=== PATIENT | male | born 1965 | race Caucasian/White ===

== ENCOUNTER 2016-04-28 14:10 | Inpatient (IN) | payer OTHER ==
[~2016-04-28] VITALS: Ht 167.6 cm; Wt 97.4 kg
[~2016-04-28 14:10] MED LIST: ATOR80TA75 PO; CARV6.2579 PO; FURO20TA3 PO; LISI-313 PO; METF500T4 PO; NATE60TA8 PO; NITR0.4T6 SL; TICA90TA PO
--- NOTE | 2016-04-28 14:47 | ERA ---
ER Documentation Chief Complaint Date/Time DATE: 04/28/16 TIME: 14:47 Chief Complaint Shortness of breath HPI The patient is a 50-year-old male, presenting to the ER because of acute dyspnea , acute dyspnea on exertion, leg edema for 1 week. He has similar symptoms previously. He denies fever, chills, neck pain, chest pain, diaphoresis. He feels as if his abdomen is swollen, denies vomiting, diarrhea, dysuria, polyuria. He does not smoke, drink Past medical history: Dyslipidemia, hypertension, diabetes mellitus, CAD, history of CHF, cardiomyopathy with low EF of 25% Past surgical history: Stent PCI 5, last stent was January 12, 2006 ROS All systems reviewed and are negative except as per history of present illness. Medications Home Meds Active Scripts Carvedilol* (Carvedilol*) 6.25 Mg Tablet, 6.25 MG PO BID for 30 Days, TAB 2 [facility]/16/16 Furosemide* (Furosemide*) 20 Mg Tablet, 20 MG PO DAILY for 14 Days, TAB [facility] 01/16/16 Lisinopril* (Lisinopril*) 5 Mg Tablet, 5 MG PO DAILY, #30 TAB 2 [facility] 01/16/16 Metformin* (Glucophage*) 500 Mg Tab, 500 MG PO BID for 30 Days, 2 Refills [facility] 01/16/16 Nateglinide* (Starlix*) 60 Mg Tablet, 60 MG PO DAILY for 30 Days, 2 Refills [facility] 01/16/16 Reported Medications Isosorbide Mononitrate (Isosorbide Mononitrate) 10 Mg Tablet, 10 MG PO BID, TAB 04/28/16 Clopidogrel Bisulfate* (Clopidogrel Bisulfate*) 75 Mg Tablet, 75 MG PO DAILY, # 30 TAB 04/28/16 Cholecalciferol (Vitamin D3) 5,000 Unit Tablet, 5000 UNIT PO DAILY, TAB 04/28/16 Aspirin* (Aspirin* EC) 325 Mg Tab, 325 MG PO DAILY, TAB 04/28/16 Atorvastatin* (Atorvastatin*) 80 Mg Tablet, 80 MG PO QHS, #30 TAB 1/24/17 Discontinued Scripts Atorvastatin* (Atorvastatin*) 80 Mg Tablet, 80 MG PO DAILY@21 for 30 Days, TAB 2 Refills Prov:MEL ANDREWS. 01/16/16 Ticagrelor* (Brilinta*) 90 Mg Tablet, 90 MG PO BID for 30 Days, TAB 2 Refills Prov:MEL ANDREWS. 01/16/16 Nitroglycerin* (Nitroglycerin* SL) 0.4 Mg Tab.subl, 0.4 MG SL Q5MIN Y for CHEST PAIN for 30 Days, BOTTLE 2 Refills Prov:CLIFF ROONEY. 04/24/14 Allergies Allergies: Coded Allergies: No Known Allergies (Verified Allergy, Unknown, 04/28/16) PMhx/Soc History of Surgery: Yes (HEART CATHETERIZATION) Anesthesia Reaction: No Hx Neurological Disorder: No Hx Respiratory Disorders: No Hx Cardiac Disorders: Yes (HTN) Hx Psychiatric Problems: No Hx Miscellaneous Medical Probl: No Hx Alcohol Use: Yes (OCASSIONALLY) Hx Substance Use: No Hx Tobacco Use: No Physical Exam Vitals Vital Signs Date Time Temp Pulse Resp B/P Pulse Ox O2 Delivery O2 Flow Rate FiO2 04/28/16 14:52 98.6 110 22 149/120 98 Room Air 04/28/16 14:15 97.6 119 24 174/111 98 Physical Exam Const: No acute distress. Head: Atraumatic. Eyes: Normal Conjunctiva. ENT: Normal External Ears, Nose and Mouth. Neck: Full range of motion. No meningismus. Resp: Bibasilar crackles Cardio: Regular rate and rhythm, no murmurs. Abd: Soft, non distended, normal bowel sounds, non tender. Skin: No petechiae or rashes. Back: No midline or flank tenderness. Ext: Bilateral leg edema, no calf tenderness Neur: Awake and alert. No focal deficit Psych: Normal Mood and Affect. Result Diagram: 04/28/16 1450 04/28/16 1450 Results 24 hrs Laboratory Tests Test 04/28/16 14:50 04/28/16 16:30 Activated Partial Thromboplast Time 32.0Sec Alanine Aminotransferase (ALT/SGPT) 26IU/L Albumin 4.1g/dl Albumin/Globulin Ratio 1.24 Alkaline Phosphatase 80IU/L Anion Gap 18 Aspartate Amino Transf (AST/SGOT) 21IU/L B-Type Natriuretic Peptide 53781MF/ML Basophils # 0.010^3/ul Basophils % 0.5% Blood Morphology Comment Blood Urea Nitrogen 22mg/dl Calcium Level 9.2mg/dl Carbon Dioxide Level 22mmol/L Chloride Level 105mmol/L Creatinine 1.41mg/dl Direct Bilirubin 0.00mg/dl Eosinophils # 0.110^3/ul Eosinophils % 1.1% Globulin 3.30g/dl Glucose Level 181mg/dl Hematocrit 47.1% Hemoglobin 15.4g/dl INR International Normalized Ratio 1.12 Indirect Bilirubin 0.9mg/dl Lipase 106U/L Lymphocytes # 2.310^3/ul Lymphocytes % 24.5% Mean Corpuscular Hemoglobin 28.8pg Mean Corpuscular Hemoglobin Concent 32.8g/dl Mean Corpuscular Volume 87.7fl Mean Platelet Volume 8.3fl Monocytes # 0.910^3/ul Monocytes % 10.1% Neutrophils # 5.910^3/ul Neutrophils % 63.8% Nucleated Red Blood Cells # 0.010^3/ul Nucleated Red Blood Cells % 0.0/100WBC Platelet Count 97124^3/UL Potassium Level 4.4mmol/L Prothrombin Time 14.4Sec Prothrombin Time Ratio 1.1 Red Blood Count 5.3710^6/ul Red Cell Distribution Width 14.2% Sodium Level 141mmol/L Total Bilirubin 0.9mg/dl Total Protein 7.4g/dl Troponin I 0.041ng/ml White Blood Count 9.210^3/ul Urine Bilirubin NEGATIVE Urine Clarity CLEAR Urine Color LT. YELLOW Urine Glucose NEGATIVE% Urine Hemoglobin 2+ Urine Ketones NEGATIVE Urine Leukocyte Esterase NEGATIVE Urine Microscopic RBC 0-2/HPF Urine Microscopic WBC 0-2/HPF Urine Nitrite NEGATIVE Urine Specific [place] >=1.030 Urine Squamous Epithelial Cells RARE Urine Total Protein 4+ Urine Urobilinogen 0.2 E.U./dL Urine pH 5.5 Current Medications Medications (Trade) Dose Ordered Sig/Eva Route PRN Reason Start Time Stop Time Status Last Admin Dose Admin Furosemide (Lasix) 40 mg ONCE ONCE IV 04/28/16 17:00 04/28/16 17:01 DC Procedures/MDM EKG: Read by emergency physician Rate/Rhythm: Sinus tachycardia 114 beats per min QRS, ST, T-waves: No ST elevation, no T wave inversion, left atrial enlargement, LAD Impression: Abnormal EKG [place] [id number] Rad[facility] Main Line: [phone] DIAGNOSTIC IMAGING REPORT Patient: DAIJA MAYO : 1965 Age: 50 Sex: M MR #: [id number] DOS: 04/28/16 1544 Ordering MD: YOLANDE FUENTES MD Location: E/R Room/Bed: PROCEDURE: Chest x-ray CLINICAL INDICATION: Shortness of breath TECHNIQUE: Chest single view COMPARISON: 01/13/2016 FINDINGS: There is stable moderate cardiomegaly. Mild interstitial CHF is seen. No confluent pneumonias identified. Costophrenic angles sharp. Bony thorax is unremarkable. IMPRESSION: Cardiomegaly with mild interstitial CHF RPTAT: HH .Juan Hare MD, MD Date Time Electronically viewed and signed by .Juan Hare MD, MD on 04/28/2016 16:08 .W/ CC: YOLANDE FUENTES MD MEDICAL MAKING DECISION: The patient is a 50-year-old male, presenting with acute CHF exacerbation. He was treated Lasix 40 IV for acute CHF with good response. The differential diagnoses considered include but are not limited to asthma, COPD, pneumonia, pulmonary embolus, pleural effusion, congestive heart failure. Departure Diagnosis: Primary Impression: CHF exacerbation Condition: Stable Comments I discussed the findings with the patient. I discussed the patient with hospitalist Dr. Calvo who was made aware of the lab, the treatment, the patient condition. The patient is admitted to telemetry at 5:05 PM YOLANDE FUENTES MD Apr 28, 2016 14:47
[2016-04-28 15:02] LABS: BASOPHILS % 0.5 % (0.0-2.0); EOSINOPHILS # 0.1 10^3/ul (0.0-0.5); EOSINOPHILS % 1.1 % (0.0-7.0); HEMATOCRIT 47.1 % (42.0-52.0); HEMOGLOBIN 15.4 g/dl (14.0-18.0); LYMPHOCYTES # 2.3 10^3/ul (0.8-2.9); LYMPHOCYTES % 24.5 % (15.0-51.0); MEAN CORPUSCULAR HEMOGLOBIN 28.8 pg (29.0-33.0); MEAN CORPUSCULAR HGB CONC 32.8 g/dl (32.0-37.0); MEAN CORPUSCULAR VOLUME 87.7 fl (82.0-101.0); MEAN PLATELET VOLUME 8.3 fl (7.4-10.4); MONOCYTE # 0.9 10^3/ul (0.3-0.9); MONOCYTES % 10.1 % (0.0-11.0); NEUTROPHIL # 5.9 10^3/ul (1.6-7.5); NEUTROPHILS % 63.8 % (39.0-77.0); PLATELET COUNT 215 10^3/UL (140-440); RED BLOOD COUNT 5.37 10^6/ul (4.70-6.10); RED CELL DISTRIBUTION WIDTH 14.2 % (11.5-14.5); UNCORRECTED WBC 9.2 10^3/ul (4.8-10.8); WHITE BLOOD COUNT 9.2 10^3/ul (4.8-10.8)
[2016-04-28 15:12] LABS: INR 1.12; PROTIME 14.4 Sec (12.2-14.2); PT RATIO 1.1
[2016-04-28 15:13] LABS: ALBUMIN 4.1 g/dl (3.3-4.9)
[2016-04-28 15:14] LABS: POTASSIUM 4.4 mmol/L (3.5-5.1)
[2016-04-28 15:16] LABS: ALBUMIN/GLOBULIN RATIO 1.24; BILIRUBIN,INDIRECT 0.9 mg/dl (0-1.1); BILIRUBIN,TOTAL 0.9 mg/dl (0.2-1.3); CONDITION 1; CREATININE 1.41 mg/dl (0.61-1.24); TOTAL PROTEIN 7.4 g/dl (6.1-8.1)
[2016-04-28 15:17] LABS: CALCIUM 9.2 mg/dl (8.4-10.2)
[2016-04-28 15:29] LABS: TROPONIN-I 0.041 ng/ml (0.00-0.12)
[2016-04-28] MEDS ORDERED: ATOR80TA75 PO (15:33)
[2016-04-28] MEDS ORDERED: ASPI325T32 PO (15:34)
[2016-04-28] MEDS ORDERED: CLOP75TA4 PO (15:35)
[2016-04-28] MEDS ORDERED: CHOL500010 PO (15:35)
[2016-04-28] MEDS ORDERED: ISOS10TA45 PO (15:38)
--- NOTE | 2016-04-28 16:09 | RADRPT ---
PROCEDURE: Chest x-ray CLINICAL INDICATION: Shortness of breath TECHNIQUE: Chest single view COMPARISON: 01/13/2016 FINDINGS: There is stable moderate cardiomegaly. Mild interstitial CHF is seen. No confluent pneumonias iden tified. Costophrenic angles sharp. Bony thorax is unremarkable. IMPRESSION: Cardiomegaly with mild interstitial CHF RPTAT: HH .Juan Hare MD, Date Time Electronically viewed and signed by .Juan Hare MD, on 04/28/2016 16:08 .W/
[2016-04-28 16:55] LABS: ADD UMIC YES; URINE BILIRUBIN (Dip) NEGATIVE (NEGATIVE); URINE BLOOD (Dip) 2+ (NEGATIVE); URINE COLOR LT. YELLOW (YELLOW); URINE GLUCOSE (Dip) NEGATIVE (NEGATIVE); URINE KETONES (Dip) NEGATIVE (NEGATIVE); URINE LEUKOCYTE ESTERASE (Dip) NEGATIVE (NEGATIVE); URINE NITRITE (Dip) NEGATIVE (NEGATIVE); URINE TOTAL PROTEIN (Dip) 4+ (NEGATIVE); URINE UROBILINOGEN (Dip) 0.2 E.U./dL (0.1-1.0)
[2016-04-28] MEDS ORDERED: FUROSEMIDE 40 MG INJ IV ONE (17:00)
[2016-04-28 17:05] LABS: SQUAMOUS EPITHELIAL CELL,UR RARE; URINE RBCS 0-2 /HPF (0)
[2016-04-28 17:17] VITALS: TEMP 98.6
[2016-04-28] MEDS ORDERED: LORAZEPAM 0.5 MG TAB PO PRN (17:30)
[2016-04-28] MEDS ORDERED: NACL 0.9% 3 ML SYG IV SCH (17:30)
[2016-04-28] MEDS ORDERED: ONDANSETRON 4 MG TAB PO PRN (17:30)
[2016-04-28] MEDS ORDERED: ACETAMINOPHEN 325 MG TAB PO PRN (17:30)
[2016-04-28] MEDS ORDERED: NITROGLYCERIN (SL) 0.4 MG TAB SL PRN (17:30)
[2016-04-28] MEDS ORDERED: DOCUSATE SODIUM 100 MG CAP PO PRN (17:30)
[2016-04-28] MEDS ORDERED: GLUCAGON 1 MG INJ IM PRN (18:00)
[2016-04-28] MEDS ORDERED: DEXTROSE 50% 50 ML SYRINGE IV PRN ×2 (18:00)
[2016-04-28] MEDS ORDERED: GLUCOSE GEL 15 GRAM TUBE PO PRN ×2 (18:00)
[2016-04-28] MEDS ORDERED: GLUCOSE GEL 15 GRAM TUBE BUCCAL PRN (18:00)
[2016-04-28 19:55] LABS: CK-MB 2.6 ng/ml (0.0-2.4)
[2016-04-28 19:57] LABS: TROPONIN-I 0.052 ng/ml (0.00-0.12)
--- NOTE | 2016-04-28 20:20 | HP ---
DATE OF ADMISSION: 04/28/2016 CONSULTANTS: 1. Nuclear Medical Technologist. 2. Beer Runner. CHIEF COMPLAINT: Shortness of breath. HISTORY OF PRESENT ILLNESS: This is a 50-year-old gentleman with past medical history of congestive heart failure, coronary artery disease, cardiomyopathy with ejection fraction of 25% on 2D echocard iogram of 01/14/2016, coronary artery disease status post balloon angioplasty and stent placement of the mid left circumflex with drug-eluting stent on 01/13/2016, diabetes mellitus, hypertension, dys lipidemia, chronic renal insufficiency, diabetic nephropathy who has been complaining of having abdo hien distention, shortness of breath, paroxysmal nocturnal dyspnea, and difficulty ambulating great er than 2 blocks secondary to shortness of breath who presents to [facility] with the above complaints. The patient stated that he has been compliant with his medication. Upon eval uation in the course of emergency room, the patient's chest x-ray demonstrated cardiomegaly with mil d interstitial CHF. His BNP was found to be 12,200. Creatinine 1.41, BUN 22. Troponin is normal a t 0.041. The patient continues to complain of having shortness of breath with any type of activity for the past week with exacerbation and worsening of symptoms for the past 2 days. PAST MEDICAL AND SURGICAL HISTORY: As above per HPI. MEDICATIONS: 1. Aspirin 325 mg daily. 2. Lipitor 80 mg. 3. Coreg 6.25 mg. 4. Vitamin D 5000 units. 5. Plavix 75 mg. 6. Lasix 20 mg daily. 7. Isosorbide mononitrate 10 mg b.i.d. 8. Lisinopril 5 mg daily. 9. Metformin 500 mg p.o. b.i.d. 10. Starlix 60 mg p.o. daily. ALLERGIES: NO KNOWN DRUG ALLERGIES. FAMILY HISTORY: Positive for hypertension, diabetes mellitus, dyslipidemia. SOCIAL HISTORY: Denies having any history of smoking. He drinks only on special occasions. No ill icit drugs. Lives at home with his family. REVIEW OF SYSTEMS: As above per HPI. Denies any fever, chills, weight gain, weight loss, anorexia. No chest pain, no palpitation. Positive for edema. Positive for abdominal distention. Positive for shortness of breath, lower extremity edema. Positive for paroxysmal nocturnal dyspnea. No dysu cody, hematuria, urgency, incontinence. No neck pain, no restricted range of motion in upper or lowe r extremities. No heat and cold intolerance. Other 12 review of systems has been found to be negat hortensia. PHYSICAL EXAMINATION: VITAL SIGNS: Temperature 98.6, pulse 100, respiration 22, blood pressure 145/107, oxygen 98% on 2 l iters via nasal cannula. GENERAL APPEARANCE: The patient is lying in bed comfortably without any distress. He is awake, jazmine rt, oriented. He is able to answer my questions properly. He is not using any accessory muscles fo r breathing. EYES AND EARS, NOSE, THROAT: Conjunctivae and lids are normal. Pupils are normal. Extraocular nor mal. Hearing grossly normal. Lips, teeth, and gums are normal. Oral mucosa is moist. NECK: Supple. Trachea is midline. No lymphadenopathy. RESPIRATORY: Effort is normal. Decreased breath sounds bilateral lower lung john. Positive for crackles. No wheezing, no rales, no rhonchi. GASTROINTESTINAL: Abdomen is soft, nontender, not distended. Bowel sounds present. No guarding, n o rebound. GENITOURINARY: Deferred. MUSCULOSKELETAL: Upper and lower extremities within normal limits. Positive 1 edema bilateral lowe r extremities. NEUROLOGIC: Cranial nerves II through XII are grossly intact. PSYCHIATRIC: Normal judgment and insight. Alert and oriented x3. Mood and affect is normal. LABORATORY WORK AND IMAGING: Sodium 141, potassium 4.4, chloride 105, bicarbonate 22, BUN 22, creat inine 1.41, glucose 181. LFTs all within normal limits. BNP 12,200. Troponin 0.041. WBC 9.8, hem oglobin 15.4, hematocrit 47.1, platelets 215. Urinalysis negative. Urine hemoglobin positive 2, to leigh protein positive 4, otherwise negative for RBC, WBC, leukocyte esterase. EKG showed sinus tachy cardia with ventricular rate of 114, no ST elevation, no T-wave inversion, left atrial enlargement, LAD, no sign of ST elevation or depression, no sign of ischemia. ASSESSMENT AND PLAN: 1. Congestive heart failure exacerbation with a history of coronary artery disease and percutaneous coronary intervention with last 2D echocardiogram on 01/2016 ejection fraction of 25%. The patient will be continued on beta-vicky, Lasix, and lisinopril. Cardiology has been consulted. Will fol low their recommendation. Continue diuresis. 2. History of coronary artery disease. Continue statin, Coreg, aspirin. Follow up serial troponin . 3. Diabetes mellitus. Place the patient on insulin sliding scale. Continue metformin, Starlix, lo w carb diet. 4. Essential hypertension. Continue Coreg, Lasix, isosorbide mononitrate, and lisinopril. 5. Diabetic nephropathy. Nephrology has been consulted. Continue lisinopril. Continue to monitor glucose level and treat accordingly. 6. Acute renal insufficiency. The patient's renal panel at baseline is between 0.7 to 1.10. At th is time, the patient's creatinine is 1.41. We will follow up nephrology recommendation, gentle diur esis, and nephrotoxic medication should be used with caution. 7. For deep venous thrombosis prophylaxis, on Lovenox. 8. For gastrointestinal prophylaxis, on proton pump inhibitor. 9. We will continue to monitor patient closely. Further recommendations, management, and treatment as per clinical course. Total amount of time was spent for evaluation of patient and admission workup 45 minutes. Dictated By: CARLOS MANUEL BLANCO/NTS Conf#: [id number] DID#: [id number]
[2016-04-28] MEDS: FUROSEMIDE 20 MG INJ IV SCH (20:58)
[2016-04-28] MEDS ORDERED: ISOSORBIDE MONONITRATE 10 MG TABLET PO SCH (21:00)
[2016-04-28] MEDS: INSULIN ASPART [NOVOLOG] 3 ML PEN SC SCH ×2 (21:00→21:26)
[2016-04-28] MEDS: ATORVASTATIN 80 MG TAB PO SCH (21:19)
[2016-04-28] MEDS: ISOSORBIDE MONONITRATE 20 MG TAB PO SCH (21:20)
[2016-04-28 21:54] VITALS: PULSE 100
[2016-04-28 22:00] VITALS: BP 146/95; RESP 20
[2016-04-28 22:29] VITALS: Ht 167.6 cm; Wt 97.4 kg
[2016-04-29] VITALS (13 sets, daily range): BP systolic 106–138; BP diastolic 73–90; PULSE 72–86; RESP 20–21
[2016-04-29 00:28] LABS: TROPONIN-I 0.05 ng/ml (0.00-0.12)
[2016-04-29 00:38] LABS: CK-MB 2.22 ng/ml (0.0-2.4)
[2016-04-29] MEDS: FUROSEMIDE 20 MG INJ IV SCH ×2 (06:14→17:30)
[2016-04-29] MEDS: INSULIN ASPART [NOVOLOG] 3 ML PEN SC SCH ×4 (07:48→21:00)
[2016-04-29 08:13] LABS: BASOPHILS % 0.7 % (0.0-2.0); EOSINOPHILS # 0.3 10^3/ul (0.0-0.5); EOSINOPHILS % 4.6 % (0.0-7.0); HEMATOCRIT 42.2 % (42.0-52.0); HEMOGLOBIN 13.9 g/dl (14.0-18.0); LYMPHOCYTES # 1.7 10^3/ul (0.8-2.9); LYMPHOCYTES % 27.8 % (15.0-51.0); MEAN CORPUSCULAR HEMOGLOBIN 28.7 pg (29.0-33.0); MEAN CORPUSCULAR HGB CONC 32.9 g/dl (32.0-37.0); MEAN CORPUSCULAR VOLUME 87.2 fl (82.0-101.0); MEAN PLATELET VOLUME 8.5 fl (7.4-10.4); MONOCYTE # 0.6 10^3/ul (0.3-0.9); MONOCYTES % 10.5 % (0.0-11.0); NEUTROPHIL # 3.5 10^3/ul (1.6-7.5); NEUTROPHILS % 56.4 % (39.0-77.0); PLATELET COUNT 186 10^3/UL (140-440); RED BLOOD COUNT 4.84 10^6/ul (4.70-6.10); RED CELL DISTRIBUTION WIDTH 14.8 % (11.5-14.5); UNCORRECTED WBC 6.2 10^3/ul (4.8-10.8); WHITE BLOOD COUNT 6.2 10^3/ul (4.8-10.8)
[2016-04-29] MEDS: ENOXAPARIN 40 MG/0.4 ML SYG SC SCH (08:21)
[2016-04-29] MEDS: CLOPIDOGREL 75 MG TAB PO SCH (08:21)
[2016-04-29] MEDS: CHOLECALCIFEROL 1,000 UNIT TAB PO SCH (08:21)
[2016-04-29] MEDS: ISOSORBIDE MONONITRATE 20 MG TAB PO SCH ×2 (08:22→21:17)
[2016-04-29] MEDS: metFORMIN 500 MG TAB PO SCH ×2 (08:23→17:29)
[2016-04-29] MEDS: LISINOPRIL 5 MG TAB PO SCH (08:24)
[2016-04-29 08:25] LABS: POTASSIUM 4.2 mmol/L (3.5-5.1)
[2016-04-29 08:27] LABS: CREATININE 1.3 mg/dl (0.61-1.24)
[2016-04-29 08:28] LABS: CALCIUM 8.8 mg/dl (8.4-10.2); MAGNESIUM 1.6 mg/dl (1.7-2.5)
[2016-04-29 08:34] LABS: CK-MB 2.02 ng/ml (0.0-2.4); TROPONIN-I 0.044 ng/ml (0.00-0.12)
[2016-04-29 08:37] LABS: CONDITION 1; LH ANALYZER COMMENTS 1
[2016-04-29] MEDS ORDERED: FUROSEMIDE 20 MG TAB PO SCH (09:00)
[2016-04-29] MEDS ORDERED: ASPIRIN (EC) 325 MG TAB PO SCH (09:00)
[2016-04-29] MEDS ORDERED: NATEGLINIDE 60 MG TAB PO SCH (09:00)
--- NOTE | 2016-04-29 10:02 | RADRPT ---
PROCEDURE: Retroperitoneal US. CLINICAL INDICATION: fernanda TECHNIQUE: Multiple sonographic images of the retroperitoneum were obtained. The images were revi ewed on a PACS workstation. COMPARISON: No prior studies are available for comparison. FINDINGS: The right kidney measures 11.6 cm. The left kidney measures 9.5 cm. There is left renal cortical thi nning of approximately 1 cm. There is no significant renal cortical thinning on the right. The renal parenchymal echotexture is normal. There is no hydronephrosis. There are no shadowing renal calculi. The bladder is grossly unremarkable. IMPRESSION: Asymmetric atrophy of the left kidney without significantly increased renal parenchymal echogenicity to suggest medical renal disease. The bladder is grossly unremarkable. RPTAT: EE Physician Ena Date Time Electronically viewed and signed by Physician Ena on 04/29/2016 10:02 /
--- NOTE | 2016-04-29 10:19 | CONS ---
DATE OF ADMISSION: 04/28/2016 DATE OF CONSULTATION: 04/29/2016 TYPE OF CONSULTATION: Nephrology. REASON FOR CONSULTATION: Acute kidney injury. PHYSICIAN REQUESTING CONSULT: Dr. Calvo. HISTORY OF PRESENT ILLNESS: This is a 50-year-old male with a past medical history of CHF, cardiomy opathy with ejection fraction of 25%, history of coronary artery disease, status post percutaneous c oronary intervention to left circumflex in January 2016, history of diabetes, hypertension, dyslipid emia, history of CKD with baseline creatinine around 1.1 mg/dL, who presents to [facility] with shortness of breath and abdominal distention. The patient states over the last severa l days she has noted increasing dyspnea on exertion in conjunction with paroxysmal nocturnal dyspnea . The patient's symptoms exacerbated after walking several feet. This patient as a result came int o the emergency room for evaluation. Upon arrival, the patient had a chest x-ray which showed cardi omegaly with interstitial CHF. In the emergency room, the patient was given IV diuretics and admitt ed to telemetry med/surg for further evaluation. In terms of the patient's renal history, the patient's baseline creatinine ranges between 1.0 to 1.2 mg/dL. The patient does take an URSULA inhibitor and diuretics at home. The patient denies any recen t NSAID use. Denies any hemoptysis, hematochezia, denies any frothy urine, any rashes. PAST MEDICAL HISTORY: As stated above, history of CHF, coronary artery disease, chronic kidney dise ase, cardiomyopathy, diabetes, hypertension, dyslipidemia. PAST SURGICAL HISTORY: Status post PCI. ALLERGIES: NO KNOWN DRUG ALLERGIES. FAMILY HISTORY: Positive for diabetes, hypertension. MEDICATIONS: The patient's medications have been reviewed. SOCIAL HISTORY: Does not drink or smoke. REVIEW OF SYSTEMS: A 14-point review of systems was conducted. Pertinent positives as stated in HP I, otherwise negative. PHYSICAL EXAMINATION: VITAL SIGNS: Blood pressure is 113/82, respirations 20, pulse 74, temperature 97.6. HEENT: Head is normocephalic. Pupils are reactive to light. NECK: Supple. HEART: Regular rate. LUNGS: Show diminished breath sounds at base. ABDOMEN: Soft, nontender to palpation. No rebound or guarding. EXTREMITIES: Negative for clubbing, cyanosis. Trace edema. DERMATOLOGIC: No rashes. MUSCULOSKELETAL: No joint effusions. NEUROLOGIC: No change in exam. MEDICATIONS: The patient's medications reviewed. LABORATORY DATA: Shows sodium 141, potassium 4.4, chloride 105, BUN 32, creatinine 1.41. BNP 12,00 0 and CBC within normal limits. The patient's urinalysis also shows +4 proteinuria. Chest x-ray as stated in HPI. ASSESSMENT AND PLAN: This is a 58-year-old male who presents with: 1. Nonoliguric acute kidney injury on top of chronic kidney disease stage III with a baseline creat inine of 1 to 1.2 mg/dL. Etiology of acute kidney injury is likely secondary to a hemodynamics, pos sible cardiorenal syndrome, URSULA inhibitor effect. The patient's urinalysis shows +4 proteinuria, bu t otherwise shows no pyuria, no hematuria. Therefore, low suspicion for acute glomerulonephritis, v asculitis or interstitial nephritis. The plan at this point would be to continue current treatment plan, continue diuretic therapy disease for underlying CHF. Would agree with continuing URSULA inhibit or at this time. We will further evaluate the patient's proteinuria by checking a protein/creatinin e ratio, albumin creatinine ratio. We will also check a renal ultrasound to evaluate underlying par enchymal and rule out obstruction. Otherwise, continue supportive care, renally dose all meds, avoi d nephrotoxins. 2. Chronic kidney disease. Etiology secondary to underlying diabetic nephropathy. The patient's u rinalysis does show proteinuria. Plan is to treat acute kidney injury as stated above. Rule out ot herwise quantified proteinuria by checking a protein/creatinine ratio, albumin/creatinine ratio and follow up renal ultrasound. Would otherwise continue disease, factor modifications with good glycem ic and blood pressure control. 3. Acute diastolic systolic heart failure. The patient is currently decompensated. Continue medic al management, monitor renal function closely. 4. Mineral bone disorder. Continue to monitor calcium and phosphorus levels. 5. Hypertension. Continue current blood pressure regimen. 6. History of coronary artery disease. Continue current medical management. 7. Diabetes. Continue Accu-Cheks, insulin sliding scale. Thank you, Dr. Calvo for this interesting consult. It will be a pleasure to follow patient with you throughout the hospital course. Dictated By: CHUCK NUNEZ/MAX Conf#: [id number] [facility]#: [id number]
[2016-04-29] MEDS: NATEGLINIDE 120 MG TAB PO SCH (10:21)
--- NOTE | 2016-04-29 14:40 | PN ---
Date/Time of Note Date/Time of Note DATE: 04/29/16 TIME: 14:35 Assessment/Plan VTE Prophylaxis VTE Prophylaxis Intervention: LMWH Lines/Catheters IV C[facility]ter Type (from [facility] Urinary Cath still in place: No Assessment/Plan Assessment/Plan 1. Congestive heart failure exacerbation, ischemic cardiomyopathy with ejection fraction of 25% in 01/2016. continue on beta-vicky, Lasix, and lisinopril. 2. Coronary artery disease. s/p PCI, Continue statin, Coreg, aspirin. 3. Diabetes mellitus. Place the patient on insulin sliding scale. Continue metformin, Starlix, low carb diet. 4. Essential hypertension. Continue Coreg, Lasix, isosorbide mononitrate, and lisinopril. 5. Diabetic nephropathy. Nephrology has been consulted. Continue lisinopril. Continue to monitor glucose level and treat accordingly. 6. Acute renal insufficiency. The patient's renal panel at baseline is between 0.7 to 1.10. At this time, the patient's creatinine is 1.41. We will follow up nephrology recommendation, gentle diuresis, and nephrotoxic medication should be used with caution. 7. For deep venous thrombosis prophylaxis, on Lovenox. 8. For gastrointestinal prophylaxis, on proton pump inhibitor Subjective 24 Hr Interval Summary Free Text/Dictation feels better today Exam/Review of Systems Vital Signs Vitals Vital Signs Date Time Temp Pulse Resp B/P Pulse Ox O2 Delivery O2 Flow Rate FiO2 04/29/16 12:37 85 04/29/16 12:00 98.7 20 116/73 98 04/29/16 08:00 Nasal Cannula 2.0 Intake and Output 04/28/16 04/28/16 04/29/16 15:00 23:00 07:00 Intake Total 420 ml Output Total 500 ml 900 ml Balance -500 ml -480 ml Exam Constitutional: alert, oriented, well developed Psych: nl mood/affect, no complaints Head: atraumatic, normocephalic Eyes: EOMI, PERRL, nl conjunctiva, nl lids, nl sclera ENMT: nl external ears & nose, nl lips & teeth, nl nasal mucosa & septum Neck: non-tender, supple Respiratory: crackles/rales (on the back ) Cardiovascular: nl pulses, regular rate and rhythm, No S3, No S4, No bruits, No diastolic murmur, No edema, No gallop, No irregular rhythm, No jugular venous distention (JVD), No murmurs/extra sounds, No rub, No systolic murmur Gastrointestinal: nl liver, spleen, non-tender, soft, No ascites, No bowel sounds, No distended, No firm, No hepatomegaly, No mass , No rebound or guarding, No splenomegaly, No surgical scars, No tender Musculoskeletal: nl extremities to inspection Neurological: [employer] II-XII intact, nl mental status, nl speech, nl strength Skin: nl turgor, rash or lesions Lymph: nl lymph nodes Results Result Diagram: 04/29/16 0702 04/29/16 0700 Results 24 hrs Laboratory Tests Test 04/28/16 14:50 04/28/16 16:30 04/28/16 19:20 04/28/16 21:26 Activated Partial Thromboplast Time 32.0 Alanine Aminotransferase (ALT/SGPT) 26 Albumin 4.1 Albumin/Globulin Ratio 1.24 Alkaline Phosphatase 80 Anion Gap 18 H Aspartate Amino Transf (AST/SGOT) 21 B-Type Natriuretic Peptide 55771 H Basophils # 0.0 Basophils % 0.5 Blood Morphology Comment Blood Urea Nitrogen 22 H Calcium Level 9.2 Carbon Dioxide Level 22 Chloride Level 105 Creatinine 1.41 H Direct Bilirubin 0.00 Eosinophils # 0.1 Eosinophils % 1.1 Globulin 3.30 H Glucose Level 181 Hematocrit 47.1 Hemoglobin 15.4 INR International Normalized Ratio 1.12 Indirect Bilirubin 0.9 Lipase 106 Lymphocytes # 2.3 Lymphocytes % 24.5 Mean Corpuscular Hemoglobin 28.8 L Mean Corpuscular Hemoglobin Concent 32.8 Mean Corpuscular Volume 87.7 Mean Platelet Volume 8.3 Monocytes # 0.9 Monocytes % 10.1 Neutrophils # 5.9 Neutrophils % 63.8 Nucleated Red Blood Cells # 0.0 Nucleated Red Blood Cells % 0.0 Platelet Count 215 Potassium Level 4.4 Prothrombin Time 14.4 H Prothrombin Time Ratio 1.1 Red Blood Count 5.37 Red Cell Distribution Width 14.2 Sodium Level 141 Total Bilirubin 0.9 Total Protein 7.4 Troponin I 0.041 0.052 White Blood Count 9.2 Urine Bilirubin NEGATIVE Urine Clarity CLEAR Urine Color LT. YELLOW Urine Glucose NEGATIVE Urine Hemoglobin 2+ H Urine Ketones NEGATIVE Urine Leukocyte Esterase NEGATIVE Urine Microscopic RBC 0-2 Urine Microscopic WBC 0-2 Urine Nitrite NEGATIVE Urine Specific [place] >=1.030 H Urine Squamous Epithelial Cells RARE Urine Total Protein 4+ H Urine Urobilinogen 0.2 E.U./dL Urine pH 5.5 Creatine Kinase 82 Creatine Kinase Index 3.2 Creatinine Kinase MB (Mass) 2.60 H Bedside Glucose 117 Test 04/28/16 22:45 04/28/16 23:42 04/29/16 07:00 04/29/16 07:02 Bedside Glucose 117 Creatine Kinase 62 53 Creatine Kinase Index 3.6 3.8 Creatinine Kinase MB (Mass) 2.22 2.02 Troponin I 0.050 0.044 Anion Gap 16 Blood Urea Nitrogen 20 Calcium Level 8.8 Carbon Dioxide Level 27 Chloride Level 103 Creatinine 1.30 H Glucose Level 114 # Magnesium Level 1.6 L Potassium Level 4.2 Sodium Level 142 Basophils # 0.0 Basophils % 0.7 Blood Morphology Comment Eosinophils # 0.3 Eosinophils % 4.6 Hematocrit 42.2 Hemoglobin 13.9 L Lymphocytes # 1.7 Lymphocytes % 27.8 Mean Corpuscular Hemoglobin 28.7 L Mean Corpuscular Hemoglobin Concent 32.9 Mean Corpuscular Volume 87.2 Mean Platelet Volume 8.5 Monocytes # 0.6 Monocytes % 10.5 Neutrophils # 3.5 Neutrophils % 56.4 Nucleated Red Blood Cells # 0.0 Nucleated Red Blood Cells % 0.0 Platelet Count 186 Red Blood Count 4.84 Red Cell Distribution Width 14.8 H White Blood Count 6.2 # Test 04/29/16 07:45 04/29/16 12:10 Bedside Glucose 112 144 Medications Medications Current Medications Aspirin (Ecotrin) 325 mg DAILY PO Last administered on 04/29/16 08:22; Admin Dose 325 MG; Start 04/29/16 at 09:00 Atorvastatin Calcium (Lipitor) 80 mg QHS PO Last administered on 04/28/16 21: 19; Admin Dose 80 MG; Start 04/28/16 at 21:00 Carvedilol (Coreg) 6.25 mg BID PO Last administered on 04/29/16 08:23; Admin Dose 6.25 MG; Start 04/28/16 at 21:00 Cholecalciferol (Vitamin D) 5,000 unit DAILY PO Last administered on 04/29/16 08:21; Admin Dose 5,000 UNIT; Start 04/29/16 at 09:00 Clopidogrel Bisulfate (plaVIX) 75 mg DAILY PO Last administered on 04/29/16 08 :21; Admin Dose 75 MG; Start 04/29/16 at 09:00 Lisinopril (Zestril) 5 mg DAILY PO Last administered on 04/29/16 08:24; Admin Dose 5 MG; Start 04/29/16 at 09:00 Lorazepam (Ativan) 0.5 mg Q8H PRN PO ANXIETY; Start 04/28/16 at 17:30 Ondansetron HCl (Zofran Tab) 4 mg Q6H PRN PO NAUSEA AND/OR VOMITING; Start at 17:30 Nitroglycerin (Nitroglycerin (Sl Tab) 0.4 Mg) 1 tab Q5M PRN SL CHEST PAIN; Start 04/28/16 at 17:30 Acetaminophen (Tylenol Tab) 650 mg Q6H PRN PO PAIN LEVEL 1-3 OR FEVER; Start at 17:30 Docusate Sodium (Colace) 100 mg Q12H PRN PO CONSTIPATION; Start 04/28/16 at 17: 30 Enoxaparin Sodium (Lovenox) 40 mg DAILY SC Last administered on 04/29/16 08:21 ; Admin Dose 40 MG; Start 04/29/16 at 09:00 Miscellaneous Information 1 ea NOTE XX ; Start 04/28/16 at 18:00 Glucose (Glutose) 15 gm Q15M PRN PO DECREASED GLUCOSE; Start 04/28/16 at 18:00 Glucose (Glutose) 22.5 gm Q15M PRN PO DECREASED GLUCOSE; Start 04/28/16 at 18: 00 Dextrose (D50w Syringe) 25 ml Q15M PRN IV DECREASED GLUCOSE; Start 04/28/16 at 18:00 Dextrose (D50w Syringe) 50 ml Q15M PRN IV DECREASED GLUCOSE; Start 04/28/16 at 18:00 Glucagon (Glucagen) 1 mg Q15M PRN IM DECREASED GLUCOSE; Start 04/28/16 at 18:00 Glucose (Glutose) 15 gm Q15M PRN BUCCAL DECREASED GLUCOSE; Start 04/28/16 at 18 :00 Isosorbide Mononitrate (Ismo) 10 mg BID PO Last administered on 04/29/16 08:22 ; Admin Dose 10 MG; Start 04/28/16 at 21:00 Nateglinide (Starlix) 60 mg DAILY PO Last administered on 04/29/16t 10:21; Admin Dose 60 MG; Start 04/29/16 at 09:00 OMAIRA BELTRAN MD Apr 29, 2016 14:40
--- NOTE | 2016-04-29 18:19 | CONS ---
Date/Time of Note Date/Time of Note DATE: 04/29/16 TIME: 18:06 Assessment/Plan Assessment/Plan Chief Complaint/Hosp Course Assessment: Acute on chronic systolic heart failure Ischemic cardiomyopathy, LVEF 25% Coronary artery disease - STEMI January 2016 with unsuccessful attempt at intervention of distal LAD stent thrombosis and successful balloon angioplasty and stent placement of the mid circumflex with a Promus Premier 3.0 x 16mm drug- eluting stent, the other vessels did not have significant disease Acute kidney injury on chronic kidney disease Hypertension Dyslipidemia Diabetes mellitus History of medication noncompliance Recommendations: -continue diuresis - on Lasix 20mg IV BID -continue carvedilol 6.25mg BID, Imdur -holding URSULA inhibitor, resume when renal function stabilizes -continue aspirin at 81mg daily and clopidogrel 75mg daily -continue atorvastatin 80mg daily Problems: Consultation Date/Type/Reason Admit Date/Time Apr 28, 2016 at 22:01 Type of Consultation: Cardiology Reason for Consultation congestive heart failure Referring Provider: CARLOS MANUEL PHILLIPS MD Hx of Present Illness The patient is a 50 year-old male with chronic systolic heart failure who presented with a one week history of shortness of breath, abdominal distension, and lower extremity edema. He has a history of medical noncompliance, but reports that he had been recently compliant. His chest x-[place] [address], consistent with decompensated heart failure. He was recently hospitalized at [facility] January [address]-elevation myocardial infarction. He had unsuccessful attempt at intervention of distal LAD stent thrombosis and successful balloon angioplasty and stent placement of the mid circumflex with a Promus Premier 3.0 x 16mm drug- eluting stent. The other vessels did not have significant disease. 14 point review of systems negative other than per HPI. Psychological: nl mood/affect, no complaints Past Medical History Chronic systolic heart failure Ischemic cardiomyopathy, LVEF 25% Coronary artery disease - STEMI January 2016 with unsuccessful attempt at intervention of distal LAD stent thrombosis and successful balloon angioplasty and stent placement of the mid circumflex with a Promus Premier 3.0 x 16mm drug- eluting stent, the other vessels did not have significant disease Hypertension Dyslipidemia Diabetes mellitus History of medication noncompliance Family History Significant Family History: diabetes, hypertension Social History Alcohol Use: occasionally Smoking Status: Never smoker Drug Use: none Exam/Review of Systems Vital Signs Vitals Vital Signs Date Time Temp Pulse Resp B/P Pulse Ox O2 Delivery O2 Flow Rate FiO2 04/29/16 16:25 83 04/29/16 16:00 97.4 20 116/80 97 04/29/16 08:00 Nasal Cannula 2.0 Intake and Output 04/28/16 04/28/16 04/29/16 15:00 23:00 07:00 Intake Total 420 ml Output Total 500 ml 900 ml Balance -500 ml -480 ml Exam Constitutional: alert, well developed Psych: nl mood/affect, no complaints Head: atraumatic, normocephalic Eyes: nl conjunctiva, nl lids ENMT: nl external ears & nose, nl nasal mucosa & septum Neck: jvd, non-tender, supple Respiratory: crackles/rales, diminished breath sounds Cardiovascular: regular rate and rhythm Gastrointestinal: non-tender, soft Musculoskeletal: nl extremities to inspection Extremities: edema, No clubbing, No cyanosis Results Result Diagram: 04/29/16 0702 04/29/16 0700 Results 24 hrs Laboratory Tests Test 04/28/16 19:20 04/28/16 21:26 04/28/16 22:45 04/28/16 23:42 Creatine Kinase 82 62 Creatine Kinase Index 3.2 3.6 Creatinine Kinase MB (Mass) 2.60 H 2.22 Troponin I 0.052 0.050 Bedside Glucose 117 117 Test 04/29/16 07:00 04/29/16 07:02 04/29/16 07:45 04/29/16 12:10 Anion Gap 16 Blood Urea Nitrogen 20 Calcium Level 8.8 Carbon Dioxide Level 27 Chloride Level 103 Creatinine 1.30 H Glucose Level 114 # Magnesium Level 1.6 L Potassium Level 4.2 Sodium Level 142 Basophils # 0.0 Basophils % 0.7 Blood Morphology Comment Creatine Kinase 53 Creatine Kinase Index 3.8 Creatinine Kinase MB (Mass) 2.02 Eosinophils # 0.3 Eosinophils % 4.6 Hematocrit 42.2 Hemoglobin 13.9 L Lymphocytes # 1.7 Lymphocytes % 27.8 Mean Corpuscular Hemoglobin 28.7 L Mean Corpuscular Hemoglobin Concent 32.9 Mean Corpuscular Volume 87.2 Mean Platelet Volume 8.5 Monocytes # 0.6 Monocytes % 10.5 Neutrophils # 3.5 Neutrophils % 56.4 Nucleated Red Blood Cells # 0.0 Nucleated Red Blood Cells % 0.0 Platelet Count 186 Red Blood Count 4.84 Red Cell Distribution Width 14.8 H Troponin I 0.044 White Blood Count 6.2 # Bedside Glucose 112 144 Test 04/29/16 17:25 Bedside Glucose 89 Medications Medications Current Medications Aspirin (Ecotrin) 325 mg DAILY PO Last administered on 04/29/16 08:22; Admin Dose 325 MG; Start 04/29/16 at 09:00 Atorvastatin Calcium (Lipitor) 80 mg QHS PO Last administered on 04/28/16 21: 19; Admin Dose 80 MG; Start 04/28/16 at 21:00 Carvedilol (Coreg) 6.25 mg BID PO Last administered on 04/29/16 08:23; Admin Dose 6.25 MG; Start 04/28/16 at 21:00 Cholecalciferol (Vitamin D) 5,000 unit DAILY PO Last administered on 04/29/16 08:21; Admin Dose 5,000 UNIT; Start 04/29/16 at 09:00 Clopidogrel Bisulfate (plaVIX) 75 mg DAILY PO Last administered on 04/29/16 08 :21; Admin Dose 75 MG; Start 04/29/16 at 09:00 Lisinopril (Zestril) 5 mg DAILY PO Last administered on 04/29/16 08:24; Admin Dose 5 MG; Start 04/29/16 at 09:00 Lorazepam (Ativan) 0.5 mg Q8H PRN PO ANXIETY; Start 04/28/16 at 17:30 Ondansetron HCl (Zofran Tab) 4 mg Q6H PRN PO NAUSEA AND/OR VOMITING; Start at 17:30 Nitroglycerin (Nitroglycerin (Sl Tab) 0.4 Mg) 1 tab Q5M PRN SL CHEST PAIN; Start 04/28/16 at 17:30 Acetaminophen (Tylenol Tab) 650 mg Q6H PRN PO PAIN LEVEL 1-3 OR FEVER; Start at 17:30 Docusate Sodium (Colace) 100 mg Q12H PRN PO CONSTIPATION; Start 04/28/16 at 17: 30 Enoxaparin Sodium (Lovenox) 40 mg DAILY SC Last administered on 04/29/16 08:21 ; Admin Dose 40 MG; Start 04/29/16 at 09:00 Miscellaneous Information 1 ea NOTE XX ; Start 04/28/16 at 18:00 Glucose (Glutose) 15 gm Q15M PRN PO DECREASED GLUCOSE; Start 04/28/16 at 18:00 Glucose (Glutose) 22.5 gm Q15M PRN PO DECREASED GLUCOSE; Start 04/28/16 at 18: 00 Dextrose (D50w Syringe) 25 ml Q15M PRN IV DECREASED GLUCOSE; Start 04/28/16 at 18:00 Dextrose (D50w Syringe) 50 ml Q15M PRN IV DECREASED GLUCOSE; Start 04/28/16 at 18:00 Glucagon (Glucagen) 1 mg Q15M PRN IM DECREASED GLUCOSE; Start 04/28/16 at 18:00 Glucose (Glutose) 15 gm Q15M PRN BUCCAL DECREASED GLUCOSE; Start 04/28/16 at 18 :00 Isosorbide Mononitrate (Ismo) 10 mg BID PO Last administered on 04/29/16 08:22 ; Admin Dose 10 MG; Start 04/28/16 at 21:00 Nateglinide (Starlix) 60 mg DAILY PO Last administered on 04/29/16 10:21; Admin Dose 60 MG; Start 04/29/16 at 09:00 LUCIO LEVIN MD Apr 29, 2016 18:17
[2016-04-29] MEDS: ATORVASTATIN 80 MG TAB PO SCH (21:17)
[2016-04-30] VITALS (11 sets, daily range): BP systolic 103–117; BP diastolic 63–81; PULSE 72–86; RESP 20–22
[2016-04-30] MEDS: FUROSEMIDE 20 MG INJ IV SCH ×2 (05:16→17:30)
[2016-04-30 06:24] LABS: BASOPHILS % 0.6 % (0.0-2.0); EOSINOPHILS # 0.4 10^3/ul (0.0-0.5); EOSINOPHILS % 6.2 % (0.0-7.0); HEMATOCRIT 41.6 % (42.0-52.0); HEMOGLOBIN 14.2 g/dl (14.0-18.0); LYMPHOCYTES # 1.7 10^3/ul (0.8-2.9); MEAN CORPUSCULAR HEMOGLOBIN 29.5 pg (29.0-33.0); MEAN CORPUSCULAR VOLUME 86.6 fl (82.0-101.0); MEAN PLATELET VOLUME 8.4 fl (7.4-10.4); MONOCYTE # 0.7 10^3/ul (0.3-0.9); MONOCYTES % 11.7 % (0.0-11.0); NEUTROPHILS % 51.5 % (39.0-77.0); PLATELET COUNT 170 10^3/UL (140-440); RED BLOOD COUNT 4.81 10^6/ul (4.70-6.10); RED CELL DISTRIBUTION WIDTH 14.5 % (11.5-14.5); UNCORRECTED WBC 5.8 10^3/ul (4.8-10.8); WHITE BLOOD COUNT 5.8 10^3/ul (4.8-10.8)
[2016-04-30 06:49] LABS: CONDITION 1; LH ANALYZER COMMENTS 1
[2016-04-30] MEDS: INSULIN ASPART [NOVOLOG] 3 ML PEN SC SCH ×4 (07:35→21:00)
[2016-04-30] MEDS: metFORMIN 500 MG TAB PO SCH ×2 (07:35→17:30)
[2016-04-30] MEDS: ISOSORBIDE MONONITRATE 20 MG TAB PO SCH ×2 (08:19→21:26)
[2016-04-30] MEDS: CLOPIDOGREL 75 MG TAB PO SCH (08:19)
[2016-04-30] MEDS: ASPIRIN (EC) 81 MG TAB PO SCH (08:20)
[2016-04-30] MEDS: CHOLECALCIFEROL 1,000 UNIT TAB PO SCH (08:20)
[2016-04-30] MEDS: LISINOPRIL 5 MG TAB PO SCH (08:21)
[2016-04-30] MEDS: NATEGLINIDE 120 MG TAB PO SCH (08:21)
[2016-04-30] MEDS: ENOXAPARIN 40 MG/0.4 ML SYG SC SCH (08:24)
[2016-04-30 08:51] LABS: POTASSIUM 4.2 mmol/L (3.5-5.1)
[2016-04-30 08:54] LABS: CREATININE 1.41 mg/dl (0.61-1.24); PHOSPHORUS 5.4 mg/dl (2.5-4.9)
[2016-04-30 08:55] LABS: CALCIUM 8.9 mg/dl (8.4-10.2); MAGNESIUM 1.5 mg/dl (1.7-2.5)
[2016-04-30] MEDS ORDERED: MAGNESIUM OXIDE 400 MG TAB PO ONE (09:00)
[2016-04-30 09:04] LABS: ADD UMIC YES; URINE BILIRUBIN (Dip) NEGATIVE (NEGATIVE); URINE BLOOD (Dip) TRACE (NEGATIVE); URINE COLOR LT. YELLOW (YELLOW); URINE GLUCOSE (Dip) NEGATIVE (NEGATIVE); URINE KETONES (Dip) NEGATIVE (NEGATIVE); URINE LEUKOCYTE ESTERASE (Dip) NEGATIVE (NEGATIVE); URINE NITRITE (Dip) NEGATIVE (NEGATIVE); URINE TOTAL PROTEIN (Dip) 1+ (NEGATIVE); URINE UROBILINOGEN (Dip) 0.2 E.U./dL (0.1-1.0)
[2016-04-30 09:14] LABS: URINE RBCS NONE SEEN /HPF (0)
--- NOTE | 2016-04-30 11:01 | PN ---
DATE: 04/30/2016 SUBJECTIVE: The patient is noted to have some mild chest pain overnight. The patient improved afte r giving Ativan and diuretic therapy. No other acute events noted. OBJECTIVE: VITAL SIGNS: Blood pressure is 108/70, respirations 20, pulse 69, temperature 97.7. I's AND OUTPUT: The patient 1 liter in, 1.5 liters out. HEENT: Head is normocephalic. NECK: Supple. HEART: Regular rate. LUNGS: Show diminished breath sounds at base. ABDOMEN: Soft, nontender to palpation without rebound or guarding. EXTREMITIES: Negative for clubbing, cyanosis. Trace edema. DERMATOLOGIC: No rashes. MUSCULOSKELETAL: No joint effusions. NEUROLOGIC: No change in exam. MEDICATIONS: The patient's medications have been reviewed. LABORATORY DATA: Shows a white count of 5.8, hemoglobin 14.2, hematocrit 41.6, platelet count 170. IMAGING STUDIES: Patient's renal ultrasound shows an asymmetric atrophy of the left kidney without any significant parenchymal echogenicity. ASSESSMENT AND PLAN: 1. Nonoliguric acute kidney injury on top of chronic kidney disease, stage III, with a baseline cre atinine of 1 to 1.2 mg/dL. Etiology of acute kidney injury is likely secondary to hemodynamics. Th e patient's renal function has improved slightly with supportive care. The patient's urinalysis lynne s show +4 proteinuria concerning for possible diabetic nephropathy, but low suspicion for any acute glomerulonephritis, vasculitis or interstitial nephritis given otherwise bland urinary sediment. At this point, will continue current treatment plan, continue diuretic therapy, continue URSULA inhibitor . Will follow up the patient's urinary protein/creatinine ratio and albumin/creatinine ratio. We w ill monitor closely. 2. Chronic kidney disease. Etiology may be secondary to renal vascular disease in conjunction with diabetic nephropathy. The patient's renal ultrasound does show asymmetric renal size as left kidne y is noted to be smaller than the right. Will get a vascular arterial ultrasound to evaluate renal blood flow and rule out renal artery stenosis. We will also continue treating acute kidney injury a s stated above and quantify the patient's proteinuria. Otherwise, continue disease factor modificat ion, good glycemic and blood pressure control. 3. Acute diastolic heart failure. Continue current medical management. The patient is clinically improving. Follow up with Cardiology. 4. Mineral bone disorder. Continue to monitor calcium and phosphorus levels. 5. Hypertension. Blood pressure is controlled, continue current regimen. 6. History of coronary artery disease. Continue current medical management. 7. Diabetes. Continue Accu-Cheks and insulin sliding scale. Dictated By: CHUCK NUNEZ/MAX Conf#: [id number] DID#: [id number]
--- NOTE | 2016-04-30 14:49 | CONS ---
Date/Time of Note Date/Time of Note DATE: 04/30/16 TIME: 14:47 Assessment/Plan Assessment/Plan Chief Complaint/Hosp Course Assessment: Acute on chronic systolic heart failure - improving with diuresis Ischemic cardiomyopathy, LVEF 25% Coronary artery disease - STEMI January 2016 with unsuccessful attempt at intervention of distal LAD stent thrombosis and successful balloon angioplasty and stent placement of the mid circumflex with a Promus Premier 3.0 x 16mm drug- eluting stent, the other vessels did not have significant disease Acute kidney injury on chronic kidney disease Hypertension Dyslipidemia Diabetes mellitus History of medication noncompliance Recommendations: -continue diuresis - on Lasix 20mg IV BID, can likely transition to PO tomorrow if continues to improve -continue carvedilol 6.25mg BID, Imdur -holding URSULA inhibitor, resume when renal function stabilizes -continue aspirin at 81mg daily and clopidogrel 75mg daily -continue atorvastatin 80mg daily -will need to re-evaluate LVEF after 4-6 months on optimal medical therapy with consideration for primary prevention ICD as indicated Problems: Consultation Date/Type/Reason Admit Date/Time Apr 28, 2016 at 22:01 Initial Consult Date Type of Consultation: Cardiology 24 HR Interval Summary Free Text/Dictation Breathing improved and almost back to baseline. Detailed Summary Additional Comments 14 point review of systems without changes. Exam/Review of Systems Vital Signs Vitals Vital Signs Date Time Temp Pulse Resp B/P Pulse Ox O2 Delivery O2 Flow Rate FiO2 04/30/16 12:21 84 04/30/16 11:37 97.8 20 103/63 96 04/30/16 07:46 Nasal Cannula 2.0 Intake and Output 04/29/16 04/29/16 04/30/16 15:00 23:00 07:00 Intake Total 560 ml 450 ml Output Total 600 ml 900 ml Balance -40 ml -450 ml Exam Constitutional: alert, well developed Psych: nl mood/affect, no complaints Head: atraumatic, normocephalic Eyes: nl conjunctiva, nl lids ENMT: nl external ears & nose, nl nasal mucosa & septum Neck: jvd, non-tender, supple Respiratory: crackles/rales, diminished breath sounds Cardiovascular: regular rate and rhythm Gastrointestinal: non-tender, soft Musculoskeletal: nl extremities to inspection Extremities: edema, No clubbing, No cyanosis Results Result Diagram: 04/30/16 0550 04/30/16 0550 Results 24 hrs Laboratory Tests Test 04/29/16 17:25 04/29/16 20:30 04/30/16 03:45 04/30/16 05:50 Bedside Glucose 89 105 Urine Bilirubin NEGATIVE Urine Clarity CLEAR Urine Color LT. YELLOW Urine Epithelial Cells RARE Urine Glucose NEGATIVE Urine Hemoglobin TRACE Urine Ketones NEGATIVE Urine Leukocyte Esterase NEGATIVE Urine Microscopic RBC NONE SEEN Urine Microscopic WBC 0-2 Urine Nitrite NEGATIVE Urine Random Creatinine 80.38 Urine Random Sodium 105 H Urine Specific [place] 1.020 Urine Total Protein Urine Urobilinogen 0.2 E.U./dL Urine pH 5.5 Anion Gap 14 Basophils # 0.0 Basophils % 0.6 Blood Morphology Comment Blood Urea Nitrogen 22 H Calcium Level 8.9 Carbon Dioxide Level 30 Chloride Level 101 Creatinine 1.41 H Eosinophils # 0.4 Eosinophils % 6.2 Glucose Level 101 Hematocrit 41.6 L Hemoglobin 14.2 Lymphocytes # 1.7 Lymphocytes % 30.0 Magnesium Level 1.5 L Mean Corpuscular Hemoglobin 29.5 Mean Corpuscular Hemoglobin Concent 34.0 Mean Corpuscular Volume 86.6 Mean Platelet Volume 8.4 Monocytes # 0.7 Monocytes % 11.7 H Neutrophils # 3.0 Neutrophils % 51.5 Nucleated Red Blood Cells # 0.0 Nucleated Red Blood Cells % 0.0 Phosphorus Level 5.4 H Platelet Count 170 Potassium Level 4.2 Red Blood Count 4.81 Red Cell Distribution Width 14.5 Sodium Level 141 White Blood Count 5.8 Test 04/30/16 07:32 04/30/16 11:45 Bedside Glucose 103 106 Medications Medications Current Medications Atorvastatin Calcium (Lipitor) 80 mg QHS PO Last administered on 04/29/16 21: 17; Admin Dose 80 MG; Start 04/28/16 at 21:00 Carvedilol (Coreg) 6.25 mg BID PO Last administered on 04/30/16 08:20; Admin Dose 6.25 MG; Start 04/28/16 at 21:00 Cholecalciferol (Vitamin D) 5,000 unit DAILY PO Last administered on 04/30/16 08:20; Admin Dose 5,000 UNIT; Start 04/29/16 at 09:00 Clopidogrel Bisulfate (plaVIX) 75 mg DAILY PO Last administered on 04/30/16 08 :19; Admin Dose 75 MG; Start 04/29/16 at 09:00 Lisinopril (Zestril) 5 mg DAILY PO Last administered on 04/30/16 08:21; Admin Dose 5 MG; Start 04/29/16 at 09:00 Lorazepam (Ativan) 0.5 mg Q8H PRN PO ANXIETY Last administered on 04/30/16 03: 48; Admin Dose 0.5 MG; Start 04/28/16 at 17:30 Ondansetron HCl (Zofran Tab) 4 mg Q6H PRN PO NAUSEA AND/OR VOMITING; Start at 17:30 Nitroglycerin (Nitroglycerin (Sl Tab) 0.4 Mg) 1 tab Q5M PRN SL CHEST PAIN; Start 04/28/16 at 17:30 Acetaminophen (Tylenol Tab) 650 mg Q6H PRN PO PAIN LEVEL 1-3 OR FEVER; Start at 17:30 Docusate Sodium (Colace) 100 mg Q12H PRN PO CONSTIPATION; Start 04/28/16 at 17: 30 Enoxaparin Sodium (Lovenox) 40 mg DAILY SC Last administered on 04/30/16 08:24 ; Admin Dose 40 MG; Start 04/29/16 at 09:00 Miscellaneous Information 1 ea NOTE XX ; Start 04/28/16 at 18:00 Glucose (Glutose) 15 gm Q15M PRN PO DECREASED GLUCOSE; Start 04/28/16 at 18:00 Glucose (Glutose) 22.5 gm Q15M PRN PO DECREASED GLUCOSE; Start 04/28/16 at 18: 00 Dextrose (D50w Syringe) 25 ml Q15M PRN IV DECREASED GLUCOSE; Start 04/28/16 at 18:00 Dextrose (D50w Syringe) 50 ml Q15M PRN IV DECREASED GLUCOSE; Start 04/28/16 at 18:00 Glucagon (Glucagen) 1 mg Q15M PRN IM DECREASED GLUCOSE; Start 04/28/16 at 18:00 Glucose (Glutose) 15 gm Q15M PRN BUCCAL DECREASED GLUCOSE; Start 04/28/16 at 18 :00 Isosorbide Mononitrate (Ismo) 10 mg BID PO Last administered on 04/30/16 08:19 ; Admin Dose 10 MG; Start 04/28/16 at 21:00 Nateglinide (Starlix) 60 mg DAILY PO Last administered on 04/30/16 08:21; Admin Dose 60 MG; Start 04/29/16 at 09:00 Aspirin (Halfprin) 81 mg DAILY PO Last administered on 04/30/16 08:20; Admin Dose 81 MG; Start 04/30/16 at 09:00 LUCIO LEVIN MD Apr 30, 2016 14:49
--- NOTE | 2016-04-30 14:56 | PN ---
Date/Time of Note Date/Time of Note DATE: 04/30/16 TIME: 14:54 Assessment/Plan VTE Prophylaxis VTE Prophylaxis Intervention: LMWH Lines/Catheters IV Catheter Type (from [facility]): [facility] Lock Urinary Cath still in place: No Assessment/Plan Assessment/Plan 1. Congestive heart failure exacerbation, ischemic cardiomyopathy with ejection fraction of 25% in 01/2016. continue on beta-vicky, Lasix, and lisinopril. 2. Coronary artery disease. s/p PCI, Continue statin, Coreg, aspirin. 3. Diabetes mellitus. Place the patient on insulin sliding scale. Continue metformin, Starlix, low carb diet. 4. Essential hypertension. Continue Coreg, Lasix, isosorbide mononitrate, and lisinopril. 5. Diabetic nephropathy. Nephrology has been consulted. Continue lisinopril. Continue to monitor glucose level and treat accordingly. 6. Acute renal insufficiency. The patient's renal panel at baseline is between 0.7 to 1.10. At this time, the patient's creatinine is 1.41. We will follow up nephrology recommendation, gentle diuresis, and nephrotoxic medication should be used with caution. 7. acute bronchitis, augmentin Subjective 24 Hr Interval Summary Free Text/Dictation cough with white sputum, less shortness of breath Exam/Review of Systems Vital Signs Vitals Vital Signs Date Time Temp Pulse Resp B/P Pulse Ox O2 Delivery O2 Flow Rate FiO2 04/30/16 12:21 84 04/30/16 11:37 97.8 20 103/63 96 04/30/16 07:46 Nasal Cannula 2.0 Intake and Output 04/29/16 04/29/16 04/30/16 15:00 23:00 07:00 Intake Total 560 ml 450 ml Output Total 600 ml 900 ml Balance -40 ml -450 ml Exam Constitutional: alert, oriented, well developed Psych: nl mood/affect, no complaints Head: atraumatic, normocephalic Eyes: EOMI, PERRL, nl conjunctiva, nl lids ENMT: mucosa pink and moist, nl external ears & nose, nl lips & teeth, nl nasal mucosa & septum Neck: non-tender, supple Respiratory: clear to auscultation, normal air movement Cardiovascular: nl pulses, regular rate and rhythm, No S3, No S4, No bruits, No diastolic murmur, No edema, No gallop, No irregular rhythm, No jugular venous distention (JVD), No murmurs/extra sounds, No rub, No systolic murmur Gastrointestinal: nl liver, spleen, non-tender, soft, No ascites, No bowel sounds, No distended, No firm, No hepatomegaly, No mass , No rebound or guarding, No splenomegaly, No surgical scars, No tender Musculoskeletal: nl extremities to inspection Extremities: normal pulses Neurological: WASHATERIA ATTENDANT II-XII intact, nl mental status, nl speech, nl strength Skin: nl turgor, rash or lesions Lymph: nl lymph nodes Results Result Diagram: 04/30/16 0550 04/30/16 0550 Results 24 hrs Laboratory Tests Test 04/29/16 17:25 04/29/16 20:30 04/30/16 03:45 04/30/16 05:50 Bedside Glucose 89 105 Urine Bilirubin NEGATIVE Urine Clarity CLEAR Urine Color LT. YELLOW Urine Epithelial Cells RARE Urine Glucose NEGATIVE Urine Hemoglobin TRACE Urine Ketones NEGATIVE Urine Leukocyte Esterase NEGATIVE Urine Microscopic RBC NONE SEEN Urine Microscopic WBC 0-2 Urine Nitrite NEGATIVE Urine Random Creatinine 80.38 Urine Random Sodium 105 H Urine Specific [place] 1.020 Urine Total Protein Urine Urobilinogen 0.2 E.U./dL Urine pH 5.5 Anion Gap 14 Basophils # 0.0 Basophils % 0.6 Blood Morphology Comment Blood Urea Nitrogen 22 H Calcium Level 8.9 Carbon Dioxide Level 30 Chloride Level 101 Creatinine 1.41 H Eosinophils # 0.4 Eosinophils % 6.2 Glucose Level 101 Hematocrit 41.6 L Hemoglobin 14.2 Lymphocytes # 1.7 Lymphocytes % 30.0 Magnesium Level 1.5 L Mean Corpuscular Hemoglobin 29.5 Mean Corpuscular Hemoglobin Concent 34.0 Mean Corpuscular Volume 86.6 Mean Platelet Volume 8.4 Monocytes # 0.7 Monocytes % 11.7 H Neutrophils # 3.0 Neutrophils % 51.5 Nucleated Red Blood Cells # 0.0 Nucleated Red Blood Cells % 0.0 Phosphorus Level 5.4 H Platelet Count 170 Potassium Level 4.2 Red Blood Count 4.81 Red Cell Distribution Width 14.5 Sodium Level 141 White Blood Count 5.8 Test 04/30/16 07:32 04/30/16 11:45 Bedside Glucose 103 106 Medications Medications Current Medications Atorvastatin Calcium (Lipitor) 80 mg QHS PO Last administered on 04/29/16t 21: 17; Admin Dose 80 MG; Start 04/28/16 at 21:00 Carvedilol (Coreg) 6.25 mg BID PO Last administered on 04/30/16 08:20; Admin Dose 6.25 MG; Start 04/28/16 at 21:00 Cholecalciferol (Vitamin D) 5,000 unit DAILY PO Last administered on 04/30/16 08:20; Admin Dose 5,000 UNIT; Start 04/29/16 at 09:00 Clopidogrel Bisulfate (plaVIX) 75 mg DAILY PO Last administered on 04/30/16 08 :19; Admin Dose 75 MG; Start 04/29/16 at 09:00 Lisinopril (Zestril) 5 mg DAILY PO Last administered on 04/30/16 08:21; Admin Dose 5 MG; Start 04/29/16 at 09:00 Lorazepam (Ativan) 0.5 mg Q8H PRN PO ANXIETY Last administered on 04/30/16 03: 48; Admin Dose 0.5 MG; Start 04/28/16 at 17:30 Ondansetron HCl (Zofran Tab) 4 mg Q6H PRN PO NAUSEA AND/OR VOMITING; Start at 17:30 Nitroglycerin (Nitroglycerin (Sl Tab) 0.4 Mg) 1 tab Q5M PRN SL CHEST PAIN; Start 04/28/16 at 17:30 Acetaminophen (Tylenol Tab) 650 mg Q6H PRN PO PAIN LEVEL 1-3 OR FEVER; Start at 17:30 Docusate Sodium (Colace) 100 mg Q12H PRN PO CONSTIPATION; Start 04/28/16 at 17: 30 Enoxaparin Sodium (Lovenox) 40 mg DAILY SC Last administered on 04/30/16 08:24 ; Admin Dose 40 MG; Start 04/29/16 at 09:00 Miscellaneous Information 1 ea NOTE XX ; Start 04/28/16 at 18:00 Glucose (Glutose) 15 gm Q15M PRN PO DECREASED GLUCOSE; Start 04/28/16 at 18:00 Glucose (Glutose) 22.5 gm Q15M PRN PO DECREASED GLUCOSE; Start 04/28/16 at 18: 00 Dextrose (D50w Syringe) 25 ml Q15M PRN IV DECREASED GLUCOSE; Start 04/28/16 at 18:00 Dextrose (D50w Syringe) 50 ml Q15M PRN IV DECREASED GLUCOSE; Start 04/28/16 at 18:00 Glucagon (Glucagen) 1 mg Q15M PRN IM DECREASED GLUCOSE; Start 04/28/16 at 18:00 Glucose (Glutose) 15 gm Q15M PRN BUCCAL DECREASED GLUCOSE; Start 04/28/16 at 18 :00 Isosorbide Mononitrate (Ismo) 10 mg BID PO Last administered on 04/30/16 08:19 ; Admin Dose 10 MG; Start 04/28/16 at 21:00 Nateglinide (Starlix) 60 mg DAILY PO Last administered on 04/30/16 08:21; Admin Dose 60 MG; Start 04/29/16 at 09:00 Aspirin (Halfprin) 81 mg DAILY PO Last administered on 04/30/16 08:20; Admin Dose 81 MG; Start 04/30/16 at 09:00 OMAIRA BELTRAN MD Apr 30, 2016 14:56
[2016-04-30] MEDS: AMOXICILLIN/CLAV 875 MG TAB PO SCH ×2 (16:27→21:25)
[2016-04-30] MEDS: ATORVASTATIN 80 MG TAB PO SCH (21:26)
[2016-05-01] VITALS (9 sets, daily range): BP systolic 111–127; BP diastolic 71–88; PULSE 76–82; RESP 18–20
[2016-05-01] MEDS: FUROSEMIDE 20 MG INJ IV SCH ×2 (05:23→17:09)
--- NOTE | 2016-05-01 05:28 | RADRPT ---
PROCEDURE: US Renal Arteries. CLINICAL INDICATION: Acute kidney injury TECHNIQUE: Renal artery Doppler ultrasound was performed with king scale, color flow, and Doppler interrogation of the renal arteries and kidneys. COMPARISON: None available FINDINGS: The right kidney measures 12.2 cm. The left kidney measures 9.9 cm. There are no focal areas of abno rmal echogenicity. There is no evidence for obstructive uropathy. LOCATIONRIGHT (cm/sec)LEFT (cm/sec) Aorta PSV 27.2 Prox main renal artery PSV24.2 20.6 Resistive Index0.68 0.62 Mid main renal artery PSV31.5 13.2 Resistive Index0.70 0.48 Dist main renal artery PSV25.1 16.0 Resistive Index0.65 0.51 Renal Artery-Aorta Ratio1.2 0.8 Upper [place] artery PSV29.7 15.1 Resistive Index0.43 4.41 Lower Arc[place] artery PSV19.6 16.9 Resistive Index0.60 0.76 IMPRESSION: 1. Asymmetric renal size with the left kidney smaller than the right. No obstructive uropathy is id entified. 2. Limited evaluation of the renal vessels secondary to patient's body habitus and inability to hol d breath. No sonographic evidence of renal artery stenosis, although evaluation should be considere d limited. If high clinical suspicion for renal artery stenosis, consider CT or MR renal angiogram. RPTAT: HH .Margaret Dawson MD, Date Time Electronically viewed and signed by .Margaret Dawson MD, on 05/01/2016 05:27 .Kamila/
[2016-05-01 07:01] LABS: POTASSIUM 3.8 mmol/L (3.5-5.1)
[2016-05-01 07:03] LABS: CREATININE 1.36 mg/dl (0.61-1.24)
[2016-05-01 07:04] LABS: CALCIUM 8.7 mg/dl (8.4-10.2); PHOSPHORUS 4.6 mg/dl (2.5-4.9)
[2016-05-01 07:05] LABS: MAGNESIUM 1.5 mg/dl (1.7-2.5)
[2016-05-01] MEDS: INSULIN ASPART [NOVOLOG] 3 ML PEN SC SCH ×3 (07:29→17:08)
[2016-05-01] MEDS: metFORMIN 500 MG TAB PO SCH ×2 (07:36→17:09)
[2016-05-01] MEDS: NATEGLINIDE 120 MG TAB PO SCH (08:13)
[2016-05-01] MEDS: ISOSORBIDE MONONITRATE 20 MG TAB PO SCH (08:13)
[2016-05-01] MEDS: CHOLECALCIFEROL 1,000 UNIT TAB PO SCH (08:14)
[2016-05-01] MEDS: LISINOPRIL 5 MG TAB PO SCH (08:14)
[2016-05-01] MEDS: ENOXAPARIN 40 MG/0.4 ML SYG SC SCH (08:18)
[2016-05-01] MEDS: AMOXICILLIN/CLAV 875 MG TAB PO SCH (08:20)
[2016-05-01] MEDS: ASPIRIN (EC) 81 MG TAB PO SCH (08:20)
[2016-05-01] MEDS: CLOPIDOGREL 75 MG TAB PO SCH (08:20)
[2016-05-01] MEDS ORDERED: MAGNESIUM OXIDE 400 MG TAB PO SCH (09:00)
--- NOTE | 2016-05-01 09:32 | PN ---
DATE: 05/01/2016 SUBJECTIVE: The patient is stable. No acute events overnight. No fevers, chills, nausea or vomiti ng. OBJECTIVE: VITAL SIGNS: Blood pressure 125/78, respirations 18, pulse 72, temperature 97.6. HEENT: Head is normocephalic. NECK: Supple. HEART: Regular rate. LUNGS: Showed diminished breath sounds at the base. ABDOMEN: Soft, nontender to palpation. No rebound or guarding. EXTREMITIES: Negative for clubbing or cyanosis. No edema. DERMATOLOGIC: No rashes. MUSCULOSKELETAL: Have no joint effusion. NEUROLOGIC: No change in exam. MEDICATIONS: The patient medications have been reviewed. LABORATORY DATA: Shows a sodium of 140, potassium 3.8, BUN 20, creatinine 1.36, magnesium 1.5. The patient's urinalysis shows bland sediment. Protein creatinine ratio is currently pending. Renal a rterial ultrasound shows no evidence of stenosis, but a limited study. ASSESSMENT AND PLAN: 1. Nonoliguric acute kidney injury on top of chronic kidney disease stage III, with a previous base line creatinine of 1 to 1.2 mg/dL. Etiology of acute kidney injury is secondary to hemodynamics. R enal function has improved with supportive care. The possibility of URSULA inhibitor effect and renal function is also a consideration. At this point, would continue the current treatment plan, support hortensia care, renally dose all meds, continue diuretic therapy and URSULA inhibitor at this time. Will mon itor closely. 2. Chronic kidney disease. Etiology may be multifactorial secondary to diabetes, questionable amisha vascular disease. The patient's urinalysis shows +2 proteinuria. A protein creatinine ratio is pend ing. The patient also had asymmetric renal size, but a renal arterial ultrasound was nondiagnostic. At this point would continue acute kidney injury as stated above. If the patient's urinalysis lynne s show significant proteinuria, would up-titrate lisinopril. Otherwise, continue disease factor mod ification with good glycemic and blood pressure control. 3. Acute diastolic heart failure. Clinically improving. Continue diuretic therapy. 4. Mineral bone disorder. Continue to monitor calcium and phos levels. 5. Hypertension. Continue the current blood pressure regimen. 6. History of coronary artery disease. Continue medical management. 7. Diabetes. Continue Accu-Cheks and insulin sliding scale. Dictated By: CHUCK NUNEZ/MAX Conf#: [id number] DID#: [id number]
[2016-05-01] MEDS ORDERED: AMOX1TAB10 PO (13:56)
--- NOTE | 2016-05-01 14:07 | DS ---
Date/Time of Note Date/Time of Note DATE: 05/01/16 TIME: 13:58 Discharge Summary Admission/Discharge Info Admit Date/Time Apr 28, 2016 at 22:01 Discharge Date/Time Final Diagnosis 1. Congestive heart failure exacerbation, ischemic cardiomyopathy with ejection fraction of 25% in 01/2016. improved, follow up with cardiology 2. Coronary artery disease. s/p PCI, Continue statin, Coreg, aspirin. 3. 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 Essential hypertension. Controlled 5. Diabetic nephropathy. CKD, stage 3, follow up with PCP 6. acute bronchitis, augmentin Patient Condition: Stable Hx of Present Illness This is a 50-year-old gentleman with past medical history of congestive heart failure, coronary artery disease, cardiomyopathy with ejection fraction of 25% on 2D echocardiogram of 01/14/2016, coronary artery disease status post balloon angioplasty and stent placement of the mid left circumflex with drug-eluting stent on 01/13/2016, diabetes mellitus, hypertension, dyslipidemia, chronic renal insufficiency, diabetic nephropathy who has been complaining of having abdominal distention, shortness of breath, paroxysmal nocturnal dyspnea, and difficulty ambulating greater than 2 blocks secondary to shortness of breath who presents to [facility] with the above complaints. The patient stated that he has been compliant with his medication. Upon evaluation in the course of emergency room, the patient's chest x-ray demonstrated cardiomegaly with mild interstitial CHF. His BNP was found to be 12,200. Creatinine 1.41, BUN 22. Troponin is normal at 0.041. The patient continues to complain of having shortness of breath with any type of activity for the past week with exacerbation and worsening of symptoms for the past 2 days. Hospital Course Patient has ischemic cardiomyopathy with LVEF 25%. For decompensated CHF, patient got diuretics that improved his symptoms. He coughes but no indication of pneumonia on CXR. He is on augmentin for acute bronchitis. Patient has DM with CKD, last BUN/Cr are 20/1.36. Renal ultrasound revealed left kidney atrophy. Follow up with PCP for renal function. Home Meds Active Scripts Amoxicillin/Potassium Clav (Amox-Clav 875-125 mg Tablet) 875-125 mg Tab, 875 MG PO BID for 5 Days, TAB Prov:OMAIRA BELTRAN MD 05/01/16 Carvedilol* (Carvedilol*) 6.25 Mg Tablet, 6.25 MG PO BID for 30 Days, TAB 2 Refills Prov:MEL ANDREWS 01/16/16 Furosemide* (Furosemide*) 20 Mg Tablet, 20 MG PO DAILY for 14 Days, TAB Prov:MEL ANDREWS. 01/16/16 Lisinopril* (Lisinopril*) 5 Mg Tablet, 5 MG PO DAILY, #30 TAB 2 Refills Prov:MEL ANDREWS 01/16/16 Metformin* (Glucophage*) 500 Mg Tab, 500 MG PO BID for 30 Days, 2 Refills Prov:MEL ANDREWS 01/16/16 Nateglinide* (Starlix*) 60 Mg Tablet, 60 MG PO DAILY for 30 Days, 2 Refills Prov:MEL ANDREWS 01/16/16 Reported Medications Isosorbide Mononitrate (Isosorbide Mononitrate) 10 Mg Tablet, 10 MG PO BID, TAB 04/28/16 Clopidogrel Bisulfate* (Clopidogrel Bisulfate*) 75 Mg Tablet, 75 MG PO DAILY, # 30 TAB 04/28/16 Cholecalciferol (Vitamin D3) 5,000 Unit Tablet, 5000 UNIT PO DAILY, TAB 04/28/16 Aspirin* (Aspirin* EC) 325 Mg Tab, 325 MG PO DAILY, TAB 04/28/16 Atorvastatin* (Atorvastatin*) 80 Mg Tablet, 80 MG PO QHS, #30 TAB 04/28/16 Discontinued Scripts Atorvastatin* (Atorvastatin*) 80 Mg Tablet, 80 MG PO DAILY@21 for 30 Days, TAB 2 Refills Prov:MEL ANDREWS 01/16/16 Ticagrelor* (Brilinta*) 90 Mg Tablet, 90 MG PO BID for 30 Days, TAB 2 Refills Prov:MEL ANDREWS 01/16/16 Nitroglycerin* (Nitroglycerin* SL) 0.4 Mg Tab.subl, 0.4 MG SL Q5MIN Y for CHEST PAIN for 30 Days, BOTTLE 2 Refills Prov:CLIFF ROONEY 04/24/14 Follow-up Plan PCP one week Cardiology 1 week Pending Labs Laboratory Tests Test 04/30/16 17:20 04/30/16 20:02 05/01/16 05:20 05/01/16 07:28 Bedside Glucose 99mg/dL (70-220) 150mg/dL (70-220) 109mg/dL (70-220) Anion Gap 13 (8-16) Blood Urea Nitrogen 20mg/dl (7-20) Calcium Level 8.7mg/dl (8.4-10.2) Carbon Dioxide Level 30mmol/L (21-31) Chloride Level 101mmol/L (97-110) Creatinine 1.36mg/dl (0.61-1.24) Glucose Level 92mg/dl (70-220) Magnesium Level 1.5mg/dl (1.7-2.5) Phosphorus Level 4.6mg/dl (2.5-4.9) Potassium Level 3.8mmol/L (3.5-5.1) Sodium Level 140mmol/L (135-144) Test 05/01/16 12:02 Bedside Glucose 110mg/dL (70-220) OMAIRA BELTRAN MD May 01, 2016 14:07
[2016-05-01 15:54] LABS: MICROALBUMIN 24.9 mg/dL
== END 2016-05-01 17:45 | disposition home or self-care (01) | DRG 292 ==
LOC: E/R 14:10 → TEL 21:31
PROVIDERS: ADMIT Family Medicine; ATTEND Family Medicine
DX: I50.43 Acute on chronic combined systolic (congestive) and diastolic (congestive) heart failure (principal); N17.9 Acute kidney failure, unspecified; E11.21 Type 2 diabetes mellitus with diabetic nephropathy; N18.3 Chronic kidney disease, stage 3 (moderate); I25.10 Atherosclerotic heart disease of native coronary artery without angina pectoris; E11.9 Type 2 diabetes mellitus without complications; E78.5 Hyperlipidemia, unspecified; J20.9 Acute bronchitis, unspecified; I25.5 Ischemic cardiomyopathy; I12.9 Hypertensive chronic kidney disease with stage 1 through stage 4 chronic kidney disease, or unspecified chronic kidney disease
CPT/HCPCS: 36415; 71010; 76775; 80048; 80053; 81001; 81003; 82043; 82550; 82553; 82962; 83690; 83735; 83880; 84100; 84155; 84300; 84484; 85025; 85610; 85730; 93005; 93976; 96374; 96376; J1940; J1650; J1815

== ENCOUNTER 2016-05-03 20:27 | Inpatient (IN) | payer OTHER ==
[~2016-05-03] VITALS: Ht 167.6 cm; Wt 98.9 kg
[~2016-05-03 20:27] MED LIST changes: +AMOX1TAB10 PO; +ASPI325T32 PO; +CHOL500010 PO; +CLOP75TA4 PO; +ISOS10TA45 PO; -NITR0.4T6 SL; -TICA90TA PO
[2016-05-03] MEDS ORDERED: SODIUM CHLORIDE 0.9% 1L BAG IV* STA (21:59)
[2016-05-03] MEDS ORDERED: ACETAMINOPHEN 325 MG TAB PO STA (21:59)
[2016-05-03] MEDS ORDERED: VANCOMYCIN 1 GM (PMX) 250 ML IVPB STA (21:59)
[2016-05-03] MEDS ORDERED: CEFEPIME 2GM/50 ML (PMX) 50 ML IVPB STA (21:59)
[2016-05-03 22:39] VITALS: PULSE 94; TEMP 103.2
[2016-05-03 22:39] LABS: INR 1.07; PROTIME 13.9 Sec (12.2-14.2); PT RATIO 1.1
[2016-05-03 22:40] LABS: ALBUMIN 3.7 g/dl (3.3-4.9); PARTIAL THROMBOPLASTIN TIME 32.9 Sec (25.0-35.0)
[2016-05-03 22:41] LABS: POTASSIUM 4.5 mmol/L (3.5-5.1)
[2016-05-03 22:43] LABS: ALBUMIN/GLOBULIN RATIO 1.08; CALCIUM 8.7 mg/dl (8.4-10.2); CREATININE 1.45 mg/dl (0.61-1.24); TOTAL PROTEIN 7.1 g/dl (6.1-8.1)
[2016-05-03 22:44] LABS: BASOPHILS % 0.5 % (0.0-2.0); EOSINOPHILS # 0.1 10^3/ul (0.0-0.5); EOSINOPHILS % 1.4 % (0.0-7.0); HEMATOCRIT 43.2 % (42.0-52.0); HEMOGLOBIN 14.7 g/dl (14.0-18.0); LYMPHOCYTES # 1.1 10^3/ul (0.8-2.9); LYMPHOCYTES % 12.7 % (15.0-51.0); MEAN CORPUSCULAR HEMOGLOBIN 29.1 pg (29.0-33.0); MEAN CORPUSCULAR VOLUME 85.6 fl (82.0-101.0); MEAN PLATELET VOLUME 8.8 fl (7.4-10.4); MONOCYTE # 1.3 10^3/ul (0.3-0.9); MONOCYTES % 13.9 % (0.0-11.0); NEUTROPHIL # 6.5 10^3/ul (1.6-7.5); NEUTROPHILS % 71.5 % (39.0-77.0); PLATELET COUNT 158 10^3/UL (140-440); RED BLOOD COUNT 5.05 10^6/ul (4.70-6.10); RED CELL DISTRIBUTION WIDTH 14.2 % (11.5-14.5); UNCORRECTED WBC 9.1 10^3/ul (4.8-10.8); WHITE BLOOD COUNT 9.1 10^3/ul (4.8-10.8)
[2016-05-03 22:45] LABS: CONDITION 1
--- NOTE | 2016-05-03 22:48 | RADRPT ---
PROCEDURE: XR Chest. CLINICAL INDICATION: Shortness of breath. TECHNIQUE: Single frontal view. COMPARISON: 04/28/2016. FINDINGS: The lungs are clear. The heart is enlarged. There is no pleural effusion. There is no pneumothorax. IMPRESSION: 1. Cardiomegaly. 2. Otherwise normal chest x-ray. RPTAT: QQ .Ion Velez MD, MD Date Time Electronically viewed and signed by .Ion Velez MD, MD on 05/03/2016 22:48 .R/
[2016-05-03 23:00] LABS: ADD UMIC YES; URINE BILIRUBIN (Dip) NEGATIVE (NEGATIVE); URINE BLOOD (Dip) 1+ (NEGATIVE); URINE COLOR YELLOW (YELLOW); URINE GLUCOSE (Dip) NEGATIVE (NEGATIVE); URINE KETONES (Dip) NEGATIVE (NEGATIVE); URINE LEUKOCYTE ESTERASE (Dip) NEGATIVE (NEGATIVE); URINE NITRITE (Dip) NEGATIVE (NEGATIVE); URINE TOTAL PROTEIN (Dip) 4+ (NEGATIVE); URINE UROBILINOGEN (Dip) 0.2 E.U./dL (0.1-1.0)
[2016-05-03 23:13] LABS: URINE RBCS 0-2 /HPF (0)
[2016-05-03] MEDS ORDERED: SOD CHLORIDE 0.9% 1,000 ML IV SCH (23:59)
--- NOTE | 2016-05-04 00:08 | ERA ---
ER Documentation Chief Complaint Date/Time DATE: 05/04/16 TIME: 00:04 Chief Complaint COUGH CONGESITON FOR PAST FEW DAYS HPI This is 50-year-old male who is discharged Wednesday from this hospital for CHF exacerbation. Patient started coughing on Wednesday at discharge and he was given Augmentin for presumed bronchitis. The patient states he has gotten worse over the past few days with more cough with white productive sputum some occasional mild shortness of breath but no increased work of breathing. The patient's also developed a few fevers that have been documented this weekend from 101- 103. The patient has no dysuria no back pain no nausea no abdominal pain. The patient states he is taking Augmentin twice a day. Does have a general feeling of malaise and anorexia. ROS All systems reviewed and are negative except as per history of present illness. Medications Home Meds Active Scripts Amoxicillin/Potassium Clav (Amox-Clav 875-125 mg Tablet) 875-125 mg Tab, 875 MG PO BID for 5 Days, TAB Prov:OMAIRA BELTRAN MD 05/01/16 Carvedilol* (Carvedilol*) 6.25 Mg Tablet, 6.25 MG PO BID for 30 Days, TAB 2 Refills Prov:MEL ANDREWS 01/16/16 Furosemide* (Furosemide*) 20 Mg Tablet, 20 MG PO DAILY for 14 Days, TAB Prov:MEL ANDREWS 01/16/16 Lisinopril* (Lisinopril*) 5 Mg Tablet, 5 MG PO DAILY, #30 TAB 2 Refills Prov:MEL ANDREWS 01/16/16 Metformin* (Glucophage*) 500 Mg Tab, 500 MG PO BID for 30 Days, 2 Refills Prov:MEL ANDREWS 01/16/16 Nateglinide* (Starlix*) 60 Mg Tablet, 60 MG PO DAILY for 30 Days, 2 Refills Prov:MEL ANDREWS 01/16/16 Reported Medications Isosorbide Mononitrate (Isosorbide Mononitrate) 10 Mg Tablet, 10 MG PO BID, TAB 04/28/16 Clopidogrel Bisulfate* (Clopidogrel Bisulfate*) 75 Mg Tablet, 75 MG PO DAILY, # 30 TAB 04/28/16 Cholecalciferol (Vitamin D3) 5,000 Unit Tablet, 5000 UNIT PO DAILY, TAB 04/28/16 Aspirin* (Aspirin* EC) 325 Mg Tab, 325 MG PO DAILY, TAB 04/28/16 Atorvastatin* (Atorvastatin*) 80 Mg Tablet, 80 MG PO QHS, #30 TAB 04/28/16 Discontinued Scripts Atorvastatin* (Atorvastatin*) 80 Mg Tablet, 80 MG PO DAILY@21 for 30 Days, TAB 2 Refills Prov:MEL ANDREWS. 01/16/16 Ticagrelor* (Brilinta*) 90 Mg Tablet, 90 MG PO BID for 30 Days, TAB 2 Refills Prov:MEL ANDREWS M. 01/16/16 Nitroglycerin* (Nitroglycerin* SL) 0.4 Mg Tab.subl, 0.4 MG SL Q5MIN Y for CHEST PAIN for 30 Days, BOTTLE 2 Refills Prov:AXEL ROONEYEEP S. 04/24/14 Allergies Allergies: Coded Allergies: No Known Allergies (Verified Allergy, Unknown, 04/28/16) PMhx/Soc Medical and Surgical Hx: pt denies Surgical Hx History of Surgery: Yes Anesthesia Reaction: No Hx Neurological Disorder: Yes Hx Respiratory Disorders: No Hx Psychiatric Problems: No Hx Miscellaneous Medical Probl: No Hx Alcohol Use: No Hx Substance Use: No Hx Tobacco Use: No Smoking Status: Never smoker FmHx Family History: No coronary disease Physical Exam Vitals Vital Signs Date Time Temp Pulse Resp B/P Pulse Ox O2 Delivery O2 Flow Rate FiO2 05/03/16 22:39 Nasal Cannula 2 05/03/16 22:39 103.2 94 16 116/81 99 Nasal Cannula 2.0 05/03/16 20:33 101.4 108 20 123/72 98 Physical Exam Const: Well-developed, well-nourished Head: Atraumatic, normocephalic Eyes: Normal Conjunctiva, PERRLA, EOMI, normal sclera, no nystagmus ENT: Normal External Ears, Nose and Mouth, moist mucus membranes. Neck: Full range of motion. No meningismus, no lymphadenopathy. Resp: Clear to auscultation bilaterally, no wheezing, rhonchi, rales Cardio: Regular rate and rhythm, no murmurs, S1 S2 present Abd: Soft, non tender x 4, non distended. Normal bowel sounds, no guarding or rebound, no pulsitile abdominal masses or bruits Skin: No petechiae or rashes, no ecchymosis , no maculopapular rash Back: No midline or flank tenderness Ext: No cyanosis, or edema, FROM x 4, normal inspection, neurovascularly intact x 4 Neur: Awake and alert, STR 5/5 x 4, sensation intact x 4, no focal findings, cerebellum intact Psych: Normal Mood and Affect Result Diagram: 05/03/16220905/03/162209 Results 24 hrs Laboratory Tests Test 05/03/16 22:10 05/03/16 22:20 Activated Partial Thromboplast Time 32.9Sec Alanine Aminotransferase (ALT/SGPT) 33IU/L Albumin 3.7g/dl Albumin/Globulin Ratio 1.08 Alkaline Phosphatase 78IU/L Anion Gap 17 Aspartate Amino Transf (AST/SGOT) 37IU/L Basophils # 0.010^3/ul Basophils % 0.5% Blood Urea Nitrogen 18mg/dl Calcium Level 8.7mg/dl Carbon Dioxide Level 22mmol/L Chloride Level 96mmol/L Creatinine 1.45mg/dl Direct Bilirubin 0.00mg/dl Eosinophils # 0.110^3/ul Eosinophils % 1.4% Globulin 3.40g/dl Glucose Level 194mg/dl Hematocrit 43.2% Hemoglobin 14.7g/dl INR International Normalized Ratio 1.07 Indirect Bilirubin 1.0mg/dl Lactic Acid Level 3.1mmol/L Lymphocytes # 1.110^3/ul Lymphocytes % 12.7% Mean Corpuscular Hemoglobin 29.1pg Mean Corpuscular Hemoglobin Concent 34.0g/dl Mean Corpuscular Volume 85.6fl Mean Platelet Volume 8.8fl Monocytes # 1.310^3/ul Monocytes % 13.9% Neutrophils # 6.510^3/ul Neutrophils % 71.5% Nucleated Red Blood Cells # 0.010^3/ul Nucleated Red Blood Cells % 0.0/100WBC Platelet Count 77254^3/UL Potassium Level 4.5mmol/L Prothrombin Time 13.9Sec Prothrombin Time Ratio 1.1 Red Blood Count 5.0510^6/ul Red Cell Distribution Width 14.2% Sodium Level 130mmol/L Total Bilirubin 1.0mg/dl Total Protein 7.1g/dl White Blood Count 9.110^3/ul Urine Bilirubin NEGATIVE Urine Clarity CLEAR Urine Color YELLOW Urine Glucose NEGATIVE% Urine Hemoglobin 1+ Urine Ketones NEGATIVE Urine Leukocyte Esterase NEGATIVE Urine Microscopic RBC 0-2/HPF Urine Microscopic WBC 0-2/HPF Urine Nitrite NEGATIVE Urine Specific [place] 1.025 Urine Total Protein 4+ Urine Urobilinogen 0.2 E.U./dL Urine pH 6.0 Current Medications Medications (Trade) Dose Ordered Sig/Eva Route PRN Reason Start Time Stop Time Status Last Admin Dose Admin Sodium Chloride (NS) 3,100 ml BOLUS OVER 2 HOURS STAT IV* 05/03/16 21:59 05/03/16 22:02 DC 05/03/16 22:46 Acetaminophen 1000 mg 1,000 mg ONCE STAT PO 05/03/16 21:59 05/03/16 22:02 DC 05/03/16 22:46 Vancomycin HCl 250 ml @ 125 mls/hr ONCE STAT IVPB 05/03/16 21:59 05/03/16 23:58 DC 05/03/16 21:59 Cefepime HCl (Maxipime 2gm/50 ml (Pmx)) 50 ml @ 100 mls/hr ONCE STAT IVPB 05/03/16 21:59 05/03/16 22:28 DC 05/03/16 22:46 Procedures/MDM EKG: Rate/Rhythm: Sinus tachycardia heart rate 101, left axis deviation QRS, ST, QT: NORMAL OR, QRS, QT] Impression: NORMAL EKG Chest x-ray is normal per radiology Flu swab is pending Patient was given sepsis fluid resuscitation as well as vancomycin and cefepime per sepsis protocol Patient has elevated lactate 3.1 but white blood count is normal. He is not hypotensive but does meet sepsis criteria however do not feel he is grossly septic as he does not clinically present this way Patient's infectious symptoms have not stabilized and the patient is at risk of rapid decompensation. The patient will be admitted for careful hydration, antibiotic therapy, and infectious source control. Severe Sepsis Assessment: Infectious Source: Atypical pneumonia End organ damage indicated by: Lactate > 2.0 mmol/L Hypotension( SBP < 90 or >40 mmHG drop or MAP < 65) Acute Resp Failure (sat < 92% w/o oxygen) Chemical Dependency Nurse > 2.0 INR > 1.5 Plt < 100 Bili > 2 Severe Sepsis Managment: Blood Cultures X 2 before broad spectrum antibiotics initiated within 3 hours of recognition. 30 ml/kg NS bolus Completed Initial Lactate: 3.1 Repeat Lactate [pending Critical Care: Time: 30 minutes Treatments/Evaluations: Emergent fluid management, while maintaining close respiratory support. Immediate broad spectrum antibiotic therapy. Simultaneous assessment for possible sources in order to direct therapy. Consideration for invasive and chemical support to prevent respiratory or cardiac collapse. Accepting Care Team: Current data and ongoing care discussed. Time: Time of admission Primary Provider: Boni Consulting: SHANDA Outstanding Data: none Departure Diagnosis: Primary Impression: Atypical pneumonia Additional Impression: Sepsis Qualified Code: A41.9 - Sepsis, due to unspecified organism Condition: Stable NUNU SOMMER DO May 04, 2016 00:08
--- NOTE | 2016-05-04 00:18 | HP ---
Date/Time of Note Date/Time of Note DATE: 05/04/16 TIME: 00:11 Assessment/Plan VTE Prophylaxis VTE Prophylaxis Intervention: heparin Assessment/Plan Assessment/Plan This is a 50-year-old gentleman with past medical history of congestive heart failure, coronary artery disease, cardiomyopathy with ejection fraction of 25% on 2D echocardiogram of 01/14/2016, coronary artery disease status post balloon angioplasty and stent placement of the mid left circumflex with drug-eluting stent on 01/13/2016, diabetes mellitus, hypertension, dyslipidemia, chronic renal insufficiency, diabetic nephropathy who has been complaining of having worsening fevers and cough. 1. Shortness of breath -Sepsis 2/2 atypical pneumonia vs viral bronchitis - will admit the patient the med/surg, po levaquin, monitor for acute fevers, follow up influenza, and blood/respiratory cultures. 2. Congestive heart failure exacerbation, ischemic cardiomyopathy with ejection fraction of 25% in 01/2016. continue on beta-vicky, Lasix, and lisinopril. 3. Coronary artery disease. s/p PCI, Continue statin, Coreg, aspirin. 4. Diabetes mellitus type II. Place the patient on insulin sliding scale. Continue metformin, Starlix, low carb diet. 5. Essential hypertension. Continue Coreg, Lasix, isosorbide mononitrate, and lisinopril. 6. Diabetic nephropathy. Continue lisinopril. Continue to monitor glucose level and treat accordingly. 7. GI ppx - pepcid 8. DVT ppx - heparin answered all of his questions. as per clinical course. this history and physical took greater then 45 minutes to complete HPI/ROS Admit Date/Time Admit Date/Time 05/04/2016, 12:11 am Hx of Present Illness This is a 50-year-old gentleman with past medical history of congestive heart failure, coronary artery disease, cardiomyopathy with ejection fraction of 25% on 2D echocardiogram of 01/14/2016, coronary artery disease status post balloon angioplasty and stent placement of the mid left circumflex with drug-eluting stent on 01/13/2016, diabetes mellitus, hypertension, dyslipidemia, chronic renal insufficiency, diabetic nephropathy who has been complaining of having worsening fevers and cough. He was recently discharge on 05/01/2016 for CHF exacerbation. Since he went home, he has had persistent cough and fevers that have not subsided, even while taking acetaminophen and the prescribed augmentin. The patient has been having diaphoresis and pleuritic chest discomfort with shortness of breath. Otherwise complains of malaise, no body aches, and generalized weakness. No other constitutional symptoms. ROS 14 point review of systems completed, please refer to HPI for any positive findings PMH/Family/Social Past Medical History Medical History: congestive heart failure, coronary artery disease, diabetes, high cholesterol, hypertension, renal disease Past Surgical History PCI Family History Significant Family History: diabetes, hypertension, other (dyslipidemia) Social History Alcohol Use: occasionally Smoking Status: Never smoker Drug Use: none Exam/Review of Systems Vital Signs Vitals Vital Signs Date Time Temp Pulse Resp B/P Pulse Ox O2 Delivery O2 Flow Rate FiO2 05/03/16 22:39 Nasal Cannula 2 05/03/16 22:39 103.2 94 16 116/81 99 Exam Exam Gen Johnathan: mild to moderate distress 2/2 chest discomfort, AAOx4 HEENT: NC/AT, PERRLA, EOMI, no pharyngeal erythema, no tonsillar exudates, no lymphadenopathy, no JVD, no carotid bruits NECK: supple, no thyromegaly THORAX: symmetrical, no obvious deformities CV: S1S2, RRR, no M/G/R Lungs: CTAB no W/C/R/R - diminished at the bases Abd: soft, NT/ND, +BS, no rebound, no guarding, neg HSM EXT: no edema, no ecchymosis, no clubbing, FROM Neuro: CN II-XII grossly intact, no focal deficits Psych: good mentation, alert and oriented, good mood and affect Skin: cool and clammy Labs Result Diagram: 05/03/16220905/03/162209 Medications Medications Current Medications Sodium Chloride (NS) 1,000 ml @ 80 mls/hr [id number] IV ; Start 05/03/16 at 23:59 ; Stop 05/04/16 at 12:28 Procedures Procedures CXR IMPRESSION: 1. Cardiomegaly. 2. Otherwise normal chest x-ray. TERESA HENNING MD May 04, 2016 00:18
[2016-05-04] MEDS ORDERED: morphine 2 MG INJ IV PRN (00:30)
[2016-05-04] MEDS ORDERED: ACETAMINOPHEN 325 MG TAB PO PRN ×2 (00:30)
[2016-05-04] MEDS ORDERED: NACL 0.9% 3 ML SYG IV SCH (00:30)
[2016-05-04] MEDS ORDERED: DOCUSATE SODIUM 100 MG CAP PO PRN (00:30)
[2016-05-04] MEDS ORDERED: ONDANSETRON 4 MG INJ IV PRN ×2 (00:30)
[2016-05-04 01:44] VITALS: Ht 167.6 cm; Wt 98.9 kg
[2016-05-04] MEDS ORDERED: LEVOFLOXACIN 500 MG TAB PO SCH (06:00)
[2016-05-04] MEDS ORDERED: FUROSEMIDE 20 MG TAB PO SCH (06:00)
[2016-05-04 07:32] VITALS: BP 138/75; RESP 18
[2016-05-04] MEDS: INSULIN ASPART [NOVOLOG] 3 ML PEN SC SCH ×3 (08:00→18:01)
[2016-05-04] MEDS ORDERED: ISOSORBIDE MONONITRATE 10 MG PO SCH (09:00)
[2016-05-04] MEDS ORDERED: GLUCOSE GEL 15 GRAM TUBE PO PRN ×2 (09:00)
[2016-05-04] MEDS ORDERED: ISOSORBIDE MONONITRATE 20 MG TAB PO SCH (09:00)
[2016-05-04] MEDS ORDERED: CHOLECALCIFEROL 1,000 UNIT TAB PO SCH (09:00)
[2016-05-04] MEDS ORDERED: GLUCOSE GEL 15 GRAM TUBE BUCCAL PRN (09:00)
[2016-05-04] MEDS ORDERED: NATEGLINIDE 60 MG TAB PO SCH (09:00)
[2016-05-04] MEDS ORDERED: DEXTROSE 50% 50 ML SYRINGE IV PRN ×2 (09:00)
[2016-05-04] MEDS ORDERED: GLUCAGON 1 MG INJ IM PRN (09:00)
[2016-05-04] MEDS ORDERED: OSELTAMIVIR 75 MG CAP PO SCH (09:00)
[2016-05-04] MEDS ORDERED: LISINOPRIL 5 MG TAB PO SCH (09:00)
[2016-05-04] MEDS ORDERED: CLOPIDOGREL 75 MG TAB PO SCH (09:00)
[2016-05-04] MEDS ORDERED: ASPIRIN (EC) 325 MG TAB PO SCH (09:00)
[2016-05-04] MEDS ORDERED: HEPARIN 5,000 UNIT/0.5 ML SYG SC SCH (09:00)
[2016-05-04] MEDS ORDERED: FAMOTIDINE 20 MG TAB PO SCH (09:00)
[2016-05-04] MEDS: metFORMIN 500 MG TAB PO SCH ×2 (09:40→18:00)
[2016-05-04 11:24] VITALS: RESP 18
--- NOTE | 2016-05-04 14:11 | PDOCDIS ---
Discharge Instructions CONDITION Patient Condition: Good HOME CARE INSTRUCTIONS: Special Diet: low chol,low fat,carb controlled ACTIVITY: Activity Restrictions: No Restrictions FOLLOW UP/APPOINTMENTS Appointments F/U WITH YOUR PCP IN 1-2 WEEKS RENÉ AZEVEDO May 04, 2016 14:11
[2016-05-04] MEDS ORDERED: OSLT75C PO (14:12)
--- NOTE | 2016-05-04 17:08 | DS ---
DATE OF ADMISSION: 05/03/2016 DATE OF DISCHARGE: 05/04/2016 DISCHARGE DIAGNOSES: 1. Acute respiratory distress secondary to influenza, discharged with Tamiflu. 2. History of congestive heart failure with ejection fraction of 25%, compensated. Continue home m edications. 3. Coronary artery disease, status post PCI in the past. Continue home medications. 4. Diabetes type 2. Continue home medications. 5. Hypertension. Continue home medications. 6. Diabetic neuropathy. Continue home medications. HOSPITAL COURSE: The patient is a 50-year-old male with a history of CHF, coronary artery disease, cardiomyopathy, EF 25% via echo in 2016. The patient presents with shortness of breath. Chest x-ra y showed cardiomegaly, otherwise, normal chest x-ray. Patient had no leukocytosis. UA was within n ormal limits. The patient did have an influenza screen that was positive for influenza A. Patient was started on Tamiflu. He was felt to have improved during his hospitalization. Of note, he did amaya ve a fever as high as 103.2 which resolved on the day of discharge. On the day of discharge the pat ient was feeling better. He was no longer requiring any supplemental O2 He no longer had fevers, h is vitals and labs were stable on the day of discharge. Physical exam was stable and once again no acute complaints on the day of discharge. CONDITION ON DISCHARGE: Stable. DISPOSITION: To home. MEDICATIONS: Patient to continue usual home medications. Patient was given a prescription for [place] flu 75 mg p.o. b.i.d. for 5 days. Once again, the patient is to continue his home medications. FOLLOWUP: The patient to follow up with his PCP in 1 to 2 weeks. Greater than 30 minutes was spent coordinating discharge of this patient. Dictated By: RENÉ AZEVEDO MD BS/NTS Conf#: [id number] DID#: [id number]
[2016-05-04] MEDS ORDERED: ATORVASTATIN 80 MG TAB PO SCH (21:00)
== END 2016-05-04 18:50 | disposition home or self-care (01) | DRG 195 ==
LOC: E/R 20:27 → PP2 23:59
PROVIDERS: ADMIT Student in an Organized Health Care Education/Training Program; ATTEND Student in an Organized Health Care Education/Training Program
DX: J09.X2 Influenza due to identified novel influenza A virus with other respiratory manifestations (principal); E11.40 Type 2 diabetes mellitus with diabetic neuropathy, unspecified; I50.9 Heart failure, unspecified; R06.00 Dyspnea, unspecified; I25.10 Atherosclerotic heart disease of native coronary artery without angina pectoris; I10 Essential (primary) hypertension
CPT/HCPCS: 36415; 71010; 80053; 81001; 81003; 82962; 83605; 85025; 85610; 85730; 87040; 87081; 87086; 87400; 93005; 96374; 96375; J1815; J3370; J7030

== ENCOUNTER 2016-09-22 22:16 | Emergency (ER) | payer OTHER ==
[~2016-09-22] VITALS: Ht 167.6 cm; Wt 97.0 kg
[~2016-09-22 22:16] MED LIST changes: +OSLT75C PO
[2016-09-22 23:08] VITALS: Ht 167.6 cm; Wt 97.0 kg
[2016-09-22] MEDS ORDERED: IPRATROPIUM (NEB) 0.5 MG/2.5 ML AMP NEB STA (23:19)
[2016-09-22] MEDS ORDERED: ALBUTEROL 0.083% (NEB) 2.5 MG/3 ML AMP NEB STA (23:19)
[2016-09-22 23:55] LABS: ADD SCAN DIFF NO
[2016-09-23] LABS: BASOPHIL # 0.1 10^3/ul (0.0-0.1); BASOPHILS % 0.5 % (0.0-2.0); EOSINOPHILS # 0.2 10^3/ul (0.0-0.5); EOSINOPHILS % 1.7 % (0.0-7.0); HEMATOCRIT 47.2 % (42.0-52.0); HEMOGLOBIN 15.5 g/dl (14.0-18.0); LYMPHOCYTES # 1.4 10^3/ul (0.8-2.9); LYMPHOCYTES % 13.8 % (15.0-51.0); MEAN CORPUSCULAR HEMOGLOBIN 29.7 pg (29.0-33.0); MEAN CORPUSCULAR HGB CONC 32.8 g/dl (32.0-37.0); MEAN CORPUSCULAR VOLUME 90.4 fl (82.0-101.0); MEAN PLATELET VOLUME 10.1 fl (7.4-10.4); MONOCYTE # 1.2 10^3/ul (0.3-0.9); MONOCYTES % 12.1 % (0.0-11.0); NEUTROPHIL # 7.1 10^3/ul (1.6-7.5); NEUTROPHILS % 71.6 % (39.0-77.0); PLATELET COUNT 210 10^3/UL (140-415); RED BLOOD COUNT 5.22 10^6/ul (4.70-6.10); WHITE BLOOD COUNT 9.9 10^3/ul (4.8-10.8)
--- NOTE | 2016-09-23 00:14 | RADRPT ---
PROCEDURE: XR Chest. CLINICAL INDICATION: Possible sepsis TECHNIQUE: Single AP portable chest COMPARISON: 05/03/2016 Chest x-ray FINDINGS: The cardiac silhouette is mildly enlarged but stable in size. The lungs are clear without pleural effusion or focal consolidation. No pneumothorax. The osseous structures and soft tissues are unrem arkable. IMPRESSION: 1. No evidence for active cardiopulmonary disease. RPTAT:AAJJ Mac Neri Physician Date Time Electronically viewed and signed by Mac Neri Physician on 09/23/2016 00:13 MADIHA/
[2016-09-23 00:17] LABS: BILIRUBIN,INDIRECT 1.1 mg/dl (0-1.1); BILIRUBIN,TOTAL 1.1 mg/dl (0.2-1.3); CALCIUM 9.2 mg/dl (8.4-10.2); CREATININE 1.5 mg/dl (0.61-1.24); POTASSIUM 4.4 mmol/L (3.5-5.1)
[2016-09-23 00:18] LABS: ALBUMIN 4.4 g/dl (3.3-4.9); ALBUMIN/GLOBULIN RATIO 1.51; TOTAL PROTEIN 7.3 g/dl (6.1-8.1)
[2016-09-23 00:29] LABS: TROPONIN-I 0.045 ng/ml (0.00-0.12)
[2016-09-23 00:31] LABS: INR 1.03; PROTIME 13.5 Sec (12.2-14.2); PT RATIO 1.1
[2016-09-23 00:32] LABS: PARTIAL THROMBOPLASTIN TIME 29.1 Sec (25.0-35.0)
[2016-09-23] MEDS ORDERED: ACETAMINOPHEN 500 MG TAB PO ONE (00:35)
[2016-09-23] MEDS ORDERED: ACETAMINOPHEN 500 MG TAB ONE (00:43)
[2016-09-23] MEDS ORDERED: IBUPROFEN 600 MG TAB PO ONE (01:00)
[2016-09-23 01:06] LABS: URINE BLOOD (Dip) POC 2+ (NEGATIVE)
[2016-09-23] MEDS ORDERED: LISI20TA11 PO (01:13)
[2016-09-23] MEDS ORDERED: POTA8CAP PO (01:13)
[2016-09-23] MEDS ORDERED: FURO40TA4 PO (01:13)
[2016-09-23 01:31] LABS: ADD UMIC YES; UR BILIRUBIN (Dip) NEGATIVE (NEGATIVE); UR BLOOD (Dip) 2+ (NEGATIVE); UR CLARITY CLEAR (CLEAR); UR COLOR LT. YELLOW (YELLOW); UR GLUCOSE (Dip) NEGATIVE (NEGATIVE); UR KETONES (Dip) NEGATIVE (NEGATIVE); UR LEUKOCYTE ESTERASE (Dip) NEGATIVE (NEGATIVE); UR NITRITE (Dip) NEGATIVE (NEGATIVE); UR TOTAL PROTEIN (Dip) 2+ (NEGATIVE); UR UROBILINOGEN (Dip) 0.2 E.U./dL (0.1-1.0)
[2016-09-23 02:40] VITALS: BP 125/91; PULSE 94; RESP 18; TEMP 98.7
--- NOTE | 2016-09-23 03:09 | ERD ---
ER Documentation Chief Complaint Date/Time DATE: 09/23/16 TIME: 03:08 Chief Complaint SOB and productive cough x 1 week, worse today. yellow phlegm HPI 51 year-old male with shortness breath productive cough for 1 week. He said he had yellow phlegm production. Said it got worse today. No nausea no vomiting. Mild fever. No chills. No other current complaints. No sick contacts. ROS All systems reviewed and are negative except as per history of present illness. Medications Home Meds Active Scripts Carvedilol* (Carvedilol*) 6.25 Mg Tablet, 6.25 MG PO BID for 30 Days, TAB 2 Refills Prov:FARRAH ANDREWSElaine . 01/16/16 Metformin* (Glucophage*) 500 Mg Tab, 500 MG PO BID for 30 Days, 2 Refills Prov:SAI ANDREWSFORMERLY [facility]. 01/16/16 Nateglinide* (Starlix*) 60 Mg Tablet, 60 MG PO DAILY for 30 Days, 2 Refills Prov:SAI ANDREWSFORMERLY [facility]. 01/16/16 Reported Medications Potassium Chloride* (Potassium Chloride*) 8 Meq Capsule.er, 8 MEQ PO DAILY, CAP 09/23/16 Lisinopril* (Lisinopril*) 20 Mg Tablet, 20 MG PO DAILY, #30 TAB 09/23/16 Furosemide* (Furosemide*) 40 Mg Tablet, 40 MG PO DAILY, TAB 09/23/16 Isosorbide Mononitrate (Isosorbide Mononitrate) 10 Mg Tablet, 10 MG PO BID, TAB 04/28/16 Clopidogrel Bisulfate* (Clopidogrel Bisulfate*) 75 Mg Tablet, 75 MG PO DAILY, # 30 TAB 04/28/16 Cholecalciferol (Vitamin D3) 5,000 Unit Tablet, 5000 UNIT PO DAILY, TAB 04/28/16 Aspirin* (Aspirin* EC) 325 Mg Tab, 325 MG PO DAILY, TAB 04/28/16 Atorvastatin* (Atorvastatin*) 80 Mg Tablet, 80 MG PO QHS, #30 TAB 04/28/16 Discontinued Scripts Oseltamivir Phosphate* (Tamiflu*) 75 Mg Capsule, 75 MG PO BID for 5 Days, CAP Prov:RENÉ AZEVEDO 05/04/16 Amoxicillin/Potassium Clav (Amox-Clav 875-125 mg Tablet) 875-125 mg Tab, 875 MG PO BID for 5 Days, TAB Prov:OMAIRA BELTRAN MD 05/01/16 Furosemide* (Furosemide*) 20 Mg Tablet, 20 MG PO DAILY for 14 Days, TAB Prov:MEL ANDREWS. 01/16/16 Lisinopril* (Lisinopril*) 5 Mg Tablet, 5 MG PO DAILY, #30 TAB 2 Refills Prov:MEL ANDREWS. 01/16/16 Allergies Allergies: Coded Allergies: No Known Allergies (Unverified Allergy, Unknown, 09/23/16) PMhx/Soc History of Surgery: Yes (stent placement of the mid left circumflex w/ drug- eluting stent on01/13/16) Anesthesia Reaction: No Hx Neurological Disorder: No Hx Respiratory Disorders: Yes (was treated before for fluids in the lungs) Hx Cardiac Disorders: Yes (CHF,CAD,cardiomyopathy) Hx Psychiatric Problems: No Hx Miscellaneous Medical Probl: No Hx Alcohol Use: No Hx Substance Use: No Hx Tobacco Use: No Physical Exam Vitals Vital Signs Date Time Temp Pulse Resp B/P Pulse Ox O2 Delivery O2 Flow Rate FiO2 09/23/16 02:40 98.7 94 18 125/91 97 Room Air 09/23/16 01:00 115 19 121/92 98 Room Air 09/23/16 00:45 101.4 09/22/16 23:45 115 20 97 21 09/22/16 23:08 102.8 117 28 174/105 99 Physical Exam Const: [] Head: Atraumatic Eyes: Normal Conjunctiva ENT: Normal External Ears, Nose and Mouth. Neck: Full range of motion..~ No meningismus. Resp: Clear to auscultation bilaterally Cardio: Regular rate and rhythm, no murmurs Abd: Soft, non tender, non distended. Normal bowel sounds Skin: No petechiae or rashes Back: No midline or flank tenderness Ext: No cyanosis, or edema Neur: Awake and alert Psych: Normal Mood and Affect Result Diagram: 09/22/16232709/22/162327 Results 24 hrs Laboratory Tests Test 09/22/16 23:28 09/23/16 01:08 09/23/16 01:10 White Blood Count 9.910^3/ul Red Blood Count 5.2210^6/ul Hemoglobin 15.5g/dl Hematocrit 47.2% Mean Corpuscular Volume 90.4fl Mean Corpuscular Hemoglobin 29.7pg Mean Corpuscular Hemoglobin Concent 32.8g/dl Red Cell Distribution Width 15.0% Platelet Count 70892^3/UL Mean Platelet Volume 10.1fl Neutrophils % 71.6% Lymphocytes % 13.8% Monocytes % 12.1% Eosinophils % 1.7% Basophils % 0.5% Nucleated Red Blood Cells % 0.0/100WBC Neutrophils # 7.110^3/ul Lymphocytes # 1.410^3/ul Monocytes # 1.210^3/ul Eosinophils # 0.210^3/ul Basophils # 0.110^3/ul Nucleated Red Blood Cells # 0.010^3/ul Prothrombin Time 13.5Sec Prothrombin Time Ratio 1.1 INR International Normalized Ratio 1.03 Activated Partial Thromboplast Time 29.1Sec Sodium Level 136mmol/L Potassium Level 4.4mmol/L Chloride Level 103mmol/L Carbon Dioxide Level 21mmol/L Anion Gap 16 Blood Urea Nitrogen 25mg/dl Creatinine 1.50mg/dl Glucose Level 168mg/dl Lactic Acid Level 1.6mmol/L Calcium Level 9.2mg/dl Total Bilirubin 1.1mg/dl Direct Bilirubin 0.00mg/dl Indirect Bilirubin 1.1mg/dl Aspartate Amino Transf (AST/SGOT) 21IU/L Alanine Aminotransferase (ALT/SGPT) 30IU/L Alkaline Phosphatase 104IU/L Troponin I 0.045ng/ml Total Protein 7.3g/dl Albumin 4.4g/dl Globulin 2.90g/dl Albumin/Globulin Ratio 1.51 Bedside Urine pH (LAB) 5.5 Bedside Urine Protein (LAB) 3+ Bedside Urine Glucose (UA) Negative Bedside Urine Ketones (LAB) Negative Bedside Urine Blood 2+ Bedside Urine Nitrite (LAB) Negative Bedside Urine Leukocyte Esterase (L Negative Urine Color LT. YELLOW Urine Clarity CLEAR Urine pH Urine Specific [place] Urine Ketones NEGATIVE Urine Nitrite NEGATIVE Urine Bilirubin NEGATIVE Urine Urobilinogen 0.2 E.U./dL Urine Leukocyte Esterase NEGATIVE Urine Microscopic RBC 2-5/HPF Urine Hemoglobin 2+ Urine Glucose NEGATIVE% Urine Total Protein 2+ Current Medications Medications (Trade) Dose Ordered Sig/Eva Route PRN Reason Start Time Stop Time Status Last Admin Dose Admin Albuterol (Proventil 0.083% (Neb)) 5 mg ONCE STAT NEB 09/22/16 23:19 09/22/16 23:22 DC 09/22/16 23:52 Ipratropium [place] (Atrovent 0.02% (Neb)) 0.5 mg ONCE STAT NEB 09/22/16 23:19 09/22/16 23:22 DC 09/22/16 23:52 Acetaminophen (Tylenol Tab) 1,000 mg ONCE ONCE PO 09/23/16 00:35 09/23/16 00:54 DC 09/23/16 00:58 Ibuprofen (Motrin) 600 mg ONCE ONCE PO 09/23/16 01:00 09/23/16 01:01 DC 09/23/16 00:58 Acetaminophen (Tylenol Tab) 500 mg STK-MED ONCE .ROUTE 09/23/16 00:43 09/23/16 00:44 DC Procedures/MDM EKG: Rate/Rhythm: Normal Sinus Rhythm QRS, ST, T-waves: No changes consistent w/ acute ischemia Impression: No evidence of ischemia or arrhythmia Chest X-ray 1V Interpreted by me: Soft Tissue: No acute abnormalities Bones: No acute abnormalities Mediastinum/Cardiac Silhouette/Lungs: No acute abnormalities Patient's respiratory status has stabilized while in the department and is appropriate for outpatient work up. Exam and work up not consistent w/ impending respiratory failure or cardiovascular collapse. Symptomology consistent with acute bronchitis. Fever is resolved. Tachycardia resolved with resolution of fever. Patient will be discharged home with azithromycin, Motrin, albuterol, prednisone. Follow with PCP. Return for worsening symptoms. Departure Diagnosis: Primary Impression: Shortness of breath Condition: Stable EMORY PEÑALOZA Sep 23, 2016 03:09
[2016-09-23] MEDS ORDERED: PRED20TA PO (03:12)
[2016-09-23] MEDS ORDERED: AZIT250T94 PO (03:12)
[2016-09-23] MEDS ORDERED: ALBU18HF INHALATION (03:12)
[2016-09-23] MEDS ORDERED: IBUP-1542 PO (03:12)
== END 2016-09-23 03:29 | disposition home or self-care (01) ==
LOC: E/R 22:16
DX: R06.02 Shortness of breath (principal); I50.9 Heart failure, unspecified; I25.10 Atherosclerotic heart disease of native coronary artery without angina pectoris; Z79.82 Long term (current) use of aspirin
CPT/HCPCS: 71010; 80053; 81001; 83605; 84484; 85025; 85610; 85730; 87040; 87086; 93005; 94664; Z7610; 36415; 81003

== ENCOUNTER 2016-10-23 14:15 | Inpatient (IN) | payer OTHER ==
[~2016-10-23] VITALS: Ht 170.2 cm; Wt 95.2 kg
[~2016-10-23 14:15] MED LIST changes: +ALBU18HF INHALATION; -AMOX1TAB10 PO; +AZIT250T94 PO; -FURO20TA3 PO; +FURO40TA4 PO; +IBUP-1542 PO; -LISI-313 PO; +LISI20TA11 PO; -OSLT75C PO; +POTA8CAP PO; +PRED20TA PO
[2016-10-23] MEDS ORDERED: FUROSEMIDE 40 MG INJ IV STA (18:25)
[2016-10-23 18:42] LABS: BASOPHIL # 0.1 10^3/ul (0.0-0.1); BASOPHILS % 1.1 % (0.0-2.0); EOSINOPHILS # 0.2 10^3/ul (0.0-0.5); EOSINOPHILS % 2.2 % (0.0-7.0); HEMATOCRIT 53.2 % (42.0-52.0); HEMOGLOBIN 17.3 g/dl (14.0-18.0); LYMPHOCYTES # 3.3 10^3/ul (0.8-2.9); LYMPHOCYTES % 37.2 % (15.0-51.0); MEAN CORPUSCULAR HEMOGLOBIN 29.4 pg (29.0-33.0); MEAN CORPUSCULAR HGB CONC 32.5 g/dl (32.0-37.0); MEAN CORPUSCULAR VOLUME 90.5 fl (82.0-101.0); MEAN PLATELET VOLUME 10.4 fl (7.4-10.4); MONOCYTE # 1.1 10^3/ul (0.3-0.9); MONOCYTES % 12.8 % (0.0-11.0); NEUTROPHIL # 4.1 10^3/ul (1.6-7.5); NEUTROPHILS % 46.5 % (39.0-77.0); PLATELET COUNT 253 10^3/UL (140-415); RED BLOOD COUNT 5.88 10^6/ul (4.70-6.10); RED CELL DISTRIBUTION WIDTH 14.9 % (11.5-14.5); WHITE BLOOD COUNT 8.9 10^3/ul (4.8-10.8)
[2016-10-23 19:18] LABS: ALBUMIN 4.3 g/dl (3.3-4.9); ALBUMIN/GLOBULIN RATIO 1.34; BILIRUBIN,INDIRECT 0.9 mg/dl (0-1.1); BILIRUBIN,TOTAL 0.9 mg/dl (0.2-1.3); CALCIUM 9.3 mg/dl (8.4-10.2); CREATININE 1.74 mg/dl (0.61-1.24); POTASSIUM 4.5 mmol/L (3.5-5.1); TOTAL PROTEIN 7.5 g/dl (6.1-8.1)
--- NOTE | 2016-10-23 19:19 | RADRPT ---
PROCEDURE: XR Chest. CLINICAL INDICATION: Chest Pain. TECHNIQUE: Single frontal view of the chest. COMPARISON: 05/03/2016. FINDINGS: Cardiomegaly. The lungs are clear. No signs of pleural fluid or pneumothorax are seen. The osseous s tructures and soft tissues are unremarkable. IMPRESSION: No evidence for active cardiopulmonary disease. RPTAT: [facility] Physician Juanjo Date Time Electronically viewed and signed by Livier Peralta Physician on 10/23/2016 19:19 RS/
[2016-10-23 19:30] LABS: TROPONIN-I 0.024 ng/ml (0.00-0.12)
--- NOTE | 2016-10-23 20:47 | RADRPT ---
PROCEDURE: CT abdomen and pelvis without contrast. CLINICAL INDICATION: Left upper quadrant abdominal pain TECHNIQUE: CT scan of the abdomen and pelvis without contrast was performed. Sagittal and coronal reformatted images were obtained from the axial source images. CTDI = 21.59 mGy; DLP = 1241.53 mGy- cm COMPARISON: None available. FINDINGS: Visualized lower thorax: Compressive atelectasis of the right lower lobe is present. The left lung base is clear. The visualized heart is mildly enlarged. Moderate dependent right pleural effusion is present. The left pleural space is clear. Liver, gallbladder, pancreas and spleen: The liver is normal and size, contour and attenuation. Th ere is no evidence for a liver mass or ductal dilatation. The gallbladder is unremarkable. No comm on bile duct abnormality is demonstrated. The pancreas is unremarkable. The spleen is normal in si ze. Adrenal glands and genitourinary system: Benign calcification of the right adrenal gland is present. The left adrenal gland is unremarkable. Asymmetry of the kidneys with left renal atrophy and mild right nephromegaly. Tiny 1 mm anterior interpolar renal calculus is present without hydronephrosis . A calculus within the left renal pelvis is approximately 8 mm (series 3 image 66) without left-si ded hydronephrosis. Mild bilateral perinephric fat stranding is present. The ureters are unremarka ble. No urinary bladder abnormality is demonstrated. The prostate gland is normal in size. The vi sualized scrotum shows no abnormality. Gastrointestinal system: The stomach is normal in caliber with no abnormality of significance. The small bowel is normal in caliber with no ileus, obstruction or wall thickening. The appendix and s urrounding fat are within the limits of normal. Diffuse diverticular disease throughout the colon i s present. There is no evidence for colitis or diverticulitis. Peritoneum, retroperitoneum, lymph nodes and vessels: The abdominal aorta is normal in caliber. The re is moderate aortic and iliac atherosclerotic calcification. The inferior vena cava is unremarkab le. There is no evidence for adenopathy or mass. Small amount of perihepatic and perisplenic ascit es is present. Osseous structures and musculoskeletal findings: There is no fracture, lytic or blastic lesion. Mi ld lumbar spondylosis is present. Small amount of stranding involving the subcutaneous fat adjacent to the umbilicus equivocal for cellulitis without evidence of abscess. RPTAT:HJJR IMPRESSION: 1. Left renal pelvic calculus of approximately 8 mm without hydronephrosis, the left kidney is atrop hic. 2. Tiny nonobstructing one millimeter interpolar calculus in the hypertrophic right kidney. 3. Right pleural effusion with compressive atelectasis of the right lower lobe. 4. Diffuse diverticular disease of the colon without evidence of diverticulitis. 5. Trace amount of perihepatic and perisplenic ascites. 6. Nonspecific stranding of the subcutaneous fat involving anterior abdominal wall for cellulitis a t the level of the umbilicus Physician Jessica Date Time Electronically viewed and signed by Physician Jessica on 10/23/2016 20:47 /
[2016-10-23] MEDS ORDERED: HYDROmorphONE 1 MG/ML SYG IM STA (21:36)
[2016-10-23] MEDS ORDERED: ONDANSETRON (ODT) 4 MG TAB ODT STA (21:36)
--- NOTE | 2016-10-23 21:42 | ERA ---
ER Documentation Chief Complaint Date/Time DATE: 10/23/16 TIME: 21:39 Chief Complaint ABD PAIN, BILATERAL LEG SWELLING, FATIGUE X 3 DAYS HPI This a 51-year-old male with history of hypertension diabetes cardiac infarcts with 3 cardiac stents as well as CHF presents with worsening her CHF symptoms of dyspnea on exertion. He said he cannot walk 10 feet without getting short of breath. Is also complaining of gradual increasing swelling in his ankles over the past week. Is not having chest pain fever cough. Is also complaining of some bilateral upper quadrant abdominal pain. He says he had a history of this chronically but it seems to be getting worse. The pain is off and on described as sharp and crampy at times but no nausea vomiting or diarrhea ROS All systems reviewed and are negative except as per history of present illness. Medications Home Meds Active Scripts Carvedilol* (Carvedilol*) 6.25 Mg Tablet, 6.25 MG PO BID for 30 Days, TAB 2 Refills Prov:MEL ANDREWS. 01/16/16 Metformin* (Glucophage*) 500 Mg Tab, 500 MG PO BID for 30 Days, 2 Refills Prov:MEL ANDREWS. 01/16/16 Reported Medications Potassium Chloride* (Potassium Chloride*) 8 Meq Capsule.er, 8 MEQ PO DAILY, CAP 09/23/16 Lisinopril* (Lisinopril*) 20 Mg Tablet, 20 MG PO DAILY, #30 TAB 09/23/16 Furosemide* (Furosemide*) 40 Mg Tablet, 40 MG PO DAILY, TAB 09/23/16 Isosorbide Mononitrate (Isosorbide Mononitrate) 10 Mg Tablet, 10 MG PO BID, TAB 04/28/16 Clopidogrel Bisulfate* (Clopidogrel Bisulfate*) 75 Mg Tablet, 75 MG PO DAILY, # 30 TAB 04/28/16 Aspirin* (Aspirin* EC) 325 Mg Tab, 325 MG PO DAILY, TAB 04/28/16 Atorvastatin* (Atorvastatin*) 80 Mg Tablet, 80 MG PO QHS, #30 TAB 04/28/16 Discontinued Reported Medications Cholecalciferol (Vitamin D3) 5,000 Unit Tablet, 5000 UNIT PO DAILY, TAB 04/28/16 Discontinued Scripts Azithromycin* (Zithromax*) 250 Mg Tablet, 250 MG PO .JAREN DIRECTED, #6 TAB TAKE 500 MG (2 TABS) THE FIRST DAY THEN 250 MG (1 TAB) DAYS 2-5 Prov:EMORY PEÑALOZA 09/23/16 Albuterol Sulfate* (Ventolin HFA*) 18 Gm Hfa.aer.ad, 2 PUFF INHALATION Q4H, #1 INHALER Prov:EMORY PEÑALOZA 09/23/16 Prednisone* (Prednisone*) 20 Mg Tab, 40 MG PO DAILY for 4 Days, TAB Prov:EMORY PEÑALOZA. 09/23/16 Ibuprofen* (Motrin*) 600 Mg Tab, 600 MG PO Q6, #30 TAB Prov:EMORY PEÑALOZA. 09/23/16 Nateglinide* (Starlix*) 60 Mg Tablet, 60 MG PO DAILY for 30 Days, 2 Refills Prov:DARRYLMEL 01/16/16 Allergies Allergies: Coded Allergies: No Known Allergies (Unverified Allergy, Unknown, 10/23/16) PMhx/Soc History of Surgery: Yes (stent placement of the mid left circumflex w/ drug- eluting stent on01/13/16) Anesthesia Reaction: No Hx Neurological Disorder: No Hx Respiratory Disorders: Yes (was treated before for fluids in the lungs) Hx Cardiac Disorders: Yes (CHF,CAD,cardiomyopathy, HYPERLIPIDEMIA ) Hx Psychiatric Problems: No Hx Miscellaneous Medical Probl: Yes (DM) Hx Alcohol Use: No Hx Substance Use: No Hx Tobacco Use: No Smoking Status: Never smoker FmHx Family History: coronary disease Physical Exam Vitals Vital Signs Date Time Temp Pulse Resp B/P Pulse Ox O2 Delivery O2 Flow Rate FiO2 10/23/16 19:53 85 17 126/94 98 Room Air 10/23/16 18:33 88 19 128/67 100 Room Air 10/23/16 14:21 98.0 100 18 124/62 99 Physical Exam Const: Well-developed, well-nourished Head: Atraumatic, normocephalic Eyes: Normal Conjunctiva, PERRLA, EOMI, normal sclera, no nystagmus ENT: Normal External Ears, Nose and Mouth, moist mucus membranes. Neck: Full range of motion. No meningismus, no lymphadenopathy. Resp: Clear to auscultation bilaterally, no wheezing, rhonchi, rales Cardio: Regular rate and rhythm, no murmurs, S1 S2 present Abd: Soft, mild bilateral upper abdominal tenderness left more than right, non distended. Normal bowel sounds, no guarding or rebound, no pulsitile abdominal masses or bruits Skin: No petechiae or rashes, no ecchymosis , no maculopapular rash Back: No midline or flank tenderness Ext: No cyanosis, +1/2 edema, FROM x 4, normal inspection, neurovascularly intact x 4 Neur: Awake and alert, STR 5/5 x 4, sensation intact x 4, no focal findings, cerebellum intact Psych: Normal Mood and Affect Result Diagram: 10/23/16 1800 10/23/16 1800 Results 24 hrs Laboratory Tests Test 10/23/16 18:00 White Blood Count 8.910^3/ul Red Blood Count 5.8810^6/ul Hemoglobin 17.3g/dl Hematocrit 53.2% Mean Corpuscular Volume 90.5fl Mean Corpuscular Hemoglobin 29.4pg Mean Corpuscular Hemoglobin Concent 32.5g/dl Red Cell Distribution Width 14.9% Platelet Count 79742^3/UL Mean Platelet Volume 10.4fl Neutrophils % 46.5% Lymphocytes % 37.2% Monocytes % 12.8% Eosinophils % 2.2% Basophils % 1.1% Nucleated Red Blood Cells % 0.0/100WBC Neutrophils # 4.110^3/ul Lymphocytes # 3.310^3/ul Monocytes # 1.110^3/ul Eosinophils # 0.210^3/ul Basophils # 0.110^3/ul Nucleated Red Blood Cells # 0.010^3/ul Sodium Level 140mmol/L Potassium Level 4.5mmol/L Chloride Level 100mmol/L Carbon Dioxide Level 23mmol/L Anion Gap 22 Blood Urea Nitrogen 32mg/dl Creatinine 1.74mg/dl Glucose Level 131mg/dl Calcium Level 9.3mg/dl Total Bilirubin 0.9mg/dl Direct Bilirubin 0.00mg/dl Indirect Bilirubin 0.9mg/dl Aspartate Amino Transf (AST/SGOT) 30IU/L Alanine Aminotransferase (ALT/SGPT) 30IU/L Alkaline Phosphatase 87IU/L Troponin I 0.024ng/ml B-Type Natriuretic Peptide 4720PG/ML Total Protein 7.5g/dl Albumin 4.3g/dl Globulin 3.20g/dl Albumin/Globulin Ratio 1.34 Current Medications Medications (Trade) Dose Ordered Sig/Eva Route PRN Reason Start Time Stop Time Status Last Admin Dose Admin Furosemide (Lasix) 40 mg ONCE STAT IV 10/23/16 18:25 10/23/16 18:27 DC 10/23/16 18:45 Hydromorphone HCl (Dilaudid) 1 mg ONCE STAT IM 10/23/16 21:36 10/23/16 21:37 DC Ondansetron HCl (Zofran Odt) 4 mg ONCE STAT ODT 10/23/16 21:36 10/23/16 21:37 DC Procedures/MDM PROCEDURE: CT abdomen and pelvis without contrast. CLINICAL INDICATION: Left upper quadrant abdominal pain TECHNIQUE: CT scan of the abdomen and pelvis without contrast was performed. Sagittal and coronal reformatted images were obtained from the axial source images. CTDI = 21.59 mGy; DLP = 1241.53 mGy-cm COMPARISON: None available. FINDINGS: Visualized lower thorax: Compressive atelectasis of the right lower lobe is present. The left lung base is clear. The visualized heart is mildly enlarged. Moderate dependent right pleural effusion is present. The left pleural space is clear. Liver, gallbladder, pancreas and spleen: The liver is normal and size, contour and attenuation. There is no evidence for a liver mass or ductal dilatation. The gallbladder is unremarkable. No common bile duct abnormality is demonstrated. The pancreas is unremarkable. The spleen is normal in size. Adrenal glands and genitourinary system: Benign calcification of the right adrenal gland is present. The left adrenal gland is unremarkable. Asymmetry of the kidneys with left renal atrophy and mild right nephromegaly. Tiny 1 mm anterior interpolar renal calculus is present without hydronephrosis. A calculus within the left renal pelvis is approximately 8 mm (series 3 image 66) without left-sided hydronephrosis. Mild bilateral perinephric fat stranding is present. The ureters are unremarkable. No urinary bladder abnormality is demonstrated. The prostate gland is normal in size. The visualized scrotum shows no abnormality. Gastrointestinal system: The stomach is normal in caliber with no abnormality of significance. The small bowel is normal in caliber with no ileus, obstruction or wall thickening. The appendix and surrounding fat are within the limits of normal. Diffuse diverticular disease throughout the colon is present. There is no evidence for colitis or diverticulitis. Peritoneum, retroperitoneum, lymph nodes and vessels: The abdominal aorta is normal in caliber. There is moderate aortic and iliac atherosclerotic calcification. The inferior vena cava is unremarkable. There is no evidence for adenopathy or mass. Small amount of perihepatic and perisplenic ascites is present. Osseous structures and musculoskeletal findings: There is no fracture, lytic or blastic lesion. Mild lumbar spondylosis is present. Small amount of stranding involving the subcutaneous fat adjacent to the umbilicus equivocal for cellulitis without evidence of abscess. RPTAT:HJJR IMPRESSION: 1. Left renal pelvic calculus of approximately 8 mm without hydronephrosis, the left kidney is atrophic. 2. Tiny nonobstructing one millimeter interpolar calculus in the hypertrophic right kidney. 3. Right pleural effusion with compressive atelectasis of the right lower lobe. 4. Diffuse diverticular disease of the colon without evidence of diverticulitis. 5. Trace amount of perihepatic and perisplenic ascites. 6. Nonspecific stranding of the subcutaneous fat involving anterior abdominal wall for cellulitis at the level of the umbilicus Physician Jessica Date Time Electronically viewed and signed by Physician Jessica on 10/23/2016 20:47 JR/ CC: NUNU SOMMER DO PROCEDURE: XR Chest. CLINICAL INDICATION: Chest Pain. TECHNIQUE: Single frontal view of the chest. COMPARISON: 05/03/2016. FINDINGS: Cardiomegaly. The lungs are clear. No signs of pleural fluid or pneumothorax are seen. The osseous structures and soft tissues are unremarkable. IMPRESSION: No evidence for active cardiopulmonary disease. RPTAT: [facility] Physician Juanjo Date Time Electronically viewed and signed by Physician Juanjo on 10/23/2016 19:19 RS/ CC: NUNU SOMMER DO EKG: Rate/Rhythm: Normal Sinus Rhythm,NL intervals QRS, ST, QT: NORMAL DE, QRS, QT] Impression: NORMAL EKG We will admit the patient for diuresis also has some uncontrolled blood pressure issues needs to be monitored and have his medications changed. Patient's heart failure symptoms have stabilized while in the department and is appropriate for outpatient work up and management. Exam and work up not consistent w/ impending respiratory failure or cardiovascular collapse. Departure Diagnosis: Primary Impression: CHF (congestive heart failure) Qualified Code: I50.9 - Acute on chronic congestive heart failure, unspecified congestive heart failure type Additional Impression: Uncontrolled hypertension Condition: Stable NUNU SOMMER DO Oct 23, 2016 21:41
[2016-10-23] MEDS ORDERED: NICARDipine HCL 30 MG CAPSULE PO ONE (22:00)
[2016-10-23] MEDS ORDERED: ONDANSETRON 4 MG INJ IV PRN (22:00)
[2016-10-23] MEDS ORDERED: ACETAMINOPHEN 325 MG TAB PO PRN (22:00)
[2016-10-23 23:25] VITALS: TEMP 97.5
[2016-10-24] VITALS (12 sets, daily range): BP systolic 94–133; BP diastolic 62–83; PULSE 66–80; RESP 16–20; Ht 170.2 cm; Wt 95.2 kg
[2016-10-24] MEDS ORDERED: GLUCOSE GEL 15 GRAM TUBE BUCCAL PRN (01:30)
[2016-10-24] MEDS ORDERED: GLUCAGON 1 MG INJ IM PRN (01:30)
[2016-10-24] MEDS ORDERED: DEXTROSE 50% 50 ML SYRINGE IV PRN ×2 (01:30)
[2016-10-24] MEDS ORDERED: NITROGLYCERIN (SL) 0.4 MG TAB SL PRN (01:30)
[2016-10-24] MEDS ORDERED: morphine 2 MG INJ IV PRN (01:30)
[2016-10-24] MEDS ORDERED: GLUCOSE GEL 15 GRAM TUBE PO PRN ×2 (01:30)
[2016-10-24] MEDS: ACCU-CHEK XX SCH (02:00)
[2016-10-24] MEDS ORDERED: ACETAMINOPHEN 325 MG TAB PO PRN (02:00)
[2016-10-24] MEDS ORDERED: ONDANSETRON 4 MG INJ IV PRN (02:00)
[2016-10-24] MEDS: FUROSEMIDE 20 MG INJ IV SCH ×2 (05:59→17:32)
[2016-10-24 07:35] LABS: BASOPHIL # 0.1 10^3/ul (0.0-0.1); BASOPHILS % 0.7 % (0.0-2.0); EOSINOPHILS # 0.1 10^3/ul (0.0-0.5); EOSINOPHILS % 0.8 % (0.0-7.0); HEMATOCRIT 46.9 % (42.0-52.0); HEMOGLOBIN 15.3 g/dl (14.0-18.0); LYMPHOCYTES # 1.4 10^3/ul (0.8-2.9); LYMPHOCYTES % 19.3 % (15.0-51.0); MEAN CORPUSCULAR HEMOGLOBIN 29.6 pg (29.0-33.0); MEAN CORPUSCULAR HGB CONC 32.6 g/dl (32.0-37.0); MEAN CORPUSCULAR VOLUME 90.7 fl (82.0-101.0); MEAN PLATELET VOLUME 10.3 fl (7.4-10.4); MONOCYTE # 0.7 10^3/ul (0.3-0.9); MONOCYTES % 9.3 % (0.0-11.0); NEUTROPHIL # 5.1 10^3/ul (1.6-7.5); NEUTROPHILS % 69.6 % (39.0-77.0); PLATELET COUNT 216 10^3/UL (140-415); RED BLOOD COUNT 5.17 10^6/ul (4.70-6.10); RED CELL DISTRIBUTION WIDTH 14.4 % (11.5-14.5); WHITE BLOOD COUNT 7.3 10^3/ul (4.8-10.8)
[2016-10-24 07:46] LABS: CALCIUM 8.7 mg/dl (8.4-10.2); CREATININE 1.52 mg/dl (0.61-1.24); MAGNESIUM 1.7 mg/dl (1.7-2.5); PHOSPHORUS 4.4 mg/dl (2.5-4.9); POTASSIUM 4.1 mmol/L (3.5-5.1)
[2016-10-24 07:58] LABS: TROPONIN-I 0.026 ng/ml (0.00-0.12)
[2016-10-24] MEDS: INSULIN ASPART [NOVOLOG] 3 ML PEN SC SCH ×4 (08:00→20:34)
[2016-10-24] MEDS: CLOPIDOGREL 75 MG TAB PO SCH (08:22)
[2016-10-24] MEDS: ASPIRIN (EC) 325 MG TAB PO SCH (08:22)
[2016-10-24] MEDS: POTASSIUM CHLORIDE (SR) 8 MEQ CAP PO SCH (08:22)
[2016-10-24] MEDS: LISINOPRIL 20 MG TAB PO SCH (08:22)
[2016-10-24] MEDS: ISOSORBIDE MONONITRATE 20 MG TAB PO SCH ×2 (08:23→21:00)
--- NOTE | 2016-10-24 09:34 | HP ---
Date/Time of Note Date/Time of Note DATE: 10/24/16 TIME: 09:25 Assessment/Plan Lines/Catheters [facility]from [facility] Urinary Cath still in place: No Assessment/Plan Assessment/Plan IMPRESSION 1. Acute on chronic CHF, systolic 2. History of ischemic cardiomyopathy with EF of 25% 3. History of CAD with multiple stents 4. Chronic kidney disease 5. History of diabetes 6. History of dyslipidemia PLAN - He will be continued with his cardiac medication. He will be placed on IV Lasix. Strict ins and outs. Monitor urine output clean. Will trend his troponin. Will place a cardiology consult. -Insulin while in-house for management of his diabetes. -We will place nephrology consult to help us manage his chronic kidney disease. HPI/ROS Admit Date/Time Admit Date/Time Oct 23, 2016 at 21:38 Hx of Present Illness This is a 51-year-old male with a history of diabetes, hypertension, dyslipidemia, chronic kidney disease, coronary artery disease status post multiple stents, and ischemic cardiomyopathy with ejection fraction of 25%. Patient presents to the ER complaining of shortness of breath, lower extremity swelling and increased abdominal girth. His shortness of breath is worse on exertion and when he is lying in the supine position. He said he has been compliant with his medication including his Lasix but over the past few days he noticed decreased urinary output. When he presented to the ER, his vitals were stable. Except a creatinine of 1.74, the rest of the basic labs are within acceptable range. First troponin is negative. EKG was done no ST elevation or depression. . PMH/Family/Social Social History Smoking Status: Never smoker Exam/Review of Systems Vital Signs Vitals Vital Signs Date Time Temp Pulse Resp B/P Pulse Ox O2 Delivery O2 Flow Rate FiO2 10/24/16 08:14 98.2 73 18 118/83 99 Room Air Labs Result Diagram: 10/24/1644 10/24/1644 Medications Medications Current Medications Aspirin (Ecotrin) 325 mg DAILY PO Last administered on 10/24/16 08:22; Admin Dose 325 MG; Start 10/24/16 at 09:00 Atorvastatin Calcium (Lipitor) 80 mg QHS PO ; Start 10/24/16 at 21:00 Carvedilol (Coreg) 6.25 mg BID PO Last administered on 10/24/16 08:22; Admin Dose 6.25 MG; Start 10/24/16 at 09:00 Clopidogrel Bisulfate (plaVIX) 75 mg DAILY PO Last administered on 10/24/16 08 :22; Admin Dose 75 MG; Start 10/24/16 at 09:00 Lisinopril (Zestril) 20 mg DAILY PO Last administered on 10/24/16 08:22; Admin Dose 20 MG; Start 10/24/16 at 09:00 Potassium Chloride (Micro-K) 8 meq DAILY PO Last administered on 10/24/16 08: 22; Admin Dose 8 MEQ; Start 10/24/16 at 09:00 Isosorbide Mononitrate (Ismo) 10 mg BID PO Last administered on 10/24/16 08:23 ; Admin Dose 10 MG; Start 10/24/16 at 09:00 Nitroglycerin (Nitroglycerin (Sl Tab) 0.4 Mg) 1 tab Q5M PRN SL ANGINA; Start at 01:30 Morphine Sulfate (morphine) 2 mg Q4H PRN IV PAIN LEVEL 6-10; Start 10/24/16 at 01:30 Diagnostic Test (Pha) (Accu-Chek) 1 ea 02 XX ; Start 10/24/16 at 02:00 Miscellaneous Information 1 ea NOTE XX ; Start 10/24/16 at 01:30 Glucose (Glutose) 15 gm Q15M PRN PO DECREASED GLUCOSE; Start 10/24/16 at 01:30 Glucose (Glutose) 22.5 gm Q15M PRN PO DECREASED GLUCOSE; Start 10/24/16 at 01: 30 Dextrose (D50w Syringe) 25 ml Q15M PRN IV DECREASED GLUCOSE; Start 10/24/16 at 01:30 Dextrose (D50w Syringe) 50 ml Q15M PRN IV DECREASED GLUCOSE; Start 10/24/16 at 01:30 Glucagon (Glucagen) 1 mg Q15M PRN IM DECREASED GLUCOSE; Start 10/24/16 at 01:30 Glucose (Glutose) 15 gm Q15M PRN BUCCAL DECREASED GLUCOSE; Start 10/24/16 at 01 :30 Acetaminophen (Tylenol Tab) 650 mg Q6H PRN PO PAIN AND OR ELEVATED TEMP; Start 10/24/16 at 02:00 Ondansetron HCl (Zofran Inj) 4 mg Q6H PRN IV NAUSEA AND/OR VOMITING Last administered on 10/24/16t 01:52; Admin Dose 4 MG; Start 10/24/16 at 02:00 EMORY DAMICO MD Oct 24, 2016 09:34
--- NOTE | 2016-10-24 16:01 | PN ---
Date/Time of Note Date/Time of Note DATE: 10/24/16 TIME: 15:57 Assessment/Plan VTE Prophylaxis VTE Prophylaxis Intervention: SCD's Lines/Catheters IV [facility]ter Type (from [facility]): [facility]ine [facility] Urinary Cath still in place: No Assessment/Plan Chief Complaint/Hosp Course Assessment and plan:51-year-old male with a history of diabetes, hypertension, dyslipidemia, chronic kidney disease, coronary artery disease status post multiple stents, and ischemic cardiomyopathy with ejection fraction of 25%, who presents with shortness of breath symptoms, signs of CHF exacerbation. 1. Acute on chronic CHF, systolic-less shortness of breath now, symptoms slowly improving. -Continue current cardiac medications, including low-dose beta-vicky, IV Lasix. Follow-up echocardiogram results. 2. History of ischemic cardiomyopathy with EF of 25% -See #1, follow-up echocardiogram 3. History of CAD with multiple stents. -Continue aspirin and Plavix 4. Chronic kidney disease-monitor BUN/creatinine levels and urine output. If worsens, consider renal consult 5. History of diabetes-A1c equals 8.8. -Continue sliding scale insulin 6. History of dyslipidemia-patient has elevated cholesterol levels including LDL. - Continue high-dose statin. 7. GI prophylaxis: PPI Problems: Subjective 24 Hr Interval Summary Free Text/Dictation Patient has less shortness of breath symptoms. No acute events overnight. Exam/Review of Systems Vital Signs Vitals Vital Signs Date Time Temp Pulse Resp B/P Pulse Ox O2 Delivery O2 Flow Rate FiO2 10/24/16 12:14 69 10/24/16 12:00 97.8 18 103/62 98 Room Air Exam Const: Well-developed, well-nourished Head: Atraumatic, normocephalic Eyes: Normal Conjunctiva, PERRLA, EOMI, normal sclera, no nystagmus ENT: Normal External Ears, Nose and Mouth, moist mucus membranes. Neck: Full range of motion. No meningismus, no lymphadenopathy. Resp: Clear to auscultation bilaterally, no wheezing, rhonchi, rales Cardio: Regular rate and rhythm, no murmurs, S1 S2 present Abd: Soft, less abdominal tenderness left more than right, non distended. Normal bowel sounds, no guarding or rebound, no pulsitile abdominal masses or bruits Skin: No petechiae or rashes, no ecchymosis , no maculopapular rash Back: No midline or flank tenderness Ext: No cyanosis, +1/2 edema, FROM x 4, normal inspection, neurovascularly intact x 4 Neur: Awake and alert, STR 5/5 x 4, sensation intact x 4, no focal findings, cerebellum intact Psych: Normal Mood and Affect Results Result Diagram: 10/24/16 0644 10/24/16 0644 Results 24 hrs Laboratory Tests Test 10/23/16 18:00 10/24/16 01:43 10/24/16 06:44 10/24/16 08:16 White Blood Count 8.9 7.3 Red Blood Count 5.88 5.17 Hemoglobin 17.3 15.3 Hematocrit 53.2 H 46.9 Mean Corpuscular Volume 90.5 90.7 Mean Corpuscular Hemoglobin 29.4 29.6 Mean Corpuscular Hemoglobin Concent 32.5 32.6 Red Cell Distribution Width 14.9 H 14.4 Platelet Count 253 # 216 Mean Platelet Volume 10.4 10.3 Neutrophils % 46.5 69.6 Lymphocytes % 37.2 19.3 Monocytes % 12.8 H 9.3 Eosinophils % 2.2 0.8 Basophils % 1.1 0.7 Nucleated Red Blood Cells % 0.0 0.0 Neutrophils # 4.1 5.1 Lymphocytes # 3.3 H 1.4 Monocytes # 1.1 H 0.7 Eosinophils # 0.2 0.1 Basophils # 0.1 0.1 Nucleated Red Blood Cells # 0.0 0.0 Sodium Level 140 140 Potassium Level 4.5 4.1 Chloride Level 100 100 Carbon Dioxide Level 23 25 Anion Gap 22 H 19 H Blood Urea Nitrogen 32 H 27 H Creatinine 1.74 H 1.52 H Glucose Level 131 141 Calcium Level 9.3 8.7 Total Bilirubin 0.9 Direct Bilirubin 0.00 Indirect Bilirubin 0.9 Aspartate Amino Transf (AST/SGOT) 30 Alanine Aminotransferase (ALT/SGPT) 30 Alkaline Phosphatase 87 Troponin I 0.024 0.026 B-Type Natriuretic Peptide 4720 H Total Protein 7.5 Albumin 4.3 Globulin 3.20 Albumin/Globulin Ratio 1.34 Bedside Glucose 139 128 Hemoglobin A1c 8.8 H Phosphorus Level 4.4 Magnesium Level 1.7 Triglycerides Level 137 Cholesterol Level 368 H LDL Cholesterol, Calculated 318 HDL Cholesterol 23 L Cholesterol/HDL Ratio 16.0 Test 10/24/16 11:59 10/24/16 12:08 Bedside Glucose 139 Troponin I 0.016 Medications Medications Current Medications Aspirin (Ecotrin) 325 mg DAILY PO Last administered on 10/24/16 08:22; Admin Dose 325 MG; Start 10/24/16 at 09:00 Atorvastatin Calcium (Lipitor) 80 mg QHS PO ; Start 10/24/16 at 21:00 Clopidogrel Bisulfate (plaVIX) 75 mg DAILY PO Last administered on 10/24/16 08 :22; Admin Dose 75 MG; Start 10/24/16 at 09:00 Lisinopril (Zestril) 20 mg DAILY PO Last administered on 10/24/16 08:22; Admin Dose 20 MG; Start 10/24/16 at 09:00 Potassium Chloride (Micro-K) 8 meq DAILY PO Last administered on 10/24/16 08: 22; Admin Dose 8 MEQ; Start 10/24/16 at 09:00 Isosorbide Mononitrate (Ismo) 10 mg BID PO Last administered on 10/24/16 08:23 ; Admin Dose 10 MG; Start 10/24/16 at 09:00 Nitroglycerin (Nitroglycerin (Sl Tab) 0.4 Mg) 1 tab Q5M PRN SL ANGINA; Start at 01:30 Morphine Sulfate (morphine) 2 mg Q4H PRN IV PAIN LEVEL 6-10; Start 10/24/16 at 01:30 Diagnostic Test (Pha) (Accu-Chek) 1 ea 02 XX ; Start 10/24/16 at 02:00 Miscellaneous Information 1 ea NOTE XX ; Start 10/24/16 at 01:30 Glucose (Glutose) 15 gm Q15M PRN PO DECREASED GLUCOSE; Start 10/24/16 at 01:30 Glucose (Glutose) 22.5 gm Q15M PRN PO DECREASED GLUCOSE; Start 10/24/16 at 01: 30 Dextrose (D50w Syringe) 25 ml Q15M PRN IV DECREASED GLUCOSE; Start 10/24/16 at 01:30 Dextrose (D50w Syringe) 50 ml Q15M PRN IV DECREASED GLUCOSE; Start 10/24/16 at 01:30 Glucagon (Glucagen) 1 mg Q15M PRN IM DECREASED GLUCOSE; Start 10/24/16 at 01:30 Glucose (Glutose) 15 gm Q15M PRN BUCCAL DECREASED GLUCOSE; Start 10/24/16 at 01 :30 Acetaminophen (Tylenol Tab) 650 mg Q6H PRN PO PAIN AND OR ELEVATED TEMP; Start 10/24/16 at 02:00 Ondansetron HCl (Zofran Inj) 4 mg Q6H PRN IV NAUSEA AND/OR VOMITING Last administered on 10/24/16t 01:52; Admin Dose 4 MG; Start 10/24/16 at 02:00 Carvedilol (Coreg) 3.125 mg BID PO ; Start 10/24/16 at 21:00 CLIFF ROONEY Oct 24, 2016 16:01
[2016-10-24] MEDS: ATORVASTATIN 80 MG TAB PO SCH (20:33)
[2016-10-25] VITALS (12 sets, daily range): BP systolic 105–119; BP diastolic 66–83; PULSE 63–79; RESP 16–20
[2016-10-25] MEDS: ISOSORBIDE MONONITRATE 20 MG TAB PO SCH ×3 (00:11→20:28)
[2016-10-25] MEDS: ACCU-CHEK XX SCH (02:00)
[2016-10-25] MEDS: PANTOPRAZOLE (EC) 40 MG TAB PO SCH (05:43)
[2016-10-25] MEDS: FUROSEMIDE 20 MG INJ IV SCH ×2 (05:43→17:39)
[2016-10-25] MEDS: INSULIN ASPART [NOVOLOG] 3 ML PEN SC SCH ×4 (08:00→20:29)
[2016-10-25 08:05] LABS: BASOPHIL # 0.1 10^3/ul (0.0-0.1); BASOPHILS % 1.2 % (0.0-2.0); EOSINOPHILS # 0.2 10^3/ul (0.0-0.5); HEMATOCRIT 47.5 % (42.0-52.0); HEMOGLOBIN 15.5 g/dl (14.0-18.0); LYMPHOCYTES # 2.3 10^3/ul (0.8-2.9); LYMPHOCYTES % 38.2 % (15.0-51.0); MEAN CORPUSCULAR HEMOGLOBIN 29.3 pg (29.0-33.0); MEAN CORPUSCULAR HGB CONC 32.6 g/dl (32.0-37.0); MEAN CORPUSCULAR VOLUME 89.8 fl (82.0-101.0); MEAN PLATELET VOLUME 10.6 fl (7.4-10.4); MONOCYTE # 0.7 10^3/ul (0.3-0.9); MONOCYTES % 11.3 % (0.0-11.0); NEUTROPHIL # 2.7 10^3/ul (1.6-7.5); PLATELET COUNT 214 10^3/UL (140-415); RED BLOOD COUNT 5.29 10^6/ul (4.70-6.10); RED CELL DISTRIBUTION WIDTH 14.5 % (11.5-14.5)
[2016-10-25] MEDS: LISINOPRIL 20 MG TAB PO SCH (08:08)
[2016-10-25] MEDS: ASPIRIN (EC) 325 MG TAB PO SCH (08:08)
[2016-10-25] MEDS: CLOPIDOGREL 75 MG TAB PO SCH (08:08)
[2016-10-25] MEDS: POTASSIUM CHLORIDE (SR) 8 MEQ CAP PO SCH (08:08)
[2016-10-25 08:36] LABS: CREATININE 1.43 mg/dl (0.61-1.24); MAGNESIUM 1.7 mg/dl (1.7-2.5); PHOSPHORUS 4.2 mg/dl (2.5-4.9)
--- NOTE | 2016-10-25 11:59 | PN ---
Date/Time of Note Date/Time of Note DATE: 10/25/16 TIME: 11:57 Assessment/Plan VTE Prophylaxis VTE Prophylaxis Intervention: SCD's Lines/Catheters [facility] Saline Lock Urinary Cath still in place: No Assessment/Plan Chief Complaint/Hosp Course Assessment and plan:51-year-old male with a history of diabetes, hypertension, dyslipidemia, chronic kidney disease, coronary artery disease status post multiple stents, and ischemic cardiomyopathy with ejection fraction of 25%, who presents with shortness of breath symptoms, signs of CHF exacerbation. 1. Acute on chronic CHF, systolic-less shortness of breath now, symptoms slowly improving. Still with some mild shortness of breath symptoms per -Continue current cardiac medications, including low-dose beta-vicky, IV Lasix. - Follow-up echocardiogram results. -Symptoms do not improve, consider cardiology consult at that time 2. History of ischemic cardiomyopathy with EF of 25% -See #1, follow-up echocardiogram results still pending. 3. History of CAD with multiple stents. -Continue aspirin and Plavix 4. Chronic kidney disease-monitor BUN/creatinine levels and urine output. Creatinine improved today. -Monitor for now. 5. History of diabetes-A1c equals 8.8. -Continue sliding scale insulin 6. History of dyslipidemia-patient has elevated cholesterol levels including LDL. - Continue high-dose statin. 7. GI prophylaxis: PPI 8. Dispo: Likely home in 24-48 hours after CHF exacerbation improves. Problems: Subjective 24 Hr Interval Summary Free Text/Dictation Patient still with some mild shortness of breath symptoms, no acute events overnight. Echocardiogram results still pending. Exam/Review of Systems Vital Signs Vitals Vital Signs Date Time Temp Pulse Resp B/P Pulse Ox O2 Delivery O2 Flow Rate FiO2 10/25/16 11:47 98.1 71 20 107/69 100 10/24/16 16:03 Room Air Intake and Output 10/24/16 10/24/16 10/25/16 15:00 23:00 07:00 Intake Total 1000 ml 500 ml Output Total 1000 ml 500 ml Balance 0 ml 0 ml Exam Const: Well-developed, well-nourished Head: Atraumatic, normocephalic Eyes: Normal Conjunctiva, PERRLA, EOMI, normal sclera, no nystagmus ENT: Normal External Ears, Nose and Mouth, moist mucus membranes. Neck: Full range of motion. No meningismus, no lymphadenopathy. Resp: Clear to auscultation bilaterally, no wheezing, rhonchi, rales Cardio: Regular rate and rhythm, no murmurs, S1 S2 present Abd: Soft, less abdominal tenderness left more than right, non distended. Normal bowel sounds, no guarding or rebound, no pulsitile abdominal masses or bruits Skin: No petechiae or rashes, no ecchymosis , no maculopapular rash Back: No midline or flank tenderness Ext: No cyanosis, +1/2 edema, FROM x 4, normal inspection, neurovascularly intact x 4 Neur: Awake and alert, STR 5/5 x 4, sensation intact x 4, no focal findings, cerebellum intact Psych: Normal Mood and Affect Results Result Diagram: 10/25/16 0712 10/25/16 0712 Results 24 hrs Laboratory Tests Test 10/24/16 11:59 10/24/16 12:08 10/24/16 17:05 10/24/16 20:31 Bedside Glucose 139 118 133 Troponin I 0.016 Test 10/25/16 07:12 10/25/16 08:06 White Blood Count 6.0 Red Blood Count 5.29 Hemoglobin 15.5 Hematocrit 47.5 Mean Corpuscular Volume 89.8 Mean Corpuscular Hemoglobin 29.3 Mean Corpuscular Hemoglobin Concent 32.6 Red Cell Distribution Width 14.5 Platelet Count 214 Mean Platelet Volume 10.6 H Neutrophils % 45.0 Lymphocytes % 38.2 Monocytes % 11.3 H Eosinophils % 4.0 Basophils % 1.2 Nucleated Red Blood Cells % 0.0 Neutrophils # 2.7 Lymphocytes # 2.3 Monocytes # 0.7 Eosinophils # 0.2 Basophils # 0.1 Nucleated Red Blood Cells # 0.0 Sodium Level 136 Potassium Level 4.0 Chloride Level 96 L Carbon Dioxide Level 28 Anion Gap 16 Blood Urea Nitrogen 27 H Creatinine 1.43 H Glucose Level 107 Calcium Level 9.0 Phosphorus Level 4.2 Magnesium Level 1.7 Bedside Glucose 112 Medications Medications Current Medications Aspirin (Ecotrin) 325 mg DAILY PO Last administered on 10/25/16 08:08; Admin Dose 325 MG; Start 10/24/16 at 09:00 Atorvastatin Calcium (Lipitor) 80 mg QHS PO Last administered on 10/24/16 20: 33; Admin Dose 80 MG; Start 10/24/16 at 21:00 Clopidogrel Bisulfate (plaVIX) 75 mg DAILY PO Last administered on 10/25/16 08 :08; Admin Dose 75 MG; Start 10/24/16 at 09:00 Lisinopril (Zestril) 20 mg DAILY PO Last administered on 10/25/16 08:08; Admin Dose 20 MG; Start 10/24/16 at 09:00 Potassium Chloride (Micro-K) 8 meq DAILY PO Last administered on 10/25/16 08: 08; Admin Dose 8 MEQ; Start 10/24/16 at 09:00 Isosorbide Mononitrate (Ismo) 10 mg BID PO Last administered on 10/25/16 08:07 ; Admin Dose 10 MG; Start 10/24/16 at 09:00 Nitroglycerin (Nitroglycerin (Sl Tab) 0.4 Mg) 1 tab Q5M PRN SL ANGINA; Start at 01:30 Morphine Sulfate (morphine) 2 mg Q4H PRN IV PAIN LEVEL 6-10; Start 10/24/16 at 01:30 Diagnostic Test (Pha) (Accu-Chek) 1 ea 02 XX ; Start 10/24/16 at 02:00 Miscellaneous Information 1 ea NOTE XX ; Start 10/24/16 at 01:30 Glucose (Glutose) 15 gm Q15M PRN PO DECREASED GLUCOSE; Start 10/24/16 at 01:30 Glucose (Glutose) 22.5 gm Q15M PRN PO DECREASED GLUCOSE; Start 10/24/16 at 01: 30 Dextrose (D50w Syringe) 25 ml Q15M PRN IV DECREASED GLUCOSE; Start 10/24/16 at 01:30 Dextrose (D50w Syringe) 50 ml Q15M PRN IV DECREASED GLUCOSE; Start 10/24/16 at 01:30 Glucagon (Glucagen) 1 mg Q15M PRN IM DECREASED GLUCOSE; Start 10/24/16 at 01:30 Glucose (Glutose) 15 gm Q15M PRN BUCCAL DECREASED GLUCOSE; Start 10/24/16 at 01 :30 Acetaminophen (Tylenol Tab) 650 mg Q6H PRN PO PAIN AND OR ELEVATED TEMP; Start 10/24/16 at 02:00 Ondansetron HCl (Zofran Inj) 4 mg Q6H PRN IV NAUSEA AND/OR VOMITING Last administered on 10/24/16 01:52; Admin Dose 4 MG; Start 10/24/16 at 02:00 Carvedilol (Coreg) 3.125 mg BID PO Last administered on 10/25/16 08:08; Admin Dose 3.125 MG; Start 10/24/16 at 21:00 Pantoprazole (Protonix Tab) 40 mg DAILY@06 PO Last administered on 10/25/16 05 :43; Admin Dose 40 MG; Start 10/25/16 at 06:00 CLIFF ROONEY Oct 25, 2016 11:59
--- NOTE | 2016-10-25 14:11 | RADRPT ---
Echocardiogram Report Patient Name: DAIJA MAYO Gender: Male Date: 1965 Study Date: 25-Oct-2016 Camp Housekeeper: JANE Location: I Ref. Physician: CLIFF ROONEY Quality: Adequate Procedures: Transthoracic echocardiogram with complete 2D, M-Mode, and doppler examination. Indications: Congestive Heart Failure. 2D/M Mode Doppler Measurement Value Normal Ranges Measurement Value Normal Ranges AoR Diam MM 3.0 cm AV Peak Duong 1.3 m/sec ACS MM 1.5 cm AV Peak PG 6.6 mmHg LVIDd 2D 6.1 3.5 - 5.6 cm LVOT Peak Duong 0.7 m/sec LVIDs 2D 5.2 2.1 - 4.1 cm LVOT Peak PG 1.9 mmHg LVPWd 2D 0.8 0.6 - 1.1 cm MV E Peak Duong 1.0 m/sec IVSd 2D 1.1 0.6 - 1.1 cm MV A Peak Duong 0.5 m/sec EDV 2D 189.2 cm3 MV E/A 2.2 ESV 2D 143.3 cm3 MV Decel Time 214 msec LA Dimen 2D 5.1 2.3 - 4.0 cm MV Decel [place] 5 MV E/A 2.2 TR Peak Duong 2.8 m/sec TR Peak PG 31.2 mmHg PV Peak Duong 0.7 m/sec PV Peak PG 2.0 mmHg RVSP 34.2 mmHg Findings Left Ventricle: Normal left ventricular wall thickness. Mild enlargement of left ventricle cavity. Severe global left ventricular systolic dysfunction. Severe left ventricular systolic dysfunction. Ejection fraction is visually estimated at 25 %. Tissue Doppler/Mitral Doppler indices are consistent with restrictive physiology with markedly elevated left atrial pressure (Stage IIIIV diastolic dysfunction). E/E`=20. Right Ventricle: Mild to moderate enlargement of right ventricle. Left Atrium: There is moderate enlargement of left atrium. Right Atrium: There is moderate enlargement of right atrium. Mitral Valve: There appears to be mitral valve tenting. Mild mitral annular calcification. Mild mitral valve regurgitation. Aortic Valve: No hemodynamically significant aortic stenosis by doppler. Aortic cusps appear mildly calcified. Trace aortic valve regurgitation. Tricuspid Valve: Normal appearance of the tricuspid valve. Estimated peak PA systolic pressure 34 mmHg. There is moderate tricuspid regurgitation. Pulmonic Valve: Normal pulmonic valve appearance. There is trace pulmonic regurgitation. Pericardium: Normal pericardium with no significant pericardial effusion. Aorta: Normal aortic root. IVC: Normal size and normal respiratory collapse consistent with normal right atrial pressure. Pulmonary Artery: Normal pulmonary artery size. Conclusions 1.Normal left ventricular wall thickness. Mild enlargement of left ventricle cavity. Severe global left ventricular systolic dysfunction. Severe left ventricular systolic dysfunction. Ejection fraction is visually estimated at 25 %. Tissue Doppler/Mitral Doppler indices are consistent with restrictive physiology with markedly elevated left atrial pressure (Stage III-IV diastolic dysfunction). 2.Mild to moderate enlargement of right ventricle. 3.There appears to be mitral valve tenting. Mild mitral annular calcification. Mild mitral valve regurgitation. 4.No hemodynamically significant aortic stenosis by doppler. Aortic cusps appear mildly calcified. Trace aortic valve regurgitation. 5.Normal appearance of the tricuspid valve. Estimated peak PA systolic pressure 34 mmHg. There is moderate tricuspid regurgitation. 6.Normal pericardium with no significant pericardial effusion. Electronically Signed By: Osmani Lew 25-Oct-2016 14:11:04 -0700 Patient Name: DAIJA MAYO Study Date: 25-Oct-2016 [id number]
[2016-10-25] MEDS: ATORVASTATIN 80 MG TAB PO SCH (20:27)
[2016-10-26] VITALS (11 sets, daily range): BP systolic 106–130; BP diastolic 71–85; PULSE 62–82; RESP 16–18
[2016-10-26] MEDS: ACCU-CHEK XX SCH (02:00)
[2016-10-26] MEDS: PANTOPRAZOLE (EC) 40 MG TAB PO SCH (05:26)
[2016-10-26] MEDS: FUROSEMIDE 20 MG INJ IV SCH ×2 (05:27→17:27)
[2016-10-26 07:35] LABS: BASOPHIL # 0.1 10^3/ul (0.0-0.1); BASOPHILS % 1.1 % (0.0-2.0); EOSINOPHILS # 0.2 10^3/ul (0.0-0.5); EOSINOPHILS % 3.6 % (0.0-7.0); HEMATOCRIT 46.2 % (42.0-52.0); HEMOGLOBIN 15.6 g/dl (14.0-18.0); LYMPHOCYTES # 2.2 10^3/ul (0.8-2.9); LYMPHOCYTES % 34.5 % (15.0-51.0); MEAN CORPUSCULAR HEMOGLOBIN 30.1 pg (29.0-33.0); MEAN CORPUSCULAR HGB CONC 33.8 g/dl (32.0-37.0); MEAN CORPUSCULAR VOLUME 89.2 fl (82.0-101.0); MEAN PLATELET VOLUME 10.2 fl (7.4-10.4); MONOCYTE # 0.8 10^3/ul (0.3-0.9); MONOCYTES % 12.2 % (0.0-11.0); NEUTROPHIL # 3.1 10^3/ul (1.6-7.5); NEUTROPHILS % 48.3 % (39.0-77.0); PLATELET COUNT 206 10^3/UL (140-415); RED BLOOD COUNT 5.18 10^6/ul (4.70-6.10); RED CELL DISTRIBUTION WIDTH 14.3 % (11.5-14.5); WHITE BLOOD COUNT 6.4 10^3/ul (4.8-10.8)
[2016-10-26 07:57] LABS: CREATININE 1.37 mg/dl (0.61-1.24); POTASSIUM 4.2 mmol/L (3.5-5.1)
[2016-10-26] MEDS: INSULIN ASPART [NOVOLOG] 3 ML PEN SC SCH ×4 (08:00→21:00)
[2016-10-26] MEDS: ASPIRIN (EC) 325 MG TAB PO SCH (08:12)
[2016-10-26] MEDS: LISINOPRIL 20 MG TAB PO SCH (08:12)
[2016-10-26] MEDS: POTASSIUM CHLORIDE (SR) 8 MEQ CAP PO SCH (08:12)
[2016-10-26] MEDS: ISOSORBIDE MONONITRATE 20 MG TAB PO SCH ×2 (08:12→21:00)
[2016-10-26] MEDS: CLOPIDOGREL 75 MG TAB PO SCH (08:12)
--- NOTE | 2016-10-26 18:07 | PN ---
Date/Time of Note Date/Time of Note DATE: 10/26/16 TIME: 18:06 Assessment/Plan VTE Prophylaxis VTE Prophylaxis Intervention: SCD's Lines/Catheters IV [facility] Type (from [facility]): Saline Lock Urinary Cath still in place: No Assessment/Plan Assessment/Plan Assessment and plan:51-year-old male with a history of diabetes, hypertension, dyslipidemia, chronic kidney disease, coronary artery disease status post multiple stents, and ischemic cardiomyopathy with ejection fraction of 25%, who presents with shortness of breath symptoms, signs of CHF exacerbation. 1. Acute on chronic systolic HF, 2/2 ICM. (h/o STEMI 10.16 sp PCI with NEGRITO) -Continue current cardiac medications, including low-dose beta-vicky, DOUBLE UP ON IV LASIX Of note, pt seen by cardiology service during 04.21 admit for same. Plan at that time was possible ICD eval if EF did not improve -will consult cardiology tomorrow in AM 2. History of CAD with multiple stents. -Continue aspirin and Plavix 3. Chronic kidney disease-monitor BUN/creatinine levels and urine output. Creatinine improved today. -Monitor for now. 4. History of diabetes-A1c equals 8.8. -Continue sliding scale insulin 5. History of dyslipidemia-patient has elevated cholesterol levels including LDL. - Continue high-dose statin. Subjective 24 Hr Interval Summary Free Text/Dictation Pt without sig improvement in breathing or in LE swelling Exam/Review of Systems Vital Signs Vitals Vital Signs Date Time Temp Pulse Resp B/P Pulse Ox O2 Delivery O2 Flow Rate FiO2 10/26/16 16:19 71 10/26/16 14:00 98.4 18 130/71 100 10/24/16 16:03 Room Air Intake and Output 10/25/16 10/25/16 10/26/16 15:00 23:00 07:00 Intake Total 1300 ml 240 ml Output Total 600 ml 600 ml Balance 700 ml -360 ml Exam nad, sitting at side of bed no mrg lungs clear abd soft +LE edema TTE noted, EF 25% Results Result Diagram: 10/26/16 0654 10/26/16 0654 Results 24 hrs Laboratory Tests Test 10/25/16 20:24 10/26/16 06:54 10/26/16 08:10 10/26/16 12:07 Bedside Glucose 141 115 134 White Blood Count 6.4 Red Blood Count 5.18 Hemoglobin 15.6 Hematocrit 46.2 Mean Corpuscular Volume 89.2 Mean Corpuscular Hemoglobin 30.1 Mean Corpuscular Hemoglobin Concent 33.8 Red Cell Distribution Width 14.3 Platelet Count 206 Mean Platelet Volume 10.2 Neutrophils % 48.3 Lymphocytes % 34.5 Monocytes % 12.2 H Eosinophils % 3.6 Basophils % 1.1 Nucleated Red Blood Cells % 0.0 Neutrophils # 3.1 Lymphocytes # 2.2 Monocytes # 0.8 Eosinophils # 0.2 Basophils # 0.1 Nucleated Red Blood Cells # 0.0 Sodium Level 138 Potassium Level 4.2 Chloride Level 101 Carbon Dioxide Level 24 Anion Gap 17 H Blood Urea Nitrogen 24 H Creatinine 1.37 H Glucose Level 123 Calcium Level 9.0 Test 10/26/16 17:20 Bedside Glucose 118 Medications Medications Current Medications Aspirin (Ecotrin) 325 mg DAILY PO Last administered on 10/26/16 08:12; Admin Dose 325 MG; Start 10/24/16 at 09:00 Atorvastatin Calcium (Lipitor) 80 mg QHS PO Last administered on 10/25/16 20: 27; Admin Dose 80 MG; Start 10/24/16 at 21:00 Clopidogrel Bisulfate (plaVIX) 75 mg DAILY PO Last administered on 10/26/16 08 :12; Admin Dose 75 MG; Start 10/24/16 at 09:00 Lisinopril (Zestril) 20 mg DAILY PO Last administered on 10/26/16 08:12; Admin Dose 20 MG; Start 10/24/16 at 09:00 Potassium Chloride (Micro-K) 8 meq DAILY PO Last administered on 10/26/16 08: 12; Admin Dose 8 MEQ; Start 10/24/16 at 09:00 Isosorbide Mononitrate (Ismo) 10 mg BID PO Last administered on 10/26/16 08:12 ; Admin Dose 10 MG; Start 10/24/16 at 09:00 Nitroglycerin (Nitroglycerin (Sl Tab) 0.4 Mg) 1 tab Q5M PRN SL ANGINA; Start at 01:30 Morphine Sulfate (morphine) 2 mg Q4H PRN IV PAIN LEVEL 6-10; Start 10/24/16 at 01:30 Diagnostic Test (Pha) (Accu-Chek) 1 ea 02 XX ; Start 10/24/16 at 02:00 Miscellaneous Information 1 ea NOTE XX ; Start 10/24/16 at 01:30 Glucose (Glutose) 15 gm Q15M PRN PO DECREASED GLUCOSE; Start 10/24/16 at 01:30 Glucose (Glutose) 22.5 gm Q15M PRN PO DECREASED GLUCOSE; Start 10/24/16 at 01: 30 Dextrose (D50w Syringe) 25 ml Q15M PRN IV DECREASED GLUCOSE; Start 10/24/16 at 01:30 Dextrose (D50w Syringe) 50 ml Q15M PRN IV DECREASED GLUCOSE; Start 10/24/16 at 01:30 Glucagon (Glucagen) 1 mg Q15M PRN IM DECREASED GLUCOSE; Start 10/24/16 at 01:30 Glucose (Glutose) 15 gm Q15M PRN BUCCAL DECREASED GLUCOSE; Start 10/24/16 at 01 :30 Acetaminophen (Tylenol Tab) 650 mg Q6H PRN PO PAIN AND OR ELEVATED TEMP; Start 10/24/16 at 02:00 Ondansetron HCl (Zofran Inj) 4 mg Q6H PRN IV NAUSEA AND/OR VOMITING Last administered on 10/24/16 01:52; Admin Dose 4 MG; Start 10/24/16 at 02:00 Carvedilol (Coreg) 3.125 mg BID PO Last administered on 10/26/16 08:13; Admin Dose 3.125 MG; Start 10/24/16 at 21:00 Pantoprazole (Protonix Tab) 40 mg DAILY@06 PO Last administered on 10/26/16 05 :26; Admin Dose 40 MG; Start 10/25/16 at 06:00 MONTEZ OLIVO MD Oct 26, 2016 18:07 MONTEZ OLIVO MD Oct 26, 2016 18:07
[2016-10-26] MEDS: FUROSEMIDE 40 MG INJ IV SCH (18:31)
[2016-10-26] MEDS: ATORVASTATIN 80 MG TAB PO SCH (21:00)
[2016-10-27] VITALS (11 sets, daily range): BP systolic 99–118; BP diastolic 64–83; PULSE 63–75; RESP 17–18
[2016-10-27] MEDS: ACCU-CHEK XX SCH (02:00)
[2016-10-27] MEDS: FUROSEMIDE 40 MG INJ IV SCH ×2 (06:28→18:15)
[2016-10-27 07:40] LABS: BASOPHIL # 0.1 10^3/ul (0.0-0.1); EOSINOPHILS # 0.2 10^3/ul (0.0-0.5); EOSINOPHILS % 3.9 % (0.0-7.0); HEMATOCRIT 45.9 % (42.0-52.0); HEMOGLOBIN 15.1 g/dl (14.0-18.0); LYMPHOCYTES % 32.8 % (15.0-51.0); MEAN CORPUSCULAR HEMOGLOBIN 29.1 pg (29.0-33.0); MEAN CORPUSCULAR HGB CONC 32.9 g/dl (32.0-37.0); MEAN CORPUSCULAR VOLUME 88.4 fl (82.0-101.0); MEAN PLATELET VOLUME 10.3 fl (7.4-10.4); MONOCYTE # 0.8 10^3/ul (0.3-0.9); MONOCYTES % 12.7 % (0.0-11.0); NEUTROPHILS % 49.4 % (39.0-77.0); PLATELET COUNT 222 10^3/UL (140-415); RED BLOOD COUNT 5.19 10^6/ul (4.70-6.10); RED CELL DISTRIBUTION WIDTH 14.2 % (11.5-14.5); WHITE BLOOD COUNT 6.1 10^3/ul (4.8-10.8)
[2016-10-27] MEDS: INSULIN ASPART [NOVOLOG] 3 ML PEN SC SCH ×4 (08:00→20:31)
[2016-10-27 08:05] LABS: CALCIUM 9.1 mg/dl (8.4-10.2); CREATININE 1.39 mg/dl (0.61-1.24)
[2016-10-27] MEDS: CLOPIDOGREL 75 MG TAB PO SCH (08:14)
[2016-10-27] MEDS: POTASSIUM CHLORIDE (SR) 8 MEQ CAP PO SCH (08:14)
[2016-10-27] MEDS: LISINOPRIL 20 MG TAB PO SCH (08:16)
[2016-10-27] MEDS: ISOSORBIDE MONONITRATE 20 MG TAB PO SCH ×2 (08:17→20:30)
[2016-10-27] MEDS: ASPIRIN (EC) 81 MG TAB PO SCH (08:17)
[2016-10-27] MEDS ORDERED: ASPIRIN (EC) 81 MG TAB PO SCH (09:00)
--- NOTE | 2016-10-27 14:07 | PN ---
Date/Time of Note Date/Time of Note DATE: 10/27/16 TIME: 14:06 Assessment/Plan VTE Prophylaxis VTE Prophylaxis Intervention: SCD's Lines/Catheters IV Catheter Type (from Nrsg): Saline Lock Urinary Cath still in place: Yes Reason Cath still needed: other (indicate) (stricts Is/os) Assessment/Plan Assessment/Plan 51-year-old male with a history of diabetes, hypertension, dyslipidemia, chronic kidney disease, coronary artery disease status post multiple stents, and ischemic cardiomyopathy with ejection fraction of 25%, who presents with shortness of breath symptoms 1. Acute on chronic systolic HF, 2/2 ICM. (h/o STEMI 10.16 sp PCI with NEGRITO) -Continue current cardiac medications, including low-dose beta-vicky, CONT HIGH DOSE IV LASIX -of note, pt on carvedilol 6.25 BID. Adjustment made -home lasix dose 40 mg PO daily 2. History of CAD with multiple stents. -Continue aspirin and Plavix (12 mos for DAPT?) 3. Chronic kidney disease: cr stable 4. History of diabetes-A1c 8.8. on PO DM meds as outpatient Continue sliding scale insulin 5. History of dyslipidemia-patient has elevated cholesterol levels including LDL. - Continue high-dose statin. dispo pending improvement in fluid status consult placed for op cardiology f/u Subjective 24 Hr Interval Summary Free Text/Dictation UOP improved on higher lasix dose. Pt denies any recent missed HF meds Of note, since last admit 6 mos ago only saw a container repairer once. Was told he needed an angiogram but then container repairer never scheduled it? Exam/Review of Systems Vital Signs Vitals Vital Signs Date Time Temp Pulse Resp B/P Pulse Ox O2 Delivery O2 Flow Rate FiO2 10/27/16 12:10 64 10/27/16 12:00 96.8 18 112/70 99 Room Air Intake and Output 10/26/16 10/26/16 10/27/16 15:00 23:00 07:00 Intake Total 950 ml 480 ml Output Total 1900 ml Balance 950 ml -1420 ml Exam nad no mrg lungs clear abd soft LE edema significantly improved labs noted Is/Os noted Results Result Diagram: 10/27/16 0703 10/27/16 0703 Results 24 hrs Laboratory Tests Test 10/26/16 17:20 10/26/16 21:41 10/27/16 07:03 10/27/16 08:11 Bedside Glucose 118 118 107 White Blood Count 6.1 Red Blood Count 5.19 Hemoglobin 15.1 Hematocrit 45.9 Mean Corpuscular Volume 88.4 Mean Corpuscular Hemoglobin 29.1 Mean Corpuscular Hemoglobin Concent 32.9 Red Cell Distribution Width 14.2 Platelet Count 222 Mean Platelet Volume 10.3 Neutrophils % 49.4 Lymphocytes % 32.8 Monocytes % 12.7 H Eosinophils % 3.9 Basophils % 1.0 Nucleated Red Blood Cells % 0.0 Neutrophils # 3.0 Lymphocytes # 2.0 Monocytes # 0.8 Eosinophils # 0.2 Basophils # 0.1 Nucleated Red Blood Cells # 0.0 Sodium Level 140 Potassium Level 4.0 Chloride Level 97 Carbon Dioxide Level 28 Anion Gap 19 H Blood Urea Nitrogen 22 H Creatinine 1.39 H Glucose Level 104 Calcium Level 9.1 Test 10/27/16 11:51 Bedside Glucose 168 Medications Medications Current Medications Atorvastatin Calcium (Lipitor) 80 mg QHS PO Last administered on 10/26/16 21: 00; Admin Dose 80 MG; Start 10/24/16 at 21:00 Clopidogrel Bisulfate (plaVIX) 75 mg DAILY PO Last administered on 10/27/16 08 :14; Admin Dose 75 MG; Start 10/24/16 at 09:00 Lisinopril (Zestril) 20 mg DAILY PO Last administered on 10/27/16 08:16; Admin Dose 20 MG; Start 10/24/16 at 09:00 Potassium Chloride (Micro-K) 8 meq DAILY PO Last administered on 10/27/16 08: 14; Admin Dose 8 MEQ; Start 10/24/16 at 09:00 Isosorbide Mononitrate (Ismo) 10 mg BID PO Last administered on 10/27/16 08:17 ; Admin Dose 10 MG; Start 10/24/16 at 09:00 Nitroglycerin (Nitroglycerin (Sl Tab) 0.4 Mg) 1 tab Q5M PRN SL ANGINA; Start at 01:30 Morphine Sulfate (morphine) 2 mg Q4H PRN IV PAIN LEVEL 6-10; Start 10/24/16 at 01:30 Diagnostic Test (Pha) (Accu-Chek) 1 ea 02 XX ; Start 10/24/16 at 02:00 Miscellaneous Information 1 ea NOTE XX ; Start 10/24/16 at 01:30 Glucose (Glutose) 15 gm Q15M PRN PO DECREASED GLUCOSE; Start 10/24/16 at 01:30 Glucose (Glutose) 22.5 gm Q15M PRN PO DECREASED GLUCOSE; Start 10/24/16 at 01: 30 Dextrose (D50w Syringe) 25 ml Q15M PRN IV DECREASED GLUCOSE; Start 10/24/16 at 01:30 Dextrose (D50w Syringe) 50 ml Q15M PRN IV DECREASED GLUCOSE; Start 10/24/16 at 01:30 Glucagon (Glucagen) 1 mg Q15M PRN IM DECREASED GLUCOSE; Start 10/24/16 at 01:30 Glucose (Glutose) 15 gm Q15M PRN BUCCAL DECREASED GLUCOSE; Start 10/24/16 at 01 :30 Acetaminophen (Tylenol Tab) 650 mg Q6H PRN PO PAIN AND OR ELEVATED TEMP; Start 10/24/16 at 02:00 Ondansetron HCl (Zofran Inj) 4 mg Q6H PRN IV NAUSEA AND/OR VOMITING Last administered on 10/24/16 01:52; Admin Dose 4 MG; Start 10/24/16 at 02:00 Aspirin (Halfprin) 81 mg DAILY PO Last administered on 10/27/16 08:17; Admin Dose 81 MG; Start 10/27/16 at 09:00 Carvedilol (Coreg) 6.25 mg BID PO ; Start 10/27/16 at 21:00 MONTEZ OLIVO MD Oct 27, 2016 14:07
[2016-10-27] MEDS: ATORVASTATIN 80 MG TAB PO SCH (20:30)
[2016-10-28] VITALS (13 sets, daily range): BP systolic 100–127; BP diastolic 60–87; PULSE 66–80; RESP 16–20
[2016-10-28] MEDS: ACCU-CHEK XX SCH (02:00)
[2016-10-28] MEDS: FUROSEMIDE 40 MG INJ IV SCH ×2 (06:32→17:50)
[2016-10-28 07:36] LABS: BASOPHIL # 0.1 10^3/ul (0.0-0.1); BASOPHILS % 1.2 % (0.0-2.0); EOSINOPHILS # 0.3 10^3/ul (0.0-0.5); EOSINOPHILS % 4.3 % (0.0-7.0); HEMATOCRIT 44.8 % (42.0-52.0); HEMOGLOBIN 15.1 g/dl (14.0-18.0); LYMPHOCYTES # 1.9 10^3/ul (0.8-2.9); MEAN CORPUSCULAR HEMOGLOBIN 30.1 pg (29.0-33.0); MEAN CORPUSCULAR HGB CONC 33.7 g/dl (32.0-37.0); MEAN CORPUSCULAR VOLUME 89.4 fl (82.0-101.0); MEAN PLATELET VOLUME 9.9 fl (7.4-10.4); MONOCYTE # 0.8 10^3/ul (0.3-0.9); MONOCYTES % 12.8 % (0.0-11.0); NEUTROPHIL # 2.8 10^3/ul (1.6-7.5); NEUTROPHILS % 48.5 % (39.0-77.0); PLATELET COUNT 203 10^3/UL (140-415); RED BLOOD COUNT 5.01 10^6/ul (4.70-6.10); RED CELL DISTRIBUTION WIDTH 13.9 % (11.5-14.5); WHITE BLOOD COUNT 5.8 10^3/ul (4.8-10.8)
[2016-10-28] MEDS: INSULIN ASPART [NOVOLOG] 3 ML PEN SC SCH ×4 (07:59→21:00)
[2016-10-28 08:03] LABS: CALCIUM 8.9 mg/dl (8.4-10.2); CREATININE 1.43 mg/dl (0.61-1.24); POTASSIUM 4.1 mmol/L (3.5-5.1)
[2016-10-28] MEDS: ISOSORBIDE MONONITRATE 20 MG TAB PO SCH ×2 (08:39→23:29)
[2016-10-28] MEDS: ASPIRIN (EC) 81 MG TAB PO SCH (08:39)
[2016-10-28] MEDS: CLOPIDOGREL 75 MG TAB PO SCH (08:40)
[2016-10-28] MEDS: POTASSIUM CHLORIDE (SR) 8 MEQ CAP PO SCH (08:40)
[2016-10-28] MEDS: LISINOPRIL 20 MG TAB PO SCH (08:41)
--- NOTE | 2016-10-28 13:41 | CONS ---
Date/Time of Note Date/Time of Note DATE: 10/28/16 TIME: 13:32 Assessment/Plan Assessment/Plan Additional Assessment/Plan Acute decompensated systolic congestive heart failure Ischemic cardiomyopathy with ejection fraction 25% Coronary artery disease with history of multiple PCI's Hypertension Diabetes Renal dysfunction -I did have an extensive discussion with her patient. I did also review his previous coronary angiograms with multiple PCI's in the LAD territory with no flow seen in mid to distal vessel and PCI to circumflex. Serial troponins remain negative and ECG without significant ischemic abnormalities. The etiology of his decompensated congestive heart failure appears secondary to poor compliance with sodium restriction and lifestyle. Would continue beta- vicky and URSULA inhibitor, switch diuretics to p.o. in the next 24 hours, add Aldactone. Maintain potassium above 4.0 and magnesium above 2.0. Consultation Date/Type/Reason Admit Date/Time Oct 23, 2016 at 21:38 Type of Consultation: cv Reason for Consultation CHF Hx of Present Illness This is a 51-year-old male with past medical history of ischemic heart myopathy with ejection fraction 25%, coronary artery disease with with multiple PCI's, hypertension, diabetes who presents with progressive shortness of breath and fatigue. Patient also with lower extremity edema and increased abdominal girth. He has been having trouble with outpatient cardiology follow-up because of insurance reasons. He also has been noticing increased abdominal girth. Because of the progressive worsening symptoms, he came to the emergency room for further evaluation and care. He denies exertional chest pain but does complain of shortness of breath with exertion which has since improved since his admission. Denies any dizziness or lightheadedness. 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 Exam/Review of Systems Vital Signs Vitals Vital Signs Date Time Temp Pulse Resp B/P Pulse Ox O2 Delivery O2 Flow Rate FiO2 10/28/16 13:19 66 10/28/16 11:47 98.6 19 100/69 99 10/28/16 06:27 Room Air Intake and Output 7/25/17 7/25/17 7/26/17 15:00 23:00 07:00 Intake Total 1000 ml 500 ml Output Total 1600 ml 1800 ml Balance -600 ml -1300 ml Exam No apparent distress, becomes emotional at times crying during discussion, no dyspnea with speaking Constitutional: alert, obese, oriented Head: normocephalic Neck: supple Respiratory: other (Coarse breath sounds bilaterally, no wheezing) Cardiovascular: other (S1-S2 heard), regular rate and rhythm, systolic murmur Gastrointestinal: bowel sounds, non-tender, other (No guarding), soft Extremities: edema Results Result Diagram: 10/28/16 0635 10/28/16 0635 Results 24 hrs Laboratory Tests Test 10/27/16 17:17 10/27/16 20:28 10/28/16 06:35 10/28/16 07:18 Bedside Glucose 107 172 137 White Blood Count 5.8 Red Blood Count 5.01 Hemoglobin 15.1 Hematocrit 44.8 Mean Corpuscular Volume 89.4 Mean Corpuscular Hemoglobin 30.1 Mean Corpuscular Hemoglobin Concent 33.7 Red Cell Distribution Width 13.9 Platelet Count 203 Mean Platelet Volume 9.9 Neutrophils % 48.5 Lymphocytes % 33.0 Monocytes % 12.8 H Eosinophils % 4.3 Basophils % 1.2 Nucleated Red Blood Cells % 0.0 Neutrophils # 2.8 Lymphocytes # 1.9 Monocytes # 0.8 Eosinophils # 0.3 Basophils # 0.1 Nucleated Red Blood Cells # 0.0 Sodium Level 139 Potassium Level 4.1 Chloride Level 99 Carbon Dioxide Level 28 Anion Gap 16 Blood Urea Nitrogen 25 H Creatinine 1.43 H Glucose Level 138 Calcium Level 8.9 Test 10/28/16 11:44 Bedside Glucose 150 Medications Medications Current Medications Atorvastatin Calcium (Lipitor) 80 mg QHS PO Last administered on 10/27/16 20: 30; Admin Dose 80 MG; Start 10/24/16 at 21:00 Clopidogrel Bisulfate (plaVIX) 75 mg DAILY PO Last administered on 10/28/16 08 :40; Admin Dose 75 MG; Start 10/24/16 at 09:00 Lisinopril (Zestril) 20 mg DAILY PO Last administered on 10/28/16 08:41; Admin Dose 20 MG; Start 10/24/16 at 09:00 Potassium Chloride (Micro-K) 8 meq DAILY PO Last administered on 10/28/16 08: 40; Admin Dose 8 MEQ; Start 10/24/16 at 09:00 Isosorbide Mononitrate (Ismo) 10 mg BID PO Last administered on 10/28/16 08:39 ; Admin Dose 10 MG; Start 10/24/16 at 09:00 Nitroglycerin (Nitroglycerin (Sl Tab) 0.4 Mg) 1 tab Q5M PRN SL ANGINA; Start at 01:30 Morphine Sulfate (morphine) 2 mg Q4H PRN IV PAIN LEVEL 6-10; Start 10/24/16 at 01:30 Diagnostic Test (Pha) (Accu-Chek) 1 ea 02 XX ; Start 10/24/16 at 02:00 Miscellaneous Information 1 ea NOTE XX ; Start 10/24/16 at 01:30 Glucose (Glutose) 15 gm Q15M PRN PO DECREASED GLUCOSE; Start 10/24/16 at 01:30 Glucose (Glutose) 22.5 gm Q15M PRN PO DECREASED GLUCOSE; Start 10/24/16 at 01: 30 Dextrose (D50w Syringe) 25 ml Q15M PRN IV DECREASED GLUCOSE; Start 10/24/16 at 01:30 Dextrose (D50w Syringe) 50 ml Q15M PRN IV DECREASED GLUCOSE; Start 10/24/16 at 01:30 Glucagon (Glucagen) 1 mg Q15M PRN IM DECREASED GLUCOSE; Start 10/24/16 at 01:30 Glucose (Glutose) 15 gm Q15M PRN BUCCAL DECREASED GLUCOSE; Start 10/24/16 at 01 :30 Acetaminophen (Tylenol Tab) 650 mg Q6H PRN PO PAIN AND OR ELEVATED TEMP; Start 10/24/16 at 02:00 Ondansetron HCl (Zofran Inj) 4 mg Q6H PRN IV NAUSEA AND/OR VOMITING Last administered on 10/24/16 01:52; Admin Dose 4 MG; Start 10/24/16 at 02:00 Aspirin (Halfprin) 81 mg DAILY PO Last administered on 10/28/16 08:39; Admin Dose 81 MG; Start 10/27/16 at 09:00 Carvedilol (Coreg) 6.25 mg BID PO Last administered on 7/26/17at 08:38; Admin Dose 6.25 MG; Start 10/27/16 at 21:00 Procedures Procedures ECG done on the demonstrates sinus rhythm, anterior Q waves, QRS 94 ms, nonspecific STT wave abnormalities Musa Blackmon DO Oct 28, 2016 13:41
--- NOTE | 2016-10-28 14:02 | PN ---
Date/Time of Note Date/Time of Note DATE: 10/28/16 TIME: 14:01 Assessment/Plan VTE Prophylaxis VTE Prophylaxis Intervention: SCD's Lines/Catheters [facility] Urinary Cath still in place: No Assessment/Plan Assessment/Plan 51-year-old male with a history of diabetes, hypertension, dyslipidemia, chronic kidney disease, coronary artery disease status post multiple stents, and ischemic cardiomyopathy with ejection fraction of 25%, who presents with shortness of breath symptoms 2/2 acute on chronic systolic HF 1. Acute on chronic systolic HF, 2/2 ICM. (h/o STEMI 10.16 sp PCI with NEGRITO) -Continue current cardiac medications, including bb -lasix dosing as per cardiology -home lasix dose 40 mg PO daily 2. History of CAD with multiple stents. -Continue aspirin and Plavix (12 mos for DAPT?) 3. Chronic kidney disease: cr stable 4. History of diabetes-A1c 8.8. on PO DM meds as outpatient Continue sliding scale insulin 5. History of dyslipidemia-patient has elevated cholesterol levels including LDL. - Continue high-dose statin. discharge pending improvement in fluid status Subjective 24 Hr Interval Summary Free Text/Dictation Pt feeling a little better. Reports breathing continues to improve as does his LE edema Exam/Review of Systems Vital Signs Vitals Vital Signs Date Time Temp Pulse Resp B/P Pulse Ox O2 Delivery O2 Flow Rate FiO2 10/28/16 13:19 66 10/28/16 11:47 98.6 19 100/69 99 10/28/16 06:27 Room Air Intake and Output 10/27/16 10/27/16 10/28/16 15:00 23:00 07:00 Intake Total 1000 ml 500 ml Output Total 1600 ml 1800 ml Balance -600 ml -1300 ml Exam nad no mrg lungs clear abd soft LE improved bed weight: 205# (of note, pt reports his dry weight is 210#) Results Result Diagram: 10/28/16 0635 10/28/16 0635 Results 24 hrs Laboratory Tests Test 10/27/16 17:17 10/27/16 20:28 10/28/16 06:35 10/28/16 07:18 Bedside Glucose 107 172 137 White Blood Count 5.8 Red Blood Count 5.01 Hemoglobin 15.1 Hematocrit 44.8 Mean Corpuscular Volume 89.4 Mean Corpuscular Hemoglobin 30.1 Mean Corpuscular Hemoglobin Concent 33.7 Red Cell Distribution Width 13.9 Platelet Count 203 Mean Platelet Volume 9.9 Neutrophils % 48.5 Lymphocytes % 33.0 Monocytes % 12.8 H Eosinophils % 4.3 Basophils % 1.2 Nucleated Red Blood Cells % 0.0 Neutrophils # 2.8 Lymphocytes # 1.9 Monocytes # 0.8 Eosinophils # 0.3 Basophils # 0.1 Nucleated Red Blood Cells # 0.0 Sodium Level 139 Potassium Level 4.1 Chloride Level 99 Carbon Dioxide Level 28 Anion Gap 16 Blood Urea Nitrogen 25 H Creatinine 1.43 H Glucose Level 138 Calcium Level 8.9 Test 10/28/16 11:44 Bedside Glucose 150 Medications Medications Current Medications Atorvastatin Calcium (Lipitor) 80 mg QHS PO Last administered on 10/27/16 20: 30; Admin Dose 80 MG; Start 10/24/16 at 21:00 Clopidogrel Bisulfate (plaVIX) 75 mg DAILY PO Last administered on 10/28/16 08 :40; Admin Dose 75 MG; Start 10/24/16 at 09:00 Potassium Chloride (Micro-K) 8 meq DAILY PO Last administered on 10/28/16 08: 40; Admin Dose 8 MEQ; Start 10/24/16 at 09:00 Isosorbide Mononitrate (Ismo) 10 mg BID PO Last administered on 10/28/16 08:39 ; Admin Dose 10 MG; Start 10/24/16 at 09:00 Nitroglycerin (Nitroglycerin (Sl Tab) 0.4 Mg) 1 tab Q5M PRN SL ANGINA; Start at 01:30 Morphine Sulfate (morphine) 2 mg Q4H PRN IV PAIN LEVEL 6-10; Start 10/24/16 at 01:30 Diagnostic Test (Pha) (Accu-Chek) 1 ea 02 XX ; Start 10/24/16 at 02:00 Miscellaneous Information 1 ea NOTE XX ; Start 10/24/16 at 01:30 Glucose (Glutose) 15 gm Q15M PRN PO DECREASED GLUCOSE; Start 10/24/16 at 01:30 Glucose (Glutose) 22.5 gm Q15M PRN PO DECREASED GLUCOSE; Start 10/24/16 at 01: 30 Dextrose (D50w Syringe) 25 ml Q15M PRN IV DECREASED GLUCOSE; Start 10/24/16 at 01:30 Dextrose (D50w Syringe) 50 ml Q15M PRN IV DECREASED GLUCOSE; Start 10/24/16 at 01:30 Glucagon (Glucagen) 1 mg Q15M PRN IM DECREASED GLUCOSE; Start 10/24/16 at 01:30 Glucose (Glutose) 15 gm Q15M PRN BUCCAL DECREASED GLUCOSE; Start 10/24/16 at 01 :30 Acetaminophen (Tylenol Tab) 650 mg Q6H PRN PO PAIN AND OR ELEVATED TEMP; Start 10/24/16 at 02:00 Ondansetron HCl (Zofran Inj) 4 mg Q6H PRN IV NAUSEA AND/OR VOMITING Last administered on 10/24/16 01:52; Admin Dose 4 MG; Start 10/24/16 at 02:00 Aspirin (Halfprin) 81 mg DAILY PO Last administered on 10/28/16 08:39; Admin Dose 81 MG; Start 10/27/16 at 09:00 Carvedilol (Coreg) 6.25 mg BID PO Last administered on 10/28/16 08:38; Admin Dose 6.25 MG; Start 10/27/16 at 21:00 Lisinopril (Zestril) 10 mg BID PO ; Start 10/29/16 at 09:00 Furosemide (Lasix) 40 mg DAILY PO ; Start 10/29/16 at 09:00 MONTEZ OLIVO MD Oct 28, 2016 14:02
[2016-10-28] MEDS: ATORVASTATIN 80 MG TAB PO SCH (21:28)
[2016-10-29] VITALS (10 sets, daily range): BP systolic 106–129; BP diastolic 59–96; PULSE 59–74; RESP 17–19
[2016-10-29] MEDS: ACCU-CHEK XX SCH (02:00)
[2016-10-29] MEDS: SPIRONOLACTONE 25 MG TAB PO SCH ×2 (05:53→17:11)
[2016-10-29 07:16] LABS: BASOPHIL # 0.1 10^3/ul (0.0-0.1); BASOPHILS % 1.1 % (0.0-2.0); EOSINOPHILS # 0.3 10^3/ul (0.0-0.5); EOSINOPHILS % 4.6 % (0.0-7.0); HEMATOCRIT 47.6 % (42.0-52.0); LYMPHOCYTES # 2.3 10^3/ul (0.8-2.9); LYMPHOCYTES % 38.1 % (15.0-51.0); MEAN CORPUSCULAR HEMOGLOBIN 29.3 pg (29.0-33.0); MEAN CORPUSCULAR HGB CONC 33.6 g/dl (32.0-37.0); MEAN PLATELET VOLUME 10.3 fl (7.4-10.4); MONOCYTE # 0.7 10^3/ul (0.3-0.9); NEUTROPHIL # 2.7 10^3/ul (1.6-7.5); PLATELET COUNT 195 10^3/UL (140-415); RED BLOOD COUNT 5.47 10^6/ul (4.70-6.10); RED CELL DISTRIBUTION WIDTH 13.9 % (11.5-14.5); WHITE BLOOD COUNT 6.1 10^3/ul (4.8-10.8)
[2016-10-29 07:51] LABS: CALCIUM 9.2 mg/dl (8.4-10.2); CREATININE 1.27 mg/dl (0.61-1.24)
[2016-10-29] MEDS: INSULIN ASPART [NOVOLOG] 3 ML PEN SC SCH ×4 (08:00→20:35)
[2016-10-29] MEDS: POTASSIUM CHLORIDE (SR) 8 MEQ CAP PO SCH (08:27)
[2016-10-29] MEDS: CLOPIDOGREL 75 MG TAB PO SCH (08:27)
[2016-10-29] MEDS: ISOSORBIDE MONONITRATE 20 MG TAB PO SCH ×2 (08:27→20:33)
[2016-10-29] MEDS: ASPIRIN (EC) 81 MG TAB PO SCH (08:27)
[2016-10-29] MEDS: FUROSEMIDE 40 MG TAB PO SCH (08:28)
[2016-10-29] MEDS: LISINOPRIL 10 MG TAB PO SCH ×2 (08:28→20:33)
--- NOTE | 2016-10-29 17:54 | PN ---
Date/Time of Note Date/Time of Note DATE: 10/29/16 TIME: 17:53 Assessment/Plan VTE Prophylaxis VTE Prophylaxis Intervention: SCD's Lines/Catheters IV Catheter Type (from [facility]): Saline [facility] Urinary Cath still in place: No Assessment/Plan Assessment/Plan 51-year-old male with a history of diabetes, hypertension, dyslipidemia, chronic kidney disease, coronary artery disease status post multiple stents, and ischemic cardiomyopathy with ejection fraction of 25%, who presents with shortness of breath symptoms 2/2 acute on chronic systolic HF 1. Acute on chronic systolic HF, 2/2 ICM. (h/o STEMI 10.16 sp PCI with NEGRITO) -Continue current cardiac medications, including bb -lasix dosing as per cardiology; also now on aldactone -home lasix dose 40 mg PO daily 2. History of CAD with multiple stents. -Continue aspirin and Plavix (12 mos for DAPT?) 3. Chronic kidney disease: cr stable 4. History of diabetes-A1c 8.8. on PO DM meds as outpatient Continue sliding scale insulin 5. History of dyslipidemia-patient has elevated cholesterol levels including LDL. - Continue high-dose statin. discharge pending improvement in fluid status-->possibly tomorrow Subjective 24 Hr Interval Summary Free Text/Dictation Pt reports no sig change in LE edema Exam/Review of Systems Vital Signs Vitals Vital Signs Date Time Temp Pulse Resp B/P Pulse Ox O2 Delivery O2 Flow Rate FiO2 10/29/16 16:58 98.7 72 18 111/78 98 10/28/16 06:27 Room Air Intake and Output 10/28/16 10/28/16 10/29/16 15:00 23:00 07:00 Intake Total 800 ml 480 ml Output Total 1500 ml 2150 ml Balance -700 ml -1670 ml Exam weight 203.8# no mrg lungs clear abd soft no rashes trace le edema Results Result Diagram: 10/29/16 0644 10/29/16 0644 Results 24 hrs Laboratory Tests Test 10/28/16 21:33 10/29/16 06:44 10/29/16 08:18 10/29/16 12:28 Bedside Glucose 126 111 133 White Blood Count 6.1 Red Blood Count 5.47 Hemoglobin 16.0 Hematocrit 47.6 Mean Corpuscular Volume 87.0 Mean Corpuscular Hemoglobin 29.3 Mean Corpuscular Hemoglobin Concent 33.6 Red Cell Distribution Width 13.9 Platelet Count 195 Mean Platelet Volume 10.3 Neutrophils % 44.0 Lymphocytes % 38.1 Monocytes % 12.0 H Eosinophils % 4.6 Basophils % 1.1 Nucleated Red Blood Cells % 0.0 Neutrophils # 2.7 Lymphocytes # 2.3 Monocytes # 0.7 Eosinophils # 0.3 Basophils # 0.1 Nucleated Red Blood Cells # 0.0 Sodium Level 137 Potassium Level 4.0 Chloride Level 96 L Carbon Dioxide Level 26 Anion Gap 19 H Blood Urea Nitrogen 24 H Creatinine 1.27 H Glucose Level 109 Calcium Level 9.2 Magnesium Level 1.6 L Test 10/29/16 17:08 Bedside Glucose 97 Medications Medications Current Medications Atorvastatin Calcium (Lipitor) 80 mg QHS PO Last administered on 10/28/16 21: 28; Admin Dose 80 MG; Start 10/24/16 at 21:00 Clopidogrel Bisulfate (plaVIX) 75 mg DAILY PO Last administered on 10/29/16 08 :27; Admin Dose 75 MG; Start 10/24/16 at 09:00 Potassium Chloride (Micro-K) 8 meq DAILY PO Last administered on 10/29/16 08: 27; Admin Dose 8 MEQ; Start 10/24/16 at 09:00 Isosorbide Mononitrate (Ismo) 10 mg BID PO Last administered on 10/29/16 08:27 ; Admin Dose 10 MG; Start 10/24/16 at 09:00 Nitroglycerin (Nitroglycerin (Sl Tab) 0.4 Mg) 1 tab Q5M PRN SL ANGINA; Start at 01:30 Morphine Sulfate (morphine) 2 mg Q4H PRN IV PAIN LEVEL 6-10; Start 10/24/16 at 01:30 Diagnostic Test (Pha) (Accu-Chek) 1 ea 02 XX ; Start 10/24/16 at 02:00 Miscellaneous Information 1 ea NOTE XX ; Start 10/24/16 at 01:30 Glucose (Glutose) 15 gm Q15M PRN PO DECREASED GLUCOSE; Start 10/24/16 at 01:30 Glucose (Glutose) 22.5 gm Q15M PRN PO DECREASED GLUCOSE; Start 10/24/16 at 01: 30 Dextrose (D50w Syringe) 25 ml Q15M PRN IV DECREASED GLUCOSE; Start 10/24/16 at 01:30 Dextrose (D50w Syringe) 50 ml Q15M PRN IV DECREASED GLUCOSE; Start 10/24/16 at 01:30 Glucagon (Glucagen) 1 mg Q15M PRN IM DECREASED GLUCOSE; Start 10/24/16 at 01:30 Glucose (Glutose) 15 gm Q15M PRN BUCCAL DECREASED GLUCOSE; Start 10/24/16 at 01 :30 Acetaminophen (Tylenol Tab) 650 mg Q6H PRN PO PAIN AND OR ELEVATED TEMP; Start 10/24/16 at 02:00 Ondansetron HCl (Zofran Inj) 4 mg Q6H PRN IV NAUSEA AND/OR VOMITING Last administered on 10/24/16 01:52; Admin Dose 4 MG; Start 10/24/16 at 02:00 Aspirin (Halfprin) 81 mg DAILY PO Last administered on 10/29/16 08:27; Admin Dose 81 MG; Start 10/27/16 at 09:00 Carvedilol (Coreg) 6.25 mg BID PO Last administered on 10/29/16 08:27; Admin Dose 6.25 MG; Start 10/27/16 at 21:00 Lisinopril (Zestril) 10 mg BID PO Last administered on 10/29/16 08:28; Admin Dose 10 MG; Start 10/29/16 at 09:00 Furosemide (Lasix) 40 mg DAILY PO Last administered on 10/29/16 08:28; Admin Dose 40 MG; Start 10/29/16 at 09:00 MONTEZ OLIVO MD Oct 29, 2016 17:54
--- NOTE | 2016-10-29 18:40 | CONS ---
Date/Time of Note Date/Time of Note DATE: 10/29/16 TIME: 18:37 Assessment/Plan Assessment/Plan Additional Assessment/Plan Acute decompensated systolic congestive heart failure Ischemic cardiomyopathy with ejection fraction 25% Coronary artery disease with history of multiple PCI's Hypertension Diabetes Renal dysfunction -Renal function improving, one extra dose of IV Lasix this afternoon, continue p.o. Lasix and Aldactone. Supplement magnesium to maintain above 2.0 and maintain potassium above 4.0, given multiple stents and history of recurrent stent occlusions, would continue dual antiplatelet therapy lifelong if no contraindications. Continue statin therapy and beta-vicky. DC planning Consultation Date/Type/Reason Admit Date/Time Oct 23, 2016 at 21:38 Initial Consult Date Type of Consultation: cv 24 HR Interval Summary Free Text/Dictation Shortness of breath has improved with less symptoms with ambulating. Denies chest pain or dizziness Exam/Review of Systems Vital Signs Vitals Vital Signs Date Time Temp Pulse Resp B/P Pulse Ox O2 Delivery O2 Flow Rate FiO2 10/29/16 16:58 98.7 72 18 111/78 98 10/28/16 06:27 Room Air Intake and Output 10/28/16 10/28/16 10/29/16 15:00 23:00 07:00 Intake Total 800 ml 480 ml Output Total 1500 ml 2150 ml Balance -700 ml -1670 ml Exam No apparent distress Constitutional: alert, oriented Head: normocephalic Respiratory: other (Coarse breath sounds bilaterally, no wheezing) Cardiovascular: other (S1-S2 heard), regular rate and rhythm Gastrointestinal: bowel sounds, non-tender, soft Extremities: edema Results Result Diagram: 10/29/16 0644 10/29/16 0644 Results 24 hrs Laboratory Tests Test 10/28/16 21:33 10/29/16 06:44 10/29/16 08:18 10/29/16 12:28 Bedside Glucose 126 111 133 White Blood Count 6.1 Red Blood Count 5.47 Hemoglobin 16.0 Hematocrit 47.6 Mean Corpuscular Volume 87.0 Mean Corpuscular Hemoglobin 29.3 Mean Corpuscular Hemoglobin Concent 33.6 Red Cell Distribution Width 13.9 Platelet Count 195 Mean Platelet Volume 10.3 Neutrophils % 44.0 Lymphocytes % 38.1 Monocytes % 12.0 H Eosinophils % 4.6 Basophils % 1.1 Nucleated Red Blood Cells % 0.0 Neutrophils # 2.7 Lymphocytes # 2.3 Monocytes # 0.7 Eosinophils # 0.3 Basophils # 0.1 Nucleated Red Blood Cells # 0.0 Sodium Level 137 Potassium Level 4.0 Chloride Level 96 L Carbon Dioxide Level 26 Anion Gap 19 H Blood Urea Nitrogen 24 H Creatinine 1.27 H Glucose Level 109 Calcium Level 9.2 Magnesium Level 1.6 L Test 10/29/16 17:08 Bedside Glucose 97 Medications Medications Current Medications Atorvastatin Calcium (Lipitor) 80 mg QHS PO Last administered on 10/28/16 21: 28; Admin Dose 80 MG; Start 10/24/16 at 21:00 Clopidogrel Bisulfate (plaVIX) 75 mg DAILY PO Last administered on 10/29/16 08 :27; Admin Dose 75 MG; Start 10/24/16 at 09:00 Potassium Chloride (Micro-K) 8 meq DAILY PO Last administered on 10/29/16 08: 27; Admin Dose 8 MEQ; Start 10/24/16 at 09:00 Isosorbide Mononitrate (Ismo) 10 mg BID PO Last administered on 10/29/16 08:27 ; Admin Dose 10 MG; Start 10/24/16 at 09:00 Nitroglycerin (Nitroglycerin (Sl Tab) 0.4 Mg) 1 tab Q5M PRN SL ANGINA; Start at 01:30 Morphine Sulfate (morphine) 2 mg Q4H PRN IV PAIN LEVEL 6-10; Start 10/24/16 at 01:30 Diagnostic Test (Pha) (Accu-Chek) 1 ea 02 XX ; Start 10/24/16 at 02:00 Miscellaneous Information 1 ea NOTE XX ; Start 10/24/16 at 01:30 Glucose (Glutose) 15 gm Q15M PRN PO DECREASED GLUCOSE; Start 10/24/16 at 01:30 Glucose (Glutose) 22.5 gm Q15M PRN PO DECREASED GLUCOSE; Start 10/24/16 at 01: 30 Dextrose (D50w Syringe) 25 ml Q15M PRN IV DECREASED GLUCOSE; Start 10/24/16 at 01:30 Dextrose (D50w Syringe) 50 ml Q15M PRN IV DECREASED GLUCOSE; Start 10/24/16 at 01:30 Glucagon (Glucagen) 1 mg Q15M PRN IM DECREASED GLUCOSE; Start 10/24/16 at 01:30 Glucose (Glutose) 15 gm Q15M PRN BUCCAL DECREASED GLUCOSE; Start 10/24/16 at 01 :30 Acetaminophen (Tylenol Tab) 650 mg Q6H PRN PO PAIN AND OR ELEVATED TEMP; Start 10/24/16 at 02:00 Ondansetron HCl (Zofran Inj) 4 mg Q6H PRN IV NAUSEA AND/OR VOMITING Last administered on 10/24/16 01:52; Admin Dose 4 MG; Start 10/24/16 at 02:00 Aspirin (Halfprin) 81 mg DAILY PO Last administered on 10/29/16 08:27; Admin Dose 81 MG; Start 10/27/16 at 09:00 Carvedilol (Coreg) 6.25 mg BID PO Last administered on 10/29/16 08:27; Admin Dose 6.25 MG; Start 10/27/16 at 21:00 Lisinopril (Zestril) 10 mg BID PO Last administered on 10/29/16 08:28; Admin Dose 10 MG; Start 10/29/16 at 09:00 Furosemide (Lasix) 40 mg DAILY PO Last administered on 10/29/16 08:28; Admin Dose 40 MG; Start 10/29/16 at 09:00 Musa Blackmon DO Oct 29, 2016 18:40
[2016-10-29] MEDS ORDERED: FUROSEMIDE 20 MG INJ IV ONE (19:30)
[2016-10-29] MEDS ORDERED: MAGNESIUM SULFATE 3 GM in SOD CHLORIDE 0.9% 100 ML IVPB ONE (20:30)
[2016-10-29] MEDS: ATORVASTATIN 80 MG TAB PO SCH (20:32)
[2016-10-30] VITALS (10 sets, daily range): BP systolic 101–112; BP diastolic 55–79; PULSE 66–77; RESP 17–19
[2016-10-30] MEDS: ACCU-CHEK XX SCH (02:30)
[2016-10-30] MEDS: SPIRONOLACTONE 25 MG TAB PO SCH ×2 (06:13→18:31)
[2016-10-30] MEDS: INSULIN ASPART [NOVOLOG] 3 ML PEN SC SCH ×3 (08:00→17:47)
[2016-10-30] MEDS: ASPIRIN (EC) 81 MG TAB PO SCH (08:28)
[2016-10-30] MEDS: FUROSEMIDE 40 MG TAB PO SCH (08:28)
[2016-10-30] MEDS: CLOPIDOGREL 75 MG TAB PO SCH (08:28)
[2016-10-30] MEDS: LISINOPRIL 10 MG TAB PO SCH (08:28)
[2016-10-30] MEDS: ISOSORBIDE MONONITRATE 20 MG TAB PO SCH (08:41)
[2016-10-30] MEDS: POTASSIUM CHLORIDE (SR) 8 MEQ CAP PO SCH (08:42)
[2016-10-30 09:07] LABS: CALCIUM 9.1 mg/dl (8.4-10.2); CREATININE 1.3 mg/dl (0.61-1.24)
--- NOTE | 2016-10-30 09:55 | CONS ---
Date/Time of Note Date/Time of Note DATE: 10/30/16 TIME: 09:54 Assessment/Plan Assessment/Plan Additional Assessment/Plan Acute decompensated systolic congestive heart failure Ischemic cardiomyopathy with ejection fraction 25% Coronary artery disease with history of multiple PCI's Hypertension Diabetes Renal dysfunction -continue p.o. Lasix and Aldactone. Given multiple stents and history of recurrent stent occlusions, would continue dual antiplatelet therapy lifelong if no contraindications. Continue statin therapy and beta-vicky. DC planning Consultation Date/Type/Reason Admit Date/Time Oct 23, 2016 at 21:38 Type of Consultation: cv 24 HR Interval Summary Free Text/Dictation Patient continues to improve. Ambulating with much less symptoms of shortness of breath. Denies chest pain Exam/Review of Systems Vital Signs Vitals Vital Signs Date Time Temp Pulse Resp B/P Pulse Ox O2 Delivery O2 Flow Rate FiO2 10/30/16 08:00 66 10/30/16 07:57 97.6 18 102/69 97 10/28/16 06:27 Room Air Intake and Output 10/29/16 10/29/16 10/30/16 15:00 23:00 07:00 Intake Total 700 ml 506 ml Output Total 900 ml 1150 ml Balance -200 ml -644 ml Exam No apparent distress Constitutional: alert, oriented Head: normocephalic Respiratory: other (Coarse breath sounds bilaterally, no wheezing) Cardiovascular: other (S1-S2 heard), regular rate and rhythm Gastrointestinal: bowel sounds, non-tender, soft Extremities: edema (Trace) Results Result Diagram: 10/29/16 0644 10/30/16 0643 Results 24 hrs Laboratory Tests Test 10/29/16 12:28 10/29/16 17:08 10/29/16 20:28 10/30/16 02:36 Bedside Glucose 133 97 194 114 Test 10/30/16 06:43 10/30/16 08:25 Sodium Level 139 Potassium Level 4.0 Chloride Level 99 Carbon Dioxide Level 27 Anion Gap 17 H Blood Urea Nitrogen 25 H Creatinine 1.30 H Glucose Level 117 Calcium Level 9.1 Magnesium Level 2.2 Bedside Glucose 120 Medications Medications Current Medications Atorvastatin Calcium (Lipitor) 80 mg QHS PO Last administered on 10/29/16t 20: 32; Admin Dose 80 MG; Start 10/24/16 at 21:00 Clopidogrel Bisulfate (plaVIX) 75 mg DAILY PO Last administered on 10/30/16 08 :28; Admin Dose 75 MG; Start 10/24/16 at 09:00 Potassium Chloride (Micro-K) 8 meq DAILY PO Last administered on 10/30/16 08: 42; Admin Dose 8 MEQ; Start 10/24/16 at 09:00 Isosorbide Mononitrate (Ismo) 10 mg BID PO Last administered on 10/30/16 08:41 ; Admin Dose 10 MG; Start 10/24/16 at 09:00 Nitroglycerin (Nitroglycerin (Sl Tab) 0.4 Mg) 1 tab Q5M PRN SL ANGINA; Start at 01:30 Morphine Sulfate (morphine) 2 mg Q4H PRN IV PAIN LEVEL 6-10; Start 10/24/16 at 01:30 Diagnostic Test (Pha) (Accu-Chek) 1 ea 02 XX Last administered on 10/30/16 02: 30; Admin Dose 1 EA; Start 10/24/16 at 02:00 Miscellaneous Information 1 ea NOTE XX ; Start 10/24/16 at 01:30 Glucose (Glutose) 15 gm Q15M PRN PO DECREASED GLUCOSE; Start 10/24/16 at 01:30 Glucose (Glutose) 22.5 gm Q15M PRN PO DECREASED GLUCOSE; Start 10/24/16 at 01: 30 Dextrose (D50w Syringe) 25 ml Q15M PRN IV DECREASED GLUCOSE; Start 10/24/16 at 01:30 Dextrose (D50w Syringe) 50 ml Q15M PRN IV DECREASED GLUCOSE; Start 10/24/16 at 01:30 Glucagon (Glucagen) 1 mg Q15M PRN IM DECREASED GLUCOSE; Start 10/24/16 at 01:30 Glucose (Glutose) 15 gm Q15M PRN BUCCAL DECREASED GLUCOSE; Start 10/24/16 at 01 :30 Acetaminophen (Tylenol Tab) 650 mg Q6H PRN PO PAIN AND OR ELEVATED TEMP; Start 10/24/16 at 02:00 Ondansetron HCl (Zofran Inj) 4 mg Q6H PRN IV NAUSEA AND/OR VOMITING Last administered on 10/24/16 01:52; Admin Dose 4 MG; Start 10/24/16 at 02:00 Aspirin (Halfprin) 81 mg DAILY PO Last administered on 10/30/16 08:28; Admin Dose 81 MG; Start 10/27/16 at 09:00 Carvedilol (Coreg) 6.25 mg BID PO Last administered on 10/30/16 08:29; Admin Dose 6.25 MG; Start 10/27/16 at 21:00 Lisinopril (Zestril) 10 mg BID PO Last administered on 10/30/16 08:28; Admin Dose 10 MG; Start 10/29/16 at 09:00 Furosemide (Lasix) 40 mg DAILY PO Last administered on 10/30/16 08:28; Admin Dose 40 MG; Start 10/29/16 at 09:00 Musa Blackmon DO Oct 30, 2016 09:55
[2016-10-30] MEDS ORDERED: ASPI-664 PO (14:18)
[2016-10-30] MEDS ORDERED: SPIR25TA PO (14:18)
--- NOTE | 2016-10-30 14:20 | PDOCDIS ---
Discharge Instructions CONDITION Patient Condition: Stable HOME CARE INSTRUCTIONS: Special Diet: 2 GRAM SODIUM FOLLOW UP/APPOINTMENTS Follow-up Plan Please schedule a follow up with the diamond grader Dr Blackmon within 7 days Office Address [facility] [address] [place] [id number] Office Please schedule a follow up with your new primary care doctor (the pillowcase cleaner should have provided you contact info) MONTEZ OLIVO MD Oct 30, 2016 14:20
--- NOTE | 2016-10-30 14:21 | DS ---
Date/Time of Note Date/Time of Note DATE: 10/30/16 TIME: 14:20 Discharge Summary Admission/Discharge Info Admit Date/Time Oct 23, 2016 at 21:38 Discharge Date/Time Discharge Diagnosis acute on chronic systolic heart failure, CAD sp stenting, HTN, HL, DM2 Patient Condition: Stable Consults cardiology Procedures 7. TTE Conclusions 1. Normal left ventricular wall thickness. Mild enlargement of left ventricle cavity. Severe global left ventricular systolic dysfunction. Severe left ventricular systolic dysfunction. Ejection fraction is visually estimated at 25 %. Tissue Doppler/Mitral Doppler indices are consistent with restrictive physiology with markedly elevated left atrial pressure (Stage III-IV diastolic dysfunction). 2. Mild to moderate enlargement of right ventricle. 3. There appears to be mitral valve tenting. Mild mitral annular calcification. Mild mitral valve regurgitation. 4. No hemodynamically significant aortic stenosis by doppler. Aortic cusps appear mildly calcified. Trace aortic valve regurgitation. 5. Normal appearance of the tricuspid valve. Estimated peak PA systolic pressure 34 mmHg. There is moderate tricuspid regurgitation. 6. Normal pericardium with no significant pericardial effusion. Hx of Present Illness This is a 51-year-old male with a history of diabetes, hypertension, dyslipidemia, chronic kidney disease, coronary artery disease status post multiple stents, and ischemic cardiomyopathy with ejection fraction of 25%. Patient presents to the ER complaining of shortness of breath, lower extremity swelling and increased abdominal girth. His shortness of breath is worse on exertion and when he is lying in the supine position. He said he has been compliant with his medication including his Lasix but over the past few days he noticed decreased urinary output. When he presented to the ER, his vitals were stable. Except a creatinine of 1.74, the rest of the basic labs are within acceptable range. First troponin is negative. EKG was done no ST elevation or depression. . Hospital Course Pt aggressively dieresed, negative 5.2L during his stay. Weight went from 96kg to 92kg. Given pt with EF <30% x 6 mos on reasonable medical regimen, cardiology was consulted for ICD placement. Ramp Boss did not believe ICD in inpatient setting was indicated, assisted with dieretic management. Pt back to euvolemia at time of discharge. Changes from admit meds: aldactone added to HF regimen, asa dose decreased from 325 to 81 as no compelling indication for 325 mg dose given pt will be on indefinite DAPT for multiple stents. Pt's breathing back to baseline at time of discharge He was advised to f/u with cardiology and PCP within 7 days for BP check and ChemP Home Meds Active Scripts Aspirin* (Aspirin* EC) 81 Mg Tablet.dr, 81 MG PO DAILY for 30 Days, #30 Prov:MONTEZ OLIVO MD 10/30/16 Spironolactone* (Aldactone*) 25 Mg Tablet, 12.5 MG PO BID DIURETICS for 14 Days , #28 TAB Prov:MONTEZ OLIVO MD 10/30/16 Carvedilol* (Carvedilol*) 6.25 Mg Tablet, 6.25 MG PO BID for 30 Days, TAB 2 Refills Prov:MEL ANDREWS 01/16/16 Metformin* (Glucophage*) 500 Mg Tab, 500 MG PO BID for 30 Days, 2 Refills Prov:MEL ANDREWS 01/16/16 Reported Medications Potassium Chloride* (Potassium Chloride*) 8 Meq Capsule.er, 8 MEQ PO DAILY, CAP 09/23/16 Lisinopril* (Lisinopril*) 20 Mg Tablet, 20 MG PO DAILY, #30 TAB 09/23/16 Furosemide* (Furosemide*) 40 Mg Tablet, 40 MG PO DAILY, TAB 09/23/16 Isosorbide Mononitrate (Isosorbide Mononitrate) 10 Mg Tablet, 10 MG PO BID, TAB 04/28/16 Clopidogrel Bisulfate* (Clopidogrel Bisulfate*) 75 Mg Tablet, 75 MG PO DAILY, # 30 TAB 04/28/16 Aspirin* (Aspirin* EC) 325 Mg Tab, 325 MG PO DAILY, TAB 04/28/16 Atorvastatin* (Atorvastatin*) 80 Mg Tablet, 80 MG PO QHS, #30 TAB 04/28/16 Discontinued Reported Medications Cholecalciferol (Vitamin D3) 5,000 Unit Tablet, 5000 UNIT PO DAILY, TAB 04/28/16 Discontinued Scripts Azithromycin* (Zithromax*) 250 Mg Tablet, 250 MG PO .JAREN DIRECTED, #6 TAB TAKE 500 MG (2 TABS) THE FIRST DAY THEN 250 MG (1 TAB) DAYS 2-5 Prov:EMORY PEÑALOZA 09/23/16 Albuterol Sulfate* (Ventolin HFA*) 18 Gm Hfa.aer.ad, 2 PUFF INHALATION Q4H, #1 INHALER Prov:EMORY PEÑALOZA 09/23/16 Prednisone* (Prednisone*) 20 Mg Tab, 40 MG PO DAILY for 4 Days, TAB Prov:EMORY PEÑALOZA. 09/23/16 Ibuprofen* (Motrin*) 600 Mg Tab, 600 MG PO Q6, #30 TAB Prov:EMORY PEÑALOZA. 09/23/16 Nateglinide* (Starlix*) 60 Mg Tablet, 60 MG PO DAILY for 30 Days, 2 Refills Prov:MEL ANDREWSStephon 01/16/16 Primary Care Provider Fercho Phillips Time spent on discharge: > 30 minutes Pending Labs Laboratory Tests Test 10/29/16 17:08 10/29/16 20:28 10/30/16 02:36 10/30/16 06:43 Bedside Glucose 97mg/dL (70-220) 194mg/dL (70-220) 114mg/dL (70-220) Sodium Level 139mmol/L (135-144) Potassium Level 4.0mmol/L (3.5-5.1) Chloride Level 99mmol/L (97-110) Carbon Dioxide Level 27mmol/L (21-31) Anion Gap 17 (8-16) Blood Urea Nitrogen 25mg/dl (7-20) Creatinine 1.30mg/dl (0.61-1.24) Glucose Level 117mg/dl (70-220) Calcium Level 9.1mg/dl (8.4-10.2) Magnesium Level 2.2mg/dl (1.7-2.5) Test 10/30/16 08:25 10/30/16 12:28 Bedside Glucose 120mg/dL (70-220) 147mg/dL (70-220) Copies To: CC: Musa Blackmon ELLEN MD Oct 30, 2016 14:21
== END 2016-10-30 18:38 | disposition home or self-care (01) | DRG 291 ==
LOC: E/R 14:15 → MS4 21:38
PROVIDERS: ADMIT Internal Medicine; ATTEND Internal Medicine
DX: I13.0 Hypertensive heart and chronic kidney disease with heart failure and stage 1 through stage 4 chronic kidney disease, or unspecified chronic kidney disease (principal); I50.23 Acute on chronic systolic (congestive) heart failure; E11.22 Type 2 diabetes mellitus with diabetic chronic kidney disease; N18.9 Chronic kidney disease, unspecified; I25.5 Ischemic cardiomyopathy; E78.5 Hyperlipidemia, unspecified; I25.10 Atherosclerotic heart disease of native coronary artery without angina pectoris; Z79.4 Long term (current) use of insulin; Z79.02 Long term (current) use of antithrombotics/antiplatelets; Z79.82 Long term (current) use of aspirin; Z95.5 Presence of coronary angioplasty implant and graft; Z87.891 Personal history of nicotine dependence
CPT/HCPCS: 36415; 71010; 74176; 80048; 80053; 80061; 82962; 83036; 83735; 83880; 84100; 84484; 85025; 93005; 93306; 96372; 96374; J1940; J1170; J1815; J2405; J3475

== ENCOUNTER 2016-11-02 13:25 | Emergency (ER) | payer OTHER ==
[~2016-11-02] VITALS: Ht 167.6 cm; Wt 93.5 kg
[~2016-11-02 13:25] MED LIST changes: -ALBU18HF INHALATION; +ASPI-664 PO; -ASPI325T32 PO; -AZIT250T94 PO; -CHOL500010 PO; -IBUP-1542 PO; -NATE60TA8 PO; -PRED20TA PO; +SPIR25TA PO
[2016-11-02 13:39] VITALS: Ht 167.6 cm; Wt 93.5 kg
--- NOTE | 2016-11-02 14:50 | ERD ---
ER Documentation Chief Complaint Date/Time DATE: 11/02/16 TIME: 14:48 Chief Complaint Pt with L ankle pain and swelling to L ankle. No injury reported. HPI Patient is a 51-year-old male with a past medical history of hypertension, CHF, STEMI and multiple stents who presents to the ED with left ankle and leg swelling and pain 1 day. Patient was admitted for CHF on 10/23/16 and was discharged on 10/30/16. He states that yesterday he developed pain to his foot. He states that he has pain when he applies pressure. Denies fever or chills. Denies trauma or falls. Denies swelling in his other leg. Denies shortness of breath or chest pain or difficulty breathing. Denies headache or dizziness. Denies recent travel or recent surgeries. ROS All systems reviewed and are negative except as per history of present illness. Medications Home Meds Active Scripts Acetaminophen* (Tylophen*) 500 Mg Capsule, 1 CAP PO Q6H Y for PAIN AND OR ELEVATED TEMP, #20 CAP Prov:JULIA ANNA PA-C 11/02/16 Aspirin* (Aspirin* EC) 81 Mg Tablet.dr, 81 MG PO DAILY for 30 Days, #30 Prov:MONTEZ OLIVO MD 10/30/16 Spironolactone* (Aldactone*) 25 Mg Tablet, 12.5 MG PO BID DIURETICS for 14 Days , #28 TAB Prov:MONTEZ OLIVO MD 10/30/16 Carvedilol* (Carvedilol*) 6.25 Mg Tablet, 6.25 MG PO BID for 30 Days, TAB 2 Refills Prov:MEL ANDREWS 01/16/16 Metformin* (Glucophage*) 500 Mg Tab, 500 MG PO BID for 30 Days, 2 Refills Prov:MEL ANDREWS 01/16/16 Reported Medications Potassium Chloride* (Potassium Chloride*) 8 Meq Capsule.er, 8 MEQ PO DAILY, CAP 09/23/16 Lisinopril* (Lisinopril*) 20 Mg Tablet, 20 MG PO DAILY, #30 TAB 09/23/16 Furosemide* (Furosemide*) 40 Mg Tablet, 40 MG PO DAILY, TAB 09/23/16 Isosorbide Mononitrate (Isosorbide Mononitrate) 10 Mg Tablet, 10 MG PO BID, TAB 04/28/16 Clopidogrel Bisulfate* (Clopidogrel Bisulfate*) 75 Mg Tablet, 75 MG PO DAILY, # 30 TAB 04/28/16 Atorvastatin* (Atorvastatin*) 80 Mg Tablet, 80 MG PO QHS, #30 TAB 04/28/16 Discontinued Reported Medications Aspirin* (Aspirin* EC) 325 Mg Tab, 325 MG PO DAILY, TAB 04/28/16 Allergies Allergies: Coded Allergies: No Known Allergies (Verified Allergy, Unknown, 10/28/16) PMhx/Soc History of Surgery: Yes Anesthesia Reaction: No Hx Neurological Disorder: No Hx Respiratory Disorders: No Hx Cardiac Disorders: Yes (chf) Hx Psychiatric Problems: No Hx Miscellaneous Medical Probl: No Hx Alcohol Use: No Hx Substance Use: No Hx Tobacco Use: No FmHx Family History: No coronary disease, No diabetes, No other Physical Exam Vitals Vital Signs Date Time Temp Pulse Resp B/P Pulse Ox O2 Delivery O2 Flow Rate FiO2 11/02/16 13:39 98.3 93 20 120/78 97 Physical Exam GENERAL: Well-developed, well-nourished male. Appears in no acute distress. LUNG: Clear to auscultation bilaterally. No rhonchi, wheezing, rales or coarse breath sounds. HEART: Regular rate and rhythm. No murmurs, rubs or gallops. ABDOMEN: No scars, ecchymosis or rashes noted. Soft, nontender, and nondistended. Positive bowel sounds in all four quadrants. No rebound tenderness , no guarding. (-) McBurneys point tenderness. No CVA tenderness. BACK: No midline tenderness. Extremities: Equal pulses bilaterally. No peripheral clubbing, cyanosis or edema. left foot and leg swollen. negative giovana sign. no erythema. no step offs or deformities. NEUROLOGIC: Alert and oriented. Moving all four extremities. 5/5 strength in all extremities. Normal speech. Steady gait. SKIN: Normal color. Warm and dry. No rashes or lesions. Capillary refill < 2 seconds Procedures/MDM ER COURSE: I kept the patient and/or family informed of laboratory and diagnostic imaging results throughout the emergency room course. IMAGING STUDIES [place] [address] Radiology Main Line: [phone] DIAGNOSTIC IMAGING REPORT Patient: DAIJA MAYO : 1965 Age: 51 Sex: M MR #: [id number] DOS: 11/02/16 1443 Ordering MD: JULIA ANNA PA-C Location: [facility] Room/Bed: PROCEDURE: US left lower extremity veins. CLINICAL INDICATION: Left leg pain and swelling. TECHNIQUE: Multiple longitudinal and transverse images of the left lower extremity veins were obtained with king scale and color Doppler imaging. The common femoral vein, femoral vein, and popliteal vein were evaluated. 2D grayscale measurements with compression sonography, pulsed Doppler, color Doppler, and pulsed Doppler with augmentation. COMPARISON: No prior studies are available for comparison. FINDINGS: The left common femoral, femoral and popliteal veins are normally compressible throughout. Color flow demonstrates normal filling of the vessels. Normal waveforms are visualized and there is normal response to augmentation. IMPRESSION: 1. No evidence of deep vein thrombosis involving the left lower extremity. RPTAT: QQ .Ion Velez MD, MD Date Time Electronically viewed and signed by .Ion Velez MD, MD on 11/02/2016 15:29 .R/ CC: JULIA ANNA PA-C MEDICAL DECISION MAKING: This is a 51-year-old male with past medical history of CHF, stents, hypertension who presents with left ankle pain and swelling 1 day. Vital signs were reviewed. Patient is afebrile. Patient is not hypoxic. Patient is not toxic or ill. I consulted with my supervising physician Dr. SOMMER who agrees with my medical decision making and discharge plans. Patient does not have chest pain or shortness of breath therefore I have low suspicion for CHF or Low suspicion for ACS, PE, AAA, dissection, DVT. Ultrasound is read by radiologist unremarkable for clot. Low suspicion for DVT. The I did not x-ray the area as there was no trauma or recent falls. Patient was given Douglas wrap in the ED and was neurovascularly intact post placement. Patient to elevate leg at home and use pillows. Patient to follow-up with primary care provider tomorrow. Low suspicion for dislocation, fracture, septic joint, compartment syndrome, osteomyelitis, avascular necrosis, DVT, Achilles tendon rupture, cellulitis. At this time, unable to rule out any tendon and ligament injuries. DISCHARGE: At this time, patient is stable for discharge and outpatient management with no new complaints during the ER course. Patient was sent home with Douglas wrap and Tylenol. Patient will be discharged home with instructions to recheck for new or worsening symptoms such as fever, nausea, weakness, LOC and to follow up with primary care in the next 1-2 days. Patient was advised to return to the ER for any new or worsening symptoms. Plan was discussed and patient and/or family understands and agrees. Home instructions were given. Departure Diagnosis: Primary Impression: Ankle pain Laterality: left Chronicity: acute Qualified Code: M25.572 - Acute left ankle pain Condition: Stable JULIA ANNA PA-C Nov 02, 2016 14:50
--- NOTE | 2016-11-02 15:30 | RADRPT ---
PROCEDURE: US left lower extremity veins. CLINICAL INDICATION: Left leg pain and swelling. TECHNIQUE: Multiple longitudinal and transverse images of the left lower extremity veins were obta ined with king scale and color Doppler imaging. The common femoral vein, femoral vein, and popliteal vein were evaluated. 2D grayscale measurements with compression sonography, pulsed Doppler, color D oppler, and pulsed Doppler with augmentation. COMPARISON: No prior studies are available for comparison. FINDINGS: The left common femoral, femoral and popliteal veins are normally compressible throughout. Color fl ow demonstrates normal filling of the vessels. Normal waveforms are visualized and there is normal response to augmentation. IMPRESSION: 1. No evidence of deep vein thrombosis involving the left lower extremity. RPTAT: QQ .Ion Velez MD, MD Date Time Electronically viewed and signed by .Ion Velez MD, on 11/02/2016 15:29 .R/
[2016-11-02] MEDS ORDERED: ACET500C5 PO ×2 (15:42→15:45)
== END 2016-11-02 16:10 | disposition home or self-care (01) ==
LOC: FTE 13:25
DX: M25.572 Pain in left ankle and joints of left foot (principal); I10 Essential (primary) hypertension; I50.9 Heart failure, unspecified; Z79.01 Long term (current) use of anticoagulants; Z79.82 Long term (current) use of aspirin; Z79.84 Long term (current) use of oral hypoglycemic drugs
CPT/HCPCS: 93971; Z7502; 99283

== ENCOUNTER 2017-05-14 18:20 | Emergency (ER) | END 2017-05-14 23:37 | disposition home or self-care (01) ==

== ENCOUNTER 2017-11-12 01:30 | Inpatient (IN) | END 2017-11-17 21:20 | disposition home or self-care (01) | DRG 291 ==

== ENCOUNTER 2017-12-24 08:48 | Emergency (ER) | END 2017-12-24 10:55 | disposition home or self-care (01) ==

== ENCOUNTER 2017-12-30 02:54 | Inpatient (IN) | END 2018-01-09 19:45 | DRG 252 ==

== ENCOUNTER 2018-03-16 15:29 | Inpatient (IN) | END 2018-04-01 19:02 | disposition home health service (06) | DRG 291 ==

== ENCOUNTER 2018-05-29 23:27 | Inpatient (IN) | payer OTHER ==
[~2018-05-29] VITALS: Ht 167.6 cm; Wt 83.5 kg
[~2018-05-29 23:27] MED LIST changes: +APIX5TAB PO; -ASPI-664 PO; -ATOR80TA75 PO; +BACL10TA PO; +CARV3.1260 PO; -CARV6.2579 PO; +CLOP75TA19 PO; -CLOP75TA4 PO; +HYDR-3670 PO; -ISOS10TA45 PO; +ISOS30TA67 PO; -LISI20TA11 PO; -METF500T4 PO; +NATE60TA PO; +NITR0.4T39 SL; +POTA20TA15 PO; -POTA8CAP PO; -SPIR25TA PO
[2018-05-30] VITALS (15 sets, daily range): BP systolic 96–126; BP diastolic 64–84; PULSE 73–95; RESP 17–20; Ht 167.6 cm; Wt 83.5 kg
[2018-05-30] MEDS ORDERED: ASPIRIN 81 MG TAB PO ONE (00:30)
--- NOTE | 2018-05-30 01:17 | ERD ---
ER Documentation Chief Complaint Chief Complaint sob/cp/abd x 3 days HPI This is a 52-year-old male with a past medical history of hypertension, hyperlipidemia, coronary artery disease status post stenting x5, congestive heart failure who is presenting with 3-4 days of waxing and waning mild to moderate aching pressure-like epigastric and mid substernal chest pain radiating into his left shoulder and arm. The patient endorses shortness of breath. He has also had nausea with multiple episodes of nonbilious nonbloody vomiting. He reports poor appetite as he feels nauseated and vomits after eating. The patient has not had episodes of diaphoresis. He does endorse periods of lightheadedness, but he does not currently feel lightheaded. The patient denies feeling sick recently. The patient denies fever or chills. The patient has had no headache or vision changes. The patient does not endorse neck or back pain. The patient denies changes to bowel movements or urination. He does not endorse any black or bloody or tarry stools. The patient has had no focal deficits. The patient has had no weakness or numbness or tingling to the face or extremities. ROS All systems reviewed and are negative except as per history of present illness. Medications Home Meds Active Scripts Baclofen* (Baclofen*) 10 Mg Tablet, 10 MG PO DAILY for 10 Days, TAB Prov:MEHREEN HILLMAN 05/20/18 Potassium Chloride* (K-Dur*) 20 Meq Tab.prt.sr, 20 MEQ PO DAILY for 30 Days Prov:OMAR ESPINOSA MD 04/01/18 Apixaban* (Eliquis*) 5 Mg Tablet, 5 MG PO BID for 30 Days, TAB Prov:MEHREEN HILLMAN 03/26/18 Furosemide* (Furosemide*) 40 Mg Tablet, 40 MG PO BID DIURETICS for 60 Days, TAB Prov:MEHREEN HILLMAN 03/25/18 Isosorbide Mononitrate* (Isosorbide Mononitrate*) 30 Mg Tab.er.24h, 30 MG PO DAILY for 30 Days Prov:MEHREEN HILLMAN 03/25/18 Hydralazine Hcl* (Hydralazine Hcl*) 10 Mg Tablet, 10 MG PO Q8 for 30 Days, TAB Prov:MEHREEN HILLMAN 03/25/18 Carvedilol* (Carvedilol*) 3.125 Mg Tablet, 3.125 MG PO BID for 30 Days, TAB Prov:MEHREEN HILLMAN 03/25/18 Reported Medications Nateglinide* (Nateglinide*) 60 Mg Tablet, 60 MG PO BID, TAB 11/12/17 Nitroglycerin* (Nitrostat*) 0.4 Mg Tab.subl, 0.4 MG SL Q5MIN PRN for CHEST PAIN, BOTTLE 11/12/17 Clopidogrel Bisulfate* (Clopidogrel Bisulfate*) 75 Mg Tablet, 75 MG PO DAILY, TAB 04/28/16 Allergies Allergies: Coded Allergies: No Known Allergies (Unverified Allergy, Unknown, 05/10/18) PMhx/Soc History of Surgery: Yes (stent) Anesthesia Reaction: No (stents ) Hx Neurological Disorder: No Hx Respiratory Disorders: Yes Hx Cardiac Disorders: Yes (Hypertension, hyperlipidemia, coronary artery disease, CHF EF 25%, ventricular tachycardia) Hx Psychiatric Problems: No Hx Miscellaneous Medical Probl: No Hx Alcohol Use: No Hx Substance Use: No Hx Tobacco Use: No Smoking Status: Never smoker FmHx Family History: No diabetes Physical Exam Vitals Vital Signs Date Temp Pulse Resp B/P (MAP) Pulse Ox O2 O2 Flow FiO2 Time Delivery Rate 05/30/18 Nasal 00:26 Cannula 05/30/18 98.8 89 18 126/87 100 Room Air 00:26 (100) 05/29/18 98.8 101 18 119/83 100 23:31 (95) Physical Exam Const: No apparent distress, well-developed, well-nourished Head: Normocephalic, Atraumatic Eyes: Normal Conjunctiva. Extraocular movements intact. Pupils equal, round and reactive to light ENT: Normal External Ears, Nose and Mouth. Neck: Full range of motion. No meningismus. Resp: Clear to auscultation bilaterally, No wheezes, rales or rhonchi Cardio: Regular rate and rhythm. No murmurs, rubs or gallops Abd: Soft, non distended. Mild epigastric tenderness. Normal bowel sounds Skin: No petechiae or rashes Back: No midline tenderness. No CVA tenderness Ext: No cyanosis, or edema Neur: Awake and alert, oriented 4. Cranial nerves intact. No facial droop. Normal strength, sensation and coordination. Psych: Normal Mood and Affect Result Diagram: 05/29/18 [id number] Results 24 hrs Laboratory Tests Test 05/29/18 23:53 White Blood Count 7.6 10^3/ul Red Blood Count 5.26 10^6/ul Hemoglobin 14.6 g/dl Hematocrit 45.4 % Mean Corpuscular Volume 86.3 fl Mean Corpuscular Hemoglobin 27.8 pg Mean Corpuscular Hemoglobin Concent 32.2 g/dl Red Cell Distribution Width 15.8 % Platelet Count 444 10^3/UL Mean Platelet Volume 9.5 fl Immature Granulocytes % 0.500 % Neutrophils % 55.3 % Lymphocytes % 29.9 % Monocytes % 11.2 % Eosinophils % 2.0 % Basophils % 1.1 % Nucleated Red Blood Cells % 0.0 /100WBC Immature Granulocytes # 0.040 10^3/ul Neutrophils # 4.2 10^3/ul Lymphocytes # 2.3 10^3/ul Monocytes # 0.9 10^3/ul Eosinophils # 0.2 10^3/ul Basophils # 0.1 10^3/ul Nucleated Red Blood Cells # 0.0 10^3/ul Prothrombin Time 17.4 Sec Prothrombin Time Ratio 1.4 INR International Normalized Ratio 1.41 Sodium Level 136 mmol/L Potassium Level 3.5 mmol/L Chloride Level 101 mmol/L Carbon Dioxide Level 21 mmol/L Anion Gap 14 Blood Urea Nitrogen 33 mg/dl Creatinine 1.29 mg/dl Est Glomerular Filtrat Rate mL/min 58 mL/min Glucose Level 162 mg/dl Calcium Level 9.4 mg/dl Total Bilirubin 0.7 mg/dl Direct Bilirubin 0.00 mg/dl Indirect Bilirubin 0.7 mg/dl Aspartate Amino Transf (AST/SGOT) 21 IU/L Alanine Aminotransferase (ALT/SGPT) 29 IU/L Alkaline Phosphatase 149 IU/L Troponin I 0.330 ng/ml Total Protein 7.5 g/dl Albumin 3.9 g/dl Globulin 3.60 g/dl Albumin/Globulin Ratio 1.08 Current Medications Medications Dose Sig/Eva Start Time Status Last (Trade) Ordered Route PRN Stop Time Admin Dose Reason Admin Aspirin 324 mg ONCE ONCE 05/30/18 DC 05/30/18 (Aspirin) PO 00:30 00:36 05/30/18 00:31 Procedures/MDM MDM The patient's presentation warrants further investigation. Previous medical records, if available, were reviewed. LABS The patient's laboratory testing was obtained and reviewed. No emergent treatment was required unless described below. CBC: No E/o of systemic infection or severe anemia or thrombocytopenia. Mild thrombocytosis, likely reactive. CMP: No E/o severe acidosis or alkalosis or liver disease or diabetic ketoacidosis. Elevated creatinine in line with his chronic kidney disease. PT/INR: No E/o significant coagulopathy Troponin: E/o acute ischemia EKG EKG read by me: Rate/Rhythm: Regular rate and rhythm at a rate of 97 bpm Intervals: Normal [place] interval. Wide QRS in the setting of a nonspecific intraventricular block. [place]: Left axis deviation Impression: Nonspecific repolarization changes including T wave flattening in the lateral leads without evidence of acute ischemia. No arrhythmia IMAGING Imaging and Radiology interpretation reviewed. CXR FINDINGS: Medical devices: None. Mediastinum: Moderate enlarged cardiopericardial silhouette is similar to the prior exam. Normal aortic contour. Lungs: Lung volumes are mildly decreased. Mild asymmetric increased opacity at the right lung base is decreased from the prior exam. Lungs are otherwise clear. Pleura: Negative for pleural effusion or pneumothorax. Bones: No acute bony abnormality. Additional comment: None. IMPRESSION: 1. Moderate enlarged cardiopericardial silhouette is similar to the prior exam. 2. Mild asymmetric increased opacity at the right lung base is decreased from the prior exam and may represent resolving pneumonia or atelectasis. Electronically viewed and signed by Ross Hernandez Physician on 05/30/2018 00:25 TREATMENT/DISPOSITION The patient presents with symptoms concerning for a cardiac pathology. The patient has a significant cardiac history and reports that his symptoms today are similar to previous heart attacks. I do not see evidence of a STEMI on the EKG today, but the patient's troponin is elevated. I am concerned about an NSTEMI. The patient was given a dose of aspirin and lovenox in the emergency department. The patient's chest xray does not reveal pneumothorax or pleural effusions or pulmonary edema. The patient does not have clinical evidence of pneumonia. I do suspect that his mild asymmetric opacity is related to atelectasis, which is one option that the radiologist described. He does not have a widened mediastinum and does not have signs or symptoms concerning for thoracic aortic aneurysm or dissection. The patient does not have pneumomediastinum or signs concerning for esophageal tear or rupture. The patient has no clinical or radiographic signs of pericardial effusion or tamponade. The patient does not have pneumoperitoneum and I have decreased suspicion of viscus perforation as possible referred pain. I do not see evidence of heart failure today. The patient does not have a diagnosis of COPD and is not wheezing today. The patient is not tachypneic or hypoxic. The patient is breathing comfortably and without pleuritic pain. The patient is not on hormonal therapy. The patient has no history of clotting or bleeding disorders. The patient has no calf tenderness. The patient has had no hemoptysis. I have decreased suspicion for PE. ADMISSION At this time, I feel that the patient requires admission for further evaluation and management. The patient will be admitted to Dr. Hartman in accordance with the patient's insurance. The patient was accepted to telemetry at 1:10 AM on May 30, 2018. CRITICAL CARE NOTE Time: 35 minutes excluding all billable procedures. Treatments/Evaluations: The patient was at risk of hemodynamic compromise. Timing of critical care involved close serial monitoring, evaluation of the patient's medical record including previous records & current laboratory/imaging studies, potential interventions for prevention of hemodynamic/ cardiopulmonary/ neurologic compromise, maintaining tight fluid balance, and any discussions with the family and/or consultants regarding the patient's status and prognosis. Disclaimer: Inadvertent spelling and grammatical errors are likely due to EHR/dictation software use and do not reflect on the overall quality of patient care. Note that the electronic time recorded on this note does not necessarily reflect the actual time of the patient encounter. Departure Diagnosis: Primary Impression: NSTEMI (non-ST elevated myocardial infarction) Additional Impressions: Chest pain Chest pain type: unspecified Qualified Codes: R07.9 - Chest pain, unspecified Elevated troponin Nausea & vomiting Vomiting type: unspecified Vomiting Intractability: non-intractable Qualified Codes: R11.2 - Nausea with vomiting, unspecified Epigastric pain Shortness of breath Thrombocytosis Condition: Serious REZA LOYA MD May 30, 2018 01:14
[2018-05-30] MEDS ORDERED: DOCUSATE SODIUM 100 MG CAP PO PRN (02:00)
[2018-05-30] MEDS ORDERED: ENOXAPARIN 80 MG/0.8 ML SYG SC SCH (02:00)
[2018-05-30] MEDS ORDERED: ONDANSETRON 4 MG INJ IV PRN (02:00)
[2018-05-30] MEDS ORDERED: ACETAMINOPHEN 325 MG TAB PO PRN ×2 (02:00)
[2018-05-30] MEDS ORDERED: NITROGLYCERIN (SL) 0.4 MG TAB SL PRN (02:00)
[2018-05-30] MEDS ORDERED: morphine 2 MG INJ IV PRN (02:00)
[2018-05-30] MEDS ORDERED: NACL 0.9% 3 ML SYG IV SCH (02:00)
[2018-05-30] MEDS ORDERED: BISACODYL (EC) 5 MG TAB PO PRN (02:00)
[2018-05-30] MEDS: ONDANSETRON 4 MG INJ IV PRN ×2 (02:40→12:02)
[2018-05-30] MEDS: CLOPIDOGREL 75 MG TAB PO SCH (08:53)
[2018-05-30] MEDS: ISOSORBIDE MONONITRATE(SR)30 MG TAB PO SCH (08:58)
--- NOTE | 2018-05-30 09:19 | QN ---
Documentation Comment Seen and examined OMAR ESPINOSA MD May 30, 2018 09:19
[2018-05-30] MEDS: FUROSEMIDE 40 MG INJ IV SCH ×2 (10:20→17:27)
[2018-05-30] MEDS: PANTOPRAZOLE 40 MG INJ IV SCH ×2 (10:20→17:25)
[2018-05-30] MEDS ORDERED: MAGNESIUM SULFATE 2 GM/50 ML 50 ML IVPB ONE (10:30)
--- NOTE | 2018-05-30 12:57 | HP ---
DATE OF ADMISSION: 05/30/2018 REASON FOR ADMISSION: Nausea, vomiting and chest pain. HISTORY OF PRESENTING ILLNESS: This is a 52-year-old male with a past medical history of diabetes, h ypertension, hyperlipidemia, CHF, EF of 25%, severe cardiomyopathy, right SFA, status post thrombecto my, who was recently admitted from 05/09/2018 until 05/20/2018 with a diagnosis of CHF. At that time , the patient was started on Lasix IV and also was on metolazone. The patient was improving everyday and after diuresis, the patient was discharged home on 05/20/2018 on Lasix 40 b.i.d. According to t he patient when he went home, he was taking Lasix 40 b.i.d. He was watching also his fluid intake. He also used his LifeVest. For the last 3 to 4 days, he was having some epigastric pain also and el ry time he was eating he was throwing up. He was having episodes of nausea and vomiting for the last 2 to 3 days. After he was vomiting, he also had some left-sided chest pain that radiated to the lef t arm. He took his nitro with some relief in pain and came to the emergency department. Yesterday, he also felt he was having shortness of breath. He also was endorsing some periods of lightheadednes s. Occasionally passes gas. Denies any diarrhea. On arrival to ED, vital signs show temperature 98 .1, heart rate of 108, respirations 18, blood pressure 119/63, saturating 100%. The patient had labo ratories that showed a BUN of 33, creatinine 1.29, alkaline phosphatase is 146, LFTs within normal li mits, troponin 0.330 and the patient was admitted for further management. PAST MEDICAL HISTORY: 1. Hypertension. 2. Diabetes. 3. Hyperlipidemia. 4. Systolic congestive heart failure with EF of 20% to 25%. 5. History of prior percutaneous coronary angioplasty and stent placement. 6. History of right lower extremity DVT, on Eliquis. 7. CKD stage III. 8. Cardiomyopathy. MEDICATIONS TAKING AT HOME: 1. Lasix 40 mg p.o. b.i.d. 2. Baclofen 10 daily. 3. Eliquis 5 b.i.d. 4. Plavix 75. 5. Coreg 3.125. 6. Hydralazine 10 q.8. 7. Imdur 30 daily. 8. Nitroglycerin. 9. Potassium. 10. Nateglinide 60 b.i.d. SOCIAL HISTORY: Denies any history of smoking, alcohol or any drug use. Currently lives with [facility]. FAMILY HISTORY: Noncontributory. REVIEW OF SYSTEMS: The patient complained of some epigastric pain, nausea, vomiting, chest pain, francesca rtness of breath, some dizziness. Denies any diarrhea, any fevers or chills. Denies any urinary sym ptoms. PHYSICAL EXAMINATION: VITAL SIGNS: Currently blood pressure of 107/78, heart rate 80, saturating 100% on 2 liters. GENERAL: The patient is awake, alert, oriented, does not appear to be in any acute distress. HEENT: Pupils are equal, round, reactive to light. NECK: No JVD appreciated. HEART: Regular rate and rhythm. Systolic ejection murmur. LUNGS: Some decreased breath sounds bilaterally. EXTREMITIES: A 1 to 2+ edema. LABORATORY DATA: Sodium 136, potassium 3.5, chloride 101, bicarbonate 21, BUN of 33, creatinine 1.29 . AST 21, ALT 29, alkaline phosphatase 149, albumin 3.9. White count 7.6, hemoglobin 14.6, platelet count 444. Troponins were 0.330, 0.310. DIAGNOSTIC DATA: Chest x-ray showed moderate enlarged pericardial silhouette, mild asymmetric increa sed opacity at the right lung base. EKG: No acute ST-T wave changes. ASSESSMENT AND PLAN: This is a 52-year-old male who presented with: 1. Chest pain with elevated troponins, likely secondary to [id number]-MT-xgguanlmu myocardial infarction. 2. Nausea, vomiting, epigastric pain. It could be related to acute coronary syndrome; however we ca nnot rule out underlying gastritis. LFTs show only abnormal elevated alkaline phosphatase. The candice ent has had HIDA scan in 03/2018 which had been negative. 3. Acute on chronic systolic congestive heart failure. 4. Elevated alkaline phosphatase. 5. Cardiomyopathy. 6. Diabetes. 7. Hypertension. 8. Severe cardiomyopathy with ejection fraction of 20% to 25%. 9. Chronic kidney disease stage III. 10. Hypomagnesemia. PLAN: At this period of time, the patient is admitted to telemetry. The patient will be on Plavix. We will also initiate the patient on heparin. Cardiology consultation will be consulted. The patie nt will be on IV Lasix and metolazone. The patient will likely need an angiogram. We will also get an abdominal ultrasound for abdominal pain and check lipase. GI consultation will be requested. Res t of the treatment will depend on the patient's hospitalization course. Dictated By: OMAR FERRER/MAX Conf#: [id number] DID#: [id number] CC: HAWA DRAKE MD; MAXIMO BUENROSTRO MD;*EndCC*
--- NOTE | 2018-05-30 15:56 | CONS ---
DATE OF ADMISSION: 05/30/2018 DATE OF CONSULTATION: 05/30/2018 TYPE OF CONSULTATION: Cardiology. REASON FOR CONSULTATION: Positive troponin concerning for cqu-FZ-icopgpnpt myocardial infarction wit h cardiomyopathy with severe depressed left ventricular ejection fraction. REQUESTING PHYSICIAN: Teresa Espinosa MD HISTORY OF PRESENT ILLNESS: Mr. Robert is a very pleasant 52-year-old male known to myself from [facility] prior hospital admissions with history of cardiomyopathy with severely depressed left ventricu lar ejection fraction last EF approximately 20% by echo on 05/09/2018, chronic kidney disease on hemo dialysis, recurrent bouts of systolic congestive heart failure, episodes of nonsustained ventricular tachycardia with LifeVest awaiting likely permanent ICD placement, arterial insufficiency status post lower extremity intervention, recent diagnosis of right lower extremity DVT on Eliquis, prior acute NV with PTCA and stent placement to LAD in 2017, who presents with complaints of nausea, vomiting, in ability to keep p.o. down. Upon arrival, temperature of 98.8, blood pressure 119/82, pulse 101, resp iratory rate 18, satting 100%. The patient's labs revealed a white blood cell count of 7.6, hemoglob in of 14.6, platelet count of 444, sodium of 136, potassium 3.5, creatinine 1.29, BUN of 33. Troponi n is positive at 0.330. AST 21, ALT 29. INR of 1.41. The patient underwent a chest x-ray revealing moderate enlarged pericardial silhouette, mild asymmetric increased opacity in the right lung base. The patient's electrocardiogram revealed normal sinus rhythm at a rate of 97 with right superior axi s deviation, inferior Q's, lateral Q's, poor R-wave progression across the anterior precordial leads. The patient was subsequently admitted to the floor and since admit to the floor, denies shortness o f breath. He does have intermittent chest pain and troponin goes from 0.33 to 0.31. PAST MEDICAL HISTORY: As above in HPI. MEDICATIONS CURRENTLY IN HOSPITAL: 1. Lasix 40 mg IV b.i.d. 2. Protonix 40 mg IV b.i.d. 3. Plavix 75 mg daily. 4. Imdur 30 mg daily. 5. Hydralazine 10 mg p.o. q.8. 6. Carvedilol 3.125 mg p.o. b.i.d. 7. Zofran p.r.n. 8. Tylenol p.r.n. 9. Nitroglycerin p.r.n. 10. Morphine p.r.n. ALLERGIES: NO KNOWN DRUG ALLERGIES. SOCIAL HISTORY: No current tobacco, EtOH or illicit drug use. FAMILY HISTORY: No history of sudden cardiac or early CAD. REVIEW OF SYSTEMS: As above in HPI. CONSTITUTIONAL: No fevers, chills. PULMONARY: No current signs of respiratory compromise. GASTROINTESTINAL: No vomiting. GENITOURINARY: No hematuria. MUSCULOSKELETAL: Degenerative joint disease. PSYCHIATRIC: The patient denies depression. NEUROLOGIC: No documented history of CVA. ENDOCRINE: No documented history of diabetes mellitus. PHYSICAL EXAMINATION: VITAL SIGNS: Temperature of 98, blood pressure 108/76, pulse 82, respiratory rate 18, satting 98%. GENERAL: The patient is alert, awake, complaining of intermittent chest pain and shortness of breath . NECK: JVP is approximately 9 cm of water. CHEST: Decreased breath sounds at bases bilaterally. HEART: Regular rate and rhythm. Normal S1, S2, I/ systolic murmur, nondisplaced PMI. ABDOMEN: Positive bowel sounds, soft. EXTREMITIES: Trace edema, 1+ pulses bilateral posterior tibial. LABORATORIES: As above in HPI with most recently from today, sodium 136, potassium 3.7, creatinine 1 .1, BUN 31. White blood cell count 6.3, hemoglobin 14.3, platelet count of 384. IMAGING STUDIES: As above in HPI. No further imaging studies for my review at this time. ELECTROCARDIOGRAM: As above in HPI. No further electrocardiogram for my review at this time. IMPRESSION: 1. Positive troponin consistent with vrg-CG-bopoaxqqd myocardial infarction, small at this time. 2. Chest pain, intermittent. 3. Cardiomyopathy with severe depressed left ventricular ejection fraction last EF approximately 20% by echo this month. 4. Congestive heart failure, systolic, acute on chronic, very mild volume overload at this time. 5. Abdominal pain, nausea and vomiting without intra-abdominal pathology. 6. Coagulopathy secondary to Eliquis. 7. Chronic kidney disease with currently improved creatinine. RECOMMENDATIONS: 1. At this time, we would maintain the patient on telemetry monitoring to follow rhythm and rate con trol closely. 2. We would continue the patient's current carvedilol and hydralazine for treatment of cardiomyopath y and the patient's Imdur for antianginal effects. 3. Continue the patient's current Plavix at this time, but we would hold the patient's Eliquis in an ticipation of left heart catheterization, which will be scheduled to take place at this time on afternoon. There is no available laborer hoisting tomorrow afternoon. 4. Continue the patient's PPI at this time. 5. Continue to trend the patient's cardiac enzymes and continue to check serial EKGs. Thank you for allowing me to take part in the care of this patient. I will continue to follow very c losely with you with further recommendations to be made as the patient progresses through his [facility] clinical course. Dictated By: KARSON HENSLEY/MAX Conf#: [id number] DID#: [id number] CC: MAXIMO BUENROSTRO MD; TERESA ESPINOSA; HAWA DRAKE MD;*End*
[2018-05-30] MEDS: METOCLOPRAMIDE 10 MG INJ IV SCH ×2 (17:27→23:44)
--- NOTE | 2018-05-30 18:22 | CONS ---
DATE OF ADMISSION: 05/30/2018 DATE OF CONSULTATION: 05/30/2018 GASTROINTESTINAL CONSULTATION REASON FOR CONSULTATION: Abdominal pain and postprandial fullness. HISTORY OF PRESENT ILLNESS: A 52-year-old male with a history of diabetes mellitus, hypertension, hy perlipidemia, cardiomyopathy with EF of 25%, status post coronary stent placement, comes to the ER co mplaining of abdominal pain and throwing up. The patient has been nauseous for the last 2 to 3 days. He also complains of pain on the left side of the chest radiating to the left arm. The patient is able to walk 3 blocks without any problem. In the ER, he was evaluated. The patient was tachycardic . His creatinine was 1.29. Troponin was mildly elevated, so was admitted for further management and treatment. He denies of any GI bleeding. No history of weight loss. PAST MEDICAL HISTORY: Hypertension, diabetes mellitus, chronic kidney disease, cardiomyopathy, right lower extremity DVT. He is on Eliquis. MEDICATIONS: 1. Lasix. 2. Baclofen. 3. Eliquis. 4. Plavix. 5. Coreg. 6. Hydralazine 7. Imdur. 8. Nitroglycerin. 9. Potassium. 10. SOCIAL HISTORY: No smoking, no alcohol, no recreational drugs. FAMILY HISTORY: Nothing contributory. REVIEW OF SYSTEMS: Negative. PHYSICAL EXAMINATION: GENERAL: Alert, awake, not in distress. VITAL SIGNS: Stable. HEENT: Unremarkable. NECK: Supple, no thyromegaly, no lymphadenopathy. CARDIOVASCULAR: No murmur, gallop or click. LUNGS: Clear. ABDOMEN: Benign. EXTREMITIES: No edema. CENTRAL NERVOUS SYSTEM: Grossly within normal limits. LABORATORY DATA: Hematocrit was stable. LFTs all within normal limits. Troponin mildly elevated. IMPRESSION: 1. Chest pain with elevated troponin. Rule out non-STEMI. 2. Ischemic cardiomyopathy with EF of 25%. This was 1-1/2 to 2 years ago. 3. Left upper quadrant pain and chronic stasis syndrome, most probably related to gastroparesis. 4. Mild elevation of alkaline phosphatase. 5. Diabetes mellitus. 6. Hypertension. 7. Chronic kidney disease. PLAN: To continue all his medication. We will get ultrasound of the abdomen for elevated alkaline p hosphatase, and the patient will be placed on Reglan empirically for his diabetic gastroparesis. We will scope him only once he is cleared by the lcac radar operator/navigator. Dictated By: SUE EVANS/MAX Conf#: [id number] DID#: [id number] CC: OMAR ESPINOSA; HAWA DRAKE MD;*End*
[2018-05-30] MEDS ORDERED: APIXABAN 5 MG TABLET PO SCH (21:00)
[2018-05-31] VITALS (10 sets, daily range): BP systolic 93–103; BP diastolic 63–75; PULSE 69–80; RESP 18–22
[2018-05-31] MEDS: PANTOPRAZOLE 40 MG INJ IV SCH ×2 (05:19→17:07)
[2018-05-31] MEDS: METOCLOPRAMIDE 10 MG INJ IV SCH ×4 (05:19→23:00)
[2018-05-31] MEDS: FUROSEMIDE 40 MG INJ IV SCH ×2 (05:19→20:19)
[2018-05-31] MEDS: ISOSORBIDE MONONITRATE(SR)30 MG TAB PO SCH (07:42)
[2018-05-31] MEDS: CLOPIDOGREL 75 MG TAB PO SCH (07:42)
--- NOTE | 2018-05-31 08:37 | CONS ---
Assessment/Plan Assessment/Plan Hospital Course (Demo Recall) IMPRESSION: 1. Chest pain with elevated troponin. Rule out non-STEMI. 2. Ischemic cardiomyopathy with EF of 25%. This was 1-1/2 to 2 years ago. 3. Left upper quadrant pain and chronic stasis syndrome, most probably related to gastroparesis. 4. Mild elevation of alkaline phosphatase. 5. Diabetes mellitus. 6. Hypertension. 7. Chronic kidney disease. PLAN: To continue all his medication. Ultrasound of the abdomen done, results pending. We will scope him only once he is cleared by the container finishing inspector. Cardiac cath per cardiology likely tomorrow. Patient examined and plan of care discussed with Dr Lawton. Consultation Date/Type/Reason Admit Date/Time May 30, 2018 at 01:33 Initial Consult Date Date/Time of Note DATE: 05/31/18 TIME: 08:37 24 HR Interval Summary Free Text/Dictation 52 year old male still with abdominal pain to right upper quadrant and mild SOB. Denies any nausea/vomting today Exam/Review of Systems Exam Vitals Vital Signs Date Temp Pulse Resp B/P (MAP) Pulse Ox O2 O2 Flow FiO2 Time Delivery Rate 05/31/18 70 08:03 05/31/18 98.0 22 102/74 96 Nasal 3.0 07:15 (83) Cannula Intake and Output 05/30/18 05/30/18 05/31/18 1515:00 23:00 07:00 IntakeIntake Total 300 ml OutputOutput Total 400 ml BalanceBalance -100 ml Constitutional: alert, oriented Psych: nl mood/affect Head: atraumatic Respiratory: clear to auscultation Cardiovascular: regular rate and rhythm Gastrointestinal: soft Extremities: edema (Trace Edema to BLE) Results Result Diagram: 05/30/18 0444 05/30/18 0444 Results 24hrs Laboratory Tests Test 05/30/18 11:12 05/31/18 04:46 Creatine Kinase 46 40 Creatine Kinase Index 5.6 6.3 Creatinine Kinase MB (Mass) 2.56 H 2.50 H Troponin I 0.242 *H 0.282 *H Medications Medication Current Medications Carvedilol (Coreg) 3.125 mg BID PO Last administered on 05/31/18at 07:42; Admin Dose 3.125 MG; Start 05/30/18 at 03:00 Clopidogrel Bisulfate (plaVIX) 75 mg DAILY PO Last administered on 05/31/18 07:42; Admin Dose 75 MG; Start 05/30/18 at 09:00 Hydralazine HCl (Apresoline) 10 mg Q8 PO Last administered on 05/31/18 05:19; Admin Dose 10 MG; Start 05/30/18 at 06:00 Isosorbide Mononitrate (Imdur) 30 mg DAILY PO Last administered on 05/31/18 07:42; Admin Dose 30 MG; Start 05/30/18 at 09:00 IV Flush (NS 3 ml) 3 ml PER PROTOCOL IV ; Start 05/30/18 at 02:00 Ondansetron HCl (Zofran Inj) 4 mg Q6H PRN IV NAUSEA/VOMITING Last administered on 05/30/18at 12:02; Admin Dose 4 MG; Start 05/30/18 at 02:00 Nitroglycerin (Nitroglycerin (Sl Tab) 0.4 Mg) 1 tab Q5M PRN SL .CHEST PAIN; Start 05/30/18 at 02:00 Acetaminophen (Tylenol Tab) 650 mg Q6H PRN PO .PAIN 1-3 OR TEMP; Start 05/30/18 at 02:00 Morphine Sulfate (morphine) 1 mg Q4H PRN IV .PAIN 7-10; Start 05/30/18 at 02:00 Docusate Sodium (Colace) 100 mg Q12H PRN PO .CONSTIPATION Last administered on 05/30/18at 21:38; Admin Dose 100 MG; Start 05/30/18 at 02:00 Bisacodyl (Dulcolax) 5 mg DAILY PRN PO .CONSTIPATION; Start 05/30/18 at 02:00 Furosemide (Lasix) 40 mg BID DIURETICS IV Last administered on 05/31/18 05:19; Admin Dose 40 MG; Start 05/30/18 at 09:30 Pantoprazole (Protonix Iv) 40 mg BID@18 IV Last administered on 05/31/18 05:19; Admin Dose 40 MG; Start 05/30/18 at 09:30 Metoclopramide HCl (Reglan) 5 mg Q6 IV Last administered on 05/31/18 05:19; Admin Dose 5 MG; Start 05/30/18 at 18:00 UZIEL ADDISON NP May 31, 2018 08:37
--- NOTE | 2018-05-31 09:12 | CONS ---
Consult Date/Type/Reason Admit Date/Time May 30, 2018 at 01:33 Initial Consult Date Date/Time of Note DATE: 05/31/18 TIME: 09:09 Subjective No CP now - stable on tele - plan for [facility] tomorrow per Dr. Nagy's note ROS: No fever, no chills, no nausea, no vomiting, no diarrhea/constipation No recent weight changes No chest pain, no PND, no orthopnea - mild SOB No dizziness, blurred vision No thirst, no heat or cold intolerance Objective Vitals Vital Signs Date Temp Pulse Resp B/P (MAP) Pulse Ox O2 O2 Flow FiO2 Time Delivery Rate 05/31/18 70 08:03 05/31/18 98.0 22 102/74 96 Nasal 3.0 07:15 (83) Cannula Intake and Output 05/30/18 05/30/18 05/31/18 1515:00 23:00 07:00 IntakeIntake Total 300 ml OutputOutput Total 400 ml BalanceBalance -100 ml Exam General: WN/WD/NAD, AOx 3 HEENT: Unicetric/atraumatic/EOMI (follows commands) NECK: JVD elevated, no thyromegaly Lymph: no lymphadenopathy HEART: regular with no S3, II/ systolic murmur at apex, PMI L LUNGS: Coarse sounds ABD: soft, NT, ND, +BS : Intact Neuro: non focal SKIN: chronic changes EXT: trace edema Results/Medications Result Diagram: 05/30/184 05/30/18443 Results 24 hrs Laboratory Tests Test 05/30/18 11:12 05/31/18 04:46 Creatine Kinase 46 40 Creatine Kinase Index 5.6 6.3 Creatinine Kinase MB (Mass) 2.56 H 2.50 H Troponin I 0.242 *H 0.282 *H Home Meds Active Scripts Baclofen* (Baclofen*) 10 Mg Tablet, 10 MG PO DAILY for 10 Days, TAB Prov:MEHREEN HILLMAN 05/20/18 Potassium Chloride* (K-Dur*) 20 Meq Tab.prt.sr, 20 MEQ PO DAILY for 30 Days Prov:OMAR ESPINOSA MD 04/01/18 Apixaban* (Eliquis*) 5 Mg Tablet, 5 MG PO BID for 30 Days, TAB Prov:MEHREEN HILLMAN 03/26/18 Furosemide* (Furosemide*) 40 Mg Tablet, 40 MG PO BID DIURETICS for 60 Days, TAB Prov:MEHREEN HILLMAN 03/25/18 Isosorbide Mononitrate* (Isosorbide Mononitrate*) 30 Mg Tab.er.24h, 30 MG PO DAILY for 30 Days Prov:MEHREEN HILLMAN 03/25/18 Hydralazine Hcl* (Hydralazine Hcl*) 10 Mg Tablet, 10 MG PO Q8 for 30 Days, TAB Prov:MEHREEN HILLMAN 03/25/18 Carvedilol* (Carvedilol*) 3.125 Mg Tablet, 3.125 MG PO BID for 30 Days, TAB Prov:MEHREEN HILLMAN 03/25/18 Reported Medications Nateglinide* (Nateglinide*) 60 Mg Tablet, 60 MG PO BID, TAB 11/12/17 Nitroglycerin* (Nitrostat*) 0.4 Mg Tab.subl, 0.4 MG SL Q5MIN PRN for CHEST PAIN, BOTTLE 11/12/17 Clopidogrel Bisulfate* (Clopidogrel Bisulfate*) 75 Mg Tablet, 75 MG PO DAILY, TAB 04/28/16 Medications Current Medications Carvedilol (Coreg) 3.125 mg BID PO Last administered on 05/31/18at 07:42; Admin Dose 3.125 MG; Start 05/30/18 at 03:00 Clopidogrel Bisulfate (plaVIX) 75 mg DAILY PO Last administered on 05/31/18at 07:42; Admin Dose 75 MG; Start 05/30/18 at 09:00 Hydralazine HCl (Apresoline) 10 mg Q8 PO Last administered on 05/31/18at 05:19; Admin Dose 10 MG; Start 05/30/18 at 06:00 Isosorbide Mononitrate (Imdur) 30 mg DAILY PO Last administered on 05/31/18at 07:42; Admin Dose 30 MG; Start 05/30/18 at 09:00 IV Flush (NS 3 ml) 3 ml PER PROTOCOL IV ; Start 05/30/18 at 02:00 Ondansetron HCl (Zofran Inj) 4 mg Q6H PRN IV NAUSEA/VOMITING Last administered on 05/30/18at 12:02; Admin Dose 4 MG; Start 05/30/18 at 02:00 Nitroglycerin (Nitroglycerin (Sl Tab) 0.4 Mg) 1 tab Q5M PRN SL .CHEST PAIN; Start 05/30/18 at 02:00 Acetaminophen (Tylenol Tab) 650 mg Q6H PRN PO .PAIN 1-3 OR TEMP; Start 05/30/18 at 02:00 Morphine Sulfate (morphine) 1 mg Q4H PRN IV .PAIN 7-10; Start 05/30/18 at 02:00 Docusate Sodium (Colace) 100 mg Q12H PRN PO .CONSTIPATION Last administered on 05/30/18at 21:38; Admin Dose 100 MG; Start 05/30/18 at 02:00 Bisacodyl (Dulcolax) 5 mg DAILY PRN PO .CONSTIPATION; Start 05/30/18 at 02:00 Furosemide (Lasix) 40 mg BID DIURETICS IV Last administered on 05/31/18at 05:19; Admin Dose 40 MG; Start 05/30/18 at 09:30 Pantoprazole (Protonix Iv) 40 mg BID@06,18 IV Last administered on 05/31/18at 05:19; Admin Dose 40 MG; Start 05/30/18 at 09:30 Metoclopramide HCl (Reglan) 5 mg Q6 IV Last administered on 05/31/18at 05:19; Admin Dose 5 MG; Start 05/30/18 at 18:00 Assessment/Plan Hospital Course (Demo Recall) 1. Positive troponin consistent with [id number] myocardial infarction, small at this time - C planned tomorrow. 2. Chest pain, intermittent - now gone. 3. Cardiomyopathy with severe depressed left ventricular ejection fraction last EF approximately 20% by echo this month - will evaluate for ICD as outpt - [facility] first. 4. Congestive heart failure, systolic, acute on chronic, very mild volume overload at this time. Con't gentle diuresis. 5. Abdominal pain, nausea and vomiting without intra-abdominal pathology. 6. Coagulopathy secondary to Eliquis - held p C. 7. Chronic kidney disease with currently improved creatinine. OSCAR NI MD May 31, 2018 09:12
--- NOTE | 2018-05-31 15:04 | PN ---
Date/Time of Note Date/Time of Note DATE: 05/31/18 TIME: 15:01 Assessment/Plan VTE Prophylaxis Risk score (from Ns)>0 risk: 5 [place] [facility] [place] contraindicated: low risk/ambulating Pharmacological prophylaxis: NA/contraindicated Pharm contraindication: low risk/ambulating Lines/Catheters [facility] Saline Lock Urinary Cath still in place: No Assessment/Plan Hospital Course This is a 52-year-old male who presented with: 1. Chest pain with elevated troponins, likely secondary to [id number] myocardial infarction. 2. Nausea, vomiting, epigastric pain. It could be related to acute coronary syndrome; however we cannot rule out underlying gastritis. LFTs show only abnormal elevated alkaline phosphatase. The patient has had HIDA scan in 03/2018 which had been negative. Dominant ultrasound is essentially 3. Acute on chronic systolic congestive heart failure. 4. Elevated alkaline phosphatase. 5. Cardiomyopathy. 6. Diabetes. 7. Hypertension. 8. Severe cardiomyopathy with ejection fraction of 20% to 25%. 9. Chronic kidney disease stage III. 10. Hypomagnesemia. Plan -Questionable diuresis documented -Increase Lasix 40 IV 3 times daily Monitor strict I's and O's- -Likely angiogram tomorrow -Continue with Plavix/Imdur/hydralazine -Talk to Dr. Nagy of possibility of not lying down flat Result Diagram: 05/30/1844305/30/18443 Results 24hrs Laboratory Tests Test 05/31/18 04:46 Creatine Kinase 40 Creatine Kinase Index 6.3 Creatinine Kinase MB (Mass) 2.50 H Troponin I 0.282 *H Subjective 24 Hr Interval Summary Free Text/Dictation Abdominal pain has improved. And says that he cannot lie down flat at bed he feels short of breath ? Diuresis Exam/Review of Systems Exam Vitals Vital Signs Date Temp Pulse Resp B/P (MAP) Pulse Ox O2 O2 Flow FiO2 Time Delivery Rate 05/31/18 71 12:33 05/31/18 97.8 22 93/64 (74) 96 Nasal 11:24 Cannula 05/31/18 2.0 08:00 Intake and Output 05/30/18 05/30/18 05/31/18 1414:59 22:59 06:59 IntakeIntake Total 300 ml OutputOutput Total 400 ml BalanceBalance -100 ml Exam GENERAL: The patient is awake, alert, oriented, does not appear to be in any acute distress. HEENT: Pupils are equal, round, reactive to light. NECK: No JVD appreciated. HEART: Regular rate and rhythm. Systolic ejection murmur. LUNGS: Some decreased breath sounds bilaterally. EXTREMITIES: A 1 to 2+ edema. Results Results 24hrs Laboratory Tests Test 05/31/18 04:46 Creatine Kinase 40 Creatine Kinase Index 6.3 Creatinine Kinase MB (Mass) 2.50 H Troponin I 0.282 *H Medications Medication Current Medications Carvedilol (Coreg) 3.125 mg BID PO Last administered on 05/31/18 07:42; Admin Dose 3.125 MG; Start 05/30/18 at 03:00 Clopidogrel Bisulfate (plaVIX) 75 mg DAILY PO Last administered on 05/31/18 07:42; Admin Dose 75 MG; Start 05/30/18 at 09:00 Hydralazine HCl (Apresoline) 10 mg Q8 PO Last administered on 05/31/18at 05:19; Admin Dose 10 MG; Start 05/30/18 at 06:00 Isosorbide Mononitrate (Imdur) 30 mg DAILY PO Last administered on 05/31/18 07:42; Admin Dose 30 MG; Start 05/30/18 at 09:00 IV Flush (NS 3 ml) 3 ml PER PROTOCOL IV ; Start 05/30/18 at 02:00 Ondansetron HCl (Zofran Inj) 4 mg Q6H PRN IV NAUSEA/VOMITING Last administered on 05/30/18at 12:02; Admin Dose 4 MG; Start 05/30/18 at 02:00 Nitroglycerin (Nitroglycerin (Sl Tab) 0.4 Mg) 1 tab Q5M PRN SL .CHEST PAIN; Start 05/30/18 at 02:00 Acetaminophen (Tylenol Tab) 650 mg Q6H PRN PO .PAIN 1-3 OR TEMP; Start 05/30/18 at 02:00 Morphine Sulfate (morphine) 1 mg Q4H PRN IV .PAIN 7-10; Start 05/30/18 at 02:00 Docusate Sodium (Colace) 100 mg Q12H PRN PO .CONSTIPATION Last administered on 05/30/18at 21:38; Admin Dose 100 MG; Start 05/30/18 at 02:00 Bisacodyl (Dulcolax) 5 mg DAILY PRN PO .CONSTIPATION; Start 05/30/18 at 02:00 Furosemide (Lasix) 40 mg BID DIURETICS IV Last administered on 05/31/18at 05:19; Admin Dose 40 MG; Start 05/30/18 at 09:30 Pantoprazole (Protonix Iv) 40 mg BID@06,18 IV Last administered on 05/31/18at 05:19; Admin Dose 40 MG; Start 05/30/18 at 09:30 Metoclopramide HCl (Reglan) 5 mg Q6 IV Last administered on 05/31/18at 12:11; Admin Dose 5 MG; Start 05/30/18 at 18:00 OMAR ESPINOSA MD May 31, 2018 15:04
[2018-06-01] VITALS (24 sets, daily range): BP systolic 94–109; BP diastolic 72–85; PULSE 66–125; RESP 14–24
[2018-06-01] MEDS: METOCLOPRAMIDE 10 MG INJ IV SCH ×3 (05:34→17:34)
[2018-06-01] MEDS: PANTOPRAZOLE 40 MG INJ IV SCH ×2 (05:34→17:33)
[2018-06-01] MEDS: CLOPIDOGREL 75 MG TAB PO SCH (07:28)
[2018-06-01] MEDS: ISOSORBIDE MONONITRATE(SR)30 MG TAB PO SCH (07:30)
[2018-06-01] MEDS: FUROSEMIDE 40 MG INJ IV SCH ×2 (07:31→17:34)
[2018-06-01] MEDS ORDERED: POTASSIUM CHLORIDE (SR) 20 MEQ TAB PO STA (11:09)
--- NOTE | 2018-06-01 11:23 | PN ---
Date/Time of Note Date/Time of Note DATE: 06/01/18 TIME: 11:20 Assessment/Plan VTE Prophylaxis Risk score (from Ns)>0 risk: 4 SCD applied (from [facility] [place]): No SCD contraindicated: low risk/ambulating Pharmacological prophylaxis: NA/contraindicated Pharm contraindication: low risk/ambulating Lines/Catheters IV C[facility]ter Type (from [facility]): Saline Lock Urinary Cath still in place: No Assessment/Plan Hospital Course This is a 52-year-old male who presented with: 1. Chest pain with elevated troponins, likely secondary to [id number] myocardial infarction. 2. Nausea, vomiting, epigastric pain. It could be related to acute coronary syndrome; however we cannot rule out underlying gastritis. LFTs show only abnormal elevated alkaline phosphatase. The patient has had HIDA scan in 03/2018 which had been negative. Dominant ultrasound is essentially 3. Acute on chronic systolic congestive heart failure. 4. Elevated alkaline phosphatase. 5. Cardiomyopathy. 6. Diabetes. 7. Hypertension. 8. Severe cardiomyopathy with ejection fraction of 20% to 25%. 9. Chronic kidney disease stage III. with Cr jump to 1.41 s/p diuresis 10. Hypomagnesemia. 11 V tach asymtomatic Plan -Angiogram scheduled today at 1 PM -Start repletion of potassium, will check for mag and will also replete if needed -dec Lasix to 40 twice daily -he will likely need AICD with recurrent episodes of V. tach Monitor strict I's and O's- -Continue with Plavix/Imdur/hydralazine Patient was explained about the risk of possible contrast-induced nephropathy after angiogram today Result Diagram: 06/01/18 0508 06/01/18 0508 Results 24hrs Laboratory Tests Test 06/01/18 05:08 White Blood Count 5.1 Red Blood Count 4.94 Hemoglobin 13.8 L Hematocrit 41.9 L Mean Corpuscular Volume 84.8 Mean Corpuscular Hemoglobin 27.9 L Mean Corpuscular Hemoglobin Concent 32.9 Red Cell Distribution Width 16.2 H Platelet Count 397 Mean Platelet Volume 10.0 Immature Granulocytes % 0.400 Neutrophils % 52.3 Lymphocytes % 28.0 Monocytes % 14.0 H Eosinophils % 3.7 Basophils % 1.6 Nucleated Red Blood Cells % 0.0 Immature Granulocytes # 0.020 Neutrophils # 2.7 Lymphocytes # 1.4 Monocytes # 0.7 Eosinophils # 0.2 Basophils # 0.1 Nucleated Red Blood Cells # 0.0 Sodium Level 135 Potassium Level 3.6 Chloride Level 99 Carbon Dioxide Level 23 Anion Gap 13 Blood Urea Nitrogen 37 H Creatinine 1.41 H Est Glomerular Filtrat Rate mL/min 53 L Glucose Level 122 Calcium Level 9.3 Total Bilirubin 0.5 Direct Bilirubin 0.00 Indirect Bilirubin 0.5 Aspartate Amino Transf (AST/SGOT) 14 L Alanine Aminotransferase (ALT/SGPT) 27 Alkaline Phosphatase 128 H Total Protein 6.6 Albumin 3.5 Globulin 3.10 Albumin/Globulin Ratio 1.12 Subjective 24 Hr Interval Summary Free Text/Dictation Says that he feels a lot better today. Is able to lie down flat,u output 900 documented rest on documented However on the monitor patient had 19 beats of V. tach Exam/Review of Systems Exam Vitals Vital Signs Date Temp Pulse Resp B/P (MAP) Pulse Ox O2 O2 Flow FiO2 Time Delivery Rate 06/01/18 97.8 73 18 109/75 98 11:07 (86) 06/01/18 Nasal 2.0 08:00 Cannula Intake and Output 05/31/18 05/31/18 06/01/18 1515:00 23:00 07:00 IntakeIntake Total 890 ml 180 ml OutputOutput Total 400 ml 500 ml BalanceBalance 490 ml -320 ml Exam GENERAL: The patient is awake, alert, oriented, does not appear to be in any acute distress. HEENT: Pupils are equal, round, reactive to light. NECK: No JVD appreciated. HEART: Regular rate and rhythm. Systolic ejection murmur. LUNGS: Some decreased breath sounds bilaterally. EXTREMITIES: A 1 to 2+ edema. Results Results 24hrs Laboratory Tests Test 06/01/18 05:08 White Blood Count 5.1 Red Blood Count 4.94 Hemoglobin 13.8 L Hematocrit 41.9 L Mean Corpuscular Volume 84.8 Mean Corpuscular Hemoglobin 27.9 L Mean Corpuscular Hemoglobin Concent 32.9 Red Cell Distribution Width 16.2 H Platelet Count 397 Mean Platelet Volume 10.0 Immature Granulocytes % 0.400 Neutrophils % 52.3 Lymphocytes % 28.0 Monocytes % 14.0 H Eosinophils % 3.7 Basophils % 1.6 Nucleated Red Blood Cells % 0.0 Immature Granulocytes # 0.020 Neutrophils # 2.7 Lymphocytes # 1.4 Monocytes # 0.7 Eosinophils # 0.2 Basophils # 0.1 Nucleated Red Blood Cells # 0.0 Sodium Level 135 Potassium Level 3.6 Chloride Level 99 Carbon Dioxide Level 23 Anion Gap 13 Blood Urea Nitrogen 37 H Creatinine 1.41 H Est Glomerular Filtrat Rate mL/min 53 L Glucose Level 122 Calcium Level 9.3 Total Bilirubin 0.5 Direct Bilirubin 0.00 Indirect Bilirubin 0.5 Aspartate Amino Transf (AST/SGOT) 14 L Alanine Aminotransferase (ALT/SGPT) 27 Alkaline Phosphatase 128 H Total Protein 6.6 Albumin 3.5 Globulin 3.10 Albumin/Globulin Ratio 1.12 Medications Medication Current Medications Carvedilol (Coreg) 3.125 mg BID PO Last administered on 06/01/18at 07:30; Admin Dose 3.125 MG; Start 05/30/18 at 03:00 Clopidogrel Bisulfate (plaVIX) 75 mg DAILY PO Last administered on 05/31/18at 07:42; Admin Dose 75 MG; Start 05/30/18 at 09:00 Hydralazine HCl (Apresoline) 10 mg Q8 PO Last administered on 06/01/18at 05:34; Admin Dose 10 MG; Start 05/30/18 at 06:00 Isosorbide Mononitrate (Imdur) 30 mg DAILY PO Last administered on 06/01/18at 07:30; Admin Dose 30 MG; Start 05/30/18 at 09:00 IV Flush (NS 3 ml) 3 ml PER PROTOCOL IV ; Start 05/30/18 at 02:00 Ondansetron HCl (Zofran Inj) 4 mg Q6H PRN IV NAUSEA/VOMITING Last administered on 05/30/18at 12:02; Admin Dose 4 MG; Start 05/30/18 at 02:00 Nitroglycerin (Nitroglycerin (Sl Tab) 0.4 Mg) 1 tab Q5M PRN SL .CHEST PAIN; Start 05/30/18 at 02:00 Acetaminophen (Tylenol Tab) 650 mg Q6H PRN PO .PAIN 1-3 OR TEMP; Start 05/30/18 at 02:00 Morphine Sulfate (morphine) 1 mg Q4H PRN IV .PAIN 7-10; Start 05/30/18 at 02:00 Docusate Sodium (Colace) 100 mg Q12H PRN PO .CONSTIPATION Last administered on 05/30/18at 21:38; Admin Dose 100 MG; Start 05/30/18 at 02:00 Bisacodyl (Dulcolax) 5 mg DAILY PRN PO .CONSTIPATION; Start 05/30/18 at 02:00 Pantoprazole (Protonix Iv) 40 mg BID@06,18 IV Last administered on 06/01/18at 05:34; Admin Dose 40 MG; Start 05/30/18 at 09:30 Metoclopramide HCl (Reglan) 5 mg Q6 IV Last administered on 06/01/18at 05:34; Admin Dose 5 MG; Start 05/30/18 at 18:00 Furosemide (Lasix) 40 mg BID DIURETICS IV ; Start 06/01/18 at 18:00 OMAR ESPINOSA MD Jun 01, 2018 11:23
--- NOTE | 2018-06-01 12:19 | CONS ---
Assessment/Plan Assessment/Plan Hospital Course (Demo Recall) IMPRESSION: 1. Positive troponin consistent with [id number] myocardial infarction, small at this time. 2. Chest pain, intermittent. 3. Cardiomyopathy with severe depressed left ventricular ejection fraction last EF approximately 20% by echo this month. 4. Congestive heart failure, systolic, acute on chronic, very mild volume overload at this time. 5. Abdominal pain, nausea and vomiting without intra-abdominal pathology. 6. Coagulopathy secondary to Eliquis. 7. Chronic kidney disease not on HD Recc: -Tele -Continue coreg/hydralazine/imdur -Contineu plavix -Continue lasix diuresis -[facility] today with possible PTCA/stent placement Consultation Date/Type/Reason Admit Date/Time May 30, 2018 at 01:33 Initial Consult Date 05/30/18 Type of Consult Cardiology Reason for Consultation cardiomyopathy/nstemi Requesting Provider: OMAR ESPINOSA MD Date/Time of Note DATE: 06/01/18 TIME: 12:16 Exam/Review of Systems Vital Signs Vitals Vital Signs Date Temp Pulse Resp B/P (MAP) Pulse Ox O2 O2 Flow FiO2 Time Delivery Rate 06/01/18 66 12:09 06/01/18 97.8 18 109/75 98 11:07 (86) 06/01/18 Nasal 2.0 08:00 Cannula Intake and Output 05/31/18 05/31/18 06/01/18 1515:00 23:00 07:00 IntakeIntake Total 890 ml 180 ml OutputOutput Total 400 ml 500 ml BalanceBalance 490 ml -320 ml Exam Exam Review of Systems: CONSTITUTIONAL: No fevers, chills. PULMONARY: No sob CARDIOVASCULAR: No chest pain/palpitations GASTROINTESTINAL: No nausea/vomiting. GENITOURINARY: No hematuria/dysuria. MUSCULOSKELETAL: No myagias/arthalgias. PSYCHIATRIC: The patient denies depression. NEUROLOGIC: No weakness Constitutional: alert Psych: no complaints Head: normocephalic ENMT: mucosa pink and moist Neck: supple, jvd (9 cm water) Respiratory: diminished breath sounds Cardiovascular: regular rate and rhythm Gastrointestinal: soft, non-tender Musculoskeletal: muscle tone (normal) Extremities: edema (none) Neurological: other (No focal deficits) Labs Result Diagram: 06/01/18 0508 06/01/18 0508 Results 24hrs Laboratory Tests Test 06/01/18 05:08 White Blood Count 5.1 Red Blood Count 4.94 Hemoglobin 13.8 L Hematocrit 41.9 L Mean Corpuscular Volume 84.8 Mean Corpuscular Hemoglobin 27.9 L Mean Corpuscular Hemoglobin Concent 32.9 Red Cell Distribution Width 16.2 H Platelet Count 397 Mean Platelet Volume 10.0 Immature Granulocytes % 0.400 Neutrophils % 52.3 Lymphocytes % 28.0 Monocytes % 14.0 H Eosinophils % 3.7 Basophils % 1.6 Nucleated Red Blood Cells % 0.0 Immature Granulocytes # 0.020 Neutrophils # 2.7 Lymphocytes # 1.4 Monocytes # 0.7 Eosinophils # 0.2 Basophils # 0.1 Nucleated Red Blood Cells # 0.0 Sodium Level 135 Potassium Level 3.6 Chloride Level 99 Carbon Dioxide Level 23 Anion Gap 13 Blood Urea Nitrogen 37 H Creatinine 1.41 H Est Glomerular Filtrat Rate mL/min 53 L Glucose Level 122 Calcium Level 9.3 Total Bilirubin 0.5 Direct Bilirubin 0.00 Indirect Bilirubin 0.5 Aspartate Amino Transf (AST/SGOT) 14 L Alanine Aminotransferase (ALT/SGPT) 27 Alkaline Phosphatase 128 H Total Protein 6.6 Albumin 3.5 Globulin 3.10 Albumin/Globulin Ratio 1.12 Medications Medications Current Medications Carvedilol (Coreg) 3.125 mg BID PO Last administered on 06/01/18at 07:30; Admin Dose 3.125 MG; Start 05/30/18 at 03:00 Clopidogrel Bisulfate (plaVIX) 75 mg DAILY PO Last administered on 05/31/18at 07:42; Admin Dose 75 MG; Start 05/30/18 at 09:00 Hydralazine HCl (Apresoline) 10 mg Q8 PO Last administered on 06/01/18at 12:01; Admin Dose 10 MG; Start 05/30/18 at 06:00 Isosorbide Mononitrate (Imdur) 30 mg DAILY PO Last administered on 06/01/18 07:30; Admin Dose 30 MG; Start 05/30/18 at 09:00 IV Flush (NS 3 ml) 3 ml PER PROTOCOL IV ; Start 05/30/18 at 02:00 Ondansetron HCl (Zofran Inj) 4 mg Q6H PRN IV NAUSEA/VOMITING Last administered on 2/25/19at 12:02; Admin Dose 4 MG; Start 05/30/18 at 02:00 Nitroglycerin (Nitroglycerin (Sl Tab) 0.4 Mg) 1 tab Q5M PRN SL .CHEST PAIN; Start 05/30/18 at 02:00 Acetaminophen (Tylenol Tab) 650 mg Q6H PRN PO .PAIN 1-3 OR TEMP; Start 05/30/18 at 02:00 Morphine Sulfate (morphine) 1 mg Q4H PRN IV .PAIN 7-10; Start 05/30/18 at 02:00 Docusate Sodium (Colace) 100 mg Q12H PRN PO .CONSTIPATION Last administered on 05/30/18at 21:38; Admin Dose 100 MG; Start 05/30/18 at 02:00 Bisacodyl (Dulcolax) 5 mg DAILY PRN PO .CONSTIPATION; Start 05/30/18 at 02:00 Pantoprazole (Protonix Iv) 40 mg BID@06,18 IV Last administered on 06/01/18at 05:34; Admin Dose 40 MG; Start 05/30/18 at 09:30 Metoclopramide HCl (Reglan) 5 mg Q6 IV Last administered on 06/01/18at 12:01; Admin Dose 5 MG; Start 05/30/18 at 18:00 Furosemide (Lasix) 40 mg BID DIURETICS IV ; Start 06/01/18 at 18:00 KARSON HERNANDEZ Jun 01, 2018 12:19
[2018-06-01] MEDS ORDERED: HEPARIN 1000 UNITS/ML 10 ML INJ ONE (12:45)
[2018-06-01] MEDS ORDERED: FENTAnyl 50 MCG/ML VIAL ONE (12:45)
[2018-06-01] MEDS ORDERED: LIDOCAINE 1% (MDV) 20 ML INJ ONE (12:45)
[2018-06-01] MEDS ORDERED: IODIXANOL LOCM 100 ML BTL ONE (12:45)
[2018-06-01] MEDS ORDERED: VERAPAMIL 5 MG INJ ONE (12:45)
[2018-06-01] MEDS ORDERED: MIDAZOLAM 1 MG/ML 2 ML INJ ONE (12:45)
[2018-06-01] MEDS ORDERED: NITROGLYCERIN (IC) 100 MCG/ML INJ ONE (12:45)
[2018-06-01] MEDS ORDERED: SOD CHLORIDE 0.9% 500 ML ONE (12:46)
[2018-06-01] MEDS ORDERED: niCARdipine 25 MG INJ ONE (14:11)
--- NOTE | 2018-06-01 14:38 | SIPON ---
Date/Time of Note Date/Time of Note DATE: 06/01/18 TIME: 14:36 Operative Report Preoperative Diagnosis 1.Nstemi Postoperative Diagnosis 1.obstructive cad Operation/Procedure Performed 1.C 2.PTCA/stent x 1 to RCA/PTCA to PLB Surgeon see signature line retail assistant Danish Anesthesia: moderate sedation Estimated blood loss: minimal Transfusion Required none Specimen none Grafts/Implants none Complications none KARSON HERNANDEZ Jun 01, 2018 14:38
[2018-06-01] MEDS ORDERED: SOD CHLORIDE 0.9% 1,000 ML IV SCH (14:39)
[2018-06-01] MEDS ORDERED: AL HYDROX/MG HYDROX/SIMETH 30 ML CUP PO PRN (15:00)
[2018-06-01] MEDS ORDERED: ACETAMINOPHEN 325 MG TAB PO PRN (15:00)
[2018-06-01] MEDS ORDERED: morphine 2 MG INJ IV PRN (15:00)
[2018-06-01] MEDS ORDERED: ASPIRIN 325 MG TAB PO ONE (16:30)
[2018-06-01] MEDS ORDERED: CLOPIDOGREL 75 MG TAB PO ONE (16:30)
--- NOTE | 2018-06-01 16:32 | CONS ---
Assessment/Plan Assessment/Plan Assessment/Plan (Daily) IMPRESSION: 1. Chest pain with elevated troponin. Rule out non-STEMI. Patient had stent placement in right coronary artery 2. Ischemic cardiomyopathy with EF of 25%. This was 1-1/2 to 2 years ago. 3. Left upper quadrant pain and chronic stasis syndrome, most probably related to gastroparesis. 4. Mild elevation of alkaline phosphatase. 5. Diabetes mellitus. 6. Hypertension. 7. Chronic kidney disease. PLAN: Continue present care Since patient has no abdominal pain will defer endoscopy Continue PPI and Reglan Consultation Date/Type/Reason Admit Date/Time May 30, 2018 at 01:33 Initial Consult Date Requesting Provider: OMAR ESPINOSA MD Date/Time of Note DATE: 06/01/18 TIME: 16:30 24 HR Interval Summary Free Text/Dictation Patient had a stent placement in the right coronary artery. He has no more abdominal pain no nausea no vomiting Exam/Review of Systems Exam Vitals Vital Signs Date Temp Pulse Resp B/P (MAP) Pulse Ox O2 O2 Flow FiO2 Time Delivery Rate 06/01/18 98.0 70 15 95/77 (83) 99 16:24 06/01/18 Nasal 2.0 08:00 Cannula Intake and Output 05/31/18 05/31/18 06/01/18 1414:59 22:59 06:59 IntakeIntake Total 890 ml 180 ml OutputOutput Total 400 ml 500 ml BalanceBalance 490 ml -320 ml Constitutional: alert, oriented, well developed Psych: no complaints, nl mood/affect Head: normocephalic, atraumatic Eyes: nl conjunctiva, EOMI, nl lids, nl sclera, PERRL ENMT: nl external ears & nose, nl lips & teeth, nl nasal mucosa & septum Neck: supple, non-tender Respiratory: clear to auscultation, normal air movement Cardiovascular: regular rate and rhythm, nl pulses Gastrointestinal: soft, nl liver, spleen, non-tender Musculoskeletal: nl extremities to inspection, nl gait and stance Extremities: normal pulses Neurological: [facility] II-XII intact, nl mental status, nl speech, nl strength Skin: nl turgor; No rash or lesions Lymph: nl lymph nodes Results Result Diagram: 06/01/18 0508 06/01/18 0508 Results 24hrs Laboratory Tests Test 06/01/18 05:08 06/01/18 11:52 White Blood Count 5.1 Red Blood Count 4.94 Hemoglobin 13.8 L Hematocrit 41.9 L Mean Corpuscular Volume 84.8 Mean Corpuscular Hemoglobin 27.9 L Mean Corpuscular Hemoglobin Concent 32.9 Red Cell Distribution Width 16.2 H Platelet Count 397 Mean Platelet Volume 10.0 Immature Granulocytes % 0.400 Neutrophils % 52.3 Lymphocytes % 28.0 Monocytes % 14.0 H Eosinophils % 3.7 Basophils % 1.6 Nucleated Red Blood Cells % 0.0 Immature Granulocytes # 0.020 Neutrophils # 2.7 Lymphocytes # 1.4 Monocytes # 0.7 Eosinophils # 0.2 Basophils # 0.1 Nucleated Red Blood Cells # 0.0 Sodium Level 135 Potassium Level 3.6 Chloride Level 99 Carbon Dioxide Level 23 Anion Gap 13 Blood Urea Nitrogen 37 H Creatinine 1.41 H Est Glomerular Filtrat Rate mL/min 53 L Glucose Level 122 Calcium Level 9.3 Total Bilirubin 0.5 Direct Bilirubin 0.00 Indirect Bilirubin 0.5 Aspartate Amino Transf (AST/SGOT) 14 L Alanine Aminotransferase (ALT/SGPT) 27 Alkaline Phosphatase 128 H Total Protein 6.6 Albumin 3.5 Globulin 3.10 Albumin/Globulin Ratio 1.12 Magnesium Level 1.7 Medications Medication Current Medications Carvedilol (Coreg) 3.125 mg BID PO Last administered on 06/01/18 07:30; Admin Dose 3.125 MG; Start 05/30/18 at 03:00 Clopidogrel Bisulfate (plaVIX) 75 mg DAILY PO Last administered on 05/31/18 07:42; Admin Dose 75 MG; Start 05/30/18 at 09:00 Hydralazine HCl (Apresoline) 10 mg Q8 PO Last administered on 06/01/18 12:01; Admin Dose 10 MG; Start 05/30/18 at 06:00 Isosorbide Mononitrate (Imdur) 30 mg DAILY PO Last administered on 06/01/18 07 :30; Admin Dose 30 MG; Start 05/30/18 at 09:00 IV Flush (NS 3 ml) 3 ml PER PROTOCOL IV ; Start 05/30/18 at 02:00 Ondansetron HCl (Zofran Inj) 4 mg Q6H PRN IV NAUSEA/VOMITING Last administered on 2/25/19at 12:02; Admin Dose 4 MG; Start 05/30/18 at 02:00 Nitroglycerin (Nitroglycerin (Sl Tab) 0.4 Mg) 1 tab Q5M PRN SL .CHEST PAIN; Start 05/30/18 at 02:00 Acetaminophen (Tylenol Tab) 650 mg Q6H PRN PO .PAIN 1-3 OR TEMP; Start 05/30/18 at 02:00 Morphine Sulfate (morphine) 1 mg Q4H PRN IV .PAIN 7-10; Start 05/30/18 at 02:00 Docusate Sodium (Colace) 100 mg Q12H PRN PO .CONSTIPATION Last administered on 05/30/18at 21:38; Admin Dose 100 MG; Start 05/30/18 at 02:00 Bisacodyl (Dulcolax) 5 mg DAILY PRN PO .CONSTIPATION; Start 05/30/18 at 02:00 Pantoprazole (Protonix Iv) 40 mg BID@06,18 IV Last administered on 06/01/18at 05:34; Admin Dose 40 MG; Start 05/30/18 at 09:30 Metoclopramide HCl (Reglan) 5 mg Q6 IV Last administered on 06/01/18at 12:01; Admin Dose 5 MG; Start 05/30/18 at 18:00 Furosemide (Lasix) 40 mg BID DIURETICS IV ; Start 06/01/18 at 18:00 Acetaminophen (Tylenol Tab) 650 mg Q4H PRN PO PAIN; Start 06/01/18 at 15:00 Morphine Sulfate (morphine) 1 mg Q1H PRN IV PAIN; Start 06/01/18 at 15:00 Zolpidem Tartrate (Ambien) 5 mg HS MAY REPEAT X 1 PRN PO INSOMNIA; Start 06/01/18 at 15:00 Al Hydrox/Mg Hydrox/Simethicone (Mag-Al Plus) 30 ml Q4H PRN PO GASTROINTESTINAL UPSET; Start 06/01/18 at 15:00 Sodium Chloride 1,000 ml @ 75 mls/hr [id number] IV Last administered on 06/01/18at 15:28; Admin Dose 75 MLS/HR; Start 06/01/18 at 14:39; Stop 06/02/18 at 03:58 Clopidogrel Bisulfate (plaVIX) 600 mg ONCE ONCE PO ; Start 2/27/19 at 16:30; Stop 06/01/18 at 16:31 Aspirin (Aspirin) 325 mg ONCE ONCE PO ; Start 06/01/18 at 16:30; Stop 06/01/18 at 16:31 SUE BURTON MD Jun 01, 2018 16:32
--- NOTE | 2018-06-01 23:21 | CARRPT ---
DATE OF PROCEDURE: 06/01/2018 TYPE OF PROCEDURES: 1. Left heart catheterization. 2. Coronary angiography. 3. Measurement of left leg end diastolic pressure. 4. Percutaneous transluminal coronary angioplasty with placement of Synergy drug-eluting stent x1 to mid right coronary artery, 3.5 x 24 mm. 5. Percutaneous transluminal coronary angioplasty alone to posterolateral branch right coronary shantel ry. 6. Moderate conscious sedation. ATTENDING PHYSICIAN: Karson Nagy M.D. REFERRING PHYSICIAN: Teresa Espinosa M.D. INDICATION: Non-ST elevation myocardial infarction. ANESTHESIA: Conscious and local. BRIEF HISTORY AND HOSPITAL COURSE: The patient is a 52-year-old male with a history of hypertension, dyslipidemia and cardiomyopathy with severely depressed left ventricular ejection fraction, who pres ented with complaints of substernal chest pain and ruled in for [id number] myocardial infarctio n. The patient placed on medical therapy and has been referred to catheterization lab in order to as sess for possibility of recurrent significant obstructive disease and some chest pain and non-ST myoc ardial infarction. PROCEDURE: After informed consent was obtained, the patient was brought to the cardiac clinical laboratory aide. Hi s right radial area was prepped and draped in usual sterile fashion. 2% Lidocaine infiltrated into t he right radial area in order to achieve adequate anesthesia. Using the modified Seldinger technique , the radial artery was cannulated and a a 6-Emirati arterial sheath was placed. A 6-Emirati JL3.5 cat heter was used to cannulate the left main coronary ostium. With contrast injection, multiple views o f the left coronary arterial system were obtained. A JL3.5 guidewire and a JR4 were used to cannulat e the right coronary arterial ostium. With contrast injection, multiple views of the right coronary arterial system were obtained. JR4 was used to cross the aortic valve placed in LV. LVEDP was measu red, pulled back across the aortic valve to assess for significant gradient, which there was not and removed. Subsequently, at this time, given the findings of obstructive lesion was directly to interv entional procedure. The patient was given additional 2000 units of heparin in order to achieve an ad equate pre-interventional ACT. A JR4 guide was used to cannulate the right coronary ostium. A 0.014 Direct Mail Coordinator 50 guidewire was passed distal to the lesion. The lesion was pretreated with a 3.0 x 1 2 mm balloon up to 14 to 16 atmospheres returning flow to this vessel. Subsequently, at this time wi th improved flow there was significant disease in the PDA posterolateral branch and therefore the wir e was repositioned across the posterolateral branch disease and a balloon angioplasty was done with t aretha use of a 2.5 x 20 mm balloon inflated to 14 atmospheres x2. This was removed and at this time, we stented the patient's initial high-grade lesion 99% with a 3.5 x 24 mm drug-eluting stent deployed a t 14 atmospheres, post-dilated with the stent delivery system up to 14 atmospheres. Stent delivery s ystem removed. Followup angiogram revealed excellent result, deployment of stent, mild step up at pr oximal stent, mild step down at the distal end of the stent, with JOSE ELIAS 3 flow, likely due to downstre am embolization. Therefore, the patient was given nicardipine a total of 400 mcg with followup angio gram revealing excellent JOSE ELIAS 3 flow. Subsequently, at this time, this completed the procedure. The patient's interventional guide and guidewires were removed. The patient was reloaded on Plavix 600 mg and given Aspirin 325 mg. This completed the procedure. There were no noted complications. FINDINGS: 1. Left main proximally is a 5 mm, no significant stenosis. The circumflex proximally is a 3 mm ves shena and the proximal portion has 23% restenosis. The stent in the mid portion, there appears to be a long stented zone with an area of in-stent restenosis. Just at the area of an obtuse marginal at ap proximately 50% and there is an obtuse marginal that has a 99% stenosis in the stented zone with good flow. The circ is a codominant vessel and therefore gives off a sizable left-sided posterolateral b ranch 2 mm with luminal area up to 30% and a small PDA which has an ostial of 60% to 70% stenosis. T he patient's LAD proximally is a 3 mm vessel, has a tubular 40% stenosis and then a stented zone begi nning from the mid portion just after takeoff of the first septal register clerk to the distal portion of the vessel but becomes 100% occluded in the mid portion of the stent and can be visualized in the di stal portion via left to left collateral flow recapitulating the distal LAD. The LAD has two very sm all diagonal canal sub 2 mm vessels towards the mid to distal portion before the occluded zone. The right coronary artery proximally is a 3.5 mm vessel, has a 99% subtotal occlusion in its middle porti on with JOSE ELIAS 1, 2 flow distal to this very sluggish. Measured left end diastolic pressure of 28 to 29, no significant aortic stenosis by gradient. PTCA AND STENT PLACEMENT: Prior to PTCA and stent placement within the patient's right coronary shantel ry, he had a 99% subtotal occlusion and then once we improved blood flow had a tubular 80% occlusion of the posterolateral branch, status post SPANISH INTERPRETER and stent placement in mid right coronary artery. The patient had no residual stenosis, mild step up at the proximal stent, mild step down distal to the st ent, JOSE ELIAS 3 flow throughout the vessel and in the posterolateral branch status post coronary angiopla sty, the patient had residual 10% stenosis. TOTAL FLUOROSCOPY TIME: 9.4 minutes. TOTAL CONTRAST: 110 mL. IMPRESSION: 1. Multivessel obstructive coronary artery disease involving a previously chronically occluded dista l stented zone within the LAD which from review of films has been occluded at least since 01/[address]. A high grade stenosis of the obtuse marginal that is in a stented zone and the n 99% subtotal occlusion in right coronary artery. 2. Successful PTCA and stent placement x1 mid right coronary artery and PTCA alone to posterolateral branch. 3. Elevated left heart filling pressures. 4. No significant aortic stenosis by gradient. RECOMMENDATIONS: In light of procedure findings at this time would: 1. Maximize medical management. 2. Aggressive risk factor reduction. 3. The patient should be maintained on his Plavix for at least one year and aspirin indefinitely. 4. The patient will be readmitted to the telemetry floor for post-catheterization observation. Cont inue managing symptoms with ongoing followup and care. Dictated By: KARSON HENSLEY/MAX Conf#: [id number] DID#: [id number] CC: HAWA DRAKE MD; MAXIMO BUENROSTRO MD; TERESA ESPINOSA;*EndCC*
[2018-06-02] VITALS (11 sets, daily range): BP systolic 102–125; BP diastolic 59–85; PULSE 70–85; RESP 18–22
[2018-06-02] MEDS: METOCLOPRAMIDE 10 MG INJ IV SCH ×4 (00:54→17:07)
[2018-06-02] MEDS: ZOLPIDEM 5 MG TAB PO PRN (02:42)
[2018-06-02] MEDS: PANTOPRAZOLE 40 MG INJ IV SCH (05:30)
[2018-06-02] MEDS: FUROSEMIDE 40 MG INJ IV SCH ×2 (05:33→17:07)
[2018-06-02] MEDS: ISOSORBIDE MONONITRATE(SR)30 MG TAB PO SCH (08:30)
[2018-06-02] MEDS: CLOPIDOGREL 75 MG TAB PO SCH (08:30)
--- NOTE | 2018-06-02 15:39 | PN ---
Date/Time of Note Date/Time of Note DATE: 06/02/18 TIME: 15:39 Assessment/Plan VTE Prophylaxis Risk score (from [place])>0 risk: 6 [place] [facility] [place] contraindicated: low risk/ambulating Pharmacological prophylaxis: NA/contraindicated Pharm contraindication: low risk/ambulating Lines/Catheters IV [facility] Peripheral IV Urinary Cath still in place: No Assessment/Plan Hospital Course This is a 52-year-old male who presented with: 1. Chest pain with elevated troponins, likely secondary to [id number] myocardial infarction.s/p angiogram on 06/01 with multivessel CAD 2. Nausea, vomiting, epigastric pain. It could be related to acute coronary syndrome; however we cannot rule out underlying gastritis. LFTs show only abnormal elevated alkaline phosphatase. The patient has had HIDA scan in 03/2018 which had been negative. abd ultrasound is essentially neg 3. Acute on chronic systolic congestive heart failure. 4. Elevated alkaline phosphatase. 5. Cardiomyopathy. 6. Diabetes. 7. Hypertension. 8. Severe cardiomyopathy with ejection fraction of 20% to 25%. 9. Chronic kidney disease stage III. with Cr jump to 1.41 s/p diuresis and now s/p angiogram on 06/01 10. Hypomagnesemia. 11 V tach asymtomatic Plan -Cr slight uptrending after angiogram, cw monitor - cw lasix 40 bid as pt is volume overloaded and sob - eliquis per cards if no AICD -?AICD Monitor strict I's and O's- -Continue with Plavix/Imdur/hydralazine Result Diagram: 06/02/18 0617 06/02/18 0617 Results 24hrs Laboratory Tests Test 06/02/18 06:17 White Blood Count 4.9 Red Blood Count 5.25 Hemoglobin 14.6 Hematocrit 46.1 Mean Corpuscular Volume 87.8 Mean Corpuscular Hemoglobin 27.8 L Mean Corpuscular Hemoglobin Concent 31.7 L Red Cell Distribution Width 16.5 H Platelet Count 402 Mean Platelet Volume 9.7 Immature Granulocytes % 0.400 Neutrophils % 56.4 Lymphocytes % 24.9 Monocytes % 15.1 H Eosinophils % 2.2 Basophils % 1.0 Nucleated Red Blood Cells % 0.0 Immature Granulocytes # 0.020 Neutrophils # 2.8 Lymphocytes # 1.2 Monocytes # 0.7 Eosinophils # 0.1 Basophils # 0.1 Nucleated Red Blood Cells # 0.0 Sodium Level 138 Potassium Level 4.2 Chloride Level 100 Carbon Dioxide Level 23 Anion Gap 15 H Blood Urea Nitrogen 33 H Creatinine 1.65 H Est Glomerular Filtrat Rate mL/min 44 L Glucose Level 135 Calcium Level 9.3 Phosphorus Level 4.8 Magnesium Level 1.8 Subjective 24 Hr Interval Summary Free Text/Dictation feels slight sob no cp Exam/Review of Systems Exam Vitals Vital Signs Date Temp Pulse Resp B/P (MAP) Pulse Ox O2 O2 Flow FiO2 Time Delivery Rate 06/02/18 98.2 78 18 116/59 97 Nasal 15:03 (78) Cannula 06/02/18 2.0 07:57 Intake and Output 06/01/18 06/01/18 06/02/18 1515:00 23:00 07:00 IntakeIntake Total 120 ml 480 ml 350 ml OutputOutput Total 600 ml 300 ml 700 ml BalanceBalance -480 ml 180 ml -350 ml Exam GENERAL: The patient is awake, alert, oriented, does not appear to be in any acute distress. HEENT: Pupils are equal, round, reactive to light. NECK: No JVD appreciated. HEART: Regular rate and rhythm. Systolic ejection murmur. LUNGS: Some decreased breath sounds bilaterally. EXTREMITIES: A 1 to 2+ edema. Results Results 24hrs Laboratory Tests Test 06/02/18 06:17 White Blood Count 4.9 Red Blood Count 5.25 Hemoglobin 14.6 Hematocrit 46.1 Mean Corpuscular Volume 87.8 Mean Corpuscular Hemoglobin 27.8 L Mean Corpuscular Hemoglobin Concent 31.7 L Red Cell Distribution Width 16.5 H Platelet Count 402 Mean Platelet Volume 9.7 Immature Granulocytes % 0.400 Neutrophils % 56.4 Lymphocytes % 24.9 Monocytes % 15.1 H Eosinophils % 2.2 Basophils % 1.0 Nucleated Red Blood Cells % 0.0 Immature Granulocytes # 0.020 Neutrophils # 2.8 Lymphocytes # 1.2 Monocytes # 0.7 Eosinophils # 0.1 Basophils # 0.1 Nucleated Red Blood Cells # 0.0 Sodium Level 138 Potassium Level 4.2 Chloride Level 100 Carbon Dioxide Level 23 Anion Gap 15 H Blood Urea Nitrogen 33 H Creatinine 1.65 H Est Glomerular Filtrat Rate mL/min 44 L Glucose Level 135 Calcium Level 9.3 Phosphorus Level 4.8 Magnesium Level 1.8 Medications Medication Current Medications Carvedilol (Coreg) 3.125 mg BID PO Last administered on 06/02/18 08:30; Admin Dose 3.125 MG; Start 05/30/18 at 03:00 Clopidogrel Bisulfate (plaVIX) 75 mg DAILY PO Last administered on 06/02/18 08:30; Admin Dose 75 MG; Start 05/30/18 at 09:00 Hydralazine HCl (Apresoline) 10 mg Q8 PO Last administered on 06/02/18 05:31; Admin Dose 10 MG; Start 05/30/18 at 06:00 Isosorbide Mononitrate (Imdur) 30 mg DAILY PO Last administered on 06/02/18 08:30; Admin Dose 30 MG; Start 05/30/18 at 09:00 IV Flush (NS 3 ml) 3 ml PER PROTOCOL IV ; Start 05/30/18 at 02:00 Ondansetron HCl (Zofran Inj) 4 mg Q6H PRN IV NAUSEA/VOMITING Last administered on 05/30/18 12:02; Admin Dose 4 MG; Start 05/30/18 at 02:00 Nitroglycerin (Nitroglycerin (Sl Tab) 0.4 Mg) 1 tab Q5M PRN SL .CHEST PAIN; Start 05/30/18 at 02:00 Acetaminophen (Tylenol Tab) 650 mg Q6H PRN PO .PAIN 1-3 OR TEMP; Start 05/30/18 at 02:00 Morphine Sulfate (morphine) 1 mg Q4H PRN IV .PAIN 7-10; Start 05/30/18 at 02:00 Docusate Sodium (Colace) 100 mg Q12H PRN PO .CONSTIPATION Last administered on 05/30/18 21:38; Admin Dose 100 MG; Start 05/30/18 at 02:00 Bisacodyl (Dulcolax) 5 mg DAILY PRN PO .CONSTIPATION; Start 05/30/18 at 02:00 Metoclopramide HCl (Reglan) 5 mg Q6 IV Last administered on 06/02/18 11:20; Admin Dose 5 MG; Start 05/30/18 at 18:00 Furosemide (Lasix) 40 mg BID DIURETICS IV Last administered on 2/28/19at 05:33; Admin Dose 40 MG; Start 06/01/18 at 18:00 Acetaminophen (Tylenol Tab) 650 mg Q4H PRN PO PAIN; Start 06/01/18 at 15:00 Morphine Sulfate (morphine) 1 mg Q1H PRN IV PAIN; Start 06/01/18 at 15:00 Zolpidem Tartrate (Ambien) 5 mg HS MAY REPEAT X 1 PRN PO INSOMNIA Last administered on 06/02/18at 02:42; Admin Dose 5 MG; Start 06/01/18 at 15:00 Al Hydrox/Mg Hydrox/Simethicone (Mag-Al Plus) 30 ml Q4H PRN PO GASTROINTESTINAL UPSET; Start 06/01/18 at 15:00 Pantoprazole (Protonix Tab) 40 mg BID@0600,1800 PO ; Start 06/02/18 at 18:00 OMAR ESPINOSA MD Jun 02, 2018 15:39
[2018-06-02] MEDS: PANTOPRAZOLE (EC) 40 MG TAB PO SCH (17:07)
--- NOTE | 2018-06-02 18:01 | CONS ---
Assessment/Plan Assessment/Plan Hospital Course (Demo Recall) IMPRESSION: 1. Positive troponin consistent with [id number] myocardial infarction, small at this time. s/p PTCA/stent to 2. Chest pain, intermittent. 3. Cardiomyopathy with severe depressed left ventricular ejection fraction last EF approximately 20% by echo this month. 4. Congestive heart failure, systolic, acute on chronic, very mild volume overload at this time. 5. Abdominal pain, nausea and vomiting without intra-abdominal pathology. 6. Coagulopathy secondary to Eliquis. 7. Chronic kidney disease not on HD- acute on chronic renal failure likely contrast induced Recc: -Tele -Continue coreg/hydralazine/imdur -Contineu plavix -Continue lasix diuresis -Follow creatnine clsoely and volume Consultation Date/Type/Reason Admit Date/Time May 30, 2018 at 01:33 Initial Consult Date 05/30/18 Type of Consult Cardiology Reason for Consultation CHF Requesting Provider: OMAR ESPINOSA MD Date/Time of Note DATE: 06/02/18 TIME: 17:53 Exam/Review of Systems Vital Signs Vitals Vital Signs Date Temp Pulse Resp B/P (MAP) Pulse Ox O2 O2 Flow FiO2 Time Delivery Rate 06/02/18 84 16:18 06/02/18 98.2 18 116/59 97 Nasal 15:03 (78) Cannula 06/02/18 2.0 07:57 Intake and Output 06/01/18 06/01/18 06/02/18 1414:59 22:59 06:59 IntakeIntake Total 120 ml 480 ml 350 ml OutputOutput Total 600 ml 300 ml 700 ml BalanceBalance -480 ml 180 ml -350 ml Exam Exam Review of Systems: CONSTITUTIONAL: No fevers, chills. PULMONARY: No sob CARDIOVASCULAR: No chest pain/palpitations GASTROINTESTINAL: No nausea/vomiting. GENITOURINARY: No hematuria/dysuria. MUSCULOSKELETAL: No myagias/arthalgias. PSYCHIATRIC: The patient denies depression. NEUROLOGIC: No weakness Constitutional: alert Psych: no complaints Head: normocephalic ENMT: mucosa pink and moist Neck: supple, jvd (9 cm water) Respiratory: diminished breath sounds Cardiovascular: regular rate and rhythm Gastrointestinal: soft, non-tender Musculoskeletal: muscle tone (normal) Extremities: edema (none) Neurological: other (No focal deficits) Labs Result Diagram: 06/02/18 0617 06/02/18 0617 Results 24hrs Laboratory Tests Test 06/02/18 06:17 White Blood Count 4.9 Red Blood Count 5.25 Hemoglobin 14.6 Hematocrit 46.1 Mean Corpuscular Volume 87.8 Mean Corpuscular Hemoglobin 27.8 L Mean Corpuscular Hemoglobin Concent 31.7 L Red Cell Distribution Width 16.5 H Platelet Count 402 Mean Platelet Volume 9.7 Immature Granulocytes % 0.400 Neutrophils % 56.4 Lymphocytes % 24.9 Monocytes % 15.1 H Eosinophils % 2.2 Basophils % 1.0 Nucleated Red Blood Cells % 0.0 Immature Granulocytes # 0.020 Neutrophils # 2.8 Lymphocytes # 1.2 Monocytes # 0.7 Eosinophils # 0.1 Basophils # 0.1 Nucleated Red Blood Cells # 0.0 Sodium Level 138 Potassium Level 4.2 Chloride Level 100 Carbon Dioxide Level 23 Anion Gap 15 H Blood Urea Nitrogen 33 H Creatinine 1.65 H Est Glomerular Filtrat Rate mL/min 44 L Glucose Level 135 Calcium Level 9.3 Phosphorus Level 4.8 Magnesium Level 1.8 Medications Medications Current Medications Carvedilol (Coreg) 3.125 mg BID PO Last administered on 06/02/18at 08:30; Admin Dose 3.125 MG; Start 05/30/18 at 03:00 Clopidogrel Bisulfate (plaVIX) 75 mg DAILY PO Last administered on 06/02/18at 08:30; Admin Dose 75 MG; Start 05/30/18 at 09:00 Hydralazine HCl (Apresoline) 10 mg Q8 PO Last administered on 06/02/18at 05:31; Admin Dose 10 MG; Start 05/30/18 at 06:00 Isosorbide Mononitrate (Imdur) 30 mg DAILY PO Last administered on 06/02/18at 08:30; Admin Dose 30 MG; Start 05/30/18 at 09:00 IV Flush (NS 3 ml) 3 ml PER PROTOCOL IV ; Start 05/30/18 at 02:00 Ondansetron HCl (Zofran Inj) 4 mg Q6H PRN IV NAUSEA/VOMITING Last administered on 05/30/18at 12:02; Admin Dose 4 MG; Start 05/30/18 at 02:00 Nitroglycerin (Nitroglycerin (Sl Tab) 0.4 Mg) 1 tab Q5M PRN SL .CHEST PAIN; Start 05/30/18 at 02:00 Acetaminophen (Tylenol Tab) 650 mg Q6H PRN PO .PAIN 1-3 OR TEMP; Start 05/30/18 at 02:00 Morphine Sulfate (morphine) 1 mg Q4H PRN IV .PAIN 7-10; Start 05/30/18 at 02:00 Docusate Sodium (Colace) 100 mg Q12H PRN PO .CONSTIPATION Last administered on 05/30/18at 21:38; Admin Dose 100 MG; Start 05/30/18 at 02:00 Bisacodyl (Dulcolax) 5 mg DAILY PRN PO .CONSTIPATION; Start 05/30/18 at 02:00 Metoclopramide HCl (Reglan) 5 mg Q6 IV Last administered on 06/02/18at 17:07; Admin Dose 5 MG; Start 05/30/18 at 18:00 Furosemide (Lasix) 40 mg BID DIURETICS IV Last administered on 06/02/18at 17:07; Admin Dose 40 MG; Start 06/01/18 at 18:00 Acetaminophen (Tylenol Tab) 650 mg Q4H PRN PO PAIN; Start 06/01/18 at 15:00 Morphine Sulfate (morphine) 1 mg Q1H PRN IV PAIN; Start 06/01/18 at 15:00 Zolpidem Tartrate (Ambien) 5 mg HS MAY REPEAT X 1 PRN PO INSOMNIA Last administered on 06/02/18at 02:42; Admin Dose 5 MG; Start 06/01/18 at 15:00 Al Hydrox/Mg Hydrox/Simethicone (Mag-Al Plus) 30 ml Q4H PRN PO GASTROINTESTINAL UPSET; Start 06/01/18 at 15:00 Pantoprazole (Protonix Tab) 40 mg BID@0600,1800 PO Last administered on 06/02/18at 17:07; Admin Dose 40 MG; Start 06/02/18 at 18:00 KARSON HERNANDEZ Jun 02, 2018 18:01
--- NOTE | 2018-06-02 19:08 | CONS ---
Assessment/Plan Assessment/Plan Assessment/Plan (Daily) IMPRESSION: 1. Chest pain with elevated troponin. Rule out non-STEMI. Patient had stent placement in right coronary artery 2. Ischemic cardiomyopathy with EF of 25%. This was 1-1/2 to 2 years ago. 3. Left upper quadrant pain and chronic stasis syndrome, most probably related to gastroparesis. 4. Mild elevation of alkaline phosphatase. 5. Diabetes mellitus. 6. Hypertension. 7. Chronic kidney disease. PLAN: Continue present care Since patient has no abdominal pain will defer endoscopy Continue PPI and Reglan Consultation Date/Type/Reason Admit Date/Time May 30, 2018 at 01:33 Initial Consult Date Requesting Provider: OMAR ESPINOSA MD Date/Time of Note DATE: 06/01/18 TIME: 16:30 24 HR Interval Summary Free Text/Dictation Patient had a stent placement in the right coronary artery. He has no more abdominal pain no nausea no vomiting Continue present care, will defer EGD Consultation Date/Type/Reason Admit Date/Time May 30, 2018 at 01:33 Initial Consult Date Requesting Provider: OMAR ESPINOSA MD Date/Time of Note DATE: 06/02/18 TIME: 19:08 24 HR Interval Summary Constitutional: no complaints, improved Exam/Review of Systems Exam Vitals Vital Signs Date Temp Pulse Resp B/P (MAP) Pulse Ox O2 O2 Flow FiO2 Time Delivery Rate 06/02/18 84 16:18 06/02/18 98.2 18 116/59 97 Nasal 15:03 (78) Cannula 06/02/18 2.0 07:57 Intake and Output 06/01/18 06/01/18 06/02/18 1414:59 22:59 06:59 IntakeIntake Total 120 ml 480 ml 350 ml OutputOutput Total 600 ml 300 ml 700 ml BalanceBalance -480 ml 180 ml -350 ml Constitutional: alert, oriented, well developed Psych: no complaints, nl mood/affect Head: normocephalic, atraumatic Eyes: nl conjunctiva, EOMI, nl lids, nl sclera, PERRL ENMT: nl external ears & nose, nl lips & teeth, nl nasal mucosa & septum Neck: supple, non-tender Respiratory: clear to auscultation, normal air movement Cardiovascular: regular rate and rhythm, nl pulses Gastrointestinal: soft, nl liver, spleen, non-tender Musculoskeletal: nl extremities to inspection, nl gait and stance Extremities: normal pulses Neurological: BAND ATTACHER II-XII intact, nl mental status, nl speech, nl strength Skin: nl turgor; No rash or lesions Lymph: nl lymph nodes Results Result Diagram: 06/02/1817 06/02/18 0617 Results 24hrs Laboratory Tests Test 06/02/18 06:17 White Blood Count 4.9 Red Blood Count 5.25 Hemoglobin 14.6 Hematocrit 46.1 Mean Corpuscular Volume 87.8 Mean Corpuscular Hemoglobin 27.8 L Mean Corpuscular Hemoglobin Concent 31.7 L Red Cell Distribution Width 16.5 H Platelet Count 402 Mean Platelet Volume 9.7 Immature Granulocytes % 0.400 Neutrophils % 56.4 Lymphocytes % 24.9 Monocytes % 15.1 H Eosinophils % 2.2 Basophils % 1.0 Nucleated Red Blood Cells % 0.0 Immature Granulocytes # 0.020 Neutrophils # 2.8 Lymphocytes # 1.2 Monocytes # 0.7 Eosinophils # 0.1 Basophils # 0.1 Nucleated Red Blood Cells # 0.0 Sodium Level 138 Potassium Level 4.2 Chloride Level 100 Carbon Dioxide Level 23 Anion Gap 15 H Blood Urea Nitrogen 33 H Creatinine 1.65 H Est Glomerular Filtrat Rate mL/min 44 L Glucose Level 135 Calcium Level 9.3 Phosphorus Level 4.8 Magnesium Level 1.8 Medications Medication Current Medications Carvedilol (Coreg) 3.125 mg BID PO Last administered on 06/02/18at 08:30; Admin Dose 3.125 MG; Start 05/30/18 at 03:00 Clopidogrel Bisulfate (plaVIX) 75 mg DAILY PO Last administered on 06/02/18at 08:30; Admin Dose 75 MG; Start 05/30/18 at 09:00 Hydralazine HCl (Apresoline) 10 mg Q8 PO Last administered on 06/02/18at 05:31; Admin Dose 10 MG; Start 05/30/18 at 06:00 Isosorbide Mononitrate (Imdur) 30 mg DAILY PO Last administered on 06/02/18at 08:30; Admin Dose 30 MG; Start 05/30/18 at 09:00 IV Flush (NS 3 ml) 3 ml PER PROTOCOL IV ; Start 05/30/18 at 02:00 Ondansetron HCl (Zofran Inj) 4 mg Q6H PRN IV NAUSEA/VOMITING Last administered on 05/30/18 12:02; Admin Dose 4 MG; Start 05/30/18 at 02:00 Nitroglycerin (Nitroglycerin (Sl Tab) 0.4 Mg) 1 tab Q5M PRN SL .CHEST PAIN; Start 05/30/18 at 02:00 Acetaminophen (Tylenol Tab) 650 mg Q6H PRN PO .PAIN 1-3 OR TEMP; Start 05/30/18 at 02:00 Morphine Sulfate (morphine) 1 mg Q4H PRN IV .PAIN 7-10; Start 05/30/18 at 02:00 Docusate Sodium (Colace) 100 mg Q12H PRN PO .CONSTIPATION Last administered on 05/30/18 21:38; Admin Dose 100 MG; Start 05/30/18 at 02:00 Bisacodyl (Dulcolax) 5 mg DAILY PRN PO .CONSTIPATION; Start 05/30/18 at 02:00 Metoclopramide HCl (Reglan) 5 mg Q6 IV Last administered on 06/02/18at 17:07; Admin Dose 5 MG; Start 05/30/18 at 18:00 Furosemide (Lasix) 40 mg BID DIURETICS IV Last administered on 06/02/18 17:07; Admin Dose 40 MG; Start 06/01/18 at 18:00 Acetaminophen (Tylenol Tab) 650 mg Q4H PRN PO PAIN; Start 06/01/18 at 15:00 Morphine Sulfate (morphine) 1 mg Q1H PRN IV PAIN; Start 06/01/18 at 15:00 Zolpidem Tartrate (Ambien) 5 mg HS MAY REPEAT X 1 PRN PO INSOMNIA Last administered on 06/02/18at 02:42; Admin Dose 5 MG; Start 06/01/18 at 15:00 Al Hydrox/Mg Hydrox/Simethicone (Mag-Al Plus) 30 ml Q4H PRN PO GASTROINTESTINAL UPSET; Start 06/01/18 at 15:00 Pantoprazole (Protonix Tab) 40 mg BID@0600,1800 PO Last administered on 06/02/18 17:07; Admin Dose 40 MG; Start 06/02/18 at 18:00 SUE BURTON MD Jun 02, 2018 19:08
[2018-06-02] MEDS ORDERED: APIXABAN 5 MG TABLET PO SCH (21:00)
[2018-06-02] MEDS: APIXABAN 5 MG TABLET PO SCH (21:02)
[2018-06-03] VITALS (9 sets, daily range): BP systolic 97–154; BP diastolic 63–79; PULSE 63–85; RESP 18–20
[2018-06-03] MEDS: ZOLPIDEM 5 MG TAB PO PRN (02:50)
[2018-06-03] MEDS: FUROSEMIDE 40 MG INJ IV SCH ×2 (06:00→17:33)
[2018-06-03] MEDS: PANTOPRAZOLE (EC) 40 MG TAB PO SCH ×2 (06:01→17:33)
[2018-06-03] MEDS: METOCLOPRAMIDE 10 MG INJ IV SCH ×4 (06:01→17:32)
[2018-06-03] MEDS: ISOSORBIDE MONONITRATE(SR)30 MG TAB PO SCH (09:27)
[2018-06-03] MEDS: APIXABAN 5 MG TABLET PO SCH ×2 (09:34→22:42)
[2018-06-03] MEDS: CLOPIDOGREL 75 MG TAB PO SCH (09:34)
--- NOTE | 2018-06-03 12:50 | PN ---
Date/Time of Note Date/Time of Note DATE: 06/03/18 TIME: 12:47 Assessment/Plan VTE Prophylaxis Risk score (from Ns)>0 risk: 5 SCD applied (from Ns): No SCD contraindicated: low risk/ambulating Pharmacological prophylaxis: apixaban Lines/Catheters IV [facility]ter Type (from [facility]): [place] Urinary Cath still in place: No Assessment/Plan Hospital Course 1. Chest pain with elevated troponins, likely secondary to [id number] myocardial infarction. S/p angiogram on 06/01 with multivessel CAD 2. Nausea, vomiting, epigastric pain,resolved. It could be related to acute coronary syndrome; however we cannot rule out underlying gastritis. LFTs show only abnormal elevated alkaline phosphatase. The patient has had HIDA scan in 03/2018 which had been negative. Abd ultrasound is essentially negative 3. Acute on chronic systolic congestive heart failure. 4. Elevated alkaline phosphatase. 5. Cardiomyopathy. 6. Diabetes. 7. Hypertension. 8. Severe cardiomyopathy with ejection fraction of 20% to 25%. 9. Chronic kidney disease stage III. with Cr jump to 1.41 s/p diuresis and now s/p angiogram on 06/01 10. Hypomagnesemia. 11 V tach asymtomatic 12. Overweight Assessment/Plan -Cr monitored, down today - cw lasix 40 bid as pt is volume overloaded and sob - eliquis per cards if no AICD -?AICD -Monitor strict I's and O's- -Continue with Plavix/Imdur/hydralazine -fluid restrictions Result Diagram: 06/03/18 0556 06/03/18 0556 Results 24hrs Laboratory Tests Test 06/03/18 05:56 White Blood Count 5.7 Red Blood Count 4.90 Hemoglobin 13.6 L Hematocrit 42.0 Mean Corpuscular Volume 85.7 Mean Corpuscular Hemoglobin 27.8 L Mean Corpuscular Hemoglobin Concent 32.4 Red Cell Distribution Width 16.6 H Platelet Count 362 Mean Platelet Volume 9.4 Immature Granulocytes % 0.400 Neutrophils % 57.8 Lymphocytes % 24.1 Monocytes % 14.0 H Eosinophils % 2.3 Basophils % 1.4 Nucleated Red Blood Cells % 0.0 Immature Granulocytes # 0.020 Neutrophils # 3.3 Lymphocytes # 1.4 Monocytes # 0.8 Eosinophils # 0.1 Basophils # 0.1 Nucleated Red Blood Cells # 0.0 Sodium Level 138 Potassium Level 3.8 Chloride Level 105 Carbon Dioxide Level 23 Anion Gap 10 # Blood Urea Nitrogen 30 H Creatinine 1.32 H Est Glomerular Filtrat Rate mL/min 57 L Glucose Level 116 Calcium Level 9.2 Phosphorus Level 4.3 Magnesium Level 1.7 Subjective 24 Hr Interval Summary Constitutional: no complaints Cardiovascular: no complaints Genitourinary: no complaints Exam/Review of Systems Exam Vitals Vital Signs Date Temp Pulse Resp B/P (MAP) Pulse Ox O2 O2 Flow FiO2 Time Delivery Rate 06/03/18 77 12:00 06/03/18 97.4 20 111/74 99 Nasal 11:00 (86) Cannula 06/03/18 2.0 07:40 Intake and Output 06/02/18 06/02/18 06/03/18 1414:59 22:59 06:59 IntakeIntake Total 880 ml 400 ml OutputOutput Total 1200 ml 600 ml BalanceBalance -320 ml -200 ml Constitutional: alert, oriented Respiratory: clear to auscultation Cardiovascular: regular rate and rhythm Gastrointestinal: soft Extremities: pitting pedal edema (1+) Results Results 24hrs Laboratory Tests Test 06/03/18 05:56 White Blood Count 5.7 Red Blood Count 4.90 Hemoglobin 13.6 L Hematocrit 42.0 Mean Corpuscular Volume 85.7 Mean Corpuscular Hemoglobin 27.8 L Mean Corpuscular Hemoglobin Concent 32.4 Red Cell Distribution Width 16.6 H Platelet Count 362 Mean Platelet Volume 9.4 Immature Granulocytes % 0.400 Neutrophils % 57.8 Lymphocytes % 24.1 Monocytes % 14.0 H Eosinophils % 2.3 Basophils % 1.4 Nucleated Red Blood Cells % 0.0 Immature Granulocytes # 0.020 Neutrophils # 3.3 Lymphocytes # 1.4 Monocytes # 0.8 Eosinophils # 0.1 Basophils # 0.1 Nucleated Red Blood Cells # 0.0 Sodium Level 138 Potassium Level 3.8 Chloride Level 105 Carbon Dioxide Level 23 Anion Gap 10 # Blood Urea Nitrogen 30 H Creatinine 1.32 H Est Glomerular Filtrat Rate mL/min 57 L Glucose Level 116 Calcium Level 9.2 Phosphorus Level 4.3 Magnesium Level 1.7 Medications Medication Current Medications Carvedilol (Coreg) 3.125 mg BID PO Last administered on 06/03/18at 09:33; Admin Dose 3.125 MG; Start 2/25/19 at 03:00 Clopidogrel Bisulfate (plaVIX) 75 mg DAILY PO Last administered on 06/03/18 09:34; Admin Dose 75 MG; Start 05/30/18 at 09:00 Hydralazine HCl (Apresoline) 10 mg Q8 PO Last administered on 06/03/18 06:02; Admin Dose 10 MG; Start 05/30/18 at 06:00 Isosorbide Mononitrate (Imdur) 30 mg DAILY PO Last administered on 06/03/18 09:27; Admin Dose 30 MG; Start 05/30/18 at 09:00 IV Flush (NS 3 ml) 3 ml PER PROTOCOL IV ; Start 05/30/18 at 02:00 Ondansetron HCl (Zofran Inj) 4 mg Q6H PRN IV NAUSEA/VOMITING Last administered on 05/30/18at 12:02; Admin Dose 4 MG; Start 05/30/18 at 02:00 Nitroglycerin (Nitroglycerin (Sl Tab) 0.4 Mg) 1 tab Q5M PRN SL .CHEST PAIN; Start 05/30/18 at 02:00 Acetaminophen (Tylenol Tab) 650 mg Q6H PRN PO .PAIN 1-3 OR TEMP; Start 05/30/18 at 02:00 Morphine Sulfate (morphine) 1 mg Q4H PRN IV .PAIN 7-10; Start 05/30/18 at 02:00 Docusate Sodium (Colace) 100 mg Q12H PRN PO .CONSTIPATION Last administered on 05/30/18at 21:38; Admin Dose 100 MG; Start 05/30/18 at 02:00 Bisacodyl (Dulcolax) 5 mg DAILY PRN PO .CONSTIPATION; Start 05/30/18 at 02:00 Metoclopramide HCl (Reglan) 5 mg Q6 IV Last administered on 06/03/18at 11:58; Admin Dose 5 MG; Start 05/30/18 at 18:00 Furosemide (Lasix) 40 mg BID DIURETICS IV Last administered on 06/03/18 06:00; Admin Dose 40 MG; Start 06/01/18 at 18:00 Acetaminophen (Tylenol Tab) 650 mg Q4H PRN PO PAIN; Start 06/01/18 at 15:00 Morphine Sulfate (morphine) 1 mg Q1H PRN IV PAIN; Start 06/01/18 at 15:00 Zolpidem Tartrate (Ambien) 5 mg HS MAY REPEAT X 1 PRN PO INSOMNIA Last administered on 06/03/18at 02:50; Admin Dose 5 MG; Start 06/01/18 at 15:00 Al Hydrox/Mg Hydrox/Simethicone (Mag-Al Plus) 30 ml Q4H PRN PO GASTROINTESTINAL UPSET; Start 06/01/18 at 15:00 Pantoprazole (Protonix Tab) 40 mg BID@0600,1800 PO Last administered on 06/03/18at 06:01; Admin Dose 40 MG; Start 06/02/18 at 18:00 Apixaban (Eliquis) 5 mg BID PO Last administered on 06/03/18at 09:34; Admin Dose 5 MG; Start 06/02/18 at 21:00 MEHREEN HILLMAN Jun 03, 2018 12:50
--- NOTE | 2018-06-03 13:06 | CONS ---
Assessment/Plan Assessment/Plan Hospital Course (Demo Recall) IMPRESSION: 1. Positive troponin consistent with [id number] myocardial infarction, small at this time. s/p PTCA/stent to 2. Chest pain, intermittent. 3. Cardiomyopathy with severe depressed left ventricular ejection fraction last EF approximately 20% by echo this month. 4. Congestive heart failure, systolic, acute on chronic, very mild volume overload at this time. 5. Abdominal pain, nausea and vomiting without intra-abdominal pathology. 6. Coagulopathy secondary to Eliquis. 7. Chronic kidney disease not on HD- acute on chronic renal failure likely contrast induced Recc: -Tele -Continue coreg/hydralazine/imdur -Contineu plavix and now resumed on eliquis -Continue lasix diuresis -Follow creatnine clsoely and volume status which are both slowly improving Consultation Date/Type/Reason Admit Date/Time May 30, 2018 at 01:33 Initial Consult Date 05/30/18 Type of Consult Cardiology Reason for Consultation Nstemi Requesting Provider: OMAR ESPINOSA MD Date/Time of Note DATE: 06/03/18 TIME: 13:04 Exam/Review of Systems Vital Signs Vitals Vital Signs Date Temp Pulse Resp B/P (MAP) Pulse Ox O2 O2 Flow FiO2 Time Delivery Rate 06/03/18 77 12:00 06/03/18 97.4 20 111/74 99 Nasal 11:00 (86) Cannula 06/03/18 2.0 07:40 Intake and Output 06/02/18 06/02/18 06/03/18 1515:00 23:00 07:00 IntakeIntake Total 880 ml 400 ml OutputOutput Total 1200 ml 600 ml BalanceBalance -320 ml -200 ml Exam Exam Review of Systems: CONSTITUTIONAL: No fevers, chills. PULMONARY: No sob CARDIOVASCULAR: No chest pain/palpitations GASTROINTESTINAL: No nausea/vomiting. GENITOURINARY: No hematuria/dysuria. MUSCULOSKELETAL: No myagias/arthalgias. PSYCHIATRIC: The patient denies depression. NEUROLOGIC: No weakness Constitutional: alert Psych: no complaints Head: normocephalic ENMT: mucosa pink and moist Neck: supple, jvd (9 cm water) Respiratory: diminished breath sounds (at bases/B) Cardiovascular: regular rate and rhythm Gastrointestinal: soft, non-tender Musculoskeletal: muscle tone (normal) Extremities: edema (trace/B) Neurological: other (No focal deficits) Labs Result Diagram: 06/03/18 0556 06/03/18 0556 Results 24hrs Laboratory Tests Test 06/03/18 05:56 White Blood Count 5.7 Red Blood Count 4.90 Hemoglobin 13.6 L Hematocrit 42.0 Mean Corpuscular Volume 85.7 Mean Corpuscular Hemoglobin 27.8 L Mean Corpuscular Hemoglobin Concent 32.4 Red Cell Distribution Width 16.6 H Platelet Count 362 Mean Platelet Volume 9.4 Immature Granulocytes % 0.400 Neutrophils % 57.8 Lymphocytes % 24.1 Monocytes % 14.0 H Eosinophils % 2.3 Basophils % 1.4 Nucleated Red Blood Cells % 0.0 Immature Granulocytes # 0.020 Neutrophils # 3.3 Lymphocytes # 1.4 Monocytes # 0.8 Eosinophils # 0.1 Basophils # 0.1 Nucleated Red Blood Cells # 0.0 Sodium Level 138 Potassium Level 3.8 Chloride Level 105 Carbon Dioxide Level 23 Anion Gap 10 # Blood Urea Nitrogen 30 H Creatinine 1.32 H Est Glomerular Filtrat Rate mL/min 57 L Glucose Level 116 Calcium Level 9.2 Phosphorus Level 4.3 Magnesium Level 1.7 Medications Medications Current Medications Carvedilol (Coreg) 3.125 mg BID PO Last administered on 06/03/18at 09:33; Admin Dose 3.125 MG; Start 05/30/18 at 03:00 Clopidogrel Bisulfate (plaVIX) 75 mg DAILY PO Last administered on 06/03/18at 09:34; Admin Dose 75 MG; Start 05/30/18 at 09:00 Hydralazine HCl (Apresoline) 10 mg Q8 PO Last administered on 06/03/18at 06:02; Admin Dose 10 MG; Start 05/30/18 at 06:00 Isosorbide Mononitrate (Imdur) 30 mg DAILY PO Last administered on 06/03/18at 09:27; Admin Dose 30 MG; Start 05/30/18 at 09:00 IV Flush (NS 3 ml) 3 ml PER PROTOCOL IV ; Start 05/30/18 at 02:00 Ondansetron HCl (Zofran Inj) 4 mg Q6H PRN IV NAUSEA/VOMITING Last administered on 05/30/18at 12:02; Admin Dose 4 MG; Start 05/30/18 at 02:00 Nitroglycerin (Nitroglycerin (Sl Tab) 0.4 Mg) 1 tab Q5M PRN SL .CHEST PAIN; Start 05/30/18 at 02:00 Acetaminophen (Tylenol Tab) 650 mg Q6H PRN PO .PAIN 1-3 OR TEMP; Start 05/30/18 at 02:00 Morphine Sulfate (morphine) 1 mg Q4H PRN IV .PAIN 7-10; Start 05/30/18 at 02:00 Docusate Sodium (Colace) 100 mg Q12H PRN PO .CONSTIPATION Last administered on 05/30/18 21:38; Admin Dose 100 MG; Start 05/30/18 at 02:00 Bisacodyl (Dulcolax) 5 mg DAILY PRN PO .CONSTIPATION; Start 05/30/18 at 02:00 Metoclopramide HCl (Reglan) 5 mg Q6 IV Last administered on 06/03/18at 11:58; Admin Dose 5 MG; Start 05/30/18 at 18:00 Furosemide (Lasix) 40 mg BID DIURETICS IV Last administered on 06/03/18at 06:00; Admin Dose 40 MG; Start 06/01/18 at 18:00 Acetaminophen (Tylenol Tab) 650 mg Q4H PRN PO PAIN; Start 06/01/18 at 15:00 Morphine Sulfate (morphine) 1 mg Q1H PRN IV PAIN; Start 06/01/18 at 15:00 Zolpidem Tartrate (Ambien) 5 mg HS MAY REPEAT X 1 PRN PO INSOMNIA Last administered on 06/03/18 02:50; Admin Dose 5 MG; Start 06/01/18 at 15:00 Al Hydrox/Mg Hydrox/Simethicone (Mag-Al Plus) 30 ml Q4H PRN PO GASTROINTESTINAL UPSET; Start 06/01/18 at 15:00 Pantoprazole (Protonix Tab) 40 mg BID@0600,1800 PO Last administered on 06/03/18at 06:01; Admin Dose 40 MG; Start 06/02/18 at 18:00 Apixaban (Eliquis) 5 mg BID PO Last administered on 06/03/18 09:34; Admin Dose 5 MG; Start 06/02/18 at 21:00 KARSON HERNANDEZ Jun 03, 2018 13:06
--- NOTE | 2018-06-03 13:35 | RADRPT ---
Vent Rate: 74 bpm RR Interval: 0 msec MD Interval: 174 msec QRS Duration: 134 msec QT Interval: 468 msec QTC Interval: 519 msec P-R-T [place]: 63 - 0 - 68 degrees Normal sinus rhythm Possible Left atrial enlargement Nonspecific intraventricular block Inferior infarct , age undetermined Anterolateral infarct , age undetermined Abnormal ECG Electronically Signed By: Erick Nagy
--- NOTE | 2018-06-03 13:36 | RADRPT ---
Vent Rate: 76 bpm RR Interval: 0 msec UT Interval: 174 msec QRS Duration: 136 msec QT Interval: 468 msec QTC Interval: 526 msec P-R-T [place]: 68 - 0 - 54 degrees Normal sinus rhythm Possible Left atrial enlargement Nonspecific intraventricular block Inferior infarct , age undetermined Anterolateral infarct , age undetermined Abnormal ECG Electronically Signed By: Erick Nagy
[2018-06-04] VITALS (13 sets, daily range): BP systolic 101–112; BP diastolic 70–81; PULSE 70–88; RESP 16–20
[2018-06-04] MEDS: PANTOPRAZOLE (EC) 40 MG TAB PO SCH ×2 (06:00→17:19)
[2018-06-04] MEDS: FUROSEMIDE 40 MG INJ IV SCH ×2 (06:12→17:18)
[2018-06-04] MEDS: METOCLOPRAMIDE 10 MG INJ IV SCH ×5 (06:12→23:05)
[2018-06-04] MEDS: CLOPIDOGREL 75 MG TAB PO SCH (08:12)
[2018-06-04] MEDS: APIXABAN 5 MG TABLET PO SCH ×2 (08:12→20:10)
[2018-06-04] MEDS: ISOSORBIDE MONONITRATE(SR)30 MG TAB PO SCH (08:13)
[2018-06-04] MEDS ORDERED: POTASSIUM CHLORIDE (SR) 20 MEQ TAB PO STA (11:26)
--- NOTE | 2018-06-04 13:21 | PN ---
Date/Time of Note Date/Time of Note DATE: 06/04/18 TIME: 13:20 Assessment/Plan VTE Prophylaxis Risk score (from Ns)>0 risk: 2 SCD applied (from Ns): No SCD contraindicated: low risk/ambulating Pharmacological prophylaxis: apixaban Lines/Catheters [facility] Peripheral IV Urinary Cath still in place: No Assessment/Plan Hospital Course 1. Chest pain with elevated troponins, likely secondary to [id number] myocardial infarction. S/p angiogram on 06/01 with multivessel CAD 2. Nausea, vomiting, epigastric pain,resolved. It could be related to acute coronary syndrome; however we cannot rule out underlying gastritis. LFTs show only abnormal elevated alkaline phosphatase. The patient has had HIDA scan in 03/2018 which had been negative. Abd ultrasound is essentially negative 3. Acute on chronic systolic congestive heart failure. 4. Elevated alkaline phosphatase. 5. Cardiomyopathy. 6. Diabetes. 7. Hypertension. 8. Severe cardiomyopathy with ejection fraction of 20% to 25%. 9. Chronic kidney disease stage III. with Cr jump to 1.41 s/p diuresis and now s/p angiogram on 06/01 10. Hypomagnesemia. 11 V tach asymtomatic 12. Overweight 13. hypokalemia Assessment/Plan -Cr monitored, normal today - cw lasix 40 bid as pt is volume overloaded and sob - eliquis per cards if no AICD -?AICD -K supplement -Monitor strict I's and O's- -Continue with Plavix/Imdur/hydralazine -dc planning -pt has a vest now Result Diagram: 06/03/18 0556 06/04/18 0746 Results 24hrs Laboratory Tests Test 06/04/18 07:46 Sodium Level 138 Potassium Level 3.3 L Chloride Level 103 Carbon Dioxide Level 22 Anion Gap 13 Blood Urea Nitrogen 28 H Creatinine 1.20 Est Glomerular Filtrat Rate mL/min > 60 Glucose Level 118 Calcium Level 9.1 Subjective 24 Hr Interval Summary ENT: other (runny nose) Exam/Review of Systems Exam Vitals Vital Signs Date Temp Pulse Resp B/P (MAP) Pulse Ox O2 O2 Flow FiO2 Time Delivery Rate 06/04/18 97.8 70 20 102/71 99 Room Air 11:01 (81) 06/04/18 2.0 07:47 Intake and Output 06/03/18 06/03/18 06/04/18 1515:00 23:00 07:00 IntakeIntake Total 960 ml 450 ml OutputOutput Total 1000 ml 500 ml BalanceBalance -40 ml -50 ml Constitutional: alert, oriented Respiratory: clear to auscultation Cardiovascular: regular rate and rhythm Gastrointestinal: soft Genitourinary - Male: CVA tenderness; No nl penis, No nl scrotum, No discharge, No other Results Results 24hrs Laboratory Tests Test 06/04/18 07:46 Sodium Level 138 Potassium Level 3.3 L Chloride Level 103 Carbon Dioxide Level 22 Anion Gap 13 Blood Urea Nitrogen 28 H Creatinine 1.20 Est Glomerular Filtrat Rate mL/min > 60 Glucose Level 118 Calcium Level 9.1 Medications Medication Current Medications Carvedilol (Coreg) 3.125 mg BID PO Last administered on 06/04/18 08:13; Admin Dose 3.125 MG; Start 05/30/18 at 03:00 Clopidogrel Bisulfate (plaVIX) 75 mg DAILY PO Last administered on 06/04/18at 08:12; Admin Dose 75 MG; Start 05/30/18 at 09:00 Hydralazine HCl (Apresoline) 10 mg Q8 PO Last administered on 06/04/18 06:13; Admin Dose 10 MG; Start 05/30/18 at 06:00 Isosorbide Mononitrate (Imdur) 30 mg DAILY PO Last administered on 06/04/18 08:13; Admin Dose 30 MG; Start 05/30/18 at 09:00 IV Flush (NS 3 ml) 3 ml PER PROTOCOL IV ; Start 05/30/18 at 02:00 Ondansetron HCl (Zofran Inj) 4 mg Q6H PRN IV NAUSEA/VOMITING Last administered on 05/30/18at 12:02; Admin Dose 4 MG; Start 05/30/18 at 02:00 Nitroglycerin (Nitroglycerin (Sl Tab) 0.4 Mg) 1 tab Q5M PRN SL .CHEST PAIN; Start 05/30/18 at 02:00 Acetaminophen (Tylenol Tab) 650 mg Q6H PRN PO .PAIN 1-3 OR TEMP; Start 05/30/18 at 02:00 Morphine Sulfate (morphine) 1 mg Q4H PRN IV .PAIN 7-10; Start 05/30/18 at 02:00 Docusate Sodium (Colace) 100 mg Q12H PRN PO .CONSTIPATION Last administered on 05/30/18 21:38; Admin Dose 100 MG; Start 05/30/18 at 02:00 Bisacodyl (Dulcolax) 5 mg DAILY PRN PO .CONSTIPATION Last administered on 06/04/18 08:48; Admin Dose 5 MG; Start 05/30/18 at 02:00 Metoclopramide HCl (Reglan) 5 mg Q6 IV Last administered on 06/04/18 11:32; Admin Dose 5 MG; Start 05/30/18 at 18:00 Furosemide (Lasix) 40 mg BID DIURETICS IV Last administered on 06/04/18 06:12; Admin Dose 40 MG; Start 06/01/18 at 18:00 Acetaminophen (Tylenol Tab) 650 mg Q4H PRN PO PAIN; Start 06/01/18 at 15:00 Morphine Sulfate (morphine) 1 mg Q1H PRN IV PAIN; Start 06/01/18 at 15:00 Zolpidem Tartrate (Ambien) 5 mg HS MAY REPEAT X 1 PRN PO INSOMNIA Last administered on 06/03/18 02:50; Admin Dose 5 MG; Start 06/01/18 at 15:00 Al Hydrox/Mg Hydrox/Simethicone (Mag-Al Plus) 30 ml Q4H PRN PO GASTROINTESTINAL UPSET; Start 06/01/18 at 15:00 Pantoprazole (Protonix Tab) 40 mg BID@0600,1800 PO Last administered on 06/03/18 17:33; Admin Dose 40 MG; Start 06/02/18 at 18:00 Apixaban (Eliquis) 5 mg BID PO Last administered on 06/04/18 08:12; Admin Dose 5 MG; Start 06/02/18 at 21:00 MEHREEN HILLMAN Jun 04, 2018 13:21
--- NOTE | 2018-06-04 13:32 | CONS ---
Consultation Date/Type/Reason Admit Date/Time Interval Hx- 55 year old male, sitting at the edge of bed, tolerating diet well, denies any complaints, He has no more abdominal pain no nausea no vomiting IMPRESSION: 1. Chest pain with elevated troponin. Rule out non-STEMI. Patient had stent placement in right coronary artery 2. Ischemic cardiomyopathy with EF of 25%. This was 1-1/2 to 2 years ago. 3. Left upper quadrant pain and chronic stasis syndrome, most probably related to gastroparesis. 4. Mild elevation of alkaline phosphatase. 5. Diabetes mellitus. 6. Hypertension. 7. Chronic kidney disease. PLAN: Continue present care Since patient has no abdominal pain will defer endoscopy Continue PPI and Reglan Consultation Date/Type/Reason Admit Date/Time May 30, 2018 at 01:33 Initial Consult Date Requesting Provider: OMAR ESPINOSA MD Date/Time of Note DATE: 06/01/18 TIME: 16:30 Initial Consult Date Requesting Provider: OMAR ESPINOAS MD Date/Time of Note DATE: 06/04/18 TIME: 13:25 Exam/Review of Systems Exam Vitals Vital Signs Date Temp Pulse Resp B/P (MAP) Pulse Ox O2 O2 Flow FiO2 Time Delivery Rate 06/04/18 97.8 70 20 102/71 99 Room Air 11:01 (81) 06/04/18 2.0 07:47 Intake and Output 06/03/18 06/03/18 06/04/18 1515:00 23:00 07:00 IntakeIntake Total 960 ml 450 ml OutputOutput Total 1000 ml 500 ml BalanceBalance -40 ml -50 ml Constitutional: alert, oriented Psych: no complaints Head: normocephalic, atraumatic Eyes: nl conjunctiva, EOMI, nl lids Neck: supple, non-tender Respiratory: clear to auscultation, normal air movement Cardiovascular: regular rate and rhythm, nl pulses Gastrointestinal: soft, non-tender Musculoskeletal: nl extremities to inspection Extremities: normal pulses Neurological: [employer] II-XII intact Results Result Diagram: 06/03/18 0556 06/04/18 0746 Results 24hrs Laboratory Tests Test 06/04/18 07:46 Sodium Level 138 Potassium Level 3.3 L Chloride Level 103 Carbon Dioxide Level 22 Anion Gap 13 Blood Urea Nitrogen 28 H Creatinine 1.20 Est Glomerular Filtrat Rate mL/min > 60 Glucose Level 118 Calcium Level 9.1 Medications Medication Current Medications Carvedilol (Coreg) 3.125 mg BID PO Last administered on 06/04/18 08:13; Admin Dose 3.125 MG; Start 05/30/18 at 03:00 Clopidogrel Bisulfate (plaVIX) 75 mg DAILY PO Last administered on 06/04/18 08:12; Admin Dose 75 MG; Start 05/30/18 at 09:00 Hydralazine HCl (Apresoline) 10 mg Q8 PO Last administered on 06/04/18 06:13; Admin Dose 10 MG; Start 05/30/18 at 06:00 Isosorbide Mononitrate (Imdur) 30 mg DAILY PO Last administered on 06/04/18 08:13; Admin Dose 30 MG; Start 05/30/18 at 09:00 IV Flush (NS 3 ml) 3 ml PER PROTOCOL IV ; Start 05/30/18 at 02:00 Ondansetron HCl (Zofran Inj) 4 mg Q6H PRN IV NAUSEA/VOMITING Last administered on 05/30/18 12:02; Admin Dose 4 MG; Start 05/30/18 at 02:00 Nitroglycerin (Nitroglycerin (Sl Tab) 0.4 Mg) 1 tab Q5M PRN SL .CHEST PAIN; Start 05/30/18 at 02:00 Acetaminophen (Tylenol Tab) 650 mg Q6H PRN PO .PAIN 1-3 OR TEMP; Start 05/30/18 at 02:00 Morphine Sulfate (morphine) 1 mg Q4H PRN IV .PAIN 7-10; Start 05/30/18 at 02:00 Docusate Sodium (Colace) 100 mg Q12H PRN PO .CONSTIPATION Last administered on 05/30/18 21:38; Admin Dose 100 MG; Start 05/30/18 at 02:00 Bisacodyl (Dulcolax) 5 mg DAILY PRN PO .CONSTIPATION Last administered on 06/04/18 08:48; Admin Dose 5 MG; Start 05/30/18 at 02:00 Metoclopramide HCl (Reglan) 5 mg Q6 IV Last administered on 06/04/18 11:32; Admin Dose 5 MG; Start 05/30/18 at 18:00 Furosemide (Lasix) 40 mg BID DIURETICS IV Last administered on 06/04/18at 06:12; Admin Dose 40 MG; Start 06/01/18 at 18:00 Acetaminophen (Tylenol Tab) 650 mg Q4H PRN PO PAIN; Start 06/01/18 at 15:00 Morphine Sulfate (morphine) 1 mg Q1H PRN IV PAIN; Start 06/01/18 at 15:00 Zolpidem Tartrate (Ambien) 5 mg HS MAY REPEAT X 1 PRN PO INSOMNIA Last administered on 06/03/18at 02:50; Admin Dose 5 MG; Start 06/01/18 at 15:00 Al Hydrox/Mg Hydrox/Simethicone (Mag-Al Plus) 30 ml Q4H PRN PO GASTROINTESTINAL UPSET; Start 06/01/18 at 15:00 Pantoprazole (Protonix Tab) 40 mg BID@0600,1800 PO Last administered on 06/03/18at 17:33; Admin Dose 40 MG; Start 06/02/18 at 18:00 Apixaban (Eliquis) 5 mg BID PO Last administered on 06/04/18at 08:12; Admin Dose 5 MG; Start 06/02/18 at 21:00 SUE BURTON MD Jun 04, 2018 13:31
--- NOTE | 2018-06-04 14:36 | CONS ---
Consult Date/Type/Reason Admit Date/Time May 30, 2018 at 01:33 Initial Consult Date Requesting Provider: OMAR ESPINOSA MD Date/Time of Note DATE: 06/04/18 TIME: 14:34 Subjective NO acute events - pt better - no ectopy on tele ROS: No fever, no chills, no nausea, no vomiting, no diarrhea/constipation No recent weight changes No chest pain, no PND, no orthopnea - chronic SOB No dizziness, blurred vision No thirst, no heat or cold intolerance Objective Vitals Vital Signs Date Temp Pulse Resp B/P (MAP) Pulse Ox O2 O2 Flow FiO2 Time Delivery Rate 06/04/18 97.8 70 20 102/71 99 Room Air 11:01 (81) 06/04/18 2.0 07:47 Intake and Output 06/03/18 06/03/18 06/04/18 1414:59 22:59 06:59 IntakeIntake Total 960 ml 450 ml OutputOutput Total 1000 ml 500 ml BalanceBalance -40 ml -50 ml Exam General: WN/WD/NAD, AOx 3 HEENT: Unicetric/atraumatic/EOMI (follows commands) NECK: JVD elevated, no thyromegaly Lymph: no lymphadenopathy HEART: regular with no S3, II/ systolic murmur at apex, PMI L LUNGS: Coarse sounds ABD: soft, NT, ND, +BS : Intact Neuro: non focal SKIN: chronic changes EXT: trace edema Results/Medications Result Diagram: 06/03/18 0556 06/04/18 0746 Results 24 hrs Laboratory Tests Test 06/04/18 07:46 Sodium Level 138 Potassium Level 3.3 L Chloride Level 103 Carbon Dioxide Level 22 Anion Gap 13 Blood Urea Nitrogen 28 H Creatinine 1.20 Est Glomerular Filtrat Rate mL/min > 60 Glucose Level 118 Calcium Level 9.1 Home Meds Active Scripts Baclofen* (Baclofen*) 10 Mg Tablet, 10 MG PO DAILY for 10 Days, TAB Prov:MEHREEN HILLMAN 05/20/18 Potassium Chloride* (K-Dur*) 20 Meq Tab.prt.sr, 20 MEQ PO DAILY for 30 Days Prov:OMAR ESPINOSA MD 04/01/18 Apixaban* (Eliquis*) 5 Mg Tablet, 5 MG PO BID for 30 Days, TAB Prov:MEZENTSEVA,MEHREEN 03/26/18 Furosemide* (Furosemide*) 40 Mg Tablet, 40 MG PO BID DIURETICS for 60 Days, TAB Prov:MEHREEN HILLMAN 03/25/18 Isosorbide Mononitrate* (Isosorbide Mononitrate*) 30 Mg Tab.er.24h, 30 MG PO DAILY for 30 Days Prov:MEHREEN HILLMAN 03/25/18 Hydralazine Hcl* (Hydralazine Hcl*) 10 Mg Tablet, 10 MG PO Q8 for 30 Days, TAB Prov:MEHREEN HILLMAN 03/25/18 Carvedilol* (Carvedilol*) 3.125 Mg Tablet, 3.125 MG PO BID for 30 Days, TAB Prov:MEHREEN HILLMAN 03/25/18 Reported Medications Nateglinide* (Nateglinide*) 60 Mg Tablet, 60 MG PO BID, TAB 11/12/17 Nitroglycerin* (Nitrostat*) 0.4 Mg Tab.subl, 0.4 MG SL Q5MIN PRN for CHEST PAIN, BOTTLE 11/12/17 Clopidogrel Bisulfate* (Clopidogrel Bisulfate*) 75 Mg Tablet, 75 MG PO DAILY, TAB 04/28/16 Medications Current Medications Carvedilol (Coreg) 3.125 mg BID PO Last administered on 06/04/18 08:13; Admin Dose 3.125 MG; Start 05/30/18 at 03:00 Clopidogrel Bisulfate (plaVIX) 75 mg DAILY PO Last administered on 06/04/18 08:12; Admin Dose 75 MG; Start 05/30/18 at 09:00 Hydralazine HCl (Apresoline) 10 mg Q8 PO Last administered on 06/04/18 06:13; Admin Dose 10 MG; Start 05/30/18 at 06:00 Isosorbide Mononitrate (Imdur) 30 mg DAILY PO Last administered on 06/04/18at 08:13; Admin Dose 30 MG; Start 05/30/18 at 09:00 IV Flush (NS 3 ml) 3 ml PER PROTOCOL IV ; Start 05/30/18 at 02:00 Ondansetron HCl (Zofran Inj) 4 mg Q6H PRN IV NAUSEA/VOMITING Last administered on 05/30/18 12:02; Admin Dose 4 MG; Start 05/30/18 at 02:00 Nitroglycerin (Nitroglycerin (Sl Tab) 0.4 Mg) 1 tab Q5M PRN SL .CHEST PAIN; Start 05/30/18 at 02:00 Acetaminophen (Tylenol Tab) 650 mg Q6H PRN PO .PAIN 1-3 OR TEMP; Start 05/30/18 at 02:00 Morphine Sulfate (morphine) 1 mg Q4H PRN IV .PAIN 7-10; Start 05/30/18 at 02:00 Docusate Sodium (Colace) 100 mg Q12H PRN PO .CONSTIPATION Last administered on 05/30/18 21:38; Admin Dose 100 MG; Start 05/30/18 at 02:00 Bisacodyl (Dulcolax) 5 mg DAILY PRN PO .CONSTIPATION Last administered on 06/04/18 08:48; Admin Dose 5 MG; Start 05/30/18 at 02:00 Metoclopramide HCl (Reglan) 5 mg Q6 IV Last administered on 06/04/18 11:32; Admin Dose 5 MG; Start 05/30/18 at 18:00 Furosemide (Lasix) 40 mg BID DIURETICS IV Last administered on 06/04/18 06:12; Admin Dose 40 MG; Start 06/01/18 at 18:00 Acetaminophen (Tylenol Tab) 650 mg Q4H PRN PO PAIN; Start 06/01/18 at 15:00 Morphine Sulfate (morphine) 1 mg Q1H PRN IV PAIN; Start 06/01/18 at 15:00 Zolpidem Tartrate (Ambien) 5 mg HS MAY REPEAT X 1 PRN PO INSOMNIA Last administered on 06/03/18 02:50; Admin Dose 5 MG; Start 06/01/18 at 15:00 Al Hydrox/Mg Hydrox/Simethicone (Mag-Al Plus) 30 ml Q4H PRN PO GASTROINTESTINAL UPSET; Start 06/01/18 at 15:00 Pantoprazole (Protonix Tab) 40 mg BID@0600,1800 PO Last administered on 06/03/18 17:33; Admin Dose 40 MG; Start 06/02/18 at 18:00 Apixaban (Eliquis) 5 mg BID PO Last administered on 3/2/19at 08:12; Admin Dose 5 MG; Start 06/02/18 at 21:00 Potassium Chloride (Potassium Chloride Pwd/Soln) 40 meq DAILY PO ; Start 06/05/18 at 09:00 Assessment/Plan Hospital Course (Demo Recall) 1. Positive troponin consistent with [id number] myocardial infarction, small at this time. s/p PTCA/stent - tolerated well 2. Chest pain, intermittent- on meds 3. Cardiomyopathy with severe depressed left ventricular ejection fraction last EF approximately 20% by echo this month- niw s/p PCI - outpt ICD eval. 4. Congestive heart failure, systolic, acute on chronic, very mild volume overload at this time. 5. Abdominal pain, nausea and vomiting without intra-abdominal pathology. 6. Coagulopathy secondary to Eliquis. NO bleeding now. 7. Chronic kidney disease not on HD- acute on chronic renal failure likely contrast induced OSCAR NI MD Jun 04, 2018 14:36
--- NOTE | 2018-06-04 20:19 | CONS ---
DATE OF ADMISSION: 05/30/2018 DATE OF CONSULTATION: 06/03/2018 HISTORY: The patient is a 52-year-old male with the history of coronary artery disease who presented with abdominal fullness and nausea. He was found to have non-STEMI, require coronary angiogram and stent placement in the right coronary artery. The patient's epigastric pain has improved, but contin ues to complain about the fullness. OBJECTIVE: VITAL SIGNS: Stable. ABDOMEN: Benign. LUNGS: Clear. EXTREMITIES: No edema. CENTRAL NERVOUS SYSTEM: Grossly within normal limits. IMPRESSION: 1. Chest pain, elevated troponin secondary to coronary artery disease. The patient had a stent plac ement in right coronary artery disease. 2. Ischemic cardiomyopathy with ejection fraction of 25%. 3. Left upper quadrant pain with chronic stasis syndrome. The pain is improved, but states it is st ill persistent secondary to diabetic gastroparesis. 4. Diabetes mellitus. 5. Hypertension. 6. Chronic kidney disease. PLAN: Continue present care, continue Reglan and hopefully his gastroparesis symptoms gets resolved. Dictated By: SUE EVANS/MAX Conf#: [id number] DID#: [id number] CC: HAWA DRAKE MD;*EndCC*
[2018-06-05] VITALS (11 sets, daily range): BP systolic 106–118; BP diastolic 70–79; PULSE 76–90; RESP 18–20
[2018-06-05] MEDS: FUROSEMIDE 40 MG INJ IV SCH ×2 (05:23→17:35)
[2018-06-05] MEDS: METOCLOPRAMIDE 10 MG INJ IV SCH ×3 (05:23→17:35)
[2018-06-05] MEDS: PANTOPRAZOLE (EC) 40 MG TAB PO SCH ×2 (05:23→17:35)
[2018-06-05] MEDS: APIXABAN 5 MG TABLET PO SCH ×2 (08:26→21:39)
[2018-06-05] MEDS: CLOPIDOGREL 75 MG TAB PO SCH (08:26)
[2018-06-05] MEDS: ISOSORBIDE MONONITRATE(SR)30 MG TAB PO SCH (08:27)
[2018-06-05] MEDS: POTASSIUM CHLORIDE 20 MEQ POWDER FOR ORAL SOLN PO SCH (08:27)
[2018-06-05] MEDS: GUAIFENESIN/DM 5ML CUP PO SCH ×3 (09:29→21:39)
--- NOTE | 2018-06-05 11:11 | PN ---
KADYMEHREEN 06/05/18 1111: Date/Time of Note Date/Time of Note DATE: 06/05/18 TIME: 11:05 Assessment/Plan VTE Prophylaxis [place] [facility] [place] risk: 4 SCD applied (from [facility] [place] No SCD contraindicated: low risk/ambulating Pharmacological prophylaxis: apixaban Lines/Catheters IV Catheter Type (from [facility]): [place] Urinary Cath still in place: No Assessment/Plan Hospital Course 1. Chest pain with elevated troponins, likely secondary to [id number] myocardial infarction. S/p angiogram on 06/01 with multivessel CAD 2. Nausea, vomiting, epigastric pain,resolved. It could be related to acute coronary syndrome; however we cannot rule out underlying gastritis. LFTs show only abnormal elevated alkaline phosphatase. The patient has had HIDA scan in 03/2018 which had been negative. Abd ultrasound is essentially negative 3. Acute on chronic systolic congestive heart failure. 4. Elevated alkaline phosphatase. 5. Cardiomyopathy. 6. Diabetes. 7. Hypertension. 8. Severe cardiomyopathy with ejection fraction of 20% to 25%. 9. Chronic kidney disease stage III. with Cr jump to 1.41 s/p diuresis and now s/p angiogram on 06/01 10. Hypomagnesemia. 11 i episode V tach, asymptomatic. 12. Overweight 13. hypokalemia, resolved 14. KWAN Assessment/Plan -influenza swab to test -Cr monitored, increase slightly today -Chest xray due to chest congestion, Robitussin 10 q 6 h scheduled. -breathing treatment - cw lasix 40 bid as pt is volume overloaded and sob - eliquis per cards if no AICD -?AICD chest Xray today -Monitor strict I's and O's- -Continue with Plavix/Imdur/hydralazine -dc planning -pt has a vest now Result Diagram: 06/05/18 0612 06/05/18 0615 Results 24hrs Laboratory Tests Test 06/05/18 06:12 06/05/18 06:15 White Blood Count 7.2 # Red Blood Count 5.02 Hemoglobin 13.7 L Hematocrit 42.9 Mean Corpuscular Volume 85.5 Mean Corpuscular Hemoglobin 27.3 L Mean Corpuscular Hemoglobin Concent 31.9 L Red Cell Distribution Width 16.7 H Platelet Count 351 Mean Platelet Volume 9.6 Immature Granulocytes % 0.400 Neutrophils % 64.7 Lymphocytes % 18.4 Monocytes % 14.3 H Eosinophils % 1.5 Basophils % 0.7 Nucleated Red Blood Cells % 0.0 Immature Granulocytes # 0.030 Neutrophils # 4.7 Lymphocytes # 1.3 Monocytes # 1.0 H Eosinophils # 0.1 Basophils # 0.1 Nucleated Red Blood Cells # 0.0 Sodium Level 138 Potassium Level 3.8 Chloride Level 101 Carbon Dioxide Level 23 Anion Gap 14 H Blood Urea Nitrogen 27 H Creatinine 1.29 H Est Glomerular Filtrat Rate mL/min 58 L Glucose Level 135 Calcium Level 9.1 Subjective 24 Hr Interval Summary ENT: discharge (clear) Cardiovascular: lightheadedness; No no complaints, No edema, No orthopenea, No palpitations, No paroxysmal nocturnal dyspnea, No other Exam/Review of Systems Exam Vitals Vital Signs Date Temp Pulse Resp B/P (MAP) Pulse Ox O2 O2 Flow FiO2 Time Delivery Rate 06/05/18 81 08:00 06/05/18 Nasal 2.0 07:36 Cannula 06/05/18 98.0 18 109/76 99 07:18 (87) Intake and Output 06/04/18 06/04/18 06/05/18 1515:00 23:00 07:00 IntakeIntake Total 720 ml 340 ml OutputOutput Total 850 ml 800 ml BalanceBalance -130 ml -460 ml Constitutional: alert, oriented Neck: supple Respiratory: congested cough, crackles/rales, diminished breath sounds Cardiovascular: regular rate and rhythm Gastrointestinal: soft Results Result Diagram: 06/05/18 0612 06/05/18 0615 Results 24hrs Laboratory Tests Test 06/05/18 06:12 06/05/18 06:15 White Blood Count 7.2 # Red Blood Count 5.02 Hemoglobin 13.7 L Hematocrit 42.9 Mean Corpuscular Volume 85.5 Mean Corpuscular Hemoglobin 27.3 L Mean Corpuscular Hemoglobin Concent 31.9 L Red Cell Distribution Width 16.7 H Platelet Count 351 Mean Platelet Volume 9.6 Immature Granulocytes % 0.400 Neutrophils % 64.7 Lymphocytes % 18.4 Monocytes % 14.3 H Eosinophils % 1.5 Basophils % 0.7 Nucleated Red Blood Cells % 0.0 Immature Granulocytes # 0.030 Neutrophils # 4.7 Lymphocytes # 1.3 Monocytes # 1.0 H Eosinophils # 0.1 Basophils # 0.1 Nucleated Red Blood Cells # 0.0 Sodium Level 138 Potassium Level 3.8 Chloride Level 101 Carbon Dioxide Level 23 Anion Gap 14 H Blood Urea Nitrogen 27 H Creatinine 1.29 H Est Glomerular Filtrat Rate mL/min 58 L Glucose Level 135 Calcium Level 9.1 Medications Medication Current Medications Carvedilol (Coreg) 3.125 mg BID PO Last administered on 06/05/18 08:26; Admin Dose 3.125 MG; Start 05/30/18 at 03:00 Clopidogrel Bisulfate (plaVIX) 75 mg DAILY PO Last administered on 06/05/18 08:26; Admin Dose 75 MG; Start 05/30/18 at 09:00 Hydralazine HCl (Apresoline) 10 mg Q8 PO Last administered on 06/05/18 05:23; Admin Dose 10 MG; Start 05/30/18 at 06:00 Isosorbide Mononitrate (Imdur) 30 mg DAILY PO Last administered on 06/05/18 08:27; Admin Dose 30 MG; Start 05/30/18 at 09:00 IV Flush (NS 3 ml) 3 ml PER PROTOCOL IV ; Start 05/30/18 at 02:00 Ondansetron HCl (Zofran Inj) 4 mg Q6H PRN IV NAUSEA/VOMITING Last administered on 05/30/18 12:02; Admin Dose 4 MG; Start 05/30/18 at 02:00 Nitroglycerin (Nitroglycerin (Sl Tab) 0.4 Mg) 1 tab Q5M PRN SL .CHEST PAIN; Start 05/30/18 at 02:00 Acetaminophen (Tylenol Tab) 650 mg Q6H PRN PO .PAIN 1-3 OR TEMP; Start 05/30/18 at 02:00 Morphine Sulfate (morphine) 1 mg Q4H PRN IV .PAIN 7-10; Start 05/30/18 at 02:00 Docusate Sodium (Colace) 100 mg Q12H PRN PO .CONSTIPATION Last administered on 05/30/18 21:38; Admin Dose 100 MG; Start 05/30/18 at 02:00 Bisacodyl (Dulcolax) 5 mg DAILY PRN PO .CONSTIPATION Last administered on 06/04/18 08:48; Admin Dose 5 MG; Start 05/30/18 at 02:00 Metoclopramide HCl (Reglan) 5 mg Q6 IV Last administered on 06/05/18 05:23; Adm in Dose 5 MG; Start 05/30/18 at 18:00 Furosemide (Lasix) 40 mg BID DIURETICS IV Last administered on 06/05/18 05:23; Admin Dose 40 MG; Start 06/01/18 at 18:00 Acetaminophen (Tylenol Tab) 650 mg Q4H PRN PO PAIN; Start 06/01/18 at 15:00 Morphine Sulfate (morphine) 1 mg Q1H PRN IV PAIN; Start 06/01/18 at 15:00 Zolpidem Tartrate (Ambien) 5 mg HS MAY REPEAT X 1 PRN PO INSOMNIA Last administered on 06/03/18 02:50; Admin Dose 5 MG; Start 06/01/18 at 15:00 Al Hydrox/Mg Hydrox/Simethicone (Mag-Al Plus) 30 ml Q4H PRN PO GASTROINTESTINAL UPSET Last administered on 06/04/18 18:32; Admin Dose 30 ML; Start 06/01/18 at 15:00 Pantoprazole (Protonix Tab) 40 mg BID@0600,1800 PO Last administered on 06/05 05:23; Admin Dose 40 MG; Start 06/02/18 at 18:00 Apixaban (Eliquis) 5 mg BID PO Last administered on 06/05/18 08:26; Admin Dose 5 MG; Start 06/02/18 at 21:00 Potassium Chloride (Potassium Chloride Pwd/Soln) 40 meq DAILY PO Last administered on 06/05/18 08:27; Admin Dose 40 MEQ; Start 06/05/18 at 09:00 Guaifenesin/ Dextromethorphan (Robitussin Dm Liquid Cup) 10 ml Q6H PO Last administered on 06/05/18 09:29; Admin Dose 10 ML; Start 06/05/18 at 09:30; Stop 06/07/18 at 09:30 OMAR ESPINOSA MD 06/05/18 1640: Assessment/Plan Assessment/Plan Assessment/Plan more sob chest xray extra dose of lasix/metolazone Result Diagram: 06/05/18 0612 06/05/18 0615 MEHREEN HILLMAN Jun 05, 2018 11:11 OMAR ESPINOSA MD Jun 05, 2018 16:40
--- NOTE | 2018-06-05 13:15 | CONS ---
Consult Date/Type/Reason Admit Date/Time May 30, 2018 at 01:33 Initial Consult Date Requesting Provider: OMAR ESPINOSA MD Date/Time of Note DATE: 06/05/18 TIME: 13:13 Subjective NO acute events - pt comfortable - no CP - in good fluid status now. ROS: No fever, no chills, no nausea, no vomiting, no diarrhea/constipation No recent weight changes No chest pain, no PND, no orthopnea - mild SOB No dizziness, blurred vision No thirst, no heat or cold intolerance Objective Vitals Vital Signs Date Temp Pulse Resp B/P (MAP) Pulse Ox O2 O2 Flow FiO2 Time Delivery Rate 06/05/18 98.3 90 18 118/79 99 11:18 (92) 06/05/18 Nasal 2.0 07:36 Cannula Intake and Output 06/04/18 06/04/18 06/05/18 1414:59 22:59 06:59 IntakeIntake Total 720 ml 340 ml OutputOutput Total 850 ml 800 ml BalanceBalance -130 ml -460 ml Exam General: WN/WD/NAD, AOx 3 HEENT: Unicetric/atraumatic/EOMI (follows commands) NECK: JVD elevated, no thyromegaly Lymph: no lymphadenopathy HEART: regular with no S3, II/ systolic murmur at apex LUNGS: Coarse sounds ABD: soft, NT, ND, +BS : Intact Neuro: non focal SKIN: chronic changes EXT: trace edema Results/Medications Result Diagram: 06/05/18 0612 06/05/18 0615 Results 24 hrs Laboratory Tests Test 06/05/18 06:12 06/05/18 06:15 White Blood Count 7.2 # Red Blood Count 5.02 Hemoglobin 13.7 L Hematocrit 42.9 Mean Corpuscular Volume 85.5 Mean Corpuscular Hemoglobin 27.3 L Mean Corpuscular Hemoglobin Concent 31.9 L Red Cell Distribution Width 16.7 H Platelet Count 351 Mean Platelet Volume 9.6 Immature Granulocytes % 0.400 Neutrophils % 64.7 Lymphocytes % 18.4 Monocytes % 14.3 H Eosinophils % 1.5 Basophils % 0.7 Nucleated Red Blood Cells % 0.0 Immature Granulocytes # 0.030 Neutrophils # 4.7 Lymphocytes # 1.3 Monocytes # 1.0 H Eosinophils # 0.1 Basophils # 0.1 Nucleated Red Blood Cells # 0.0 Sodium Level 138 Potassium Level 3.8 Chloride Level 101 Carbon Dioxide Level 23 Anion Gap 14 H Blood Urea Nitrogen 27 H Creatinine 1.29 H Est Glomerular Filtrat Rate mL/min 58 L Glucose Level 135 Calcium Level 9.1 Home Meds Active Scripts Baclofen* (Baclofen*) 10 Mg Tablet, 10 MG PO DAILY for 10 Days, TAB Prov:MEHREEN HILLMAN 05/20/18 Potassium Chloride* (K-Dur*) 20 Meq Tab.prt.sr, 20 MEQ PO DAILY for 30 Days Prov:OMAR ESPINOSA MD 04/01/18 Apixaban* (Eliquis*) 5 Mg Tablet, 5 MG PO BID for 30 Days, TAB Prov:MEHREEN HILLMAN 03/26/18 Furosemide* (Furosemide*) 40 Mg Tablet, 40 MG PO BID DIURETICS for 60 Days, TAB Prov:MEHREEN HILLMAN 03/25/18 Isosorbide Mononitrate* (Isosorbide Mononitrate*) 30 Mg Tab.er.24h, 30 MG PO DAILY for 30 Days Prov:MEHREEN HILLMAN 03/25/18 Hydralazine Hcl* (Hydralazine Hcl*) 10 Mg Tablet, 10 MG PO Q8 for 30 Days, TAB Prov:MEHREEN HILLMAN 03/25/18 Carvedilol* (Carvedilol*) 3.125 Mg Tablet, 3.125 MG PO BID for 30 Days, TAB Prov:MEHREEN HILLMAN 03/25/18 Reported Medications Nateglinide* (Nateglinide*) 60 Mg Tablet, 60 MG PO BID, TAB 11/12/17 Nitroglycerin* (Nitrostat*) 0.4 Mg Tab.subl, 0.4 MG SL Q5MIN PRN for CHEST PAIN, BOTTLE 11/12/17 Clopidogrel Bisulfate* (Clopidogrel Bisulfate*) 75 Mg Tablet, 75 MG PO DAILY, TAB 04/28/16 Medications Current Medications Carvedilol (Coreg) 3.125 mg BID PO Last administered on 06/05/18at 08:26; Admin Dose 3.125 MG; Start 05/30/18 at 03:00 Clopidogrel Bisulfate (plaVIX) 75 mg DAILY PO Last administered on 3/3/19at 08:26; Admin Dose 75 MG; Start 05/30/18 at 09:00 Hydralazine HCl (Apresoline) 10 mg Q8 PO Last administered on 06/05/18 05:23; Admin Dose 10 MG; Start 05/30/18 at 06:00 Isosorbide Mononitrate (Imdur) 30 mg DAILY PO Last administered on 06/05/18 08:27; Admin Dose 30 MG; Start 05/30/18 at 09:00 IV Flush (NS 3 ml) 3 ml PER PROTOCOL IV ; Start 05/30/18 at 02:00 Ondansetron HCl (Zofran Inj) 4 mg Q6H PRN IV NAUSEA/VOMITING Last administered on 05/30/18 12:02; Admin Dose 4 MG; Start 05/30/18 at 02:00 Nitroglycerin (Nitroglycerin (Sl Tab) 0.4 Mg) 1 tab Q5M PRN SL .CHEST PAIN; Start 05/30/18 at 02:00 Acetaminophen (Tylenol Tab) 650 mg Q6H PRN PO .PAIN 1-3 OR TEMP; Start 05/30/18 at 02:00 Morphine Sulfate (morphine) 1 mg Q4H PRN IV .PAIN 7-10; Start 05/30/18 at 02:00 Docusate Sodium (Colace) 100 mg Q12H PRN PO .CONSTIPATION Last administered on 05/30/18 21:38; Admin Dose 100 MG; Start 05/30/18 at 02:00 Bisacodyl (Dulcolax) 5 mg DAILY PRN PO .CONSTIPATION Last administered on 06/04/18 08:48; Admin Dose 5 MG; Start 05/30/18 at 02:00 Metoclopramide HCl (Reglan) 5 mg Q6 IV Last administered on 06/05/18 12:14; Admin Dose 5 MG; Start 05/30/18 at 18:00 Furosemide (Lasix) 40 mg BID DIURETICS IV Last administered on 06/05/18 05:23; Admin Dose 40 MG; Start 06/01/18 at 18:00 Acetaminophen (Tylenol Tab) 650 mg Q4H PRN PO PAIN; Start 06/01/18 at 15:00 Morphine Sulfate (morphine) 1 mg Q1H PRN IV PAIN; Start 06/01/18 at 15:00 Zolpidem Tartrate (Ambien) 5 mg HS MAY REPEAT X 1 PRN PO INSOMNIA Last administered on 06/03/18at 02:50; Admin Dose 5 MG; Start 06/01/18 at 15:00 Al Hydrox/Mg Hydrox/Simethicone (Mag-Al Plus) 30 ml Q4H PRN PO GASTROINTESTINAL UPSET Last administered on 06/04/18at 18:32; Admin Dose 30 ML; Start 06/01/18 at 15:00 Pantoprazole (Protonix Tab) 40 mg BID@0600,1800 PO Last administered on 06/05/18at 05:23; Admin Dose 40 MG; Start 06/02/18 at 18:00 Apixaban (Eliquis) 5 mg BID PO Last administered on 06/05/18at 08:26; Admin Dose 5 MG; Start 06/02/18 at 21:00 Potassium Chloride (Potassium Chloride Pwd/Soln) 40 meq DAILY PO Last administered on 06/05/18at 08:27; Admin Dose 40 MEQ; Start 06/05/18 at 09:00 Guaifenesin/ Dextromethorphan (Robitussin Dm Liquid Cup) 10 ml Q6H PO Last administered on 06/05/18at 09:29; Admin Dose 10 ML; Start 06/05/18 at 09:30; Stop 06/07/18 at 09:30 Fluticasone Propionate (Flonase 0.05% Nasal) 1 spray BID NASAL ; Start 06/05/18 at 12:00 Albuterol (Proventil 0.083% (Neb)) 1.25 mg Q6H RESP THERAPY HHN ; Start 06/05/18 at 14:00 Ipratropium [place] (Atrovent 0.02% (Neb)) 0.5 mg Q6H RESP THERAPY HHN ; Start 06/05/18 at 14:00 Assessment/Plan Hospital Course (Demo Recall) 1. Positive troponin consistent with [id number] myocardial infarction, small at this time. s/p PTCA/stent - tolerated well - no CP now, con't med rx - consider cardiac rehab 2. Chest pain, intermittent- on meds 3. Cardiomyopathy with severe depressed left ventricular ejection fraction last EF approximately 20% by echo this month- niw s/p PCI - outpt ICD eval. Improved CJF by exam. 4. Congestive heart failure, systolic, acute on chronic, very mild volume overload at this time. 5. Abdominal pain, nausea and vomiting without intra-abdominal pathology. 6. Coagulopathy secondary to Eliquis. NO bleeding now. 7. Chronic kidney disease not on HD- acute on chronic renal failure likely contrast induced OSCAR NI MD Jun 05, 2018 13:15
[2018-06-05] MEDS: IPRATROPIUM (NEB) 0.5 MG/2.5 ML AMP HHN SCH ×2 (13:39→20:26)
[2018-06-05] MEDS: ALBUTEROL 0.083% (NEB) 2.5 MG/3 ML AMP HHN SCH ×2 (13:39→20:26)
[2018-06-05] MEDS: FLUTICASONE 0.05% 16 GM NAS SPRAY NASAL SCH ×2 (14:44→21:38)
[2018-06-05] MEDS ORDERED: FUROSEMIDE 40 MG INJ IV ONE (17:00)
--- NOTE | 2018-06-05 17:55 | CONS ---
Assessment/Plan Assessment/Plan Hospital Course (Demo Recall) Interval HX- The patient is a 52-year-old male with the history of coronary artery disease who presented with abdominal fullness and nausea. He was found to have non-STEMI, required coronary angiogram and stent placement in the right coronary artery. Denies any epigastric pain or fullness today IMPRESSION: 1. Chest pain, elevated troponin secondary to coronary artery disease. The patient had a stent placement in right coronary artery disease. 2. Ischemic cardiomyopathy with ejection fraction of 25%. 3. Left upper quadrant pain with chronic stasis syndrome. The pain is improved, but states it is still persistent secondary to diabetic gastroparesis. 4. Diabetes mellitus. 5. Hypertension. 6. Chronic kidney disease. Abdominal US- IMPRESSION: 1. Thickening of the gallbladder wall without evidence of gallstones or sludge. This is a nonspecific finding and may be related to chronic liver disease, hypoproteinemia, or acalculous cholecystitis. 2. No biliary duct dilatation. 3. Small right pleural effusion PLAN: Continue present care continue Reglan and PPI Monitor for fullness Patient examined and plan of care discussed with Dr Lawton. Consultation Date/Type/Reason Admit Date/Time May 30, 2018 at 01:33 Initial Consult Date Requesting Provider: OMAR ESPINOSA MD Date/Time of Note DATE: 06/05/18 TIME: 17:52 Exam/Review of Systems Exam Vitals Vital Signs Date Temp Pulse Resp B/P (MAP) Pulse Ox O2 O2 Flow FiO2 Time Delivery Rate 06/05/18 82 16:00 06/05/18 98.3 18 112/76 100 Nasal 15:17 (88) Cannula 06/05/18 2.0 13:39 Intake and Output 06/04/18 06/04/18 06/05/18 1515:00 23:00 07:00 IntakeIntake Total 720 ml 340 ml OutputOutput Total 850 ml 800 ml BalanceBalance -130 ml -460 ml Constitutional: alert, oriented, well developed Psych: no complaints, nl mood/affect Head: normocephalic, atraumatic Eyes: nl conjunctiva, EOMI ENMT: nl external ears & nose Neck: supple, non-tender Respiratory: clear to auscultation, normal air movement Cardiovascular: regular rate and rhythm Gastrointestinal: soft, non-tender Musculoskeletal: nl extremities to inspection Extremities: normal pulses Neurological: C [employer] II-XII intact Skin: nl turgor Lymph: nl lymph nodes Results Result Diagram: 06/05/18 0612 06/05/18 0615 Results 24hrs Laboratory Tests Test 06/05/18 06:12 06/05/18 06:15 White Blood Count 7.2 # Red Blood Count 5.02 Hemoglobin 13.7 L Hematocrit 42.9 Mean Corpuscular Volume 85.5 Mean Corpuscular Hemoglobin 27.3 L Mean Corpuscular Hemoglobin Concent 31.9 L Red Cell Distribution Width 16.7 H Platelet Count 351 Mean Platelet Volume 9.6 Immature Granulocytes % 0.400 Neutrophils % 64.7 Lymphocytes % 18.4 Monocytes % 14.3 H Eosinophils % 1.5 Basophils % 0.7 Nucleated Red Blood Cells % 0.0 Immature Granulocytes # 0.030 Neutrophils # 4.7 Lymphocytes # 1.3 Monocytes # 1.0 H Eosinophils # 0.1 Basophils # 0.1 Nucleated Red Blood Cells # 0.0 Sodium Level 138 Potassium Level 3.8 Chloride Level 101 Carbon Dioxide Level 23 Anion Gap 14 H Blood Urea Nitrogen 27 H Creatinine 1.29 H Est Glomerular Filtrat Rate mL/min 58 L Glucose Level 135 Calcium Level 9.1 Medications Medication Current Medications Carvedilol (Coreg) 3.125 mg BID PO Last administered on 06/05/18at 08:26; Admin Dose 3.125 MG; Start 05/30/18 at 03:00 Clopidogrel Bisulfate (plaVIX) 75 mg DAILY PO Last administered on 06/05/18at 08:26; Admin Dose 75 MG; Start 05/30/18 at 09:00 Hydralazine HCl (Apresoline) 10 mg Q8 PO Last administered on 06/05/18at 13:15; Admin Dose 10 MG; Start 05/30/18 at 06:00 Isosorbide Mononitrate (Imdur) 30 mg DAILY PO Last administered on 06/05/18at 08:27; Admin Dose 30 MG; Start 05/30/18 at 09:00 IV Flush (NS 3 ml) 3 ml PER PROTOCOL IV ; Start 05/30/18 at 02:00 Ondansetron HCl (Zofran Inj) 4 mg Q6H PRN IV NAUSEA/VOMITING Last administered on 05/30/18at 12:02; Admin Dose 4 MG; Start 05/30/18 at 02:00 Nitroglycerin (Nitroglycerin (Sl Tab) 0.4 Mg) 1 tab Q5M PRN SL .CHEST PAIN; Start 05/30/18 at 02:00 Acetaminophen (Tylenol Tab) 650 mg Q6H PRN PO .PAIN 1-3 OR TEMP; Start 05/30/18 at 02:00 Morphine Sulfate (morphine) 1 mg Q4H PRN IV .PAIN 7-10; Start 05/30/18 at 02:00 Docusate Sodium (Colace) 100 mg Q12H PRN PO .CONSTIPATION Last administered on 05/30/18 21:38; Admin Dose 100 MG; Start 05/30/18 at 02:00 Bisacodyl (Dulcolax) 5 mg DAILY PRN PO .CONSTIPATION Last administered on 06/04/18 08:48; Admin Dose 5 MG; Start 05/30/18 at 02:00 Metoclopramide HCl (Reglan) 5 mg Q6 IV Last administered on 06/05/18 17:35; Admin Dose 5 MG; Start 05/30/18 at 18:00 Furosemide (Lasix) 40 mg BID DIURETICS IV Last administered on 06/05/18 17:35; Admin Dose 40 MG; Start 06/01/18 at 18:00 Acetaminophen (Tylenol Tab) 650 mg Q4H PRN PO PAIN; Start 06/01/18 at 15:00 Morphine Sulfate (morphine) 1 mg Q1H PRN IV PAIN; Start 06/01/18 at 15:00 Zolpidem Tartrate (Ambien) 5 mg HS MAY REPEAT X 1 PRN PO INSOMNIA Last administered on 06/03/18 02:50; Admin Dose 5 MG; Start 06/01/18 at 15:00 Al Hydrox/Mg Hydrox/Simethicone (Mag-Al Plus) 30 ml Q4H PRN PO GASTROINTESTINAL UPSET Last administered on 06/04/18 18:32; Admin Dose 30 ML; Start 06/01/18 at 15:00 Pantoprazole (Protonix Tab) 40 mg BID@0600,1800 PO Last administered on 06/05/18 17:35; Admin Dose 40 MG; Start 06/02/18 at 18:00 Apixaban (Eliquis) 5 mg BID PO Last administered on 3/3/19at 08:26; Admin Dose 5 MG; Start 06/02/18 at 21:00 Potassium Chloride (Potassium Chloride Pwd/Soln) 40 meq DAILY PO Last administered on 06/05/18at 08:27; Admin Dose 40 MEQ; Start 06/05/18 at 09:00 Guaifenesin/ Dextromethorphan (Robitussin Dm Liquid Cup) 10 ml Q6H PO Last administered on 06/05/18at 14:44; Admin Dose 10 ML; Start 06/05/18 at 09:30; Stop 06/07/18 at 09:30 Fluticasone Propionate (Flonase 0.05% Nasal) 1 spray BID NASAL Last administered on 06/05/18at 14:44; Admin Dose 1 SPRAY; Start 06/05/18 at 12:00 Albuterol (Proventil 0.083% (Neb)) 1.25 mg Q6H RESP THERAPY HHN Last administered on 06/05/18at 13:39; Admin Dose 1.25 MG; Start 06/05/18 at 14:00 Ipratropium [place] (Atrovent 0.02% (Neb)) 0.5 mg Q6H RESP THERAPY HHN Last administered on 06/05/18at 13:39; Admin Dose 0.5 MG; Start 06/05/18 at 14:00 Metolazone (Zaroxolyn) 2.5 mg DAILY PO ; Start 06/05/18 at 17:30 UZIEL ADDISON NP Jun 05, 2018 17:55
[2018-06-05] MEDS: METOLAZONE 2.5 MG TAB PO SCH (18:04)
[2018-06-06] VITALS (11 sets, daily range): BP systolic 101–116; BP diastolic 67–79; PULSE 62–85; RESP 18–20
[2018-06-06] MEDS: METOCLOPRAMIDE 10 MG INJ IV SCH ×5 (00:12→23:20)
[2018-06-06] MEDS: IPRATROPIUM (NEB) 0.5 MG/2.5 ML AMP HHN SCH ×4 (02:18→19:57)
[2018-06-06] MEDS: ALBUTEROL 0.083% (NEB) 2.5 MG/3 ML AMP HHN SCH ×4 (02:18→19:57)
[2018-06-06] MEDS: GUAIFENESIN/DM 5ML CUP PO SCH ×4 (03:47→20:45)
[2018-06-06] MEDS: FUROSEMIDE 40 MG INJ IV SCH ×2 (05:20→17:18)
[2018-06-06] MEDS: PANTOPRAZOLE (EC) 40 MG TAB PO SCH ×2 (05:21→17:56)
--- NOTE | 2018-06-06 07:44 | CONS ---
Assessment/Plan Assessment/Plan Hospital Course (Demo Recall) 52-year-old male with the history of coronary artery disease who presented with abdominal fullness and nausea. He was found to have non-STEMI, required coronary angiogram and stent placement in the right coronary artery. Interval hx: Pt denies CP or SOB. C/O Rt arm swelling since angio. States he gets full quickly primarily with lunch and dinner but is improved from last week. Keke abd pain. Nausea is mild and alleviated with prn anti emetics. IMPRESSION: 1. Chest pain, elevated troponin secondary to coronary artery disease. The patient had a stent placement in right coronary artery disease. 2. Ischemic cardiomyopathy with ejection fraction of 25%. 3. Left upper quadrant pain with chronic stasis syndrome. -Improved 4. Diabetes mellitus. 5. Hypertension. 6. Chronic kidney disease. 7. S/P angiogram 06/01 found pt to have obstructive CAD, stent placed Abdominal US- 06/28 1. Thickening of the gallbladder wall without evidence of gallstones or sludge. This is a nonspecific finding and may be related to chronic liver disease, hypoproteinemia, or acalculous cholecystitis. 2. No biliary duct dilatation. 3. Small right pleural effusion PLAN: Consider RUE doppler Recommend small meals Continue prn anti emetics and reglan Optimize blood sugars Monitor for GI bleeding, pt is on Eliquis and Plavix Fall precautions Pt examined and plan of care discussed with Dr. Lawton Consultation Date/Type/Reason Admit Date/Time May 30, 2018 at 01:33 Initial Consult Date Requesting Provider: OMAR ESPINOSA MD Date/Time of Note DATE: 06/06/18 TIME: 07:44 Exam/Review of Systems Exam Vitals Vital Signs Date Temp Pulse Resp B/P (MAP) Pulse Ox O2 O2 Flow FiO2 Time Delivery Rate 06/06/18 Nasal 2.0 07:22 Cannula 06/06/18 77 04:00 06/06/18 98.3 20 116/79 98 04:00 (91) 06/06/18 28 02:18 Intake and Output 06/05/18 06/05/18 06/06/18 1515:00 23:00 07:00 IntakeIntake Total 510 ml 210 ml OutputOutput Total 700 ml 1200 ml BalanceBalance -190 ml -990 ml Results Result Diagram: 06/06/18 0538 06/06/18 0538 Results 24hrs Laboratory Tests Test 06/06/18 05:38 White Blood Count 8.0 Red Blood Count 4.85 Hemoglobin 13.0 L Hematocrit 41.5 L Mean Corpuscular Volume 85.6 Mean Corpuscular Hemoglobin 26.8 L Mean Corpuscular Hemoglobin Concent 31.3 L Red Cell Distribution Width 16.8 H Platelet Count 318 Mean Platelet Volume 10.0 Immature Granulocytes % 0.300 Neutrophils % 70.4 Lymphocytes % 12.8 L Monocytes % 13.4 H Eosinophils % 2.5 Basophils % 0.6 Nucleated Red Blood Cells % 0.0 Immature Granulocytes # 0.020 Neutrophils # 5.6 Lymphocytes # 1.0 Monocytes # 1.1 H Eosinophils # 0.2 Basophils # 0.1 Nucleated Red Blood Cells # 0.0 Sodium Level 137 Potassium Level 3.3 L Chloride Level 100 Carbon Dioxide Level 27 Anion Gap 10 Blood Urea Nitrogen 23 H Creatinine 1.22 Est Glomerular Filtrat Rate mL/min > 60 Glucose Level 123 Calcium Level 9.0 Medications Medication Current Medications Carvedilol (Coreg) 3.125 mg BID PO Last administered on 06/05/18 21:39; Admin Dose 3.125 MG; Start 05/30/18 at 03:00 Clopidogrel Bisulfate (plaVIX) 75 mg DAILY PO Last administered on 06/05/18 08:26; Admin Dose 75 MG; Start 05/30/18 at 09:00 Hydralazine HCl (Apresoline) 10 mg Q8 PO Last administered on 06/06/18 05:21; Admin Dose 10 MG; Start 05/30/18 at 06:00 Isosorbide Mononitrate (Imdur) 30 mg DAILY PO Last administered on 06/05/18 08:27; Admin Dose 30 MG; Start 05/30/18 at 09:00 IV Flush (NS 3 ml) 3 ml PER PROTOCOL IV ; Start 05/30/18 at 02:00 Ondansetron HCl (Zofran Inj) 4 mg Q6H PRN IV NAUSEA/VOMITING Last administered on 05/30/18at 12:02; Admin Dose 4 MG; Start 05/30/18 at 02:00 Nitroglycerin (Nitroglycerin (Sl Tab) 0.4 Mg) 1 tab Q5M PRN SL .CHEST PAIN; Start 05/30/18 at 02:00 Acetaminophen (Tylenol Tab) 650 mg Q6H PRN PO .PAIN 1-3 OR TEMP; Start 05/30/18 at 02:00 Morphine Sulfate (morphine) 1 mg Q4H PRN IV .PAIN 7-10; Start 05/30/18 at 02:00 Docusate Sodium (Colace) 100 mg Q12H PRN PO .CONSTIPATION Last administered on 05/30/18 21:38; Admin Dose 100 MG; Start 05/30/18 at 02:00 Bisacodyl (Dulcolax) 5 mg DAILY PRN PO .CONSTIPATION Last administered on 06/04/18 08:48; Admin Dose 5 MG; Start 05/30/18 at 02:00 Metoclopramide HCl (Reglan) 5 mg Q6 IV Last administered on 06/06/18 05:21; Admin Dose 5 MG; Start 05/30/18 at 18:00 Furosemide (Lasix) 40 mg BID DIURETICS IV Last administered on 06/06/18 05:20; Admin Dose 40 MG; Start 06/01/18 at 18:00 Acetaminophen (Tylenol Tab) 650 mg Q4H PRN PO PAIN; Start 06/01/18 at 15:00 Morphine Sulfate (morphine) 1 mg Q1H PRN IV PAIN; Start 06/01/18 at 15:00 Zolpidem Tartrate (Ambien) 5 mg HS MAY REPEAT X 1 PRN PO INSOMNIA Last administered on 06/03/18 02:50; Admin Dose 5 MG; Start 06/01/18 at 15:00 Al Hydrox/Mg Hydrox/Simethicone (Mag-Al Plus) 30 ml Q4H PRN PO GASTROINTESTINAL UPSET Last administered on 06/04/18 18:32; Admin Dose 30 ML; Start 06/01/18 at 15:00 Pantoprazole (Protonix Tab) 40 mg BID@0600,1800 PO Last administered on 06/06/18 05:21; Admin Dose 40 MG; Start 06/02/18 at 18:00 Apixaban (Eliquis) 5 mg BID PO Last administered on 06/05/18 21:39; Admin Dose 5 MG; Start 06/02/18 at 21:00 Potassium Chloride (Potassium Chloride Pwd/Soln) 40 meq DAILY PO Last administered on 06/05/18 08:27; Admin Dose 40 MEQ; Start 06/05/18 at 09:00 Guaifenesin/ Dextromethorphan (Robitussin Dm Liquid Cup) 10 ml Q6H PO Last administered on 06/06/18 03:47; Admin Dose 10 ML; Start 06/05/18 at 09:30; Stop 06/07/18 at 09:30 Fluticasone Propionate (Flonase 0.05% Nasal) 1 spray BID NASAL Last administered on 06/05/18 21:38; Admin Dose 1 SPRAY; Start 06/05/18 at 12:00 Albuterol (Proventil 0.083% (Neb)) 1.25 mg Q6H RESP THERAPY HHN Last administered on 06/06/18 02:18; Admin Dose 1.25 MG; Start 06/05/18 at 14:00 Ipratropium [place] (Atrovent 0.02% (Neb)) 0.5 mg Q6H RESP THERAPY HHN Last administered on 06/06/18 02:18; Admin Dose 0.5 MG; Start 06/05/18 at 14:00 Metolazone (Zaroxolyn) 2.5 mg DAILY PO Last administered on 06/05/18 18:04; Admin Dose 2.5 MG; Start 06/05/18 at 17:30 OSEI LUIS Jun 06, 2018 07:44
[2018-06-06] MEDS ORDERED: POTASSIUM CHLORIDE (SR) 20 MEQ TAB PO STA (09:09)
[2018-06-06] MEDS: POTASSIUM CHLORIDE 20 MEQ POWDER FOR ORAL SOLN PO SCH (09:28)
[2018-06-06] MEDS: APIXABAN 5 MG TABLET PO SCH ×2 (09:28→20:45)
[2018-06-06] MEDS: CLOPIDOGREL 75 MG TAB PO SCH (09:28)
[2018-06-06] MEDS: ISOSORBIDE MONONITRATE(SR)30 MG TAB PO SCH (09:29)
[2018-06-06] MEDS: FLUTICASONE 0.05% 16 GM NAS SPRAY NASAL SCH ×2 (09:32→20:46)
[2018-06-06] MEDS: METOLAZONE 2.5 MG TAB PO SCH (10:36)
--- NOTE | 2018-06-06 12:05 | CONS ---
Assessment/Plan Assessment/Plan Hospital Course (Demo Recall) IMPRESSION: 1. Positive troponin consistent with [id number] myocardial infarction, small at this time. s/p PTCA/stent to 2. Chest pain, intermittent. 3. Cardiomyopathy with severe depressed left ventricular ejection fraction last EF approximately 20% by echo this month. 4. Congestive heart failure, systolic, acute on chronic, very mild volume overload at this time. 5. Abdominal pain, nausea and vomiting without intra-abdominal pathology. 6. Coagulopathy secondary to Eliquis. 7. Chronic kidney disease not on HD- acute on chronic renal failure likely contrast induced Recc: -Tele -Continue coreg/hydralazine/imdur -Contineu plavix and now resumed on eliquis -Continue lasix diuresis -Follow creatnine clsoely and volume status now also started on metolazone Consultation Date/Type/Reason Admit Date/Time May 30, 2018 at 01:33 Initial Consult Date 05/30/18 Type of Consult Cardiology Reason for Consultation Nstemi/cardiomyopathy Requesting Provider: OMAR ESPINOSA MD Date/Time of Note DATE: 06/06/18 TIME: 12:03 Exam/Review of Systems Vital Signs Vitals Vital Signs Date Temp Pulse Resp B/P (MAP) Pulse Ox O2 O2 Flow FiO2 Time Delivery Rate 06/06/18 80 12:00 06/06/18 97 3.0 08:27 06/06/18 16 Nasal 08:25 Cannula 06/06/18 98.9 112/72 08:15 (85) 06/06/18 28 02:18 Intake and Output 06/05/18 06/05/18 06/06/18 1515:00 23:00 07:00 IntakeIntake Total 510 ml 210 ml OutputOutput Total 700 ml 1200 ml BalanceBalance -190 ml -990 ml Exam Exam Review of Systems: CONSTITUTIONAL: No fevers, chills. PULMONARY: No sob CARDIOVASCULAR: No chest pain/palpitations GASTROINTESTINAL: No nausea/vomiting. GENITOURINARY: No hematuria/dysuria. MUSCULOSKELETAL: No myagias/arthalgias. PSYCHIATRIC: The patient denies depression. NEUROLOGIC: No weakness Constitutional: alert Psych: no complaints Head: normocephalic ENMT: mucosa pink and moist Neck: supple, jvd (9 cm water) Respiratory: diminished breath sounds (at bases/B) Cardiovascular: regular rate and rhythm Gastrointestinal: soft, non-tender Musculoskeletal: muscle tone (normal) Extremities: edema (trace/B) Neurological: other (No focal deficits) Labs Result Diagram: 06/06/1853706/06/18 0538 Results 24hrs Laboratory Tests Test 06/06/18 05:38 White Blood Count 8.0 Red Blood Count 4.85 Hemoglobin 13.0 L Hematocrit 41.5 L Mean Corpuscular Volume 85.6 Mean Corpuscular Hemoglobin 26.8 L Mean Corpuscular Hemoglobin Concent 31.3 L Red Cell Distribution Width 16.8 H Platelet Count 318 Mean Platelet Volume 10.0 Immature Granulocytes % 0.300 Neutrophils % 70.4 Lymphocytes % 12.8 L Monocytes % 13.4 H Eosinophils % 2.5 Basophils % 0.6 Nucleated Red Blood Cells % 0.0 Immature Granulocytes # 0.020 Neutrophils # 5.6 Lymphocytes # 1.0 Monocytes # 1.1 H Eosinophils # 0.2 Basophils # 0.1 Nucleated Red Blood Cells # 0.0 Sodium Level 137 Potassium Level 3.3 L Chloride Level 100 Carbon Dioxide Level 27 Anion Gap 10 Blood Urea Nitrogen 23 H Creatinine 1.22 Est Glomerular Filtrat Rate mL/min > 60 Glucose Level 123 Calcium Level 9.0 Medications Medications Current Medications Carvedilol (Coreg) 3.125 mg BID PO Last administered on 06/06/18 09:29; Admin Dose 3.125 MG; Start 05/30/18 at 03:00 Clopidogrel Bisulfate (plaVIX) 75 mg DAILY PO Last administered on 06/06/18 09:28; Admin Dose 75 MG; Start 05/30/18 at 09:00 Hydralazine HCl (Apresoline) 10 mg Q8 PO Last administered on 06/06/18 05:21; Admin Dose 10 MG; Start 05/30/18 at 06:00 Isosorbide Mononitrate (Imdur) 30 mg DAILY PO Last administered on 06/06/18 09:29; Admin Dose 30 MG; Start 05/30/18 at 09:00 IV Flush (NS 3 ml) 3 ml PER PROTOCOL IV ; Start 05/30/18 at 02:00 Ondansetron HCl (Zofran Inj) 4 mg Q6H PRN IV NAUSEA/VOMITING Last administered on 2/25/19at 12:02; Admin Dose 4 MG; Start 05/30/18 at 02:00 Nitroglycerin (Nitroglycerin (Sl Tab) 0.4 Mg) 1 tab Q5M PRN SL .CHEST PAIN; Start 05/30/18 at 02:00 Acetaminophen (Tylenol Tab) 650 mg Q6H PRN PO .PAIN 1-3 OR TEMP; Start 05/30/18 at 02:00 Morphine Sulfate (morphine) 1 mg Q4H PRN IV .PAIN 7-10; Start 05/30/18 at 02:00 Docusate Sodium (Colace) 100 mg Q12H PRN PO .CONSTIPATION Last administered on 05/30/18 21:38; Admin Dose 100 MG; Start 05/30/18 at 02:00 Bisacodyl (Dulcolax) 5 mg DAILY PRN PO .CONSTIPATION Last administered on 06/04/18 08:48; Admin Dose 5 MG; Start 05/30/18 at 02:00 Metoclopramide HCl (Reglan) 5 mg Q6 IV Last administered on 06/06/18 05:21; Admin Dose 5 MG; Start 05/30/18 at 18:00 Furosemide (Lasix) 40 mg BID DIURETICS IV Last administered on 06/06/18 05:20; Admin Dose 40 MG; Start 06/01/18 at 18:00 Acetaminophen (Tylenol Tab) 650 mg Q4H PRN PO PAIN; Start 06/01/18 at 15:00 Morphine Sulfate (morphine) 1 mg Q1H PRN IV PAIN; Start 06/01/18 at 15:00 Zolpidem Tartrate (Ambien) 5 mg HS MAY REPEAT X 1 PRN PO INSOMNIA Last administered on 06/03/18 02:50; Admin Dose 5 MG; Start 06/01/18 at 15:00 Al Hydrox/Mg Hydrox/Simethicone (Mag-Al Plus) 30 ml Q4H PRN PO GASTROINTESTINAL UPSET Last administered on 06/04/18 18:32; Admin Dose 30 ML; Start 06/01/18 at 15:00 Pantoprazole (Protonix Tab) 40 mg BID@0600,1800 PO Last administered on 06/06/18 05:21; Admin Dose 40 MG; Start 06/02/18 at 18:00 Apixaban (Eliquis) 5 mg BID PO Last administered on 06/06/18 09:28; Admin Dose 5 MG; Start 06/02/18 at 21:00 Potassium Chloride (Potassium Chloride Pwd/Soln) 40 meq DAILY PO Last adminis tered on 06/06/18 09:28; Admin Dose 40 MEQ; Start 06/05/18 at 09:00 Guaifenesin/ Dextromethorphan (Robitussin Dm Liquid Cup) 10 ml Q6H PO Last administered on 06/06/18 10:35; Admin Dose 10 ML; Start 06/05/18 at 09:30; Stop 06/07/18 at 09:30 Fluticasone Propionate (Flonase 0.05% Nasal) 1 spray BID NASAL Last administered on 06/06/18 09:32; Admin Dose 1 SPRAY; Start 06/05/18 at 12:00 Albuterol (Proventil 0.083% (Neb)) 1.25 mg Q6H RESP THERAPY HHN Last administered on 06/06/18 08:22; Admin Dose 1.25 MG; Start 06/05/18 at 14:00 Ipratropium [place] (Atrovent 0.02% (Neb)) 0.5 mg Q6H RESP THERAPY HHN Last administered on 06/06/18 08:20; Admin Dose 0.5 MG; Start 06/05/18 at 14:00 Metolazone (Zaroxolyn) 2.5 mg DAILY PO Last administered on 06/06/18 10:36; Admin Dose 2.5 MG; Start 06/05/18 at 17:30 KARSON HERNANDEZ Jun 06, 2018 12:05
--- NOTE | 2018-06-06 14:10 | PN ---
Date/Time of Note Date/Time of Note DATE: 06/06/18 TIME: 14:08 Assessment/Plan VTE Prophylaxis Risk score (from Ns)>0 risk: 5 SCD applied (from Ns): No SCD contraindicated: low risk/ambulating Pharmacological prophylaxis: NA/contraindicated Pharm contraindication: low risk/ambulating Lines/Catheters IV [facility] [place] Urinary Cath still in place: No Assessment/Plan Hospital Course This is a 52-year-old male who presented with: 1. Chest pain with elevated troponins, likely secondary to [id number]-[id number] myocardial infarction.s/p angiogram on 06/01 with multivessel CAD 2. Nausea, vomiting, epigastric pain. It could be related to acute coronary syndrome; however we cannot rule out underlying gastritis. LFTs show only abnormal elevated alkaline phosphatase. The patient has had HIDA scan in 03/2018 which had been negative. abd ultrasound is essentially neg 3. Acute on chronic systolic congestive heart failure. 4. Elevated alkaline phosphatase. 5. Cardiomyopathy. 6. Diabetes. 7. Hypertension. 8. Severe cardiomyopathy with ejection fraction of 20% to 25%. 9. Chronic kidney disease stage III. with Cr jump to 1.41 s/p diuresis and now s/p angiogram on 06/01 10. Hypomagnesemia. 11 V tach asymtomatic Plan - cw lasix 40 bid and metolozone -ABG check for if patient needs home oxygen - eliquis -?AICD Monitor strict I's and O's- -Continue with Plavix/Imdur/hydralazine -Replete potassium dC planning in 1 or 2 days if the volume status is improved Result Diagram: 06/06/18 0538 06/06/18 0538 Results 24hrs Laboratory Tests Test 06/06/18 05:38 White Blood Count 8.0 Red Blood Count 4.85 Hemoglobin 13.0 L Hematocrit 41.5 L Mean Corpuscular Volume 85.6 Mean Corpuscular Hemoglobin 26.8 L Mean Corpuscular Hemoglobin Concent 31.3 L Red Cell Distribution Width 16.8 H Platelet Count 318 Mean Platelet Volume 10.0 Immature Granulocytes % 0.300 Neutrophils % 70.4 Lymphocytes % 12.8 L Monocytes % 13.4 H Eosinophils % 2.5 Basophils % 0.6 Nucleated Red Blood Cells % 0.0 Immature Granulocytes # 0.020 Neutrophils # 5.6 Lymphocytes # 1.0 Monocytes # 1.1 H Eosinophils # 0.2 Basophils # 0.1 Nucleated Red Blood Cells # 0.0 Sodium Level 137 Potassium Level 3.3 L Chloride Level 100 Carbon Dioxide Level 27 Anion Gap 10 Blood Urea Nitrogen 23 H Creatinine 1.22 Est Glomerular Filtrat Rate mL/min > 60 Glucose Level 123 Calcium Level 9.0 Subjective 24 Hr Interval Summary Free Text/Dictation A lot better today. sob As of breath is much improved net 1.1 l Exam/Review of Systems Exam Vitals Vital Signs Date Temp Pulse Resp B/P (MAP) Pulse Ox O2 O2 Flow FiO2 Time Delivery Rate 06/06/18 93 13:37 06/06/18 85 20 Nasal 2.0 13:35 Cannula Simple Mask 06/06/18 98.7 104/76 12:00 (85) 06/06/18 28 02:18 Intake and Output 06/05/18 06/05/18 06/06/18 1515:00 23:00 07:00 IntakeIntake Total 510 ml 210 ml OutputOutput Total 700 ml 1200 ml BalanceBalance -190 ml -990 ml Exam Constitutional: alert, oriented Neck: supple Respiratory: congested cough, crackles/rales, diminished breath sounds Cardiovascular: regular rate and rhythm Gastrointestinal: soft Results Results 24hrs Laboratory Tests Test 06/06/18 05:38 White Blood Count 8.0 Red Blood Count 4.85 Hemoglobin 13.0 L Hematocrit 41.5 L Mean Corpuscular Volume 85.6 Mean Corpuscular Hemoglobin 26.8 L Mean Corpuscular Hemoglobin Concent 31.3 L Red Cell Distribution Width 16.8 H Platelet Count 318 Mean Platelet Volume 10.0 Immature Granulocytes % 0.300 Neutrophils % 70.4 Lymphocytes % 12.8 L Monocytes % 13.4 H Eosinophils % 2.5 Basophils % 0.6 Nucleated Red Blood Cells % 0.0 Immature Granulocytes # 0.020 Neutrophils # 5.6 Lymphocytes # 1.0 Monocytes # 1.1 H Eosinophils # 0.2 Basophils # 0.1 Nucleated Red Blood Cells # 0.0 Sodium Level 137 Potassium Level 3.3 L Chloride Level 100 Carbon Dioxide Level 27 Anion Gap 10 Blood Urea Nitrogen 23 H Creatinine 1.22 Est Glomerular Filtrat Rate mL/min > 60 Glucose Level 123 Calcium Level 9.0 Medications Medication Current Medications Carvedilol (Coreg) 3.125 mg BID PO Last administered on 06/06/18 09:29; Admin Dose 3.125 MG; Start 05/30/18 at 03:00 Clopidogrel Bisulfate (plaVIX) 75 mg DAILY PO Last administered on 06/06/18 09:28; Admin Dose 75 MG; Start 05/30/18 at 09:00 Hydralazine HCl (Apresoline) 10 mg Q8 PO Last administered on 06/06/18 13:22; Admin Dose 10 MG; Start 05/30/18 at 06:00 Isosorbide Mononitrate (Imdur) 30 mg DAILY PO Last administered on 06/06/18 09:29; Admin Dose 30 MG; Start 05/30/18 at 09:00 IV Flush (NS 3 ml) 3 ml PER PROTOCOL IV ; Start 05/30/18 at 02:00 Ondansetron HCl (Zofran Inj) 4 mg Q6H PRN IV NAUSEA/VOMITING Last administered on 05/30/18 12:02; Admin Dose 4 MG; Start 05/30/18 at 02:00 Nitroglycerin (Nitroglycerin (Sl Tab) 0.4 Mg) 1 tab Q5M PRN SL .CHEST PAIN; Start 05/30/18 at 02:00 Acetaminophen (Tylenol Tab) 650 mg Q6H PRN PO .PAIN 1-3 OR TEMP; Start 05/30/18 at 02:00 Morphine Sulfate (morphine) 1 mg Q4H PRN IV .PAIN 7-10; Start 05/30/18 at 02:00 Docusate Sodium (Colace) 100 mg Q12H PRN PO .CONSTIPATION Last administered on 05/30/18 21:38; Admin Dose 100 MG; Start 05/30/18 at 02:00 Bisacodyl (Dulcolax) 5 mg DAILY PRN PO .CONSTIPATION Last administered on 06/04/18 08:48; Admin Dose 5 MG; Start 05/30/18 at 02:00 Metoclopramide HCl (Reglan) 5 mg Q6 IV Last administered on 06/06/18 12:50; Admin Dose 5 MG; Start 05/30/18 at 18:00 Furosemide (Lasix) 40 mg BID DIURETICS IV Last administered on 06/06/18 05:20; Admin Dose 40 MG; Start 06/01/18 at 18:00 Acetaminophen (Tylenol Tab) 650 mg Q4H PRN PO PAIN; Start 06/01/18 at 15:00 Morphine Sulfate (morphine) 1 mg Q1H PRN IV PAIN; Start 06/01/18 at 15:00 Zolpidem Tartrate (Ambien) 5 mg HS MAY REPEAT X 1 PRN PO INSOMNIA Last administered on 06/03/18 02:50; Admin Dose 5 MG; Start 06/01/18 at 15:00 Al Hydrox/Mg Hydrox/Simethicone (Mag-Al Plus) 30 ml Q4H PRN PO GASTROINTESTINAL UPSET Last administered on 06/04/18 18:32; Admin Dose 30 ML; Start 06/01/18 at 15:00 Pantoprazole (Protonix Tab) 40 mg BID@0600,1800 PO Last administered on 06/06/18 05:21; Admin Dose 40 MG; Start 06/02/18 at 18:00 Apixaban (Eliquis) 5 mg BID PO Last administered on 06/06/18 09:28; Admin Dose 5 MG; Start 06/02/18 at 21:00 Potassium Chloride (Potassium Chloride Pwd/Soln) 40 meq DAILY PO Last administered on 06/06/18 09:28; Admin Dose 40 MEQ; Start 06/05/18 at 09:00 Guaifenesin/ Dextromethorphan (Robitussin Dm Liquid Cup) 10 ml Q6H PO Last administered on 06/06/18 10:35; Admin Dose 10 ML; Start 06/05/18 at 09:30; Stop 06/07/18 at 09:30 Fluticasone Propionate (Flonase 0.05% Nasal) 1 spray BID NASAL Last administered on 06/06/18 09:32; Admin Dose 1 SPRAY; Start 06/05/18 at 12:00 Albuterol (Proventil 0.083% (Neb)) 1.25 mg Q6H RESP THERAPY HHN Last administered on 06/06/18 13:31; Admin Dose 1.25 MG; Start 06/05/18 at 14:00 Ipratropium [place] (Atrovent 0.02% (Neb)) 0.5 mg Q6H RESP THERAPY HHN Last administered on 3/4/19at 13:30; Admin Dose 0.5 MG; Start 06/05/18 at 14:00 Metolazone (Zaroxolyn) 2.5 mg DAILY PO Last administered on 06/06/18at 10:36; Admin Dose 2.5 MG; Start 06/05/18 at 17:30 OMAR ESPINOSA MD Jun 06, 2018 14:10
[2018-06-06] MEDS: MAGNESIUM SULFATE 2 GM/50 ML 50 ML IVPB ONE ×2 (15:24→16:01)
[2018-06-07] VITALS (10 sets, daily range): BP systolic 94–107; BP diastolic 61–68; PULSE 69–86; RESP 18–19
[2018-06-07] MEDS: IPRATROPIUM (NEB) 0.5 MG/2.5 ML AMP HHN SCH ×5 (01:16→20:01)
[2018-06-07] MEDS: ALBUTEROL 0.083% (NEB) 2.5 MG/3 ML AMP HHN SCH ×5 (01:16→20:01)
[2018-06-07] MEDS: GUAIFENESIN/DM 5ML CUP PO SCH ×2 (04:23→09:30)
[2018-06-07] MEDS: FUROSEMIDE 40 MG INJ IV SCH ×2 (05:50→17:46)
[2018-06-07] MEDS: PANTOPRAZOLE (EC) 40 MG TAB PO SCH ×2 (05:51→17:04)
[2018-06-07] MEDS: METOCLOPRAMIDE 10 MG INJ IV SCH ×4 (05:52→23:12)
[2018-06-07] MEDS: CLOPIDOGREL 75 MG TAB PO SCH (08:19)
[2018-06-07] MEDS: APIXABAN 5 MG TABLET PO SCH ×2 (08:20→21:36)
[2018-06-07] MEDS: ISOSORBIDE MONONITRATE(SR)30 MG TAB PO SCH (08:20)
[2018-06-07] MEDS: POTASSIUM CHLORIDE 20 MEQ POWDER FOR ORAL SOLN PO SCH (08:20)
[2018-06-07] MEDS: FLUTICASONE 0.05% 16 GM NAS SPRAY NASAL SCH ×2 (08:21→21:36)
[2018-06-07] MEDS: METOLAZONE 2.5 MG TAB PO SCH ×2 (08:21→17:04)
--- NOTE | 2018-06-07 08:42 | CONS ---
Assessment/Plan Assessment/Plan Hospital Course (Demo Recall) 52-year-old male with the history of coronary artery disease who presented with abdominal fullness and nausea. He was found to have non-STEMI, required coronary angiogram and stent placement in the right coronary artery. Interval hx: States abdominal fullness improved markedly. No c/o nausea. No abd pain. IMPRESSION: 1. Chest pain, elevated troponin secondary to coronary artery disease. The patient had a stent placement in right coronary artery disease. 2. Ischemic cardiomyopathy with ejection fraction of 25%. 3. Left upper quadrant pain with chronic stasis syndrome. -Improved 4. Diabetes mellitus. 5. Hypertension. 6. Chronic kidney disease. 7. S/P angiogram 06/01 found pt to have obstructive CAD, stent placed 8. Thrombosis of the right cephalic vein at the antecubital fossa. -pt is already on anti coagulants Abdominal US- 06/28 1. Thickening of the gallbladder wall without evidence of gallstones or sludge. This is a nonspecific finding and may be related to chronic liver disease, hypoproteinemia, or acalculous cholecystitis. 2. No biliary duct dilatation. 3. Small right pleural effusion PLAN: Recommend small meals Continue prn anti emetics and reglan Optimize blood sugars Monitor for GI bleeding, pt is on Eliquis and Plavix Fall precautions Pt examined and plan of care discussed with Dr. Lawton Consultation Date/Type/Reason Admit Date/Time May 30, 2018 at 01:33 Initial Consult Date Requesting Provider: OMAR ESPINOSA MD Date/Time of Note DATE: 06/07/18 TIME: 08:41 Exam/Review of Systems Exam Vitals Vital Signs Date Temp Pulse Resp B/P (MAP) Pulse Ox O2 O2 Flow FiO2 Time Delivery Rate 06/07/18 75 08:14 06/07/18 Nasal 2.0 07:14 Cannula 06/07/18 98.1 19 104/68 96 07:09 (80) 06/06/18 28 02:18 Intake and Output 06/06/18 06/06/18 06/07/18 1515:00 23:00 07:00 IntakeIntake Total 470 ml 400 ml OutputOutput Total 900 ml 950 ml BalanceBalance -430 ml -550 ml Results Result Diagram: 06/06/18 0538 06/07/18 0625 Results 24hrs Laboratory Tests Test 06/07/18 06:25 Sodium Level 135 Potassium Level 3.3 L Chloride Level 93 L Carbon Dioxide Level 30 Anion Gap 12 Blood Urea Nitrogen 25 H Creatinine 1.21 Est Glomerular Filtrat Rate mL/min > 60 Glucose Level 141 Calcium Level 9.2 Phosphorus Level 4.3 Magnesium Level 1.9 Medications Medication Current Medications Carvedilol (Coreg) 3.125 mg BID PO Last administered on 06/07/18 08:20; Admin Dose 3.125 MG; Start 05/30/18 at 03:00 Clopidogrel Bisulfate (plaVIX) 75 mg DAILY PO Last administered on 06/07/18 08:19; Admin Dose 75 MG; Start 05/30/18 at 09:00 Hydralazine HCl (Apresoline) 10 mg Q8 PO Last administered on 06/07/18 05:49; Admin Dose 10 MG; Start 05/30/18 at 06:00 Isosorbide Mononitrate (Imdur) 30 mg DAILY PO Last administered on 06/07/18 08:20; Admin Dose 30 MG; Start 05/30/18 at 09:00 IV Flush (NS 3 ml) 3 ml PER PROTOCOL IV ; Start 05/30/18 at 02:00 Ondansetron HCl (Zofran Inj) 4 mg Q6H PRN IV NAUSEA/VOMITING Last administered on 05/30/18 12:02; Admin Dose 4 MG; Start 05/30/18 at 02:00 Nitroglycerin (Nitroglycerin (Sl Tab) 0.4 Mg) 1 tab Q5M PRN SL .CHEST PAIN; Start 05/30/18 at 02:00 Acetaminophen (Tylenol Tab) 650 mg Q6H PRN PO .PAIN 1-3 OR TEMP; Start 05/30/18 at 02:00 Morphine Sulfate (morphine) 1 mg Q4H PRN IV .PAIN 7-10; Start 05/30/18 at 02:00 Docusate Sodium (Colace) 100 mg Q12H PRN PO .CONSTIPATION Last administered on 05/30/18 21:38; Admin Dose 100 MG; Start 05/30/18 at 02:00 Bisacodyl (Dulcolax) 5 mg DAILY PRN PO .CONSTIPATION Last administered on 06/04/18 08:48; Admin Dose 5 MG; Start 05/30/18 at 02:00 Metoclopramide HCl (Reglan) 5 mg Q6 IV Last administered on 06/07/18 05:52; Admin Dose 5 MG; Start 05/30/18 at 18:00 Furosemide (Lasix) 40 mg BID DIURETICS IV Last administered on 06/07/18 05:50; Admin Dose 40 MG; Start 06/01/18 at 18:00 Acetaminophen (Tylenol Tab) 650 mg Q4H PRN PO PAIN; Start 06/01/18 at 15:00 Morphine Sulfate (morphine) 1 mg Q1H PRN IV PAIN; Start 06/01/18 at 15:00 Zolpidem Tartrate (Ambien) 5 mg HS MAY REPEAT X 1 PRN PO INSOMNIA Last ad ministered on 06/03/18 02:50; Admin Dose 5 MG; Start 06/01/18 at 15:00 Al Hydrox/Mg Hydrox/Simethicone (Mag-Al Plus) 30 ml Q4H PRN PO GASTROINTESTINAL UPSET Last administered on 06/04/18 18:32; Admin Dose 30 ML; Start 06/01/18 at 15:00 Pantoprazole (Protonix Tab) 40 mg BID@0600,1800 PO Last administered on 06/07/18 05:51; Admin Dose 40 MG; Start 06/02/18 at 18:00 Apixaban (Eliquis) 5 mg BID PO Last administered on 06/07/18 08:20; Admin Dose 5 MG; Start 06/02/18 at 21:00 Potassium Chloride (Potassium Chloride Pwd/Soln) 40 meq DAILY PO Last administered on 06/07/18 08:20; Admin Dose 40 MEQ; Start 06/05/18 at 09:00 Guaifenesin/ Dextromethorphan (Robitussin Dm Liquid Cup) 10 ml Q6H PO Last a dministered on 06/07/18 04:23; Admin Dose 10 ML; Start 06/05/18 at 09:30; Stop 06/07/18 at 09:30 Fluticasone Propionate (Flonase 0.05% Nasal) 1 spray BID NASAL Last administered on 06/07/18 08:21; Admin Dose 1 SPRAY; Start 06/05/18 at 12:00 Albuterol (Proventil 0.083% (Neb)) 1.25 mg Q6H RESP THERAPY HHN Last administered on 06/07/18 08:01; Admin Dose 1.25 MG; Start 06/05/18 at 14:00 Ipratropium [place] (Atrovent 0.02% (Neb)) 0.5 mg Q6H RESP THERAPY HHN Last administered on 06/07/18 08:01; Admin Dose 0.5 MG; Start 06/05/18 at 14:00 Metolazone (Zaroxolyn) 2.5 mg DAILY PO Last administered on 06/07/18 08:21; Admin Dose 2.5 MG; Start 06/05/18 at 17:30 OSEI LUIS Jun 07, 2018 08:42
--- NOTE | 2018-06-07 09:52 | CONS ---
Consult Date/Type/Reason Admit Date/Time May 30, 2018 at 01:33 Initial Consult Date Requesting Provider: OMAR ESPINOSA MD Date/Time of Note DATE: 06/07/18 TIME: 09:51 Subjective NO acute events - pt comfortable - no CP - in better fluid status now. Con't diuresis - no CP. ROS: No fever, no chills, no nausea, no vomiting, no diarrhea/constipation No recent weight changes No chest pain, no PND, no orthopnea - improved SOB. No dizziness, blurred vision No thirst, no heat or cold intolerance Objective Vitals Vital Signs Date Temp Pulse Resp B/P (MAP) Pulse Ox O2 O2 Flow FiO2 Time Delivery Rate 06/07/18 75 08:14 06/07/18 Nasal 2.0 07:14 Cannula 06/07/18 98.1 19 104/68 96 07:09 (80) 06/06/18 28 02:18 Intake and Output 06/06/18 06/06/18 06/07/18 1515:00 23:00 07:00 IntakeIntake Total 470 ml 400 ml OutputOutput Total 900 ml 950 ml BalanceBalance -430 ml -550 ml Exam General: WN/WD/NAD, AOx 3 HEENT: Unicetric/atraumatic/EOMI (follows commands) NECK: JVD elevated, no thyromegaly Lymph: no lymphadenopathy HEART: regular with no S3, II/ systolic murmur at apex, PMI L LUNGS: Coarse sounds ABD: soft, NT, ND, +BS : Intact Neuro: non focal SKIN: chronic changes EXT: trace edema - better Results/Medications Result Diagram: 06/06/18 0538 06/07/18 0625 Results 24 hrs Laboratory Tests Test 06/07/18 06:25 Sodium Level 135 Potassium Level 3.3 L Chloride Level 93 L Carbon Dioxide Level 30 Anion Gap 12 Blood Urea Nitrogen 25 H Creatinine 1.21 Est Glomerular Filtrat Rate mL/min > 60 Glucose Level 141 Calcium Level 9.2 Phosphorus Level 4.3 Magnesium Level 1.9 Home Meds Active Scripts Baclofen* (Baclofen*) 10 Mg Tablet, 10 MG PO DAILY for 10 Days, TAB Prov:MEHREEN HILLMAN 05/20/18 Potassium Chloride* (K-Dur*) 20 Meq Tab.prt.sr, 20 MEQ PO DAILY for 30 Days Prov:OMAR ESPINOSA MD 04/01/18 Apixaban* (Eliquis*) 5 Mg Tablet, 5 MG PO BID for 30 Days, TAB Prov:MEHREEN HILLMAN 03/26/18 Furosemide* (Furosemide*) 40 Mg Tablet, 40 MG PO BID DIURETICS for 60 Days, TAB Prov:MEHREEN HILLMAN 03/25/18 Isosorbide Mononitrate* (Isosorbide Mononitrate*) 30 Mg Tab.er.24h, 30 MG PO DAILY for 30 Days Prov:MEHREEN HILLMAN 03/25/18 Hydralazine Hcl* (Hydralazine Hcl*) 10 Mg Tablet, 10 MG PO Q8 for 30 Days, TAB Prov:MEHREEN HILLMAN 03/25/18 Carvedilol* (Carvedilol*) 3.125 Mg Tablet, 3.125 MG PO BID for 30 Days, TAB Prov:MEHREEN HILLMAN 03/25/18 Reported Medications Nateglinide* (Nateglinide*) 60 Mg Tablet, 60 MG PO BID, TAB 11/12/17 Nitroglycerin* (Nitrostat*) 0.4 Mg Tab.subl, 0.4 MG SL Q5MIN PRN for CHEST PAIN, BOTTLE 11/12/17 Clopidogrel Bisulfate* (Clopidogrel Bisulfate*) 75 Mg Tablet, 75 MG PO DAILY, TAB 04/28/16 Medications Current Medications Carvedilol (Coreg) 3.125 mg BID PO Last administered on 06/07/18at 08:20; Admin Dose 3.125 MG; Start 05/30/18 at 03:00 Clopidogrel Bisulfate (plaVIX) 75 mg DAILY PO Last administered on 06/07/18at 08:19; Admin Dose 75 MG; Start 05/30/18 at 09:00 Hydralazine HCl (Apresoline) 10 mg Q8 PO Last administered on 06/07/18at 05:49; Admin Dose 10 MG; Start 05/30/18 at 06:00 Isosorbide Mononitrate (Imdur) 30 mg DAILY PO Last administered on 06/07/18at 08:20; Admin Dose 30 MG; Start 05/30/18 at 09:00 IV Flush (NS 3 ml) 3 ml PER PROTOCOL IV ; Start 05/30/18 at 02:00 Ondansetron HCl (Zofran Inj) 4 mg Q6H PRN IV NAUSEA/VOMITING Last administered on 05/30/18 12:02; Admin Dose 4 MG; Start 05/30/18 at 02:00 Nitroglycerin (Nitroglycerin (Sl Tab) 0.4 Mg) 1 tab Q5M PRN SL .CHEST PAIN; Start 05/30/18 at 02:00 Acetaminophen (Tylenol Tab) 650 mg Q6H PRN PO .PAIN 1-3 OR TEMP; Start 05/30/18 at 02:00 Morphine Sulfate (morphine) 1 mg Q4H PRN IV .PAIN 7-10; Start 05/30/18 at 02:00 Docusate Sodium (Colace) 100 mg Q12H PRN PO .CONSTIPATION Last administered on 05/30/18 21:38; Admin Dose 100 MG; Start 05/30/18 at 02:00 Bisacodyl (Dulcolax) 5 mg DAILY PRN PO .CONSTIPATION Last administered on 06/04 08:48; Admin Dose 5 MG; Start 05/30/18 at 02:00 Metoclopramide HCl (Reglan) 5 mg Q6 IV Last administered on 06/07/18 05:52; Admin Dose 5 MG; Start 05/30/18 at 18:00 Furosemide (Lasix) 40 mg BID DIURETICS IV Last administered on 06/07/18 05:50; Admin Dose 40 MG; Start 06/01/18 at 18:00 Acetaminophen (Tylenol Tab) 650 mg Q4H PRN PO PAIN; Start 06/01/18 at 15:00 Morphine Sulfate (morphine) 1 mg Q1H PRN IV PAIN; Start 06/01/18 at 15:00 Zolpidem Tartrate (Ambien) 5 mg HS MAY REPEAT X 1 PRN PO INSOMNIA Last administered on 06/03/18 02:50; Admin Dose 5 MG; Start 06/01/18 at 15:00 Al Hydrox/Mg Hydrox/Simethicone (Mag-Al Plus) 30 ml Q4H PRN PO GASTROINTESTINAL UPSET Last administered on 06/04/18 18:32; Admin Dose 30 ML; Start 06/01/18 at 15:00 Pantoprazole (Protonix Tab) 40 mg BID@0600,1800 PO Last administered on 06/07/18 05:51; Admin Dose 40 MG; Start 06/02/18 at 18:00 Apixaban (Eliquis) 5 mg BID PO Last administered on 06/07/18 08:20; Admin Dose 5 MG; Start 06/02/18 at 21:00 Potassium Chloride (Potassium Chloride Pwd/Soln) 40 meq DAILY PO Last administered on 06/07/18 08:20; Admin Dose 40 MEQ; Start 06/05/18 at 09:00 Fluticasone Propionate (Flonase 0.05% Nasal) 1 spray BID NASAL Last administered on 06/07/18 08:21; Admin Dose 1 SPRAY; Start 06/05/18 at 12:00 Albuterol (Proventil 0.083% (Neb)) 1.25 mg Q6H RESP THERAPY HHN Last administered on 06/07/18 08:01; Admin Dose 1.25 MG; Start 06/05/18 at 14:00 Ipratropium [place] (Atrovent 0.02% (Neb)) 0.5 mg Q6H RESP THERAPY HHN Last administered on 06/07/18 08:01; Admin Dose 0.5 MG; Start 06/05/18 at 14:00 Metolazone (Zaroxolyn) 2.5 mg DAILY PO Last administered on 06/07/18 08:21; Admin Dose 2.5 MG; Start 06/05/18 at 17:30 Assessment/Plan Hospital Course (Demo Recall) 1. Positive troponin consistent with [id number] myocardial infarction, small at this time. s/p PTCA/stent - tolerated well - no CP now, con't med rx - consider cardiac rehab - no cp now. 2. Chest pain, intermittent- on meds 3. Cardiomyopathy with severe depressed left ventricular ejection fraction last EF approximately 20% by echo this month- niw s/p PCI - outpt ICD eval. Improved CHF by exam, metolazone added. 4. Congestive heart failure, systolic, acute on chronic, very mild volume overload at this time. 5. Abdominal pain, nausea and vomiting without intra-abdominal pathology. 6. Coagulopathy secondary to Eliquis. NO bleeding now. 7. Chronic kidney disease not on HD- acute on chronic renal failure likely contrast induced LENSKY,OSCAR MD Jun 07, 2018 09:52
[2018-06-07] MEDS ORDERED: POTASSIUM CHLORIDE (SR) 20 MEQ TAB PO STA (11:12)
--- NOTE | 2018-06-07 12:59 | PN ---
Date/Time of Note Date/Time of Note DATE: 06/07/18 TIME: 12:55 Assessment/Plan VTE Prophylaxis Risk score (from Ns)>0 risk: 5 SCD applied (from Ns): No SCD contraindicated: low risk/ambulating Pharmacological prophylaxis: NA/contraindicated Pharm contraindication: low risk/ambulating Lines/Catheters IV [facility] [place] Urinary Cath still in place: No Assessment/Plan Hospital Course This is a 52-year-old male who presented with: 1. 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 Nausea, vomiting, epigastric pain. It could be related to acute coronary syndrome; however we cannot rule out underlying gastritis. LFTs show only abnormal elevated alkaline phosphatase. The patient has had HIDA scan in 03/2018 which had been negative. abd ultrasound is essentially neg 3. Acute on chronic systolic congestive heart failure. 4. Elevated alkaline phosphatase. 5. Cardiomyopathy. 6. Diabetes. 7. Hypertension. 8. Severe cardiomyopathy with ejection fraction of 20% to 25%. 9. Chronic kidney disease stage III. with Cr jump to 1.41 s/p diuresis and now s/p angiogram on 06/01 10. Hypomagnesemia. 11 V tach asymtomatic Plan - Additional Lasix 40 mg iv once - Increase nebs frequency - repeat Chest xray - cw lasix 40 bid and metolozone - rt rm superifical DVT already on eliquis? IV> heme consult> eliquis failure? - pt was off eliquis just for procedure -?AICD as OPD Monitor strict I's and O's- -Continue with Plavix/Imdur/hydralazine -Replete potassium and Mg Result Diagram: 06/06/18 0538 06/07/18 0625 Results 24hrs Laboratory Tests Test 06/07/18 06:25 Sodium Level 135 Potassium Level 3.3 L Chloride Level 93 L Carbon Dioxide Level 30 Anion Gap 12 Blood Urea Nitrogen 25 H Creatinine 1.21 Est Glomerular Filtrat Rate mL/min > 60 Glucose Level 141 Calcium Level 9.2 Phosphorus Level 4.3 Magnesium Level 1.9 Subjective 24 Hr Interval Summary Free Text/Dictation some sob - 980 ml U/S rt arm rt cephalic vein Exam/Review of Systems Exam Vitals Vital Signs Date Temp Pulse Resp B/P (MAP) Pulse Ox O2 O2 Flow FiO2 Time Delivery Rate 06/07/18 79 12:00 06/07/18 98.1 19 102/66 97 11:41 (78) 06/07/18 Nasal 2.0 08:01 Cannula 06/06/18 28 02:18 Intake and Output 06/06/18 06/06/18 06/07/18 1515:00 23:00 07:00 IntakeIntake Total 470 ml 400 ml OutputOutput Total 900 ml 950 ml BalanceBalance -430 ml -550 ml Exam Constitutional: alert, oriented Neck: supple Respiratory: congested cough, crackles/rales b/l , Cardiovascular: regular rate and rhythm Gastrointestinal: soft edema of legs rt arm edema Results Results 24hrs Laboratory Tests Test 06/07/18 06:25 Sodium Level 135 Potassium Level 3.3 L Chloride Level 93 L Carbon Dioxide Level 30 Anion Gap 12 Blood Urea Nitrogen 25 H Creatinine 1.21 Est Glomerular Filtrat Rate mL/min > 60 Glucose Level 141 Calcium Level 9.2 Phosphorus Level 4.3 Magnesium Level 1.9 Medications Medication Current Medications Carvedilol (Coreg) 3.125 mg BID PO Last administered on 06/07/18at 08:20; Admin Dose 3.125 MG; Start 05/30/18 at 03:00 Clopidogrel Bisulfate (plaVIX) 75 mg DAILY PO Last administered on 06/07/18at 08:19; Admin Dose 75 MG; Start 05/30/18 at 09:00 Hydralazine HCl (Apresoline) 10 mg Q8 PO Last administered on 06/07/18at 05:49; Admin Dose 10 MG; Start 05/30/18 at 06:00 Isosorbide Mononitrate (Imdur) 30 mg DAILY PO Last administered on 06/07/18at 08:20; Admin Dose 30 MG; Start 05/30/18 at 09:00 IV Flush (NS 3 ml) 3 ml PER PROTOCOL IV ; Start 05/30/18 at 02:00 Ondansetron HCl (Zofran Inj) 4 mg Q6H PRN IV NAUSEA/VOMITING Last administered on 05/30/18at 12:02; Admin Dose 4 MG; Start 05/30/18 at 02:00 Nitroglycerin (Nitroglycerin (Sl Tab) 0.4 Mg) 1 tab Q5M PRN SL .CHEST PAIN; Start 05/30/18 at 02:00 Acetaminophen (Tylenol Tab) 650 mg Q6H PRN PO .PAIN 1-3 OR TEMP; Start 05/30/18 at 02:00 Morphine Sulfate (morphine) 1 mg Q4H PRN IV .PAIN 7-10; Start 05/30/18 at 02:00 Docusate Sodium (Colace) 100 mg Q12H PRN PO .CONSTIPATION Last administered on 05/30/18 21:38; Admin Dose 100 MG; Start 05/30/18 at 02:00 Bisacodyl (Dulcolax) 5 mg DAILY PRN PO .CONSTIPATION Last administered on 06/04/18 08:48; Admin Dose 5 MG; Start 05/30/18 at 02:00 Metoclopramide HCl (Reglan) 5 mg Q6 IV Last administered on 06/07/18 11:55; Admin Dose 5 MG; Start 05/30/18 at 18:00 Furosemide (Lasix) 40 mg BID DIURETICS IV Last administered on 06/07/18 05:50; Admin Dose 40 MG; Start 06/01/18 at 18:00 Acetaminophen (Tylenol Tab) 650 mg Q4H PRN PO PAIN; Start 06/01/18 at 15:00 Morphine Sulfate (morphine) 1 mg Q1H PRN IV PAIN; Start 06/01/18 at 15:00 Zolpidem Tartrate (Ambien) 5 mg HS MAY REPEAT X 1 PRN PO INSOMNIA Last administered on 06/03/18 02:50; Admin Dose 5 MG; Start 06/01/18 at 15:00 Al Hydrox/Mg Hydrox/Simethicone (Mag-Al Plus) 30 ml Q4H PRN PO GASTROINTESTINAL UPSET Last administered on 06/04/18 18:32; Admin Dose 30 ML; Start 06/01/18 at 15:00 Pantoprazole (Protonix Tab) 40 mg BID@0600,1800 PO Last administered on 06/07/18 05:51; Admin Dose 40 MG; Start 06/02/18 at 18:00 Apixaban (Eliquis) 5 mg BID PO Last administered on 06/07/18 08:20; Admin Dose 5 MG; Start 2/28/19 at 21:00 Potassium Chloride (Potassium Chloride Pwd/Soln) 40 meq DAILY PO Last administered on 06/07/18at 08:20; Admin Dose 40 MEQ; Start 06/05/18 at 09:00 Fluticasone Propionate (Flonase 0.05% Nasal) 1 spray BID NASAL Last admini stered on 06/07/18at 08:21; Admin Dose 1 SPRAY; Start 06/05/18 at 12:00 Metolazone (Zaroxolyn) 2.5 mg DAILY PO Last administered on 06/07/18 08:21; Admin Dose 2.5 MG; Start 06/05/18 at 17:30 Furosemide (Lasix) 40 mg ONCE ONCE IV ; Start 06/07/18 at 13:00; Stop 06/07/18 at 13:01 Albuterol (Proventil 0.083% (Neb)) 1.25 mg Q4H RESP THERAPY N ; Start 06/07/18 at 13:00 Ipratropium [place] (Atrovent 0.02% (Neb)) 0.5 mg Q4H RESP THERAPY N ; Start 06/07/18 at 13:00 OMAR ESPINOSA MD Jun 07, 2018 12:59
[2018-06-07] MEDS ORDERED: FUROSEMIDE 40 MG INJ IV ONE (13:00)
[2018-06-07] MEDS: MAGNESIUM OXIDE 400 MG TAB PO SCH (14:33)
--- NOTE | 2018-06-07 14:56 | CONS ---
Assessment/Plan Assessment/Plan Hospital Course (Demo Recall) # Right Upper Extremity DVT -I feel that this DVT developed while pt was off eliquis. Records from the pharmacy indicate that eliquis was not given when patient was admitted on 05/30 and was started on 06/02. Therefore is it possible that patient developed the clot while off eliquis and while he had a line in place in the RUE -I would continue ELiquis for now -need to perform a hypercoagulable workup and patient appears very prone to clotting -hypercoagulable workup which was ordered at the last visit is negative for FVL mutation, Protein C deficiency and Lupus anticoagulant. elevated homocysteine level is noted -will follow up -r/o Prothrombin Gene Mutation -r/o Protein s deficiency -r/o APS #elevated homocysteine -start folic acid 1 mg q day # History of right superficial femoral artery embolectomy and popliteal artery plasty. -continue plavix # Congestive heart failure exacerbation.History of elevated BNP secondary to . Diabetes. -s/p angiogram and stent -continue plavix -management per cardiology # MELVIN on CKD chronic kidney disease stage III. Cr untended a bit, however patient has anasarca - per nephrology # Hypertension. - per cardiology Consultation Date/Type/Reason Admit Date/Time May 30, 2018 at 01:33 Date of Consultation: Jun 07, 2018 Type of Consult hematology Reason for Consultation venous thrombosis Requesting Provider: OMAR ESPINOSA MD Date/Time of Note DATE: 06/07/18 TIME: 14:53 Hx of Present Illness 52 yo male with multiple medical problems including HTN, HL, CHF with EF 25% and thrombectomy in R [facility] in 01/2018 when he was started on Eliquis. 03/2018 pt was again hospitalized and eliquis was stopped and Lovenox started , but patient was dc'd on eliquis - 05/09/18-05/20/18 again with CHF exacerbation. 05/30/18 pt was readmitted with epigastric pain, nausea and vomiting associated with L sided Chest pain. Pt had an elevated troponin 0.330. Of note, pt was never given eliquis when admitted. His last dose was presumably on 05/2906/01/18 pt underwent angiogram with angioplasty and Drug eluding stent placement. AFter the procedure pt noted he had more swelling in LUE. he states he was also 06/02/18 Eliquis 5mg po BID was started 06/06/18 RUE ultrasound : Thrombosis of the right cephalic vein at the antecubital fossa. This was new when compared to ultrasound done on 05/11/18 and this appears to occur while on Eliquis 5mg po bID. Constitutional: no complaints, poor po Eyes: no complaints ENT: no complaints Respiratory: no complaints Cardiovascular: edema, lightheadedness Genitourinary: no complaints Musculoskeletal: back pain, bone/joint pain Skin: no complaints Neurologic: no complaints Endocrine: no complaints Past Medical History 1. Hypertension. 2. Diabetes. 3. Hyperlipidemia. 4. Systolic congestive heart failure with EF of 20% to 25%. 5. History of prior percutaneous coronary angioplasty and stent placement. 6. History of right lower extremity DVT, on Eliquis. 7. CKD stage III. 8. Cardiomyopathy. Home Meds Active Scripts Baclofen* (Baclofen*) 10 Mg Tablet, 10 MG PO DAILY for 10 Days, TAB Prov:MEHREEN HILLMAN 05/20/18 Potassium Chloride* (K-Dur*) 20 Meq Tab.prt.sr, 20 MEQ PO DAILY for 30 Days Prov:OMAR ESPINOSA MD 04/01/18 Apixaban* (Eliquis*) 5 Mg Tablet, 5 MG PO BID for 30 Days, TAB Prov:MEHREEN HILLMAN 03/26/18 Furosemide* (Furosemide*) 40 Mg Tablet, 40 MG PO BID DIURETICS for 60 Days, TAB Prov:MEHREEN HILLMAN 03/25/18 Isosorbide Mononitrate* (Isosorbide Mononitrate*) 30 Mg Tab.er.24h, 30 MG PO DAILY for 30 Days Prov:MEHREEN HILLMAN 03/25/18 Hydralazine Hcl* (Hydralazine Hcl*) 10 Mg Tablet, 10 MG PO Q8 for 30 Days, TAB Prov:MEHREEN HILLMAN 03/25/18 Carvedilol* (Carvedilol*) 3.125 Mg Tablet, 3.125 MG PO BID for 30 Days, TAB Prov:MEHREEN HILLMAN 03/25/18 Reported Medications Nateglinide* (Nateglinide*) 60 Mg Tablet, 60 MG PO BID, TAB 11/12/17 Nitroglycerin* (Nitrostat*) 0.4 Mg Tab.subl, 0.4 MG SL Q5MIN PRN for CHEST PAIN, BOTTLE 11/12/17 Clopidogrel Bisulfate* (Clopidogrel Bisulfate*) 75 Mg Tablet, 75 MG PO DAILY, TAB 04/28/16 Medications Current Medications Carvedilol (Coreg) 3.125 mg BID PO Last administered on 06/07/18 08:20; Admin Dose 3.125 MG; Start 05/30/18 at 03:00 Clopidogrel Bisulfate (plaVIX) 75 mg DAILY PO Last administered on 06/07/18 08:19; Admin Dose 75 MG; Start 05/30/18 at 09:00 Hydralazine HCl (Apresoline) 10 mg Q8 PO Last administered on 06/07/18 13:00; Admin Dose 10 MG; Start 05/30/18 at 06:00 Isosorbide Mononitrate (Imdur) 30 mg DAILY PO Last administered on 06/07/18 08:20; Admin Dose 30 MG; Start 05/30/18 at 09:00 IV Flush (NS 3 ml) 3 ml PER PROTOCOL IV ; Start 05/30/18 at 02:00 Ondansetron HCl (Zofran Inj) 4 mg Q6H PRN IV NAUSEA/VOMITING Last administered on 05/30/18 12:02; Admin Dose 4 MG; Start 05/30/18 at 02:00 Nitroglycerin (Nitroglycerin (Sl Tab) 0.4 Mg) 1 tab Q5M PRN SL .CHEST PAIN; Start 05/30/18 at 02:00 Acetaminophen (Tylenol Tab) 650 mg Q6H PRN PO .PAIN 1-3 OR TEMP; Start 05/30/18 at 02:00 Morphine Sulfate (morphine) 1 mg Q4H PRN IV .PAIN 7-10; Start 05/30/18 at 02:00 Docusate Sodium (Colace) 100 mg Q12H PRN PO .CONSTIPATION Last administered on 05/30/18 21:38; Admin Dose 100 MG; Start 05/30/18 at 02:00 Bisacodyl (Dulcolax) 5 mg DAILY PRN PO .CONSTIPATION Last administered on 06/04/18 08:48; Admin Dose 5 MG; Start 05/30/18 at 02:00 Metoclopramide HCl (Reglan) 5 mg Q6 IV Last administered on 06/07/18 11:55; Admin Dose 5 MG; Start 05/30/18 at 18:00 Furosemide (Lasix) 40 mg BID DIURETICS IV Last administered on 06/07/18 05:50; Admin Dose 40 MG; Start 06/01/18 at 18:00 Acetaminophen (Tylenol Tab) 650 mg Q4H PRN PO PAIN; Start 06/01/18 at 15:00 Morphine Sulfate (morphine) 1 mg Q1H PRN IV PAIN; Start 06/01/18 at 15:00 Zolpidem Tartrate (Ambien) 5 mg HS MAY REPEAT X 1 PRN PO INSOMNIA Last administered on 06/03/18 02:50; Admin Dose 5 MG; Start 06/01/18 at 15:00 Al Hydrox/Mg Hydrox/Simethicone (Mag-Al Plus) 30 ml Q4H PRN PO GASTROINTESTINAL UPSET Last administered on 06/04/18 18:32; Admin Dose 30 ML; Start 06/01/18 at 15:00 Pantoprazole (Protonix Tab) 40 mg BID@0600,1800 PO Last administered on 06/07/18 05:51; Admin Dose 40 MG; Start 06/02/18 at 18:00 Apixaban (Eliquis) 5 mg BID PO Last administered on 06/07/18 08:20; Admin Dose 5 MG; Start 06/02/18 at 21:00 Potassium Chloride (Potassium Chloride Pwd/Soln) 40 meq DAILY PO Last admi nistered on 06/07/18 08:20; Admin Dose 40 MEQ; Start 06/05/18 at 09:00 Fluticasone Propionate (Flonase 0.05% Nasal) 1 spray BID NASAL Last administered on 06/07/18 08:21; Admin Dose 1 SPRAY; Start 06/05/18 at 12:00 Albuterol (Proventil 0.083% (Neb)) 1.25 mg Q4H RESP THERAPY HHN Last administered on 06/07/18 13:15; Admin Dose 1.25 MG; Start 06/07/18 at 13:00 Ipratropium [place] (Atrovent 0.02% (Neb)) 0.5 mg Q4H RESP THERAPY HHN Last administered on 06/07/18at 13:15; Admin Dose 0.5 MG; Start 06/07/18 at 13:00 Magnesium Oxide (Mag-Ox 400) 400 mg DAILY PO Last administered on 06/07/18at 14:33; Admin Dose 400 MG; Start 06/07/18 at 13:00 Metolazone (Zaroxolyn) 2.5 mg BID@0530,1730 PO ; Start 06/07/18 at 17:30 Allergies: Coded Allergies: No Known Allergies (Unverified Allergy, Unknown, 06/07/18) Past Surgical History Past Surgical Hx: angioplasty Family History Significant Family History: no pertinent family hx Social History Alcohol Use: none Smoking Status: Never smoker Drug Use: none Exam/Review of Systems Exam Vitals Vital Signs Date Temp Pulse Resp B/P (MAP) Pulse Ox O2 O2 Flow FiO2 Time Delivery Rate 06/07/18 82 16 96 Nasal 2.0 13:15 Cannula 06/07/18 98.1 102/66 11:41 (78) 06/06/18 28 02:18 Intake and Output 06/06/18 06/06/18 06/07/18 1515:00 23:00 07:00 IntakeIntake Total 470 ml 400 ml OutputOutput Total 900 ml 950 ml BalanceBalance -430 ml -550 ml Constitutional: alert, oriented Psych: no complaints Head: normocephalic Eyes: nl conjunctiva ENMT: nl external ears & nose Neck: supple Respiratory: clear to auscultation Cardiovascular: regular rate and rhythm Gastrointestinal: soft Musculoskeletal: nl extremities to inspection, swelling (LUE) Results Result Diagram: 06/06/18 0538 06/07/18 0625 Results 24hrs Laboratory Tests Test 06/07/18 06:25 Sodium Level 135 Potassium Level 3.3 L Chloride Level 93 L Carbon Dioxide Level 30 Anion Gap 12 Blood Urea Nitrogen 25 H Creatinine 1.21 Est Glomerular Filtrat Rate mL/min > 60 Glucose Level 141 Calcium Level 9.2 Phosphorus Level 4.3 Magnesium Level 1.9 Medications Medication Current Medications Carvedilol (Coreg) 3.125 mg BID PO Last administered on 06/07/18at 08:20; Admin Dose 3.125 MG; Start 05/30/18 at 03:00 Clopidogrel Bisulfate (plaVIX) 75 mg DAILY PO Last administered on 06/07/18 08:19; Admin Dose 75 MG; Start 05/30/18 at 09:00 Hydralazine HCl (Apresoline) 10 mg Q8 PO Last administered on 06/07/18 13:00; Admin Dose 10 MG; Start 05/30/18 at 06:00 Isosorbide Mononitrate (Imdur) 30 mg DAILY PO Last administered on 06/07/18 08:20; Admin Dose 30 MG; Start 05/30/18 at 09:00 IV Flush (NS 3 ml) 3 ml PER PROTOCOL IV ; Start 05/30/18 at 02:00 Ondansetron HCl (Zofran Inj) 4 mg Q6H PRN IV NAUSEA/VOMITING Last administered on 05/30/18 12:02; Admin Dose 4 MG; Start 05/30/18 at 02:00 Nitroglycerin (Nitroglycerin (Sl Tab) 0.4 Mg) 1 tab Q5M PRN SL .CHEST PAIN; Start 05/30/18 at 02:00 Acetaminophen (Tylenol Tab) 650 mg Q6H PRN PO .PAIN 1-3 OR TEMP; Start 05/30/18 at 02:00 Morphine Sulfate (morphine) 1 mg Q4H PRN IV .PAIN 7-10; Start 05/30/18 at 02:00 Docusate Sodium (Colace) 100 mg Q12H PRN PO .CONSTIPATION Last administered on 05/30/18 21:38; Admin Dose 100 MG; Start 05/30/18 at 02:00 Bisacodyl (Dulcolax) 5 mg DAILY PRN PO .CONSTIPATION Last administered on 06/04/18 08:48; Admin Dose 5 MG; Start 05/30/18 at 02:00 Metoclopramide HCl (Reglan) 5 mg Q6 IV Last administered on 06/07/18 11:55; Admin Dose 5 MG; Start 05/30/18 at 18:00 Furosemide (Lasix) 40 mg BID DIURETICS IV Last administered on 06/07/18 05:50; Admin Dose 40 MG; Start 06/01/18 at 18:00 Acetaminophen (Tylenol Tab) 650 mg Q4H PRN PO PAIN; Start 06/01/18 at 15:00 Morphine Sulfate (morphine) 1 mg Q1H PRN IV PAIN; Start 06/01/18 at 15:00 Zolpidem Tartrate (Ambien) 5 mg HS MAY REPEAT X 1 PRN PO INSOMNIA Last administered on 06/03/18 02:50; Admin Dose 5 MG; Start 06/01/18 at 15:00 Al Hydrox/Mg Hydrox/Simethicone (Mag-Al Plus) 30 ml Q4H PRN PO GASTROINTESTINAL UPSET Last administered on 06/04/18 18:32; Admin Dose 30 ML; Start 06/01/18 at 15:00 Pantoprazole (Protonix Tab) 40 mg BID@0600,1800 PO Last administered on 06/07/18 05:51; Admin Dose 40 MG; Start 06/02/18 at 18:00 Apixaban (Eliquis) 5 mg BID PO Last administered on 06/07/18 08:20; Admin Dose 5 MG; Start 06/02/18 at 21:00 Potassium Chloride (Potassium Chloride Pwd/Soln) 40 meq DAILY PO Last administered on 06/07/18 08:20; Admin Dose 40 MEQ; Start 06/05/18 at 09:00 Fluticasone Propionate (Flonase 0.05% Nasal) 1 spray BID NASAL Last administered on 06/07/18 08:21; Admin Dose 1 SPRAY; Start 06/05/18 at 12:00 Albuterol (Proventil 0.083% (Neb)) 1.25 mg Q4H RESP THERAPY HHN Last administered on 06/07/18 13:15; Admin Dose 1.25 MG; Start 06/07/18 at 13:00 Ipratropium [place] (Atrovent 0.02% (Neb)) 0.5 mg Q4H RESP THERAPY HHN Last administered on 06/07/18 13:15; Admin Dose 0.5 MG; Start 06/07/18 at 13:00 Magnesium Oxide (Mag-Ox 400) 400 mg DAILY PO Last administered on 06/07/18 14:33; Admin Dose 400 MG; Start 06/07/18 at 13:00 Metolazone (Zaroxolyn) 2.5 mg BID@0530,1730 PO ; Start 06/07/18 at 17:30 NAIDA LYONS M.D. Jun 07, 2018 14:56
[2018-06-07] MEDS ORDERED: morphine LIQ (10 MG/5 ML) CUP PO PRN (23:30)
[2018-06-08] VITALS (11 sets, daily range): BP systolic 100–110; BP diastolic 65–71; PULSE 74–85; RESP 16–18
[2018-06-08] MEDS: IPRATROPIUM (NEB) 0.5 MG/2.5 ML AMP HHN SCH ×6 (00:48→20:14)
[2018-06-08] MEDS: ALBUTEROL 0.083% (NEB) 2.5 MG/3 ML AMP HHN SCH ×6 (00:48→20:14)
[2018-06-08] MEDS: METOCLOPRAMIDE 10 MG INJ IV SCH ×4 (06:07→23:48)
[2018-06-08] MEDS: PANTOPRAZOLE (EC) 40 MG TAB PO SCH ×2 (06:07→18:26)
[2018-06-08] MEDS: METOLAZONE 2.5 MG TAB PO SCH ×2 (06:07→17:47)
[2018-06-08] MEDS: FUROSEMIDE 40 MG INJ IV SCH ×2 (06:07→18:26)
[2018-06-08] MEDS: ISOSORBIDE MONONITRATE(SR)30 MG TAB PO SCH (09:00)
[2018-06-08] MEDS: FLUTICASONE 0.05% 16 GM NAS SPRAY NASAL SCH ×2 (09:10→20:26)
[2018-06-08] MEDS: APIXABAN 5 MG TABLET PO SCH ×2 (09:11→20:26)
[2018-06-08] MEDS: CLOPIDOGREL 75 MG TAB PO SCH (09:11)
[2018-06-08] MEDS: POTASSIUM CHLORIDE 20 MEQ POWDER FOR ORAL SOLN PO SCH (09:11)
[2018-06-08] MEDS: MAGNESIUM OXIDE 400 MG TAB PO SCH (09:11)
[2018-06-08] MEDS ORDERED: POTASSIUM CHLORIDE 20 MEQ POWDER FOR ORAL SOLN PO ONE (09:30)
--- NOTE | 2018-06-08 09:41 | PN ---
Date/Time of Note Date/Time of Note DATE: 06/08/18 TIME: 09:38 Assessment/Plan VTE Prophylaxis Risk score (from Ns)>0 risk: 5 SCD applied (from Ns): No SCD contraindicated: low risk/ambulating Pharmacological prophylaxis: NA/contraindicated Pharm contraindication: low risk/ambulating Lines/Catheters IV [facility] [place] [facility] Urinary Cath still in place: No Assessment/Plan Hospital Course This is a 52-year-old male who presented with: 1. Chest pain with elevated troponins, likely secondary to [id number] myocardial infarction.s/p angiogram on 06/01 with multivessel CAD 2. Nausea, vomiting, epigastric pain. It could be related to acute coronary syndrome; however we cannot rule out underlying gastritis. LFTs show only abnormal elevated alkaline phosphatase. The patient has had HIDA scan in 03/2018 which had been negative. abd ultrasound is essentially neg 3. Acute on chronic systolic congestive heart failure. 4. Elevated alkaline phosphatase. 5. Cardiomyopathy. 6. Diabetes. 7. Hypertension. 8. Severe cardiomyopathy with ejection fraction of 20% to 25%. 9. Chronic kidney disease stage III. with Cr jump to 1.41 s/p diuresis and now s/p angiogram on 06/01 10. Hypomagnesemia. 11 V tach asymtomatic 12 severe hypokalemia likely secondary to diuresis Plan -Replete potassium 80 mEq -Recheck potassium in the afternoon -New with Lasix 40 twice daily and metolazone 2.5 twice daily, monitor bicarb - rt rm superifical DVT , patient was restarted back on Eliquis, apparently patient was off of Eliquis and patient developed the cephalic vein thrombosis -?AICD as OPD Monitor strict I's and O's- -Continue with Plavix/Imdur/hydralazine -Replete potassium and Mg Result Diagram: 06/06/18 0538 06/08/18 0657 Results 24hrs Laboratory Tests Test 06/08/18 06:57 Sodium Level 136 Potassium Level 2.8 *L Chloride Level 91 L Carbon Dioxide Level 33 H Anion Gap 12 Blood Urea Nitrogen 27 H Creatinine 1.18 Est Glomerular Filtrat Rate mL/min > 60 Glucose Level 126 Calcium Level 9.2 Subjective 24 Hr Interval Summary Free Text/Dictation Patient feels a lot better today feels breathing is improved Net neg -2.5 L Exam/Review of Systems Exam Vitals Vital Signs Date Temp Pulse Resp B/P (MAP) Pulse Ox O2 O2 Flow FiO2 Time Delivery Rate 06/08/18 95 18 97 21 08:10 06/08/18 98.2 106/71 Room Air 07:27 (83) 06/08/18 2.0 00:00 Intake and Output 06/07/18 06/07/18 06/08/18 1515:00 23:00 07:00 IntakeIntake Total 600 ml 500 ml OutputOutput Total 1300 ml 1050 ml 1300 ml BalanceBalance -1300 ml -450 ml -800 ml Exam Constitutional: alert, oriented Neck: supple Respiratory: congested cough, crackles/rales b/l slightly improved from yesterday Cardiovascular: regular rate and rhythm Gastrointestinal: soft edema of legs rt arm edema Results Results 24hrs Laboratory Tests Test 06/08/18 06:57 Sodium Level 136 Potassium Level 2.8 *L Chloride Level 91 L Carbon Dioxide Level 33 H Anion Gap 12 Blood Urea Nitrogen 27 H Creatinine 1.18 Est Glomerular Filtrat Rate mL/min > 60 Glucose Level 126 Calcium Level 9.2 Medications Medication Current Medications Carvedilol (Coreg) 3.125 mg BID PO Last administered on 06/08/18at 09:11; Admin Dose 3.125 MG; Start 05/30/18 at 03:00 Clopidogrel Bisulfate (plaVIX) 75 mg DAILY PO Last administered on 06/08/18at 09:11; Admin Dose 75 MG; Start 05/30/18 at 09:00 Hydralazine HCl (Apresoline) 10 mg Q8 PO Last administered on 06/07/18at 13:00; Admin Dose 10 MG; Start 05/30/18 at 06:00 Isosorbide Mononitrate (Imdur) 30 mg DAILY PO Last administered on 06/07/18 08:20; Admin Dose 30 MG; Start 05/30/18 at 09:00 IV Flush (NS 3 ml) 3 ml PER PROTOCOL IV ; Start 05/30/18 at 02:00 Ondansetron HCl (Zofran Inj) 4 mg Q6H PRN IV NAUSEA/VOMITING Last administered on 05/30/18at 12:02; Admin Dose 4 MG; Start 05/30/18 at 02:00 Nitroglycerin (Nitroglycerin (Sl Tab) 0.4 Mg) 1 tab Q5M PRN SL .CHEST PAIN; Start 05/30/18 at 02:00 Acetaminophen (Tylenol Tab) 650 mg Q6H PRN PO .PAIN 1-3 OR TEMP; Start 05/30/18 at 02:00 Docusate Sodium (Colace) 100 mg Q12H PRN PO .CONSTIPATION Last administered on 05/30/18 21:38; Admin Dose 100 MG; Start 05/30/18 at 02:00 Bisacodyl (Dulcolax) 5 mg DAILY PRN PO .CONSTIPATION Last administered on 06/04/18 08:48; Admin Dose 5 MG; Start 05/30/18 at 02:00 Metoclopramide HCl (Reglan) 5 mg Q6 IV Last administered on 06/08/18 06:07; Admin Dose 5 MG; Start 05/30/18 at 18:00 Furosemide (Lasix) 40 mg BID DIURETICS IV Last administered on 06/08/18 06:07; Admin Dose 40 MG; Start 06/01/18 at 18:00 Acetaminophen (Tylenol Tab) 650 mg Q4H PRN PO PAIN; Start 06/01/18 at 15:00 Morphine Sulfate (morphine) 1 mg Q1H PRN IV PAIN; Start 06/01/18 at 15:00 Zolpidem Tartrate (Ambien) 5 mg HS MAY REPEAT X 1 PRN PO INSOMNIA Last administered on 06/03/18 02:50; Admin Dose 5 MG; Start 06/01/18 at 15:00 Al Hydrox/Mg Hydrox/Simethicone (Mag-Al Plus) 30 ml Q4H PRN PO GASTROINTESTINAL UPSET Last administered on 06/04/18 18:32; Admin Dose 30 ML; Start 06/01/18 at 15:00 Pantoprazole (Protonix Tab) 40 mg BID@0600,1800 PO Last administered on 06/08/18 06:07; Admin Dose 40 MG; Start 06/02/18 at 18:00 Apixaban (Eliquis) 5 mg BID PO Last administered on 06/08/18at 09:11; Admin Dose 5 MG; Start 06/02/18 at 21:00 Potassium Chloride (Potassium Chloride Pwd/Soln) 40 meq DAILY PO Last administered on 06/08/18 09:11; Admin Dose 40 MEQ; Start 06/05/18 at 09:00 Fluticasone Propionate (Flonase 0.05% Nasal) 1 spray BID NASAL Last administered on 06/08/18 09:10; Admin Dose 1 SPRAY; Start 06/05/18 at 12:00 Albuterol (Proventil 0.083% (Neb)) 1.25 mg Q4H RESP THERAPY HHN Last administered on 06/08/18 08:10; Admin Dose 1.25 MG; Start 06/07/18 at 13:00 Ipratropium [place] (Atrovent 0.02% (Neb)) 0.5 mg Q4H RESP THERAPY HHN Last administered on 06/08/18 08:09; Admin Dose 0.5 MG; Start 06/07/18 at 13:00 Magnesium Oxide (Mag-Ox 400) 400 mg DAILY PO Last administered on 06/08/18 09:11; Admin Dose 400 MG; Start 06/07/18 at 13:00 Metolazone (Zaroxolyn) 2.5 mg BID@0530,1730 PO Last administered on 06/08/18 06:07; Admin Dose 2.5 MG; Start 06/07/18 at 17:30 Morphine Sulfate (morphine) 3 mg Q4H PRN PO SEVERE PAIN LEVEL 7-10; Start 06/07/18 at 23:30 OMAR ESPINOSA MD Jun 08, 2018 09:41
--- NOTE | 2018-06-08 14:23 | CONS ---
Assessment/Plan Assessment/Plan Hospital Course (Demo Recall) # Right Upper Extremity DVT -As state before, I feel that this DVT developed while pt was off eliquis. Records from the pharmacy indicate that eliquis was not given when patient was admitted on 05/30 and was started on 06/02. Therefore is it possible that patient developed the clot while off eliquis and while he had a line in place in the RUE - continue ELiquis 5 mg po BID for now -hypercoagulable workup which was ordered at the last visit is negative for FVL mutation, Protein C deficiency and Lupus anticoagulant. elevated homocysteine level is noted -will follow up -r/o Prothrombin Gene Mutation -r/o Protein s deficiency -r/o APS #elevated homocysteine -start folic acid 1 mg q day # History of right superficial femoral artery embolectomy and popliteal artery plasty. -continue plavix # Congestive heart failure exacerbation.History of elevated BNP secondary to . Diabetes. -s/p angiogram and stent -continue plavix -management per cardiology # EMLVIN on CKD chronic kidney disease stage III. Cr untended a bit, however patient has anasarca - per nephrology # Hypertension. - per cardiology Consultation Date/Type/Reason Admit Date/Time May 30, 2018 at 01:33 Initial Consult Date 06/07/18 Type of Consult hematology Reason for Consultation RUE superficial thrombosis Requesting Provider: OMAR ESPINOSA MD Date/Time of Note DATE: 06/08/18 TIME: 14:21 24 HR Interval Summary Free Text/Dictation pt continues on Eliquis Exam/Review of Systems Exam Vitals Vital Signs Date Temp Pulse Resp B/P (MAP) Pulse Ox O2 O2 Flow FiO2 Time Delivery Rate 06/08/18 74 12:01 06/08/18 98.7 18 101/68 99 Room Air 11:31 (79) 06/08/18 21 08:10 06/08/18 2.0 00:00 Intake and Output 06/07/18 06/07/18 06/08/18 1515:00 23:00 07:00 IntakeIntake Total 600 ml 500 ml OutputOutput Total 1300 ml 1050 ml 1300 ml BalanceBalance -1300 ml -450 ml -800 ml Constitutional: alert Psych: no complaints Head: normocephalic Eyes: nl conjunctiva ENMT: nl external ears & nose Neck: supple Respiratory: clear to auscultation Cardiovascular: regular rate and rhythm Gastrointestinal: soft Musculoskeletal: nl extremities to inspection Extremities: normal pulses Results Result Diagram: 06/06/18 0538 06/08/18 0657 Results 24hrs Laboratory Tests Test 06/08/18 06:57 Sodium Level 136 Potassium Level 2.8 *L Chloride Level 91 L Carbon Dioxide Level 33 H Anion Gap 12 Blood Urea Nitrogen 27 H Creatinine 1.18 Est Glomerular Filtrat Rate mL/min > 60 Glucose Level 126 Calcium Level 9.2 Medications Medication Current Medications Carvedilol (Coreg) 3.125 mg BID PO Last administered on 06/08/18 09:11; Admin Dose 3.125 MG; Start 05/30/18 at 03:00 Clopidogrel Bisulfate (plaVIX) 75 mg DAILY PO Last administered on 06/08/18 09:11; Admin Dose 75 MG; Start 05/30/18 at 09:00 Hydralazine HCl (Apresoline) 10 mg Q8 PO Last administered on 06/07/18 13:00; Admin Dose 10 MG; Start 05/30/18 at 06:00 Isosorbide Mononitrate (Imdur) 30 mg DAILY PO Last administered on 06/07/18 08:20; Admin Dose 30 MG; Start 05/30/18 at 09:00 IV Flush (NS 3 ml) 3 ml PER PROTOCOL IV ; Start 05/30/18 at 02:00 Ondansetron HCl (Zofran Inj) 4 mg Q6H PRN IV NAUSEA/VOMITING Last administered on 05/30/18 12:02; Admin Dose 4 MG; Start 05/30/18 at 02:00 Nitroglycerin (Nitroglycerin (Sl Tab) 0.4 Mg) 1 tab Q5M PRN SL .CHEST PAIN; Start 05/30/18 at 02:00 Acetaminophen (Tylenol Tab) 650 mg Q6H PRN PO .PAIN 1-3 OR TEMP; Start 05/30/18 at 02:00 Docusate Sodium (Colace) 100 mg Q12H PRN PO .CONSTIPATION Last administered on 05/30/18 21:38; Admin Dose 100 MG; Start 05/30/18 at 02:00 Bisacodyl (Dulcolax) 5 mg DAILY PRN PO .CONSTIPATION Last administered on 06/04 08:48; Admin Dose 5 MG; Start 05/30/18 at 02:00 Metoclopramide HCl (Reglan) 5 mg Q6 IV Last administered on 06/08/18 11:53; Admin Dose 5 MG; Start 05/30/18 at 18:00 Furosemide (Lasix) 40 mg BID DIURETICS IV Last administered on 06/08/18 06:07; Admin Dose 40 MG; Start 06/01/18 at 18:00 Acetaminophen (Tylenol Tab) 650 mg Q4H PRN PO PAIN; Start 06/01/18 at 15:00 Morphine Sulfate (morphine) 1 mg Q1H PRN IV PAIN; Start 06/01/18 at 15:00 Zolpidem Tartrate (Ambien) 5 mg HS MAY REPEAT X 1 PRN PO INSOMNIA Last administered on 06/03/18 02:50; Admin Dose 5 MG; Start 06/01/18 at 15:00 Al Hydrox/Mg Hydrox/Simethicone (Mag-Al Plus) 30 ml Q4H PRN PO GASTROINTESTINAL UPSET Last administered on 06/04/18 18:32; Admin Dose 30 ML; Start 06/01/18 at 15:00 Pantoprazole (Protonix Tab) 40 mg BID@0600,1800 PO Last administered on 06/08/18 06:07; Admin Dose 40 MG; Start 06/02/18 at 18:00 Apixaban (Eliquis) 5 mg BID PO Last administered on 06/08/18 09:11; Admin Dose 5 MG; Start 06/02/18 at 21:00 Potassium Chloride (Potassium Chloride Pwd/Soln) 40 meq DAILY PO Last administered on 06/08/18 09:11; Admin Dose 40 MEQ; Start 06/05/18 at 09:00 Fluticasone Propionate (Flonase 0.05% Nasal) 1 spray BID NASAL Last administered on 06/08/18 09:10; Admin Dose 1 SPRAY; Start 06/05/18 at 12:00 Albuterol (Proventil 0.083% (Neb)) 1.25 mg Q4H RESP THERAPY HHN Last administered on 06/08/18 12:03; Admin Dose 1.25 MG; Start 06/07/18 at 13:00 Ipratropium [place] (Atrovent 0.02% (Neb)) 0.5 mg Q4H RESP THERAPY HHN Last administered on 06/08/18at 12:03; Admin Dose 0.5 MG; Start 06/07/18 at 13:00 Magnesium Oxide (Mag-Ox 400) 400 mg DAILY PO Last administered on 06/08/18at 09:11; Admin Dose 400 MG; Start 06/07/18 at 13:00 Metolazone (Zaroxolyn) 2.5 mg BID@5630,0470 PO Last administered on 06/08/18at 06:07; Admin Dose 2.5 MG; Start 06/07/18 at 17:30 Morphine Sulfate (morphine) 3 mg Q4H PRN PO SEVERE PAIN LEVEL 7-10; Start 06/07/18 at 23:30 NAIDA LYONS M.D. Jun 08, 2018 14:23
--- NOTE | 2018-06-08 15:47 | CONS ---
Assessment/Plan Assessment/Plan Hospital Course (Demo Recall) IMPRESSION: 1. Positive troponin consistent with [id number] myocardial infarction, small at this time. s/p PTCA/stent to 2. Chest pain, intermittent. 3. Cardiomyopathy with severe depressed left ventricular ejection fraction last EF approximately 20% by echo this month. 4. Congestive heart failure, systolic, acute on chronic, very mild volume overload at this time. 5. Abdominal pain, nausea and vomiting without intra-abdominal pathology. 6. Coagulopathy secondary to Eliquis. 7. Chronic kidney disease not on HD- acute on chronic renal failure likely contrast induced Recc: -Tele -Continue coreg/hydralazine/imdur as tolerated only -Contineu plavix plus eliquis -Continue lasix diuresis plus metolazone and follow slowly improving volume status Consultation Date/Type/Reason Admit Date/Time May 30, 2018 at 01:33 Initial Consult Date 05/30/18 Type of Consult Cardiology Reason for Consultation CHF/Nstemi Requesting Provider: OMAR ESPINOSA MD Date/Time of Note DATE: 06/08/18 TIME: 15:42 Exam/Review of Systems Vital Signs Vitals Vital Signs Date Temp Pulse Resp B/P (MAP) Pulse Ox O2 O2 Flow FiO2 Time Delivery Rate 06/08/18 97.9 77 18 103/66 98 Room Air 15:32 (78) 06/08/18 21 12:03 06/08/18 2.0 00:00 Intake and Output 06/07/18 06/07/18 06/08/18 1515:00 23:00 07:00 IntakeIntake Total 600 ml 500 ml OutputOutput Total 1300 ml 1050 ml 1300 ml BalanceBalance -1300 ml -450 ml -800 ml Exam Exam Review of Systems: CONSTITUTIONAL: No fevers, chills. PULMONARY: ongoing sob CARDIOVASCULAR: No chest pain/palpitations GASTROINTESTINAL: No nausea/vomiting. GENITOURINARY: No hematuria/dysuria. MUSCULOSKELETAL: No myagias/arthalgias. PSYCHIATRIC: The patient denies depression. NEUROLOGIC: No weakness Constitutional: alert, oriented Psych: no complaints Head: normocephalic ENMT: mucosa pink and moist Neck: supple, jvd (9 cm water) Respiratory: diminished breath sounds (at bases/B) Cardiovascular: regular rate and rhythm Gastrointestinal: soft, non-tender Musculoskeletal: muscle tone (normal) Extremities: edema Neurological: other (No focal deficits) Labs Result Diagram: 06/06/18 0538 06/08/18 1500 Results 24hrs Laboratory Tests Test 06/08/18 06:57 06/08/18 15:00 Sodium Level 136 Potassium Level 2.8 *L 3.3 L Chloride Level 91 L Carbon Dioxide Level 33 H Anion Gap 12 Blood Urea Nitrogen 27 H Creatinine 1.18 Est Glomerular Filtrat Rate mL/min > 60 Glucose Level 126 Calcium Level 9.2 Medications Medications Current Medications Carvedilol (Coreg) 3.125 mg BID PO Last administered on 06/08/18 09:11; Admin Dose 3.125 MG; Start 05/30/18 at 03:00 Clopidogrel Bisulfate (plaVIX) 75 mg DAILY PO Last administered on 06/08/18 09:11; Admin Dose 75 MG; Start 05/30/18 at 09:00 Hydralazine HCl (Apresoline) 10 mg Q8 PO Last administered on 06/07/18 13:00; Admin Dose 10 MG; Start 05/30/18 at 06:00 Isosorbide Mononitrate (Imdur) 30 mg DAILY PO Last administered on 06/07/18 08:20; Admin Dose 30 MG; Start 05/30/18 at 09:00 IV Flush (NS 3 ml) 3 ml PER PROTOCOL IV ; Start 05/30/18 at 02:00 Ondansetron HCl (Zofran Inj) 4 mg Q6H PRN IV NAUSEA/VOMITING Last administered on 05/30/18 12:02; Admin Dose 4 MG; Start 05/30/18 at 02:00 Nitroglycerin (Nitroglycerin (Sl Tab) 0.4 Mg) 1 tab Q5M PRN SL .CHEST PAIN; Start 05/30/18 at 02:00 Acetaminophen (Tylenol Tab) 650 mg Q6H PRN PO .PAIN 1-3 OR TEMP; Start 05/30/18 at 02:00 Docusate Sodium (Colace) 100 mg Q12H PRN PO .CONSTIPATION Last administered on 05/30/18 21:38; Admin Dose 100 MG; Start 05/30/18 at 02:00 Bisacodyl (Dulcolax) 5 mg DAILY PRN PO .CONSTIPATION Last administered on 06/04/18 08:48; Admin Dose 5 MG; Start 05/30/18 at 02:00 Metoclopramide HCl (Reglan) 5 mg Q6 IV Last administered on 06/08/18 11:53; Admin Dose 5 MG; Start 05/30/18 at 18:00 Furosemide (Lasix) 40 mg BID DIURETICS IV Last administered on 06/08/18 06:07; Admin Dose 40 MG; Start 06/01/18 at 18:00 Acetaminophen (Tylenol Tab) 650 mg Q4H PRN PO PAIN; Start 06/01/18 at 15:00 Morphine Sulfate (morphine) 1 mg Q1H PRN IV PAIN; Start 06/01/18 at 15:00 Zolpidem Tartrate (Ambien) 5 mg HS MAY REPEAT X 1 PRN PO INSOMNIA Last administered on 06/03/18 02:50; Admin Dose 5 MG; Start 06/01/18 at 15:00 Al Hydrox/Mg Hydrox/Simethicone (Mag-Al Plus) 30 ml Q4H PRN PO GASTROINTESTINAL UPSET Last administered on 06/04/18 18:32; Admin Dose 30 ML; Start 06/01/18 at 15:00 Pantoprazole (Protonix Tab) 40 mg BID@0600,1800 PO Last administered on 06/08/18 06:07; Admin Dose 40 MG; Start 06/02/18 at 18:00 Apixaban (Eliquis) 5 mg BID PO Last administered on 06/08/18 09:11; Admin Dose 5 MG; Start 06/02/18 at 21:00 Potassium Chloride (Potassium Chloride Pwd/Soln) 40 meq DAILY PO Last administered on 06/08/18 09:11; Admin Dose 40 MEQ; Start 06/05/18 at 09:00 Fluticasone Propionate (Flonase 0.05% Nasal) 1 spray BID NASAL Last administered on 06/08/18 09:10; Admin Dose 1 SPRAY; Start 06/05/18 at 12:00 Albuterol (Proventil 0.083% (Neb)) 1.25 mg Q4H RESP THERAPY HHN Last administered on 06/08/18 12:03; Admin Dose 1.25 MG; Start 06/07/18 at 13:00 Ipratropium [place] (Atrovent 0.02% (Neb)) 0.5 mg Q4H RESP THERAPY HHN Last administered on 06/08/18at 12:03; Admin Dose 0.5 MG; Start 06/07/18 at 13:00 Magnesium Oxide (Mag-Ox 400) 400 mg DAILY PO Last administered on 06/08/18at 09:11; Admin Dose 400 MG; Start 06/07/18 at 13:00 Metolazone (Zaroxolyn) 2.5 mg BID@8730,7520 PO Last administered on 06/08/18at 06:07; Admin Dose 2.5 MG; Start 06/07/18 at 17:30 Morphine Sulfate (morphine) 3 mg Q4H PRN PO SEVERE PAIN LEVEL 7-10; Start 06/07/18 at 23:30 Folic Acid (Folic Acid) 1 mg DAILY PO ; Start 06/09/18 at 09:00 KARSON HERNANDEZ Jun 08, 2018 15:47
--- NOTE | 2018-06-08 17:58 | CONS ---
Assessment/Plan Assessment/Plan Assessment/Plan (Daily) IMPRESSION: 1. Chest pain, elevated troponin secondary to coronary artery disease. The patient had a stent placement in right coronary artery disease. 2. Ischemic cardiomyopathy with ejection fraction of 25%. 3. Left upper quadrant pain with chronic stasis syndrome. -Improved 4. Diabetes mellitus. 5. Hypertension. 6. Chronic kidney disease. 7. S/P angiogram 06/01 found pt to have obstructive CAD, stent placed 8. Thrombosis of the right cephalic vein at the antecubital fossa. -pt is already on anti coagulants Abdominal US- 06/28 1. Thickening of the gallbladder wall without evidence of gallstones or sludge. This is a nonspecific finding and may be related to chronic liver disease, hypoproteinemia, or acalculous cholecystitis. 2. No biliary duct dilatation. 3. Small right pleural effusion PLAN: Recommend small meals Continue prn anti emetics and reglan Optimize blood sugars Monitor for GI bleeding, pt is on Eliquis and Plavix Fall precautions [place] Consultation Date/Type/Reason Admit Date/Time May 30, 2018 at 01:33 Initial Consult Date Requesting Provider: OMAR ESPINOSA MD Date/Time of Note DATE: 06/08/18 TIME: 17:57 24 HR Interval Summary Free Text/Dictation Patient complains of constipation Exam/Review of Systems Exam Vitals Vital Signs Date Temp Pulse Resp B/P (MAP) Pulse Ox O2 O2 Flow FiO2 Time Delivery Rate 06/08/18 97 21 16:50 06/08/18 79 20 16:10 06/08/18 97.9 103/66 Room Air 15:32 (78) 06/08/18 2.0 00:00 Intake and Output 06/07/18 06/07/18 06/08/18 1515:00 23:00 07:00 IntakeIntake Total 600 ml 500 ml OutputOutput Total 1300 ml 1050 ml 1300 ml BalanceBalance -1300 ml -450 ml -800 ml Constitutional: alert, oriented, well developed Psych: no complaints, nl mood/affect Head: normocephalic, atraumatic Eyes: nl conjunctiva, EOMI, nl lids, nl sclera, PERRL ENMT: nl external ears & nose, nl lips & teeth, nl nasal mucosa & septum Neck: supple, non-tender Respiratory: clear to auscultation, normal air movement Cardiovascular: regular rate and rhythm, nl pulses Gastrointestinal: soft, nl liver, spleen, non-tender Musculoskeletal: nl extremities to inspection, nl gait and stance Extremities: normal pulses Neurological: [employer]2 [employer]GRAM[employer] II-XII intact, nl mental status, nl speech, nl strength Skin: nl turgor; No rash or lesions Lymph: nl lymph nodes Results Result Diagram: 06/06/18 0538 06/08/18 1500 Results 24hrs Laboratory Tests Test 06/08/18 06:57 06/08/18 15:00 Sodium Level 136 Potassium Level 2.8 *L 3.3 L Chloride Level 91 L Carbon Dioxide Level 33 H Anion Gap 12 Blood Urea Nitrogen 27 H Creatinine 1.18 Est Glomerular Filtrat Rate mL/min > 60 Glucose Level 126 Calcium Level 9.2 Magnesium Level 1.6 L Medications Medication Current Medications Carvedilol (Coreg) 3.125 mg BID PO Last administered on 06/08/18at 09:11; Admin Dose 3.125 MG; Start 05/30/18 at 03:00 Clopidogrel Bisulfate (plaVIX) 75 mg DAILY PO Last administered on 06/08/18at 09:11; Admin Dose 75 MG; Start 05/30/18 at 09:00 Hydralazine HCl (Apresoline) 10 mg Q8 PO Last administered on 06/07/18at 13:00; Admin Dose 10 MG; Start 05/30/18 at 06:00 Isosorbide Mononitrate (Imdur) 30 mg DAILY PO Last administered on 06/07/18at 08:20; Admin Dose 30 MG; Start 05/30/18 at 09:00 IV Flush (NS 3 ml) 3 ml PER PROTOCOL IV ; Start 05/30/18 at 02:00 Ondansetron HCl (Zofran Inj) 4 mg Q6H PRN IV NAUSEA/VOMITING Last administered on 05/30/18at 12:02; Admin Dose 4 MG; Start 05/30/18 at 02:00 Nitroglycerin (Nitroglycerin (Sl Tab) 0.4 Mg) 1 tab Q5M PRN SL .CHEST PAIN; Start 05/30/18 at 02:00 Acetaminophen (Tylenol Tab) 650 mg Q6H PRN PO .PAIN 1-3 OR TEMP; Start 05/30/18 at 02:00 Docusate Sodium (Colace) 100 mg Q12H PRN PO .CONSTIPATION Last administered on 05/30/18 21:38; Admin Dose 100 MG; Start 05/30/18 at 02:00 Bisacodyl (Dulcolax) 5 mg DAILY PRN PO .CONSTIPATION Last administered on 06/04/18 08:48; Admin Dose 5 MG; Start 05/30/18 at 02:00 Metoclopramide HCl (Reglan) 5 mg Q6 IV Last administered on 06/08/18 17:46; Admin Dose 5 MG; Start 05/30/18 at 18:00 Furosemide (Lasix) 40 mg BID DIURETICS IV Last administered on 06/08/18 06:07; Admin Dose 40 MG; Start 06/01/18 at 18:00 Acetaminophen (Tylenol Tab) 650 mg Q4H PRN PO PAIN; Start 06/01/18 at 15:00 Morphine Sulfate (morphine) 1 mg Q1H PRN IV PAIN; Start 06/01/18 at 15:00 Zolpidem Tartrate (Ambien) 5 mg HS MAY REPEAT X 1 PRN PO INSOMNIA Last administered on 06/03/18 02:50; Admin Dose 5 MG; Start 06/01/18 at 15:00 Al Hydrox/Mg Hydrox/Simethicone (Mag-Al Plus) 30 ml Q4H PRN PO GASTROINTESTINAL UPSET Last administered on 06/04/18 18:32; Admin Dose 30 ML; Start 06/01/18 at 15:00 Pantoprazole (Protonix Tab) 40 mg BID@0600,1800 PO Last administered on 06/08/18 06:07; Admin Dose 40 MG; Start 06/02/18 at 18:00 Apixaban (Eliquis) 5 mg BID PO Last administered on 06/08/18 09:11; Admin Dose 5 MG; Start 06/02/18 at 21:00 Potassium Chloride (Potassium Chloride Pwd/Soln) 40 meq DAILY PO Last adminis tered on 06/08/18 09:11; Admin Dose 40 MEQ; Start 06/05/18 at 09:00 Fluticasone Propionate (Flonase 0.05% Nasal) 1 spray BID NASAL Last administered on 06/08/18 09:10; Admin Dose 1 SPRAY; Start 06/05/18 at 12:00 Albuterol (Proventil 0.083% (Neb)) 1.25 mg Q4H RESP THERAPY HHN Last administered on 06/08/18 16:10; Admin Dose 1.25 MG; Start 06/07/18 at 13:00 Ipratropium [place] (Atrovent 0.02% (Neb)) 0.5 mg Q4H RESP THERAPY HHN Last administered on 06/08/18 16:10; Admin Dose 0.5 MG; Start 06/07/18 at 13:00 Magnesium Oxide (Mag-Ox 400) 400 mg DAILY PO Last administered on 06/08/18 09:11; Admin Dose 400 MG; Start 06/07/18 at 13:00 Metolazone (Zaroxolyn) 2.5 mg BID@0530,1730 PO Last administered on 06/08/18 17:47; Admin Dose 2.5 MG; Start 06/07/18 at 17:30 Morphine Sulfate (morphine) 3 mg Q4H PRN PO SEVERE PAIN LEVEL 7-10; Start 06/07/18 at 23:30 Folic Acid (Folic Acid) 1 mg DAILY PO ; Start 06/09/18 at 09:00 SUE BURTON MD Jun 08, 2018 17:58
[2018-06-08] MEDS: LUBIPROSTONE 24 MCG CAP PO SCH (20:26)
[2018-06-09] VITALS (11 sets, daily range): BP systolic 97–109; BP diastolic 64–69; PULSE 74–85; RESP 18
[2018-06-09] MEDS: ALBUTEROL 0.083% (NEB) 2.5 MG/3 ML AMP HHN SCH ×6 (00:34→21:19)
[2018-06-09] MEDS: IPRATROPIUM (NEB) 0.5 MG/2.5 ML AMP HHN SCH ×6 (00:34→21:19)
[2018-06-09] MEDS: METOLAZONE 2.5 MG TAB PO SCH ×2 (05:37→17:35)
[2018-06-09] MEDS: METOCLOPRAMIDE 10 MG INJ IV SCH ×3 (05:38→17:36)
[2018-06-09] MEDS: PANTOPRAZOLE (EC) 40 MG TAB PO SCH ×2 (05:38→17:36)
[2018-06-09] MEDS: FUROSEMIDE 40 MG INJ IV SCH ×2 (06:56→17:36)
[2018-06-09] MEDS: CLOPIDOGREL 75 MG TAB PO SCH (08:37)
[2018-06-09] MEDS: POTASSIUM CHLORIDE 20 MEQ POWDER FOR ORAL SOLN PO SCH (08:37)
[2018-06-09] MEDS: MAGNESIUM OXIDE 400 MG TAB PO SCH (08:37)
[2018-06-09] MEDS: LUBIPROSTONE 24 MCG CAP PO SCH ×2 (08:37→20:44)
[2018-06-09] MEDS: ISOSORBIDE MONONITRATE(SR)30 MG TAB PO SCH (08:38)
[2018-06-09] MEDS: FOLIC ACID 1 MG TAB PO SCH (08:38)
[2018-06-09] MEDS: APIXABAN 5 MG TABLET PO SCH ×2 (08:38→20:44)
[2018-06-09] MEDS: FLUTICASONE 0.05% 16 GM NAS SPRAY NASAL SCH ×2 (08:39→20:44)
[2018-06-09] MEDS ORDERED: POTASSIUM CHLORIDE (SR) 20 MEQ TAB PO STA (10:15)
--- NOTE | 2018-06-09 10:16 | PN ---
Date/Time of Note Date/Time of Note DATE: 06/09/18 TIME: 10:16 Assessment/Plan VTE Prophylaxis Risk score (from Ns)>0 risk: 5 SCD applied (from Ns): No SCD contraindicated: low risk/ambulating Pharmacological prophylaxis: NA/contraindicated Pharm contraindication: low risk/ambulating Lines/Catheters IV Catheter Type (from [facility]): [facility] Urinary Cath still in place: No Assessment/Plan Hospital Course This is a 52-year-old male who presented with: 1. Chest pain with elevated troponins, likely secondary to [id number] myocardial infarction.s/p angiogram on 06/01 with multivessel CAD 2. Nausea, vomiting, epigastric pain. It could be related to acute coronary syndrome; however we cannot rule out underlying gastritis. LFTs show only abnormal elevated alkaline phosphatase. The patient has had HIDA scan in 03/2018 which had been negative. abd ultrasound is essentially neg 3. Acute on chronic systolic congestive heart failure. 4. Elevated alkaline phosphatase. 5. Cardiomyopathy. 6. Diabetes. 7. Hypertension. 8. Severe cardiomyopathy with ejection fraction of 20% to 25%. 9. Chronic kidney disease stage III. with Cr jump to 1.41 s/p diuresis and now s/p angiogram on 06/01 10. Hypomagnesemia. 11 V tach asymtomatic 12 severe hypokalemia likely secondary to diuresis Plan -Replete potassium and Mg - cw with Lasix 40 twice daily and metolazone 2.5 twice daily, monitor bicarb - rt rm superifical DVT , patient was restarted back on Eliquis, apparently patient was off of Eliquis and patient developed the cephalic vein thrombosis. cw With the Eliquis 5 twice daily -= Robitussin as needed fpr cough -?AICD as OPD Monitor strict I's and O's- -Continue with Plavix/Imdur/hydralazine Likely DC tomorrow Result Diagram: 06/06/18 0538 06/08/18 1500 Results 24hrs Laboratory Tests Test 06/08/18 15:00 Potassium Level 3.3 L Magnesium Level 1.6 L Subjective 24 Hr Interval Summary Free Text/Dictation Some cough. Feels that he is urinating a lot Exam/Review of Systems Exam Vitals Vital Signs Date Temp Pulse Resp B/P (MAP) Pulse Ox O2 O2 Flow FiO2 Time Delivery Rate 06/09/18 81 08:43 06/09/18 98.3 18 105/68 98 Room Air 07:05 (80) 06/09/18 21 04:53 06/08/18 2.0 00:00 Intake and Output 06/08/18 06/08/18 06/09/18 1515:00 23:00 07:00 IntakeIntake Total 960 ml 200 ml OutputOutput Total 1992 ml 1601 ml BalanceBalance -1032 ml -1401 ml Exam Constitutional: alert, oriented Neck: supple Respiratory: congested cough, crackles/rales b/l slightly improved from yesterday Cardiovascular: regular rate and rhythm Gastrointestinal: soft edema of legs rt arm edema Results Results 24hrs Laboratory Tests Test 06/08/18 15:00 Potassium Level 3.3 L Magnesium Level 1.6 L Medications Medication Current Medications Carvedilol (Coreg) 3.125 mg BID PO Last administered on 06/09/18at 08:38; Admin Dose 3.125 MG; Start 05/30/18 at 03:00 Clopidogrel Bisulfate (plaVIX) 75 mg DAILY PO Last administered on 06/09/18at 08:37; Admin Dose 75 MG; Start 05/30/18 at 09:00 Hydralazine HCl (Apresoline) 10 mg Q8 PO Last administered on 06/07/18at 13:00; Admin Dose 10 MG; Start 05/30/18 at 06:00 Isosorbide Mononitrate (Imdur) 30 mg DAILY PO Last administered on 06/09/18at 08:38; Admin Dose 30 MG; Start 05/30/18 at 09:00 IV Flush (NS 3 ml) 3 ml PER PROTOCOL IV ; Start 05/30/18 at 02:00 Ondansetron HCl (Zofran Inj) 4 mg Q6H PRN IV NAUSEA/VOMITING Last administered on 05/30/18at 12:02; Admin Dose 4 MG; Start 05/30/18 at 02:00 Nitroglycerin (Nitroglycerin (Sl Tab) 0.4 Mg) 1 tab Q5M PRN SL .CHEST PAIN; Start 05/30/18 at 02:00 Acetaminophen (Tylenol Tab) 650 mg Q6H PRN PO .PAIN 1-3 OR TEMP; Start 05/30/18 at 02:00 Docusate Sodium (Colace) 100 mg Q12H PRN PO .CONSTIPATION Last administered on 05/30/18 21:38; Admin Dose 100 MG; Start 05/30/18 at 02:00 Bisacodyl (Dulcolax) 5 mg DAILY PRN PO .CONSTIPATION Last administered on 06/04/18 08:48; Admin Dose 5 MG; Start 05/30/18 at 02:00 Metoclopramide HCl (Reglan) 5 mg Q6 IV Last administered on 06/09/18 05:38; Admin Dose 5 MG; Start 05/30/18 at 18:00 Furosemide (Lasix) 40 mg BID DIURETICS IV Last administered on 06/09/18 06:56; Admin Dose 40 MG; Start 06/01/18 at 18:00 Acetaminophen (Tylenol Tab) 650 mg Q4H PRN PO PAIN; Start 06/01/18 at 15:00 Morphine Sulfate (morphine) 1 mg Q1H PRN IV PAIN; Start 06/01/18 at 15:00 Zolpidem Tartrate (Ambien) 5 mg HS MAY REPEAT X 1 PRN PO INSOMNIA Last administered on 06/03/18 02:50; Admin Dose 5 MG; Start 06/01/18 at 15:00 Al Hydrox/Mg Hydrox/Simethicone (Mag-Al Plus) 30 ml Q4H PRN PO GASTROINTESTINAL UPSET Last administered on 06/04/18 18:32; Admin Dose 30 ML; Start 06/01/18 at 15:00 Pantoprazole (Protonix Tab) 40 mg BID@0600,1800 PO Last administered on 06/09/18 05:38; Admin Dose 40 MG; Start 06/02/18 at 18:00 Apixaban (Eliquis) 5 mg BID PO Last administered on 06/09/18 08:38; Admin Dose 5 MG; Start 06/02/18 at 21:00 Potassium Chloride (Potassium Chloride Pwd/Soln) 40 meq DAILY PO Last administered on 06/09/18 08:37; Admin Dose 40 MEQ; Start 06/05/18 at 09:00 Fluticasone Propionate (Flonase 0.05% Nasal) 1 spray BID NASAL Last administered on 06/09/18 08:39; Admin Dose 1 SPRAY; Start 06/05/18 at 12:00 Albuterol (Proventil 0.083% (Neb)) 1.25 mg Q4H RESP THERAPY HHN Last administered on 06/09/18 04:53; Admin Dose 1.25 MG; Start 06/07/18 at 13:00 Ipratropium [place] (Atrovent 0.02% (Neb)) 0.5 mg Q4H RESP THERAPY HHN Last administered on 06/09/18 04:53; Admin Dose 0.5 MG; Start 06/07/18 at 13:00 Magnesium Oxide (Mag-Ox 400) 400 mg DAILY PO Last administered on 06/09/18 08:37; Admin Dose 400 MG; Start 06/07/18 at 13:00 Metolazone (Zaroxolyn) 2.5 mg BID@0530,1730 PO Last administered on 06/09/18 05:37; Admin Dose 2.5 MG; Start 06/07/18 at 17:30 Morphine Sulfate (morphine) 3 mg Q4H PRN PO SEVERE PAIN LEVEL 7-10 Last administered on 06/08/18 21:52; Admin Dose 3 MG; Start 06/07/18 at 23:30 Folic Acid (Folic Acid) 1 mg DAILY PO Last administered on 06/09/18 08:38; Admin Dose 1 MG; Start 06/09/18 at 09:00 Lubiprostone (Amitiza) 24 mcg BID PO Last administered on 06/09/18 08:37; Admin Dose 24 MCG; Start 06/08/18 at 21:00 Magnesium Sulfate 50 ml @ 25 mls/hr ONCE ONCE IVPB ; Start 06/09/18 at 10:30; Stop 06/09/18 at 12:29; Status UNV Potassium Chloride (Klor-Con 20) 40 meq ONCE STAT PO ; Start 06/09/18 at 10:15; Stop 06/09/18 at 10:16; Status UNV OMAR ESPINOSA MD Jun 09, 2018 10:16
[2018-06-09] MEDS ORDERED: MAGNESIUM SULFATE 2 GM/50 ML 50 ML IVPB ONE (10:30)
--- NOTE | 2018-06-09 13:21 | CONS ---
Assessment/Plan Assessment/Plan Hospital Course (Demo Recall) IMPRESSION: 1. Positive troponin consistent with [id number] myocardial infarction, small at this time. s/p PTCA/stent to 2. Chest pain, intermittent. 3. Cardiomyopathy with severe depressed left ventricular ejection fraction last EF approximately 20% by echo this month. 4. Congestive heart failure, systolic, acute on chronic, very mild volume overload at this time. 5. Abdominal pain, nausea and vomiting without intra-abdominal pathology. 6. Coagulopathy secondary to Eliquis. 7. Chronic kidney disease not on HD- acute on chronic renal failure likely contrast induced. Now improved Recc: -Tele -Continue coreg/hydralazine/imdur as tolerated only -Contineu plavix plus eliquis -Continue lasix diuresis plus metolazone and follow slowly improving volume status -ambulation Consultation Date/Type/Reason Admit Date/Time May 30, 2018 at 01:33 Initial Consult Date 05/30/18 Type of Consult Cardiology Reason for Consultation CHF/Nstemi Requesting Provider: OMAR ESPINOSA MD Date/Time of Note DATE: 06/09/18 TIME: 13:20 Exam/Review of Systems Vital Signs Vitals Vital Signs Date Temp Pulse Resp B/P (MAP) Pulse Ox O2 O2 Flow FiO2 Time Delivery Rate 06/09/18 84 12:30 06/09/18 97.4 18 109/69 97 Room Air 11:40 (82) 06/09/18 21 10:32 06/08/18 2.0 00:00 Intake and Output 06/08/18 06/08/18 06/09/18 1515:00 23:00 07:00 IntakeIntake Total 960 ml 200 ml OutputOutput Total 1992 ml 1601 ml BalanceBalance -1032 ml -1401 ml Exam Exam Review of Systems: CONSTITUTIONAL: No fevers, chills. PULMONARY: mild sob CARDIOVASCULAR: No chest pain/palpitations GASTROINTESTINAL: No nausea/vomiting. GENITOURINARY: No hematuria/dysuria. MUSCULOSKELETAL: No myagias/arthalgias. PSYCHIATRIC: The patient denies depression. NEUROLOGIC: No weakness Constitutional: alert, oriented Psych: no complaints Head: normocephalic ENMT: mucosa pink and moist Neck: supple, jvd (9 cm water) Respiratory: diminished breath sounds Cardiovascular: regular rate and rhythm Gastrointestinal: soft, non-tender Musculoskeletal: muscle tone (normal) Extremities: pitting pedal edema (at ankles bilateraly) Neurological: other (No focal deficits) Labs Result Diagram: 06/06/18 0538 06/09/18 1059 Results 24hrs Laboratory Tests Test 06/08/18 15:00 06/09/18 10:59 Potassium Level 3.3 L 3.2 L Magnesium Level 1.6 L Sodium Level 133 L Chloride Level 89 L Carbon Dioxide Level 35 H Anion Gap 9 Blood Urea Nitrogen 24 H Creatinine 1.09 Est Glomerular Filtrat Rate mL/min > 60 Glucose Level 178 Calcium Level 9.6 Medications Medications Current Medications Carvedilol (Coreg) 3.125 mg BID PO Last administered on 06/09/18 08:38; Admin Dose 3.125 MG; Start 05/30/18 at 03:00 Clopidogrel Bisulfate (plaVIX) 75 mg DAILY PO Last administered on 06/09/18 08:37; Admin Dose 75 MG; Start 05/30/18 at 09:00 Hydralazine HCl (Apresoline) 10 mg Q8 PO Last administered on 06/07/18at 13:00; Admin Dose 10 MG; Start 05/30/18 at 06:00 Isosorbide Mononitrate (Imdur) 30 mg DAILY PO Last administered on 06/09/18 08:38; Admin Dose 30 MG; Start 05/30/18 at 09:00 IV Flush (NS 3 ml) 3 ml PER PROTOCOL IV ; Start 05/30/18 at 02:00 Ondansetron HCl (Zofran Inj) 4 mg Q6H PRN IV NAUSEA/VOMITING Last administered on 05/30/18at 12:02; Admin Dose 4 MG; Start 05/30/18 at 02:00 Nitroglycerin (Nitroglycerin (Sl Tab) 0.4 Mg) 1 tab Q5M PRN SL .CHEST PAIN; Start 05/30/18 at 02:00 Acetaminophen (Tylenol Tab) 650 mg Q6H PRN PO .PAIN 1-3 OR TEMP; Start 05/30/18 at 02:00 Docusate Sodium (Colace) 100 mg Q12H PRN PO .CONSTIPATION Last administered on 05/30/18at 21:38; Admin Dose 100 MG; Start 05/30/18 at 02:00 Bisacodyl (Dulcolax) 5 mg DAILY PRN PO .CONSTIPATION Last administered on 06/04/18 08:48; Admin Dose 5 MG; Start 05/30/18 at 02:00 Metoclopramide HCl (Reglan) 5 mg Q6 IV Last administered on 06/09/18 11:21; Admin Dose 5 MG; Start 05/30/18 at 18:00 Furosemide (Lasix) 40 mg BID DIURETICS IV Last administered on 06/09/18 06:56; Admin Dose 40 MG; Start 06/01/18 at 18:00 Acetaminophen (Tylenol Tab) 650 mg Q4H PRN PO PAIN; Start 06/01/18 at 15:00 Morphine Sulfate (morphine) 1 mg Q1H PRN IV PAIN; Start 06/01/18 at 15:00 Zolpidem Tartrate (Ambien) 5 mg HS MAY REPEAT X 1 PRN PO INSOMNIA Last administered on 06/03/18 02:50; Admin Dose 5 MG; Start 06/01/18 at 15:00 Al Hydrox/Mg Hydrox/Simethicone (Mag-Al Plus) 30 ml Q4H PRN PO GASTROINTESTINAL UPSET Last administered on 06/04/18 18:32; Admin Dose 30 ML; Start 06/01/18 at 15:00 Pantoprazole (Protonix Tab) 40 mg BID@0600,1800 PO Last administered on 06/09/18 05:38; Admin Dose 40 MG; Start 06/02/18 at 18:00 Apixaban (Eliquis) 5 mg BID PO Last administered on 06/09/18 08:38; Admin Dose 5 MG; Start 06/02/18 at 21:00 Potassium Chloride (Potassium Chloride Pwd/Soln) 40 meq DAILY PO Last administered on 06/09/18 08:37; Admin Dose 40 MEQ; Start 06/05/18 at 09:00 Fluticasone Propionate (Flonase 0.05% Nasal) 1 spray BID NASAL Last administered on 06/09/18 08:39; Admin Dose 1 SPRAY; Start 06/05/18 at 12:00 Albuterol (Proventil 0.083% (Neb)) 1.25 mg Q4H RESP THERAPY HHN Last administered on 06/09/18 10:31; Admin Dose 1.25 MG; Start 06/07/18 at 13:00 Ipratropium [place] (Atrovent 0.02% (Neb)) 0.5 mg Q4H RESP THERAPY HHN Last administered on 06/09/18 10:30; Admin Dose 0.5 MG; Start 06/07/18 at 13:00 Magnesium Oxide (Mag-Ox 400) 400 mg DAILY PO Last administered on 06/09/18 08:37; Admin Dose 400 MG; Start 06/07/18 at 13:00 Metolazone (Zaroxolyn) 2.5 mg BID@0530,1730 PO Last administered on 06/09/18 05:37; Admin Dose 2.5 MG; Start 06/07/18 at 17:30 Morphine Sulfate (morphine) 3 mg Q4H PRN PO SEVERE PAIN LEVEL 7-10 Last administered on 06/08/18 21:52; Admin Dose 3 MG; Start 06/07/18 at 23:30 Folic Acid (Folic Acid) 1 mg DAILY PO Last administered on 06/09/18 08:38; Admin Dose 1 MG; Start 06/09/18 at 09:00 Lubiprostone (Amitiza) 24 mcg BID PO Last administered on 06/09/18 08:37; Admin Dose 24 MCG; Start 06/08/18 at 21:00 Guaifenesin/ Dextromethorphan (Robitussin Dm Liquid Cup) 10 ml Q4H PRN PO COUGH; Start 06/09/18 at 10:30 KARSON HERNANDEZ 7, 2019 13:21
--- NOTE | 2018-06-09 13:54 | CONS ---
Assessment/Plan Assessment/Plan Hospital Course (Demo Recall) # Right Upper Extremity DVT -As state before, I feel that this DVT developed while pt was off eliquis. Records from the pharmacy indicate that eliquis was not given when patient was admitted on 05/30 and was started on 06/02. Therefore is it possible that patient developed the clot while off eliquis and while he had a line in place in the RUE - continue ELiquis 5 mg po BID for now -hypercoagulable workup which was ordered at the last visit is negative for FVL mutation, Protein C deficiency and Lupus anticoagulant. elevated homocysteine level is noted -will follow up -r/o Prothrombin Gene Mutation -r/o Protein s deficiency -r/o APS #elevated homocysteine -start folic acid 1 mg q day # History of right superficial femoral artery embolectomy and popliteal artery plasty. -continue plavix # Congestive heart failure exacerbation.History of elevated BNP secondary to . Diabetes. -s/p angiogram and stent -continue plavix -management per cardiology # MELVIN on CKD chronic kidney disease stage III. Cr untended a bit, however patient has anasarca - per nephrology # Hypertension. - per cardiology Consultation Date/Type/Reason Admit Date/Time May 30, 2018 at 01:33 Initial Consult Date 06/07/18 Type of Consult hematology Reason for Consultation RUE superficial thrombosis Requesting Provider: OMAR ESPINOSA MD Date/Time of Note DATE: 06/09/18 TIME: 13:53 24 HR Interval Summary Free Text/Dictation no acute overnight events. pt continues on eliquis Exam/Review of Systems Exam Vitals Vital Signs Date Temp Pulse Resp B/P (MAP) Pulse Ox O2 O2 Flow FiO2 Time Delivery Rate 06/09/18 84 12:30 06/09/18 97.4 18 109/69 97 Room Air 11:40 (82) 06/09/18 21 10:32 06/08/18 2.0 00:00 Intake and Output 06/08/18 06/08/18 06/09/18 1515:00 23:00 07:00 IntakeIntake Total 960 ml 200 ml OutputOutput Total 1992 ml 1601 ml BalanceBalance -1032 ml -1401 ml Constitutional: alert, oriented Psych: no complaints Head: normocephalic Eyes: nl conjunctiva ENMT: nl external ears & nose Neck: supple Respiratory: clear to auscultation Cardiovascular: regular rate and rhythm Gastrointestinal: soft Musculoskeletal: nl extremities to inspection Results Result Diagram: 06/06/18 0538 06/09/18 1059 Results 24hrs Laboratory Tests Test 06/08/18 15:00 06/09/18 10:59 Potassium Level 3.3 L 3.2 L Magnesium Level 1.6 L Sodium Level 133 L Chloride Level 89 L Carbon Dioxide Level 35 H Anion Gap 9 Blood Urea Nitrogen 24 H Creatinine 1.09 Est Glomerular Filtrat Rate mL/min > 60 Glucose Level 178 Calcium Level 9.6 Medications Medication Current Medications Carvedilol (Coreg) 3.125 mg BID PO Last administered on 06/09/18 08:38; Admin Dose 3.125 MG; Start 05/30/18 at 03:00 Clopidogrel Bisulfate (plaVIX) 75 mg DAILY PO Last administered on 06/09/18 08:37; Admin Dose 75 MG; Start 05/30/18 at 09:00 Hydralazine HCl (Apresoline) 10 mg Q8 PO Last administered on 06/09/18at 13:50; Admin Dose 10 MG; Start 05/30/18 at 06:00 Isosorbide Mononitrate (Imdur) 30 mg DAILY PO Last administered on 06/09/18 08:38; Admin Dose 30 MG; Start 05/30/18 at 09:00 IV Flush (NS 3 ml) 3 ml PER PROTOCOL IV ; Start 05/30/18 at 02:00 Ondansetron HCl (Zofran Inj) 4 mg Q6H PRN IV NAUSEA/VOMITING Last administered on 05/30/18at 12:02; Admin Dose 4 MG; Start 05/30/18 at 02:00 Nitroglycerin (Nitroglycerin (Sl Tab) 0.4 Mg) 1 tab Q5M PRN SL .CHEST PAIN; St art 05/30/18 at 02:00 Acetaminophen (Tylenol Tab) 650 mg Q6H PRN PO .PAIN 1-3 OR TEMP; Start 05/30/18 at 02:00 Docusate Sodium (Colace) 100 mg Q12H PRN PO .CONSTIPATION Last administered on 05/30/18at 21:38; Admin Dose 100 MG; Start 05/30/18 at 02:00 Bisacodyl (Dulcolax) 5 mg DAILY PRN PO .CONSTIPATION Last administered on 06/04/18 08:48; Admin Dose 5 MG; Start 05/30/18 at 02:00 Metoclopramide HCl (Reglan) 5 mg Q6 IV Last administered on 06/09/18 11:21; Admin Dose 5 MG; Start 05/30/18 at 18:00 Furosemide (Lasix) 40 mg BID DIURETICS IV Last administered on 06/09/18 06:56; Admin Dose 40 MG; Start 06/01/18 at 18:00 Acetaminophen (Tylenol Tab) 650 mg Q4H PRN PO PAIN; Start 06/01/18 at 15:00 Morphine Sulfate (morphine) 1 mg Q1H PRN IV PAIN; Start 06/01/18 at 15:00 Zolpidem Tartrate (Ambien) 5 mg HS MAY REPEAT X 1 PRN PO INSOMNIA Last administered on 06/03/18 02:50; Admin Dose 5 MG; Start 06/01/18 at 15:00 Al Hydrox/Mg Hydrox/Simethicone (Mag-Al Plus) 30 ml Q4H PRN PO GASTROINTESTINAL UPSET Last administered on 06/04/18 18:32; Admin Dose 30 ML; Start 06/01/18 at 15:00 Pantoprazole (Protonix Tab) 40 mg BID@0600,1800 PO Last administered on 06/09/18 05:38; Admin Dose 40 MG; Start 06/02/18 at 18:00 Apixaban (Eliquis) 5 mg BID PO Last administered on 06/09/18 08:38; Admin Dose 5 MG; Start 06/02/18 at 21:00 Potassium Chloride (Potassium Chloride Pwd/Soln) 40 meq DAILY PO Last a dministered on 06/09/18 08:37; Admin Dose 40 MEQ; Start 06/05/18 at 09:00 Fluticasone Propionate (Flonase 0.05% Nasal) 1 spray BID NASAL Last administered on 06/09/18 08:39; Admin Dose 1 SPRAY; Start 06/05/18 at 12:00 Albuterol (Proventil 0.083% (Neb)) 1.25 mg Q4H RESP THERAPY HHN Last administered on 06/09/18 10:31; Admin Dose 1.25 MG; Start 06/07/18 at 13:00 Ipratropium [place] (Atrovent 0.02% (Neb)) 0.5 mg Q4H RESP THERAPY HHN Last administered on 06/09/18 10:30; Admin Dose 0.5 MG; Start 06/07/18 at 13:00 Magnesium Oxide (Mag-Ox 400) 400 mg DAILY PO Last administered on 06/09/18 08:37; Admin Dose 400 MG; Start 06/07/18 at 13:00 Metolazone (Zaroxolyn) 2.5 mg BID@0530,1730 PO Last administered on 06/09/18 05:37; Admin Dose 2.5 MG; Start 06/07/18 at 17:30 Morphine Sulfate (morphine) 3 mg Q4H PRN PO SEVERE PAIN LEVEL 7-10 Last administered on 06/08/18 21:52; Admin Dose 3 MG; Start 06/07/18 at 23:30 Folic Acid (Folic Acid) 1 mg DAILY PO Last administered on 06/09/18 08:38; Admin Dose 1 MG; Start 06/09/18 at 09:00 Lubiprostone (Amitiza) 24 mcg BID PO Last administered on 06/09/18 08:37; Admin Dose 24 MCG; Start 06/08/18 at 21:00 Guaifenesin/ Dextromethorphan (Robitussin Dm Liquid Cup) 10 ml Q4H PRN PO COUGH; Start 06/09/18 at 10:30 NAIDA LYONS M.D. Jun 09, 2018 13:54
[2018-06-09] MEDS: GUAIFENESIN/DM 5ML CUP PO PRN ×2 (18:05→21:40)
[2018-06-10] VITALS (10 sets, daily range): BP systolic 90–108; BP diastolic 63–70; PULSE 86–99; RESP 18–22
[2018-06-10] MEDS: METOCLOPRAMIDE 10 MG INJ IV SCH ×3 (00:17→13:34)
[2018-06-10] MEDS: ALBUTEROL 0.083% (NEB) 2.5 MG/3 ML AMP HHN SCH ×5 (01:31→17:00)
[2018-06-10] MEDS: IPRATROPIUM (NEB) 0.5 MG/2.5 ML AMP HHN SCH ×5 (01:31→17:00)
[2018-06-10] MEDS: METOLAZONE 2.5 MG TAB PO SCH (05:23)
[2018-06-10] MEDS: FUROSEMIDE 40 MG INJ IV SCH (05:48)
[2018-06-10] MEDS: PANTOPRAZOLE (EC) 40 MG TAB PO SCH (05:48)
[2018-06-10] MEDS: CLOPIDOGREL 75 MG TAB PO SCH (08:14)
[2018-06-10] MEDS: LUBIPROSTONE 24 MCG CAP PO SCH (08:14)
[2018-06-10] MEDS: POTASSIUM CHLORIDE 20 MEQ POWDER FOR ORAL SOLN PO SCH (08:15)
[2018-06-10] MEDS: ISOSORBIDE MONONITRATE(SR)30 MG TAB PO SCH (08:16)
[2018-06-10] MEDS: FOLIC ACID 1 MG TAB PO SCH (08:17)
[2018-06-10] MEDS: MAGNESIUM OXIDE 400 MG TAB PO SCH (08:17)
[2018-06-10] MEDS: APIXABAN 5 MG TABLET PO SCH (08:17)
[2018-06-10] MEDS: FLUTICASONE 0.05% 16 GM NAS SPRAY NASAL SCH (08:18)
[2018-06-10] MEDS ORDERED: POTASSIUM CHLORIDE (SR) 20 MEQ TAB PO STA ×2 (08:23→16:37)
--- NOTE | 2018-06-10 10:41 | CONS ---
Assessment/Plan Assessment/Plan Hospital Course (Demo Recall) # Right Upper Extremity DVT -As state before, I feel that this DVT developed while pt was off eliquis. Records from the pharmacy indicate that eliquis was not given when patient was admitted on 05/30 and was started on 06/02. Therefore is it possible that patient developed the clot while off eliquis and while he had a line in place in the RUE - continue ELiquis 5 mg po BID for now -hypercoagulable workup which was ordered at the last visit is negative for FVL mutation, Protein C deficiency and Lupus anticoagulant. elevated homocysteine level is noted -will follow up -r/o Prothrombin Gene Mutation -r/o Protein s deficiency -r/o APS #elevated homocysteine -continue folic acid 1 mg q day # History of right superficial femoral artery embolectomy and popliteal artery plasty. -continue plavix # Congestive heart failure exacerbation.History of elevated BNP secondary to . Diabetes. -s/p angiogram and stent -continue plavix -management per cardiology # MELVIN on CKD chronic kidney disease stage III. Cr untended a bit, however patient has anasarca - per nephrology # Hypertension. - per cardiology Consultation Date/Type/Reason Admit Date/Time May 30, 2018 at 01:33 Initial Consult Date 06/07/18 Type of Consult hematology Reason for Consultation no acute overnight events Requesting Provider: OMAR ESPINOSA MD Date/Time of Note DATE: 06/10/18 TIME: 10:38 24 HR Interval Summary Free Text/Dictation continues on diuresis. s/p K replacement yesterday Exam/Review of Systems Exam Vitals Vital Signs Date Temp Pulse Resp B/P (MAP) Pulse Ox O2 O2 Flow FiO2 Time Delivery Rate 06/10/18 87 18 98 21 09:33 06/10/18 97.8 108/70 Room Air 07:14 (83) 06/08/18 2.0 00:00 Intake and Output 06/09/18 06/09/18 06/10/18 1515:00 23:00 07:00 IntakeIntake Total 480 ml 600 ml OutputOutput Total 1150 ml 1500 ml BalanceBalance -670 ml -900 ml Constitutional: alert, oriented Psych: no complaints Head: normocephalic Eyes: nl conjunctiva ENMT: nl external ears & nose Neck: supple Respiratory: clear to auscultation Cardiovascular: regular rate and rhythm Gastrointestinal: soft Musculoskeletal: nl extremities to inspection Results Result Diagram: 06/06/18 0538 06/10/18 0614 Results 24hrs Laboratory Tests Test 06/09/18 10:59 06/10/18 06:14 Sodium Level 133 L 136 Potassium Level 3.2 L 3.1 L Chloride Level 89 L 85 L Carbon Dioxide Level 35 H 38 H Anion Gap 9 13 Blood Urea Nitrogen 24 H 23 H Creatinine 1.09 1.28 H Est Glomerular Filtrat Rate mL/min > 60 59 L Glucose Level 178 129 # Calcium Level 9.6 9.6 Medications Medication Current Medications Carvedilol (Coreg) 3.125 mg BID PO Last administered on 06/10/18 08:17; Admin D ose 3.125 MG; Start 05/30/18 at 03:00 Clopidogrel Bisulfate (plaVIX) 75 mg DAILY PO Last administered on 06/10/18 08:14; Admin Dose 75 MG; Start 05/30/18 at 09:00 Hydralazine HCl (Apresoline) 10 mg Q8 PO Last administered on 06/09/18at 13:50; Admin Dose 10 MG; Start 05/30/18 at 06:00 Isosorbide Mononitrate (Imdur) 30 mg DAILY PO Last administered on 06/10/18 08:16; Admin Dose 30 MG; Start 05/30/18 at 09:00 IV Flush (NS 3 ml) 3 ml PER PROTOCOL IV ; Start 05/30/18 at 02:00 Ondansetron HCl (Zofran Inj) 4 mg Q6H PRN IV NAUSEA/VOMITING Last administered on 05/30/18at 12:02; Admin Dose 4 MG; Start 05/30/18 at 02:00 Nitroglycerin (Nitroglycerin (Sl Tab) 0.4 Mg) 1 tab Q5M PRN SL .CHEST PAIN; Start 05/30/18 at 02:00 Acetaminophen (Tylenol Tab) 650 mg Q6H PRN PO .PAIN 1-3 OR TEMP; Start 05/30/18 at 02:00 Docusate Sodium (Colace) 100 mg Q12H PRN PO .CONSTIPATION Last administered on 05/30/18 21:38; Admin Dose 100 MG; Start 05/30/18 at 02:00 Bisacodyl (Dulcolax) 5 mg DAILY PRN PO .CONSTIPATION Last administered on 06/04/18 08:48; Admin Dose 5 MG; Start 05/30/18 at 02:00 Metoclopramide HCl (Reglan) 5 mg Q6 IV Last administered on 06/10/18 05:48; Admin Dose 5 MG; Start 05/30/18 at 18:00 Furosemide (Lasix) 40 mg BID DIURETICS IV Last administered on 06/10/18 05:48; Admin Dose 40 MG; Start 06/01/18 at 18:00 Acetaminophen (Tylenol Tab) 650 mg Q4H PRN PO PAIN; Start 06/01/18 at 15:00 Morphine Sulfate (morphine) 1 mg Q1H PRN IV PAIN; Start 06/01/18 at 15:00 Zolpidem Tartrate (Ambien) 5 mg HS MAY REPEAT X 1 PRN PO INSOMNIA Last administered on 06/03/18 02:50; Admin Dose 5 MG; Start 06/01/18 at 15:00 Al Hydrox/Mg Hydrox/Simethicone (Mag-Al Plus) 30 ml Q4H PRN PO GASTROINTESTINAL UPSET Last administered on 06/04/18 18:32; Admin Dose 30 ML; Start 06/01/18 at 15:00 Pantoprazole (Protonix Tab) 40 mg BID@0600,1800 PO Last administered on 06/10/18 05:48; Admin Dose 40 MG; Start 06/02/18 at 18:00 Apixaban (Eliquis) 5 mg BID PO Last administered on 06/10/18 08:17; Admin Dose 5 MG; Start 06/02/18 at 21:00 Potassium Chloride (Potassium Chloride Pwd/Soln) 40 meq DAILY PO Last adm inistered on 06/10/18 08:15; Admin Dose 40 MEQ; Start 06/05/18 at 09:00 Fluticasone Propionate (Flonase 0.05% Nasal) 1 spray BID NASAL Last administered on 06/10/18 08:18; Admin Dose 1 SPRAY; Start 06/05/18 at 12:00 Albuterol (Proventil 0.083% (Neb)) 1.25 mg Q4H RESP THERAPY HHN Last administered on 06/10/18 09:33; Admin Dose 1.25 MG; Start 06/07/18 at 13:00 Ipratropium [place] (Atrovent 0.02% (Neb)) 0.5 mg Q4H RESP THERAPY HHN Last administered on 06/10/18 09:33; Admin Dose 0.5 MG; Start 06/07/18 at 13:00 Magnesium Oxide (Mag-Ox 400) 400 mg DAILY PO Last administered on 06/10/18 08:17; Admin Dose 400 MG; Start 06/07/18 at 13:00 Metolazone (Zaroxolyn) 2.5 mg BID@0530,1730 PO Last administered on 06/10/18 05:23; Admin Dose 2.5 MG; Start 06/07/18 at 17:30 Morphine Sulfate (morphine) 3 mg Q4H PRN PO SEVERE PAIN LEVEL 7-10 Last administered on 06/08/18 21:52; Admin Dose 3 MG; Start 06/07/18 at 23:30 Folic Acid (Folic Acid) 1 mg DAILY PO Last administered on 06/10/18 08:17; Admin Dose 1 MG; Start 06/09/18 at 09:00 Lubiprostone (Amitiza) 24 mcg BID PO Last administered on 06/10/18 08:14; Admin Dose 24 MCG; Start 06/08/18 at 21:00 Guaifenesin/ Dextromethorphan (Robitussin Dm Liquid Cup) 10 ml Q4H PRN PO COUGH Last administered on 06/09/18 21:40; Admin Dose 10 ML; Start 06/09/18 at 10:30 NAIDA LYONS M.D. Jun 10, 2018 10:40
--- NOTE | 2018-06-10 13:50 | QN ---
Documentation Comment doing well labs reviewed repelete K and iv diamox recheck labs for K and then dc OMAR ESPINOSA MD Jun 10, 2018 13:50
--- NOTE | 2018-06-10 13:51 | PDOCDIS ---
Discharge Instructions DIAGNOSIS Discharge Diagnosis CHF CAD s/p stenting of RCA CONDITION [id number] Patient Condition: [id number] Fair HOME CARE INSTRUCTIONS: [id number] Diet Instructions: [id number] Low Fat /Cholesterol ACTIVITY: [id number] Activity Restrictions: [id number] Slowly Increase Activity Rest between Activity Avoid heavy lifting FOLLOW UP/APPOINTMENTS Follow-up Plan FU PCP in 1 week f/u Cards in 1-2 weeks f/u NEPHROLOGY IN 2-3 weeks FLUID RESTRICTION 1.2 L/DAY OMAR ESPINOSA MD Jun 10, 2018 13:51
--- NOTE | 2018-06-10 13:52 | CONS ---
Assessment/Plan Assessment/Plan Hospital Course (Demo Recall) IMPRESSION: 1. Positive troponin consistent with [id number] myocardial infarction, small at this time. s/p PTCA/stent to 2. Chest pain, intermittent. 3. Cardiomyopathy with severe depressed left ventricular ejection fraction last EF approximately 20% by echo this month. 4. Congestive heart failure, systolic, acute on chronic, very mild volume overload at this time. 5. Abdominal pain, nausea and vomiting without intra-abdominal pathology. 6. Coagulopathy secondary to Eliquis. 7. Chronic kidney disease not on HD- acute on chronic renal failure likely contrast induced. Now improved Recc: -Tele -Continue coreg/hydralazine/imdur as tolerated only -Contineu plavix plus eliquis -Continue lasix and change to PO with metolazone low dose daily at d/c -s/p dose of Diamox -ok for d/c planning from cardiac stndpoint -ambulation Consultation Date/Type/Reason Admit Date/Time May 30, 2018 at 01:33 Initial Consult Date 05/30/18 Type of Consult Cardiology Reason for Consultation CHF Requesting Provider: OMAR ESPINOSA MD Date/Time of Note DATE: 06/10/18 TIME: 13:49 Exam/Review of Systems Vital Signs Vitals Vital Signs Date Temp Pulse Resp B/P (MAP) Pulse Ox O2 O2 Flow FiO2 Time Delivery Rate 06/10/18 96 20 97 21 13:18 06/10/18 98.1 102/69 Room Air 11:21 (80) 06/08/18 2.0 00:00 Intake and Output 06/09/18 06/09/18 06/10/18 1515:00 23:00 07:00 IntakeIntake Total 480 ml 600 ml OutputOutput Total 1150 ml 1500 ml BalanceBalance -670 ml -900 ml Exam Exam Review of Systems: CONSTITUTIONAL: No fevers, chills. PULMONARY: No sob CARDIOVASCULAR: No chest pain/palpitations GASTROINTESTINAL: No nausea/vomiting. GENITOURINARY: No hematuria/dysuria. MUSCULOSKELETAL: No myagias/arthalgias. PSYCHIATRIC: The patient denies depression. NEUROLOGIC: No weakness Constitutional: alert Psych: no complaints Head: normocephalic ENMT: mucosa pink and moist Neck: supple, jvd (8 cm water) Respiratory: diminished breath sounds (at bases/B) Cardiovascular: regular rate and rhythm Gastrointestinal: soft, non-tender Musculoskeletal: muscle tone (normal) Extremities: edema (no edema) Neurological: other (No focal deficits) Labs Result Diagram: 06/06/18 0538 06/10/18 0614 Results 24hrs Laboratory Tests Test 06/10/18 06:14 Sodium Level 136 Potassium Level 3.1 L Chloride Level 85 L Carbon Dioxide Level 38 H Anion Gap 13 Blood Urea Nitrogen 23 H Creatinine 1.28 H Est Glomerular Filtrat Rate mL/min 59 L Glucose Level 129 # Calcium Level 9.6 Medications Medications Current Medications Carvedilol (Coreg) 3.125 mg BID PO Last administered on 06/10/18 08:17; Admin Dose 3.125 MG; Start 05/30/18 at 03:00 Clopidogrel Bisulfate (plaVIX) 75 mg DAILY PO Last administered on 06/10/18 08:14; Admin Dose 75 MG; Start 05/30/18 at 09:00 Hydralazine HCl (Apresoline) 10 mg Q8 PO Last administered on 06/10/18at 13:33; Admin Dose 10 MG; Start 05/30/18 at 06:00 Isosorbide Mononitrate (Imdur) 30 mg DAILY PO Last administered on 06/10/18 08:16; Admin Dose 30 MG; Start 05/30/18 at 09:00 IV Flush (NS 3 ml) 3 ml PER PROTOCOL IV ; Start 05/30/18 at 02:00 Ondansetron HCl (Zofran Inj) 4 mg Q6H PRN IV NAUSEA/VOMITING Last administered on 05/30/18at 12:02; Admin Dose 4 MG; Start 05/30/18 at 02:00 Nitroglycerin (Nitroglycerin (Sl Tab) 0.4 Mg) 1 tab Q5M PRN SL .CHEST PAIN; Start 05/30/18 at 02:00 Acetaminophen (Tylenol Tab) 650 mg Q6H PRN PO .PAIN 1-3 OR TEMP; Start 05/30/18 at 02:00 Docusate Sodium (Colace) 100 mg Q12H PRN PO .CONSTIPATION Last administered on 05/30/18at 21:38; Admin Dose 100 MG; Start 05/30/18 at 02:00 Bisacodyl (Dulcolax) 5 mg DAILY PRN PO .CONSTIPATION Last administered on 06/04/18 08:48; Admin Dose 5 MG; Start 05/30/18 at 02:00 Metoclopramide HCl (Reglan) 5 mg Q6 IV Last administered on 06/10/18 05:48; Admin Dose 5 MG; Start 05/30/18 at 18:00 Furosemide (Lasix) 40 mg BID DIURETICS IV Last administered on 06/10/18 05:48; Admin Dose 40 MG; Start 06/01/18 at 18:00 Acetaminophen (Tylenol Tab) 650 mg Q4H PRN PO PAIN; Start 06/01/18 at 15:00 Morphine Sulfate (morphine) 1 mg Q1H PRN IV PAIN; Start 06/01/18 at 15:00 Zolpidem Tartrate (Ambien) 5 mg HS MAY REPEAT X 1 PRN PO INSOMNIA Last administered on 06/03/18 02:50; Admin Dose 5 MG; Start 06/01/18 at 15:00 Al Hydrox/Mg Hydrox/Simethicone (Mag-Al Plus) 30 ml Q4H PRN PO GASTROINTESTINAL UPSET Last administered on 06/04/18 18:32; Admin Dose 30 ML; Start 06/01/18 at 15:00 Pantoprazole (Protonix Tab) 40 mg BID@0600,1800 PO Last administered on 06/10/18 05:48; Admin Dose 40 MG; Start 06/02/18 at 18:00 Apixaban (Eliquis) 5 mg BID PO Last administered on 06/10/18 08:17; Admin Dose 5 MG; Start 06/02/18 at 21:00 Potassium Chloride (Potassium Chloride Pwd/Soln) 40 meq DAILY PO Last administered on 06/10/18 08:15; Admin Dose 40 MEQ; Start 06/05/18 at 09:00 Fluticasone Propionate (Flonase 0.05% Nasal) 1 spray BID NASAL Last admin istered on 06/10/18 08:18; Admin Dose 1 SPRAY; Start 06/05/18 at 12:00 Albuterol (Proventil 0.083% (Neb)) 1.25 mg Q4H RESP THERAPY HHN Last administered on 06/10/18 13:18; Admin Dose 1.25 MG; Start 06/07/18 at 13:00 Ipratropium [place] (Atrovent 0.02% (Neb)) 0.5 mg Q4H RESP THERAPY HHN Last administered on 06/10/18 13:18; Admin Dose 0.5 MG; Start 06/07/18 at 13:00 Magnesium Oxide (Mag-Ox 400) 400 mg DAILY PO Last administered on 06/10/18 08:17; Admin Dose 400 MG; Start 06/07/18 at 13:00 Metolazone (Zaroxolyn) 2.5 mg BID@0530,1730 PO Last administered on 06/10/18 05:23; Admin Dose 2.5 MG; Start 06/07/18 at 17:30 Morphine Sulfate (morphine) 3 mg Q4H PRN PO SEVERE PAIN LEVEL 7-10 Last adminis tered on 06/08/18 21:52; Admin Dose 3 MG; Start 06/07/18 at 23:30 Folic Acid (Folic Acid) 1 mg DAILY PO Last administered on 06/10/18 08:17; Admin Dose 1 MG; Start 06/09/18 at 09:00 Lubiprostone (Amitiza) 24 mcg BID PO Last administered on 06/10/18 08:14; Admin Dose 24 MCG; Start 06/08/18 at 21:00 Guaifenesin/ Dextromethorphan (Robitussin Dm Liquid Cup) 10 ml Q4H PRN PO COUGH Last administered on 06/09/18 21:40; Admin Dose 10 ML; Start 06/09/18 at 10:30 Acetazolamide (Diamox) 500 mg ONCE ONCE IV ; Start 06/10/18 at 14:30; Stop 06/10/18 at 14:31 KARSON HERNANDEZ Jun 10, 2018 13:52
[2018-06-10] MEDS ORDERED: DOCU-144 PO (13:53)
[2018-06-10] MEDS ORDERED: POTA20TA15 PO (13:53)
[2018-06-10] MEDS ORDERED: METO2.5T PO (13:53)
[2018-06-10] MEDS ORDERED: ATOR-2 PO (13:54)
[2018-06-10] MEDS ORDERED: ACETAZOLAMIDE 500 MG INJ IV ONE (14:30)
--- NOTE | 2018-06-10 14:37 | DS ---
DATE OF ADMISSION: 05/30/2018 DATE OF DISCHARGE: 06/10/2018 HISTORY OF PRESENTING ILLNESS AND HOSPITAL COURSE: This is a 52-year-old male with a past medical hi story of diabetes, hypertension, hyperlipidemia, CHF, EF of 25%, severe cardiomyopathy, right SFA, st atus post thrombectomy with multiple admissions in the past secondary to CHF, presented to the emerge ncy department complaining of epigastric pain, nausea, vomiting, left-sided chest pain and some short ness of breath. On admission, the patient was afebrile, heart rate 108, respirations 18, blood press ure 119/63. The patient's labs showed a BUN of 33, creatinine 1.29. LFTs within normal limit. [place] line phosphatase is 146. Troponin of 0.330. The patient was admitted for further management. The p atient was found to be having nausea, vomiting, epigastric pain. LFTs show only abnormal elevated al kaline phosphatase. The patient had HIDA scan in 03/2018 which was negative. The patient also had g allbladder ultrasound which shows thickening of the gallbladder without evidence of gallstone or slud ge. The patient was also seen by GI and their recommendations were followed. The patient was seen b y cardiology, Dr. Nagy and the patient was initially started on IV Lasix and then the dose was inc reased to 40 IV t.i.d. The patient was also started on metolazone diuresis. Over the period of time , the patient's troponin was 0.3300, 0.3100, 0.242. The patient was seen in cardiology and then on 0 06/01/2018 had angiogram that showed obstructive coronary artery disease, had severe extensive disease , had PTCA stent x1 to RCA and PTCA to PLB. Postop, the patient was also given hydration for contras t nephropathy; however, the patient went into florid heart failure, again was started on IV Lasix. M etolazone was added. Finally, the patient's creatinine was up and down. During hospitalization cour se, the patient also had periods of hypokalemia. It was repleted with potassium. The patient also h ad study on the right arm that shows patient had superficial vein thrombosis of the right cephalic ve in. Dr. Carney was also consulted. Initially, it was thought it was Eliquis failure; however the pat ient was off of Eliquis for a coronary angiogram and it was not considered as Eliquis failure. The p atient was restarted back on Eliquis. The patient is feeling much better volume-cooper. Chest x-ray h as improved and currently stable to be discharged home as per Dr. Nagy' recommendation. Hypercoag ulability workup was sent and waiting workup. FINAL DISCHARGE DIAGNOSES: 1. Positive troponin consistent with [id number]-neamzaxfy myocardial infarction, status post PTCA stenti ng to RCA, PTCA to PLB. 2. Chest pain, intermittent. 3. Severe cardiomyopathy with EF of 20% this month. 4. Congestive heart failure, systolic, acute on chronic. 5. Abdominal pain, nausea and vomiting without intra-abdominal pathology. 6. Coagulopathy secondary to Eliquis. 7. Chronic kidney disease, acute on chronic, contrast-induced and improved. 8. Diabetes. 9. Hypertension. 10. Hypomagnesemia. 11. Ventricular tachycardia, asymptomatic. The patient is on LifeVest, will probably need AICD in [facility]. 12. Severe hypokalemia secondary to diuresis, improved today. The patient will have lab draw of pot assium before he goes home. DISCHARGE MEDICATIONS: 1. Atorvastatin 80. 2. Colace 100. 3. Metolazone 2.5 daily 30 minutes before Lasix diuresis. 4. Eliquis 5 b.i.d. 5. Coreg 3.125 b.i.d. 6. Plavix 75. 7. Lasix 40 b.i.d. 8. Hydralazine 10 q.8. 9. Imdur 30 daily. 10. Nateglinide 60 b.i.d. 11. Nitroglycerin. 12. Potassium chloride. DISCHARGE INSTRUCTIONS: The patient was instructed to follow up with PCP 1 to 2 weeks, cardiology in 1 to 2 weeks, nephrology 2 to 3 weeks. The patient was instructed to have fluid restriction. Retur n to the ER if he has severe chest pain, shortness of breath. Dictated By: OMAR FERRER/MAX Conf#: [id number] DID#: [id number] CC: MAXIMO BUENROSTRO MD; HAWA DRAKE MD;*EndCC*
[2018-06-10] MEDS ORDERED: DIPHENHYDRAMINE 25 MG CAP PO ONE (15:00)
--- NOTE | 2018-06-10 16:42 | CONS ---
Assessment/Plan Assessment/Plan Assessment/Plan (Daily) IMPRESSION: 1. Chest pain, elevated troponin secondary to coronary artery disease. The patient had a stent placement in right coronary artery disease. 2. Ischemic cardiomyopathy with ejection fraction of 25%. 3. Left upper quadrant pain with chronic stasis syndrome. -Improved 4. Diabetes mellitus. 5. Hypertension. 6. Chronic kidney disease. 7. S/P angiogram 06/01 found pt to have obstructive CAD, stent placed 8. Thrombosis of the right cephalic vein at the antecubital fossa. -pt is already on anti coagulants #9 constipation much better with Amitiza Abdominal US- 06/28 1. Thickening of the gallbladder wall without evidence of gallstones or sludge. This is a nonspecific finding and may be related to chronic liver disease, hypoproteinemia, or acalculous cholecystitis. 2. No biliary duct dilatation. 3. Small right pleural effusion PLAN: Recommend small meals Continue prn anti emetics and reglan Optimize blood sugars Monitor for GI bleeding, pt is on Eliquis and Plavix Fall precautions Amitiza Consultation Date/Type/Reason Admit Date/Time May 30, 2018 at 01:33 Initial Consult Date Requesting Provider: OMAR ESPINOSA MD Date/Time of Note DATE: 06/10/18 TIME: 16:41 24 HR Interval Summary Constitutional: no complaints, improved Exam/Review of Systems Exam Vitals Vital Signs Date Temp Pulse Resp B/P (MAP) Pulse Ox O2 O2 Flow FiO2 Time Delivery Rate 06/10/18 97 16:12 06/10/18 98.6 20 102/66 96 Room Air 15:14 (78) 06/10/18 21 13:18 06/08/18 2.0 00:00 Intake and Output 06/09/18 06/09/18 06/10/18 1414:59 22:59 06:59 IntakeIntake Total 480 ml 600 ml OutputOutput Total 1150 ml 1500 ml BalanceBalance -670 ml -900 ml Constitutional: alert, oriented, well developed Psych: no complaints, nl mood/affect Head: normocephalic, atraumatic Eyes: nl conjunctiva, EOMI, nl lids, nl sclera, PERRL ENMT: nl external ears & nose, nl lips & teeth, nl nasal mucosa & septum Neck: supple, non-tender Respiratory: clear to auscultation, normal air movement Cardiovascular: regular rate and rhythm, nl pulses Gastrointestinal: soft, nl liver, spleen, non-tender Musculoskeletal: nl extremities to inspection, nl gait and stance Extremities: normal pulses Neurological: SCHOOL YEAR NANNY II-XII intact, nl mental status, nl speech, nl strength Skin: nl turgor; No rash or lesions Lymph: nl lymph nodes Results Result Diagram: 06/06/18 0538 06/10/18 1457 Results 24hrs Laboratory Tests Test 06/10/18 06:14 06/10/18 14:57 Sodium Level 136 135 Potassium Level 3.1 L 3.4 L Chloride Level 85 L 86 L Carbon Dioxide Level 38 H 36 H Anion Gap 13 13 Blood Urea Nitrogen 23 H 24 H Creatinine 1.28 H 1.40 H Est Glomerular Filtrat Rate mL/min 59 L 53 L Glucose Level 129 # 170 Calcium Level 9.6 9.6 Medications Medication Current Medications Carvedilol (Coreg) 3.125 mg BID PO Last administered on 06/10/18 08:17; Admin Dose 3.125 MG; Start 05/30/18 at 03:00 Clopidogrel Bisulfate (plaVIX) 75 mg DAILY PO Last administered on 06/10/18 08:14; Admin Dose 75 MG; Start 05/30/18 at 09:00 Hydralazine HCl (Apresoline) 10 mg Q8 PO Last administered on 06/10/18 13:33; Admin Dose 10 MG; Start 05/30/18 at 06:00 Isosorbide Mononitrate (Imdur) 30 mg DAILY PO Last administered on 06/10/18 08:16; Admin Dose 30 MG; Start 05/30/18 at 09:00 IV Flush (NS 3 ml) 3 ml PER PROTOCOL IV ; Start 05/30/18 at 02:00 Ondansetron HCl (Zofran Inj) 4 mg Q6H PRN IV NAUSEA/VOMITING Last administered on 05/30/18at 12:02; Admin Dose 4 MG; Start 05/30/18 at 02:00 Nitroglycerin (Nitroglycerin (Sl Tab) 0.4 Mg) 1 tab Q5M PRN SL .CHEST PAIN; Start 05/30/18 at 02:00 Acetaminophen (Tylenol Tab) 650 mg Q6H PRN PO .PAIN 1-3 OR TEMP; Start 05/30/18 at 02:00 Docusate Sodium (Colace) 100 mg Q12H PRN PO .CONSTIPATION Last administered on 05/30/18 21:38; Admin Dose 100 MG; Start 05/30/18 at 02:00 Bisacodyl (Dulcolax) 5 mg DAILY PRN PO .CONSTIPATION Last administered on 06/04/18 08:48; Admin Dose 5 MG; Start 05/30/18 at 02:00 Metoclopramide HCl (Reglan) 5 mg Q6 IV Last administered on 06/10/18 05:48; Admin Dose 5 MG; Start 05/30/18 at 18:00 Furosemide (Lasix) 40 mg BID DIURETICS IV Last administered on 06/10/18 05:48; Admin Dose 40 MG; Start 06/01/18 at 18:00 Acetaminophen (Tylenol Tab) 650 mg Q4H PRN PO PAIN; Start 06/01/18 at 15:00 Morphine Sulfate (morphine) 1 mg Q1H PRN IV PAIN; Start 06/01/18 at 15:00 Zolpidem Tartrate (Ambien) 5 mg HS MAY REPEAT X 1 PRN PO INSOMNIA Last administered on 06/03/18 02:50; Admin Dose 5 MG; Start 06/01/18 at 15:00 Al Hydrox/Mg Hydrox/Simethicone (Mag-Al Plus) 30 ml Q4H PRN PO GASTROINTESTINAL UPSET Last administered on 06/04/18 18:32; Admin Dose 30 ML; Start 06/01/18 at 15:00 Pantoprazole (Protonix Tab) 40 mg BID@0600,1800 PO Last administered on 06/10/18 05:48; Admin Dose 40 MG; Start 06/02/18 at 18:00 Apixaban (Eliquis) 5 mg BID PO Last administered on 06/10/18 08:17; Admin Dose 5 MG; Start 06/02/18 at 21:00 Potassium Chloride (Potassium Chloride Pwd/Soln) 40 meq DAILY PO Last administered on 06/10/18 08:15; Admin Dose 40 MEQ; Start 06/05/18 at 09:00 Fluticasone Propionate (Flonase 0.05% Nasal) 1 spray BID NASAL Last administered on 06/10/18 08:18; Admin Dose 1 SPRAY; Start 06/05/18 at 12:00 Albuterol (Proventil 0.083% (Neb)) 1.25 mg Q4H RESP THERAPY HHN Last administered on 06/10/18 13:18; Admin Dose 1.25 MG; Start 06/07/18 at 13:00 Ipratropium [place] (Atrovent 0.02% (Neb)) 0.5 mg Q4H RESP THERAPY HHN Last administered on 06/10/18 13:18; Admin Dose 0.5 MG; Start 06/07/18 at 13:00 Magnesium Oxide (Mag-Ox 400) 400 mg DAILY PO Last administered on 06/10/18 08:17; Admin Dose 400 MG; Start 06/07/18 at 13:00 Metolazone (Zaroxolyn) 2.5 mg BID@0530,1730 PO Last administered on 06/10/18 05:23; Admin Dose 2.5 MG; Start 06/07/18 at 17:30 Morphine Sulfate (morphine) 3 mg Q4H PRN PO SEVERE PAIN LEVEL 7-10 Last administered on 06/08/18 21:52; Admin Dose 3 MG; Start 06/07/18 at 23:30 Folic Acid (Folic Acid) 1 mg DAILY PO Last administered on 06/10/18 08:17; Admin Dose 1 MG; Start 06/09/18 at 09:00 Lubiprostone (Amitiza) 24 mcg BID PO Last administered on 06/10/18 08:14; Admin Dose 24 MCG; Start 06/08/18 at 21:00 Guaifenesin/ Dextromethorphan (Robitussin Dm Liquid Cup) 10 ml Q4H PRN PO COUGH Last administered on 06/09/18 21:40; Admin Dose 10 ML; Start 06/09/18 at 10:30 Potassium Chloride (Klor-Con 20) 40 meq ONCE STAT PO ; Start 06/10/18 at 16:37; Stop 06/10/18 at 16:38; Status UNSUE BOWLING MD Jun 10, 2018 16:42
== END 2018-06-10 17:30 | disposition home or self-care (01) | DRG 246 ==
LOC: E/R 23:27 → 6WM 05-30 01:33 → TEL 06-01 12:27
PROVIDERS: ADMIT Internal Medicine Nephrology; ATTEND Internal Medicine Nephrology
PROC: 4A023N7 Measurement of Cardiac Sampling and Pressure, Left Heart, Percutaneous Approach (ICD-10-PCS; 2018-06-01)
PROC: B211YZZ Fluoroscopy of Multiple Coronary Arteries using Other Contrast (ICD-10-PCS; 2018-06-01)
PROC: 027034Z Dilation of Coronary Artery, One Artery with Drug-eluting Intraluminal Device, Percutaneous Approach (ICD-10-PCS; principal; 2018-06-01 13:00)
PROC: 02703ZZ Dilation of Coronary Artery, One Artery, Percutaneous Approach (ICD-10-PCS; 2018-06-01 13:00)
DX: I21.4 Non-ST elevation (NSTEMI) myocardial infarction (principal); I50.23 Acute on chronic systolic (congestive) heart failure; I13.0 Hypertensive heart and chronic kidney disease with heart failure and stage 1 through stage 4 chronic kidney disease, or unspecified chronic kidney disease; N17.9 Acute kidney failure, unspecified; I82.611 Acute embolism and thrombosis of superficial veins of right upper extremity; I47.2 Ventricular tachycardia; I25.5 Ischemic cardiomyopathy; I25.10 Atherosclerotic heart disease of native coronary artery without angina pectoris; E11.22 Type 2 diabetes mellitus with diabetic chronic kidney disease; E83.42 Hypomagnesemia; E78.5 Hyperlipidemia, unspecified; E11.43 Type 2 diabetes mellitus with diabetic autonomic (poly)neuropathy; K31.84 Gastroparesis; E87.6 Hypokalemia; E66.3 Overweight; K59.8 Other specified functional intestinal disorders; N18.3 Chronic kidney disease, stage 3 (moderate); N14.1 Nephropathy induced by other drugs, medicaments and biological substances; T50.8X5A Adverse effect of diagnostic agents, initial encounter; R11.2 Nausea with vomiting, unspecified; Z68.29 Body mass index [BMI] 29.0-29.9, adult; Z86.718 Personal history of other venous thrombosis and embolism; Z79.01 Long term (current) use of anticoagulants; Z79.02 Long term (current) use of antithrombotics/antiplatelets; Z79.84 Long term (current) use of oral hypoglycemic drugs
CPT/HCPCS: 36415; 71045; 76705; 80048; 80053; 80061; 81240; 82550; 82553; 83036; 83690; 83735; 84100; 84132; 84443; 84484; 85025; 85305; 85610; 86146; 86147; 87400; 92920; 92928; 93005; 93458; 93971; 94640; 94664; C1725; C1874; C1887; C9113; J1120; J1644; J1940; J2250; J2405; J2765; J3010; J3475; J7030; J7040; Q9967

== ENCOUNTER 2018-07-05 09:24 | Emergency (ER) | payer OTHER ==
[~2018-07-05] VITALS: Wt 73.5 kg
[~2018-07-05 09:24] MED LIST changes: +ATOR-2 PO; -BACL10TA PO; +DOCU-144 PO; +METO2.5T PO
--- NOTE | 2018-07-05 11:29 | ERD ---
ER Documentation Chief Complaint Chief Complaint send due k 2.3, feel weak, tired HPI This is a 52-year-old male who was sent by his primary for low potassium, he thinks it is 2.3 that was drawn on labs 2 weeks ago. He says he feels generalized weakness. He says he has a history of heart failure and takes 20 mEq of potassium a day along with 40 mg of Lasix twice a day. Says he feels no other symptoms except generalized weakness. He also states that the doctor told him that his kidneys were not working very well and to get evaluated for this as well. He is having no chest pain or shortness of breath ROS All systems reviewed and are negative except as per history of present illness. Medications Home Meds Reported Medications Apixaban* (Eliquis*) 5 Mg Tablet, 5 MG PO BID, TAB 07/05/18 Atorvastatin* (Atorvastatin*) 80 Mg Tablet, 80 MG PO QHS, #30 TAB 07/05/18 Hydralazine Hcl* (Hydralazine Hcl*) 10 Mg Tablet, 10 MG PO Q8, #90 TAB HOLD IF SBP<100 07/05/18 Metolazone* (Metolazone*) 5 Mg Tablet, 2.5 MG PO DAILY, TAB 07/05/18 Furosemide* (Furosemide*) 40 Mg Tablet, 40 MG PO BID, TAB 07/05/18 Carvedilol* (Carvedilol*) 3.125 Mg Tablet, 3.125 MG PO BID, #60 TAB 07/05/18 Potassium Chloride* (Potassium Chloride*) 20 Meq Tablet.er, 20 MEQ PO DAILY, TAB.SA 07/05/18 Isosorbide Mononitrate* (Isosorbide Mononitrate*) 20 Mg Tablet, 20 MG PO DAILY, TAB 07/05/18 Clopidogrel Bisulfate* (Clopidogrel Bisulfate*) 75 Mg Tablet, 75 MG PO DAILY, #30 TAB 07/05/18 Discontinued Reported Medications Nateglinide* (Nateglinide*) 60 Mg Tablet, 60 MG PO BID, TAB 11/12/17 Nitroglycerin* (Nitrostat*) 0.4 Mg Tab.subl, 0.4 MG SL Q5MIN PRN for CHEST PAIN, BOTTLE 11/12/17 Clopidogrel Bisulfate* (Clopidogrel Bisulfate*) 75 Mg Tablet, 75 MG PO DAILY, TAB 04/28/16 Discontinued Scripts Atorvastatin* (Atorvastatin*) 80 Mg Tablet, 80 MG PO QHS for 30 Days, #30 TAB Prov:OMAR ESPINOSA MD 06/10/18 Metolazone* (Metolazone*) 2.5 Mg Tablet, 2.5 MG PO DAILY for 30 Days, TAB Prov:OMAR ESPINOSA MD 06/10/18 Docusate Sodium* (Colace*) 100 Mg Capsule, 100 MG PO Q12H PRN for .CONSTIPATION for 30 Days, CAP Prov:OMAR ESPINOSA MD 06/10/18 Potassium Chloride* (K-Dur*) 20 Meq Tab.prt.sr, 20 MEQ PO DAILY for 30 Days Prov:OMAR ESPINOSA MD 06/10/18 Apixaban* (Eliquis*) 5 Mg Tablet, 5 MG PO BID for 30 Days, TAB Prov:MEHREEN HILLMAN 03/26/18 Furosemide* (Furosemide*) 40 Mg Tablet, 40 MG PO BID DIURETICS for 60 Days, TAB Prov:MEHREEN HILLMAN 03/25/18 Isosorbide Mononitrate* (Isosorbide Mononitrate*) 30 Mg Tab.er.24h, 30 MG PO DAILY for 30 Days Prov:MEHREEN HILLMAN 03/25/18 Hydralazine Hcl* (Hydralazine Hcl*) 10 Mg Tablet, 10 MG PO Q8 for 30 Days, TAB Prov:MEHREEN HILLMAN 03/25/18 Carvedilol* (Carvedilol*) 3.125 Mg Tablet, 3.125 MG PO BID for 30 Days, TAB Prov:MEHREEN HILLMAN 03/25/18 Allergies Allergies: Coded Allergies: No Known Allergies (Unverified Allergy, Unknown, 07/05/18) PMhx/Soc History of Surgery: No Anesthesia Reaction: No Hx Neurological Disorder: No Hx Respiratory Disorders: No Hx Cardiac Disorders: Yes (CHF; HTN Cardiomegaly; dyslipidemia) Hx Psychiatric Problems: No Hx Miscellaneous Medical Probl: No Hx Alcohol Use: No Hx Substance Use: No Hx Tobacco Use: No FmHx Family History: No coronary disease Physical Exam Vitals Vital Signs Date Temp Pulse Resp B/P (MAP) Pulse Ox O2 O2 Flow FiO2 Time Delivery Rate 07/05/18 91 16 99/82 (88) 99 Room Air 11:59 07/05/18 97.8 99 18 112/67 99 09:28 (82) Physical Exam Const: Well-developed, well-nourished Head: Atraumatic, normocephalic Eyes: Normal Conjunctiva, PERRLA, EOMI, normal sclera, no nystagmus ENT: Normal External Ears, Nose and Mouth, moist mucus membranes. Neck: Full range of motion. No meningismus, no lymphadenopathy. Resp: Clear to auscultation bilaterally, no wheezing, rhonchi, rales Cardio: Regular rate and rhythm, no murmurs, S1 S2 present Abd: Soft, non tender x 4, non distended. Normal bowel sounds, no guarding or rebound, no pulsitile abdominal masses or bruits Skin: No petechiae or rashes, no ecchymosis , no maculopapular rash Back: No midline or flank tenderness Ext: No cyanosis, or edema, FROM x 4, normal inspection, ne urovascularly intact x 4 Neur: Awake and alert, STR 5/5 x 4, sensation intact x 4, no focal fi ndings, cerebellum intact Psych: Normal Mood and Affect Result Diagram: 07/05/18 1151 07/05/18 1151 Results 24 hrs Laboratory Tests Test 07/05/18 11:51 White Blood Count 6.5 10^3/ul Red Blood Count 5.16 10^6/ul Hemoglobin 14.0 g/dl Hematocrit 42.2 % Mean Corpuscular Volume 81.8 fl Mean Corpuscular Hemoglobin 27.1 pg Mean Corpuscular Hemoglobin Concent 33.2 g/dl Red Cell Distribution Width 16.2 % Platelet Count 287 10^3/UL Mean Platelet Volume 9.4 fl Immature Granulocytes % 0.300 % Neutrophils % 61.9 % Lymphocytes % 21.1 % Monocytes % 12.2 % Eosinophils % 3.6 % Basophils % 0.9 % Nucleated Red Blood Cells % 0.0 /100WBC Immature Granulocytes # 0.020 10^3/ul Neutrophils # 4.0 10^3/ul Lymphocytes # 1.4 10^3/ul Monocytes # 0.8 10^3/ul Eosinophils # 0.2 10^3/ul Basophils # 0.1 10^3/ul Nucleated Red Blood Cells # 0.0 10^3/ul Sodium Level 134 mmol/L Potassium Level 3.1 mmol/L Chloride Level 94 mmol/L Carbon Dioxide Level 26 mmol/L Anion Gap 14 Blood Urea Nitrogen 32 mg/dl Creatinine 1.13 mg/dl Est Glomerular Filtrat Rate mL/min > 60 mL/min Glucose Level 153 mg/dl Calcium Level 9.7 mg/dl Total Bilirubin 1.9 mg/dl Direct Bilirubin 0.00 mg/dl Indirect Bilirubin 1.9 mg/dl Aspartate Amino Transf (AST/SGOT) 17 IU/L Alanine Aminotransferase (ALT/SGPT) 9 IU/L Alkaline Phosphatase 166 IU/L Troponin I 0.017 ng/ml Total Protein 7.9 g/dl Albumin 4.1 g/dl Globulin 3.80 g/dl Albumin/Globulin Ratio 1.07 Current Medications Medications Dose Sig/Eva Start Time Status Last (Trade) Ordered Route PRN Stop Time Admin Dose Reason Admin Potassium 40 meq ONCE STAT 07/05/18 DC 07/05/18 Chloride PO 12:29 07/05/18 12:43 (Klor-Con 20) 12:34 Procedures/MDM PROCEDURE: XR Chest. CLINICAL INDICATION: Shortness of breath. TECHNIQUE: Single frontal view. COMPARISON: 06/07/2018 FINDINGS: The lungs are clear. The heart is enlarged. There is calcification in the aorta consistent with atherosclerosis. There is no pleural effusion. There is no pneumothorax. IMPRESSION: 1. Cardiomegaly and atherosclerosis. 2. Otherwise normal chest x-ray. RPTAT: QQ Ion Velez Physician Date Time Electronically viewed and signed by Ion Velez Physician on 07/05/2018 12:12 KR/ CC: NUNU SOMMER DO [id number] Patient's potassium is 3.1 and he was given 40 mEq of potassium p.o. here. Does show a bit of prerenal azotemia but his creatinine is normal. I instructed him to continue his twice daily dose of potassium but to hold his Lasix for 24 hours and I gave printed out a copy of his labs and he is going to contact his physician to do any more medication adjustments. Departure Diagnosis: Primary Impression: Hypokalemia Condition: Stable NUNU SOMMER DO Jul 05, 2018 11:29
[2018-07-05] MEDS ORDERED: CLOP75TA19 PO (11:59)
[2018-07-05] MEDS ORDERED: ISM20 PO (12:00)
[2018-07-05] MEDS ORDERED: POTA20TA96 PO (12:01)
[2018-07-05] MEDS ORDERED: FURO40TA4 PO (12:02)
[2018-07-05] MEDS ORDERED: CARV3.1260 PO (12:02)
[2018-07-05] MEDS ORDERED: METO5TAB65 PO (12:03)
[2018-07-05] MEDS ORDERED: ATOR-2 PO (12:04)
[2018-07-05] MEDS ORDERED: HYDR-3670 PO (12:04)
[2018-07-05] MEDS ORDERED: APIX5TAB PO (12:04)
[2018-07-05] MEDS ORDERED: POTASSIUM CHLORIDE (SR) 20 MEQ TAB PO STA (12:29)
[2018-07-05 13:13] VITALS: BP 116/82; PULSE 90; RESP 18
== END 2018-07-05 13:16 | disposition home or self-care (01) ==
LOC: E/R 09:24
DX: E87.6 Hypokalemia (principal); R40.2142 Coma scale, eyes open, spontaneous, at arrival to emergency department; R40.2252 Coma scale, best verbal response, oriented, at arrival to emergency department; R40.2362 Coma scale, best motor response, obeys commands, at arrival to emergency department; Z79.01 Long term (current) use of anticoagulants
CPT/HCPCS: 36415; 71045; 80053; 84484; 85025; Z7502; Z7610

== ENCOUNTER 2018-09-06 19:59 | Inpatient (IN) | payer OTHER ==
[~2018-09-06] VITALS: Ht 167.6 cm; Wt 81.8 kg
[~2018-09-06 19:59] MED LIST changes: -DOCU-144 PO; +ISM20 PO; -ISOS30TA67 PO; -METO2.5T PO; +METO5TAB65 PO; -NATE60TA PO; -NITR0.4T39 SL; -POTA20TA15 PO; +POTA20TA96 PO
[2018-09-06 21:14] VITALS: Ht 167.6 cm; Wt 81.8 kg
[2018-09-06] MEDS ORDERED: morphine 4 MG/ML VIAL IV STA (23:30)
[2018-09-07] VITALS (9 sets, daily range): BP systolic 98–123; BP diastolic 66–87; PULSE 82–101; RESP 18–22
[2018-09-07] MEDS ORDERED: ACETAMINOPHEN 325 MG TAB PO PRN (04:00)
[2018-09-07] MEDS ORDERED: ONDANSETRON 4 MG INJ IV PRN ×2 (04:00→07:30)
--- NOTE | 2018-09-07 04:27 | ERD ---
ER Documentation Chief Complaint Chief Complaint BLE AND LEFT ARM SWELLING X 2 DAYS, PT HAS HX OF DVT HPI Is a 50-year-old male comes in bilateral lower extremity swelling for the past 2 days. He has only mild shortness of breath but denies any chest pain. Denies any other current issues. ROS All systems reviewed and are negative except as per history of present illness. Medications Home Meds Reported Medications Apixaban* (Eliquis*) 5 Mg Tablet, 5 MG PO BID, TAB 07/05/18 Atorvastatin* (Atorvastatin*) 80 Mg Tablet, 80 MG PO QHS, #30 TAB 07/05/18 Hydralazine Hcl* (Hydralazine Hcl*) 10 Mg Tablet, 10 MG PO Q8, #90 TAB HOLD IF SBP<100 07/05/18 Metolazone* (Metolazone*) 5 Mg Tablet, 2.5 MG PO DAILY, TAB 07/05/18 Furosemide* (Furosemide*) 40 Mg Tablet, 40 MG PO BID, TAB 07/05/18 Carvedilol* (Carvedilol*) 3.125 Mg Tablet, 3.125 MG PO BID, #60 TAB 07/05/18 Potassium Chloride* (Potassium Chloride*) 20 Meq Tablet.er, 20 MEQ PO DAILY, TAB.SA 07/05/18 Isosorbide Mononitrate* (Isosorbide Mononitrate*) 20 Mg Tablet, 20 MG PO DAILY, TAB 07/05/18 Clopidogrel Bisulfate* (Clopidogrel Bisulfate*) 75 Mg Tablet, 75 MG PO DAILY, #30 TAB 07/05/18 Allergies Allergies: Coded Allergies: No Known Allergies (Unverified Allergy, Unknown, 07/05/18) PMhx/Soc History of Surgery: No Anesthesia Reaction: No Hx Neurological Disorder: No Hx Respiratory Disorders: No Hx Cardiac Disorders: Yes (CHF; HTN Cardiomegaly; dyslipidemia) Hx Psychiatric Problems: No Hx Miscellaneous Medical Probl: No Hx Alcohol Use: No Hx Substance Use: No Hx Tobacco Use: No Smoking Status: Never smoker Physical Exam Vitals Vital Signs Date Temp Pulse Resp B/P (MAP) Pulse Ox O2 O2 Flow FiO2 Time Delivery Rate 09/07/18 98 16 133/91 99 Nasal 04:04 (105) Cannula 09/07/18 96 16 116/88 97 Room Air 01:48 (97) 09/06/18 97.7 92 18 118/72 99 21:14 (87) Physical Exam Const: No acute distress Head: Atraumatic Eyes: Normal Conjunctiva ENT: Normal External Ears, Nose and Mouth. Neck: Full range of motion. No meningismus. Resp: Clear to auscultation bilaterally Cardio: Regular rate and rhythm, no murmurs Abd: Soft, non tender, non distended. Normal bowel sounds Skin: No petechiae or rashes Back: No midline or flank tenderness Ext: No cyanosis, or edema Neur: Awake and alert Psych: Normal Mood and Affect Result Diagram: 09/06/18 2355 09/06/182354 Results 24 hrs Laboratory Tests Test 09/06/18 23:55 White Blood Count 8.7 10^3/ul Red Blood Count 5.59 10^6/ul Hemoglobin 15.0 g/dl Hematocrit 47.0 % Mean Corpuscular Volume 84.1 fl Mean Corpuscular Hemoglobin 26.8 pg Mean Corpuscular Hemoglobin Concent 31.9 g/dl Red Cell Distribution Width 16.0 % Platelet Count 306 10^3/UL Mean Platelet Volume 9.1 fl Immature Granulocytes % 0.500 % Neutrophils % 69.5 % Lymphocytes % 16.3 % Monocytes % 11.4 % Eosinophils % 1.5 % Basophils % 0.8 % Nucleated Red Blood Cells % 0.0 /100WBC Immature Granulocytes # 0.040 10^3/ul Neutrophils # 6.0 10^3/ul Lymphocytes # 1.4 10^3/ul Monocytes # 1.0 10^3/ul Eosinophils # 0.1 10^3/ul Basophils # 0.1 10^3/ul Nucleated Red Blood Cells # 0.0 10^3/ul Prothrombin Time 16.6 Sec Prothrombin Time Ratio 1.3 INR International Normalized Ratio 1.33 Activated Partial Thromboplast Time 38.3 Sec Sodium Level 136 mmol/L Potassium Level 3.3 mmol/L Chloride Level 92 mmol/L Carbon Dioxide Level 36 mmol/L Anion Gap 8 Blood Urea Nitrogen 39 mg/dl Creatinine 1.60 mg/dl Est Glomerular Filtrat Rate mL/min 45 mL/min Glucose Level 123 mg/dl Calcium Level 9.0 mg/dl Total Bilirubin 1.3 mg/dl Direct Bilirubin 0.00 mg/dl Indirect Bilirubin 1.3 mg/dl Aspartate Amino Transf (AST/SGOT) 23 IU/L Alanine Aminotransferase (ALT/SGPT) 15 IU/L Alkaline Phosphatase 117 IU/L B-Type Natriuretic Peptide 8640 PG/ML Total Protein 7.2 g/dl Albumin 3.7 g/dl Globulin 3.50 g/dl Albumin/Globulin Ratio 1.05 Current Medications Medications Dose Sig/Eva Start Time Status Last (Trade) Ordered Route PRN Stop Time Admin Dose Reason Admin Morphine 4 mg ONCE STAT 09/06/18 DC 09/07/18 Sulfate IV 23:30 09/06/18 00:01 (morphine) 23:37 Ondansetron 4 mg ER BRIDGE 09/07/18 HCl (Zofran PRN IV 04:00 09/08/18 Inj) NAUSEA/VOMITI 03:59 NG 650 mg ER BRIDGE 09/07/18 Acetaminophen PRN PO 04:00 09/08/18 (Tylenol .MILD PAIN 03:59 Tab) 1-3 OR TEMP Procedures/MDM EKG: Rate/Rhythm: [Normal Sinus Rhythm] QRS, ST, T-waves: [No changes consistent w/ acute ischemia] Impression: [No evidence of ischemia or arrhythmia] Chest X-ray 1V Interpreted by me: Soft Tissue: No acute abnormalities Bones: No acute abnormalities Mediastinum/Cardiac Silhouette/Lungs: Increased interstitial fluid markings. Impression: CHF Patient's heart failure symptoms is concerning for acute decompensation and will require inpatient workup and monitoring. Further w/u for ischemia, arrhythmia, PE or dissection will be deferred to the inpatient team. Accepting Care Team: Current data and ongoing care discussed. Time: 4 AM n Primary Provider: Dr. Olsen Consulting: Deferred to inpatient team Outstanding Data: none Departure Diagnosis: Primary Impression: CHF (congestive heart failure) Heart failure type: unspecified Heart failure chronicity: unspecified Qualified Codes: I50.9 - Heart failure, unspecified Condition: Stable EMORY PEÑALOZA Sep 07, 2018 04:27
[2018-09-07] MEDS ORDERED: PANT40TA4 PO (04:30)
[2018-09-07] MEDS: HYDROCODONE/APAP (5/325) TAB PO PRN ×2 (07:49→19:32)
[2018-09-07] MEDS ORDERED: GLUCOSE GEL 15 GRAM TUBE BUCCAL PRN (08:00)
[2018-09-07] MEDS ORDERED: GLUCAGON 1 MG INJ IM PRN (08:00)
[2018-09-07] MEDS ORDERED: GLUCOSE GEL 15 GRAM TUBE PO PRN ×2 (08:00)
[2018-09-07] MEDS ORDERED: DEXTROSE 50% 50 ML SYRINGE IV PRN ×2 (08:00)
[2018-09-07] MEDS: INSULIN ASPART [NOVOLOG] 3 ML PEN SC SCH ×4 (08:00→21:00)
[2018-09-07] MEDS ORDERED: ISOSORBIDE MONONITRATE 20 MG TAB PO SCH (09:00)
[2018-09-07] MEDS ORDERED: METOLAZONE 5 MG TAB PO SCH (09:00)
[2018-09-07] MEDS ORDERED: FUROSEMIDE 40 MG INJ IV SCH (09:00)
[2018-09-07] MEDS: PANTOPRAZOLE (EC) 40 MG TAB PO SCH (09:16)
[2018-09-07] MEDS: CLOPIDOGREL 75 MG TAB PO SCH (09:16)
[2018-09-07] MEDS: APIXABAN 5 MG TABLET PO SCH ×2 (09:16→21:12)
[2018-09-07] MEDS: POTASSIUM CHLORIDE (SR) 20 MEQ TAB PO SCH (09:16)
[2018-09-07] MEDS: METOLAZONE 2.5 MG TAB PO SCH (09:16)
--- NOTE | 2018-09-07 14:46 | QN ---
Documentation Comment PT SEEN AND EXAMINED H AND P DICTATED OMAR ESPINOSA MD Sep 07, 2018 14:46
[2018-09-07] MEDS: FUROSEMIDE 40 MG INJ IV SCH (17:05)
--- NOTE | 2018-09-07 18:18 | CONS ---
DATE OF ADMISSION: 09/07/2018 DATE OF CONSULTATION: 09/07/2018 REASON FOR CONSULTATION: Cardiomyopathy, congestive heart failure exacerbation and shortness of breath. REQUESTING PHYSICIAN: Teresa Bob MD HISTORY OF PRESENT ILLNESS: Mr. Pittman is a 53-year-old male well known to myself from multiple prior admissions with history of systolic congestive heart failure, acute on chronic, with a recent PTCA and stent placement to right coronary artery in 05/2018 with drug-eluting stent, cardiomyopathy with severe depressed left ventricular ejection fraction of approximately 20% by echo in 05/2018, chronic kidney disease and peripheral arterial disease who presents with complaints of left lower extremity swelling and pain as well as left upper extremity swelling and pain and decreased movement of his hands ongoing over the ensuing week. Upon arrival, temperature is 97.7, blood pressure 118/72, pulse 92, respiratory rate 18 and sat 99%. The patient's labs notable for a white cell count of 8.7, hemoglobin 15, platelet count 306. A sodium of 136, potassium 3.3, creatinine 0.6 and BUN of 39. BNP of 8640. Indirect bilirubin of 1.3. Troponin negative. INR of 1.33. The patient underwent a chest x-ray revealing no evidence of acute cardiopulmonary disease, moderate cardiomegaly, central pulmonary congestion and a venous ultrasound of both upper and lower extremities revealing no evidence of DVT. The patient's electrocardiogram was normal sinus rhythm with a rate of 94 with right superior axis deviation, borderline IVCD, lateral Q's across the anterior precordial leads. The patient, since admit, has been treated with metolazone, Zofran, Tylenol and morphine and has been placed on baseline Eliquis, Plavix, beta blockers, Imdur and hydralazine. The patient continues to have pain in his left hand with decreased ability and movement more to pain on the leg and ongoing generalized edema. PAST MEDICAL HISTORY: As above in HPI. MEDICATIONS CURRENTLY IN HOSPITAL: 1. Lipitor 80 mg at bedtime. 2. Hydralazine 10 mg p.o. q.8. 3. Eliquis 5 mg p.o. b.i.d. 4. Carvedilol 3.125 mg p.o. b.i.d. 5. Plavix 75 mg daily. 6. Imdur 20 mg daily. 7. Protonix 40 mg daily. 8. Potassium chloride 20 mEq daily. 9. Lasix 40 mg IV daily. 10. Metolazone 2.5 daily. 11. [place] p.r.n. ALLERGIES: NO KNOWN DRUG ALLERGIES. SOCIAL HISTORY: No current tobacco, EtOH or illicit drug use. FAMILY HISTORY: No history of sudden cardiac or early CAD. REVIEW OF SYSTEMS: As above in HPI. CONSTITUTIONAL: No fevers or chills. PULMONARY: Mild shortness of breath. CARDIOVASCULAR: No current chest pain. GASTROINTESTINAL: No vomiting. GENITOURINARY: No hematuria. MUSCULOSKELETAL: Left leg pain, left arm pain. PSYCHIATRIC: No documented psych history. NEUROLOGIC: No documented history of CVA. ENDOCRINE: No documented history of diabetes mellitus. PHYSICAL EXAMINATION: VITAL SIGNS: Temperature of 97.6, blood pressure most recently 90/70, pulse 82, respiratory rate 22, saturating 96%. GENERAL: The patient is alert, awake and complaining of left arm pain, left leg pain, generalized shortness of breath. NECK: JVP approximately 9 cm water. CHEST: Decreased breath sounds at the bases bilaterally. HEART: Regular rate and rhythm. Normal S1, S2, I/ systolic murmur, laterally displaced PMI. ABDOMEN: Positive bowel sounds, soft. EXTREMITIES: Bilateral lower extremity edema with left greater than right and left upper extremity swelling, 1+ pulses bilaterally at the posterior tibial. LABORATORY DATA: Most recently from 09/06/2018, white blood cell count 8.7, hemoglobin 15, platelet count of 306. Sodium 136, potassium 3.3, creatinine of 0.6, BUN of 39, AST 23, ALT 15. Troponin negative. BNP of 8640. INR of 1.33. IMAGING STUDIES: As above in HPI. No further imaging studies for my review at this time. ELECTROCARDIOGRAM: As above in HPI. No further electrocardiograms for my review at this time. IMPRESSION: 1. Congestive heart failure exacerbation, systolic, acute on chronic. 2. Cardiomyopathy with severe depressed left ventricular ejection fraction last approximately 20%. 3. Status post PTCA and stent placement to right coronary artery for subtotal occlusion in 05/2018. 4. Probable left lower extremity cellulitis. 5. Question of left upper extremity swelling, question etiology of cellulitis, arthritic changes. DVT not seen by ultrasound. 6. Chronic kidney disease. 7. History of deep venous thrombosis of the right lower extremity, on Eliquis. 8. Elevated BNP consistent with the patient's congestive heart failure. 9. Diabetes mellitus. RECOMMENDATIONS: 1. At this time, we would maintain the patient on telemetry monitoring to follow rhythm and rate control closely. 2. Continue the patient's baseline carvedilol and hydralazine as tolerated for treatment of cardiomyopathy in lieu of an URSULA inhibitor at this time, given flux in creatinine. 4. Continue the patient's Imdur, but we will change to correct dosing to 30 mg, not sure if it is possible to give the patient 20 mg of Imdur, would have to be Isordil, which would have to be dosed more than once a day. 5. Consider addition of antibiotic treatment for possible cellulitis. 6. Continue to workup etiology of the left upper extremity and left lower extremity swelling out of proportion to range of body swelling and continue the patient's statin therapy. 7. Would continue to check serial EKGs to assess for ongoing changes. Thank you for allowing me to take part in the care of this patient. I will continue to follow very closely with you with recommendations to be made as the patient progresses to his inpatient hospital clinical course. Dictated By: KARSON HENSLEY/MAX Conf#: [id number] DID#: [id number] CC: TERESA BOB;*EndCC* MTDD
--- NOTE | 2018-09-07 19:22 | HP ---
DATE OF ADMISSION: 09/07/2018 REASON FOR ADMISSION: Bilateral lower extremity and left upper extremity swelling. HISTORY OF PRESENT ILLNESS: This is a 53-year-old male well known to our service with a history of d iabetes, hypertension, hyperlipidemia, congestive heart failure, EF of 25%, severe cardiomyopathy, ri ght SFA, status post thrombectomy with her multiple admissions in the past, last one in 05/2018 mitraon nina to nausea, vomiting, chest pain, shortness of breath and CHF exacerbation. According to the pat ient, since his last discharge, he had been doing fine. He was having just some nausea. He was seen by his PCP outside a few weeks ago and was advised to get an EGD as an outpatient. He was supposed to hold his Eliquis and was supposed to be scheduled for an EGD which he never really scheduled as of yet. However, according to the patient, last 5 days ago, he started noticing worsening swelling of the bilateral lower extremities and for the last 3 days, he started noticing worsening swelling in th e left hand. He could not even move his left hand. He saw his PCP and he was told to come to the ER for further evaluation. According to the patient, he has been compliant with his Lasix 40 mg p.o. b .i.d. at home and has been watching his salt and water restriction. However, according to him, he amaya d gained some weight. The patient has been taking his Eliquis also at home. On arrival to ED, his v ital signs showed a temperature of 97.7, blood pressure 116/87, heart rate 94, respirations 20, satur ating 98%. Labs show his potassium of 3.3, BUN of 39, creatinine 1.60, indirect bilirubin 1.3. BNP 8640, troponin 0.017. INR 1.33. The patient had a chest x-ray that showed moderate cardiomegaly wit h central pulmonary vascular congestion and the patient also had bilateral lower extremity ultrasound of the legs which were negative for DVT in bilateral lower extremities, and an upper extremity ultra sound which was negative for DVT. The patient was given IV morphine, Zofran and IV Lasix and was adm itted for further management. PAST MEDICAL HISTORY: 1. History of non-STEMI, status post PTCA stenting. 2. Cardiomyopathy with a depressed ejection fraction of 20%. 3. Congestive heart failure. 4. Coagulopathy. 5. Chronic kidney disease stage III. 6. Diabetes. 7. Hypertension. 8. History of ventricular tachycardia. ALLERGIES: NONE. PAST SURGICAL HISTORY: The patient had PTCA stenting to RCA on 06/01/2018 and the patient also had a right SFA ____. SOCIAL HISTORY: He denies any history of smoking, alcohol or any drug use. [facility] a daughter. MEDICATIONS AT HOME: 1. Eliquis 5 b.i.d. 2. Plavix 75. 3. Atorvastatin 80. 4. Coreg 3.125 b.i.d. 5. Hydralazine. 6. Imdur 20. 7. Lasix 40 b.i.d. 8. Metolazone 2.5. 9. KCl. 10. Pantoprazole 40. REVIEW OF SYSTEMS: The patient complained of bilateral lower extremity swelling, mostly on the left leg. The patient also complained of left upper extremity hand swelling, unable to flex or extend the fingers secondary to the swelling. The patient also complained of some joint pains. He denied any chest pain with some minimal shortness of breath. He denied any cough, any fevers and chills. He de nies any hematuria. He denies any neurologic deficits. PHYSICAL EXAMINATION: VITAL SIGNS: Currently, blood pressure 98/70, afebrile, pulse 82, respirations 22, saturating 96% on room air. GENERAL: The patient is awake, alert, oriented and appears to be in no distress. NECK: Supple, no JVD. HEART: Regular rate and rhythm. LUNGS: Decreased breath sounds bilaterally. ABDOMEN: Positive bowel sounds. EXTREMITIES: Left upper extremity: The patient has good peripheral pulses; however, the left hand i s markedly swollen. There is some redness noted around left fifth finger. The patient is unable to flex and bend the digits and unable to make any movements on the hand secondary to swelling. The pat ient is also complaining of pain. The patient is able to lift his left shoulder without any pain. O n the left leg, the patient has marked swelling as compared to the right leg with some erythematous c hanges present on the left leg. DIAGNOSTIC DATA: Potassium 3.3, BUN of 39, creatinine 1.60, last creatinine 1.4, indirect bilirubin 1.3. BNP 8640, albumin 3.7. White count 8.7, hemoglobin 15.0, platelet count 206. His chest x-ray shows mild central congestion and cardiomegaly. ASSESSMENT: This is a 53-year-old male who presented with: 1. Bilateral lower extremity swelling; however, the left lower extremity swelling is more markedly t pisano the right lower extremity. Surprisingly, the patient has a Doppler that was done on both the leg s which is negative for DVT. 2. Left upper extremity hand swelling, unable to move his fingers. However, this is not an isolated finding. The patient also has swelling of the left leg. Need to rule out if the patient has any bl ood clots, arterial insufficiency, underlying cellulitis or major joint problem. 3. Congestive heart failure, acute on chronic. 4. Severe cardiomyopathy with ejection fraction of 20%. 5. Acute on chronic renal failure, creatinine of 1.4 in the past. 6. Diabetes. 7. Hypertension. 8. Hyperlipidemia. 9. History of ventricular tachycardia. 10. Hypokalemia. 11. History of hypomagnesemia. PLAN: At this period of time, the patient is admitted to [facility]. The patient will be continued on his Plavix and Eliquis. We will also order arterial Dopplers of the upper and lower extremity. We will also get a CT scan of the left hand. We will also call an Ortho consultation. Echo has been alie lee. Dr. Nagy has been called. The patient will be continued on IV Lasix and metolazone. The rest of the treatment will depend on the patient's hospitalization course. Dictated By: OMAR FERRER/MAX Conf#: [id number] DID#: [id number]
[2018-09-07] MEDS ORDERED: ATORVASTATIN 80 MG TAB PO SCH (21:00)
[2018-09-07] MEDS: ATORVASTATIN 40 MG TAB PO SCH (21:12)
[2018-09-08] VITALS (9 sets, daily range): BP systolic 97–114; BP diastolic 57–69; PULSE 62–84; RESP 18–19
[2018-09-08] MEDS: HYDROCODONE/APAP (5/325) TAB PO PRN ×2 (00:22→04:50)
[2018-09-08] MEDS: ACCU-CHEK XX SCH (02:00)
[2018-09-08] MEDS: FUROSEMIDE 40 MG INJ IV SCH ×2 (05:32→17:21)
[2018-09-08] MEDS: INSULIN ASPART [NOVOLOG] 3 ML PEN SC SCH ×4 (08:00→21:00)
[2018-09-08] MEDS ORDERED: POTASSIUM CHLORIDE (SR) 10 MEQ TAB PO ONE (08:00)
[2018-09-08] MEDS: ISOSORBIDE MONONITRATE(SR)30 MG TAB PO SCH (08:19)
[2018-09-08] MEDS: METOLAZONE 2.5 MG TAB PO SCH (08:19)
[2018-09-08] MEDS: CLOPIDOGREL 75 MG TAB PO SCH (08:20)
[2018-09-08] MEDS: PANTOPRAZOLE (EC) 40 MG TAB PO SCH (08:20)
[2018-09-08] MEDS: APIXABAN 5 MG TABLET PO SCH ×2 (08:20→21:16)
[2018-09-08] MEDS: POTASSIUM CHLORIDE (SR) 20 MEQ TAB PO SCH (08:20)
[2018-09-08] MEDS: ALLOPURINOL 100 MG TAB PO SCH (12:43)
[2018-09-08] MEDS ORDERED: MAGNESIUM SULFATE 3 GM in DEXTROSE 5% 100 ML IVPB ONE (13:00)
--- NOTE | 2018-09-08 13:02 | CONS ---
Assessment/Plan Assessment/Plan Hospital Course (Demo Recall) IMPRESSION: 1. Congestive heart failure exacerbation, systolic, acute on chronic.-neg trop x 3 2. Cardiomyopathy with severe depressed left ventricular ejection fraction last approximately 20%. 3. Status post PTCA and stent placement to right coronary artery for subtotal occlusion in 05/2018. 4. Probable left lower extremity cellulitis. 5. Question of left upper extremity swelling, question etiology of cellulitis, arthritic changes. DVT not seen by ultrasound. 6. Chronic kidney disease. 7. History of deep venous thrombosis of the right lower extremity, on Eliquis. 8. Elevated BNP consistent with the patient's congestive heart failure. 9. Diabetes mellitus. Recc: -Tele -Continue lasix diuresis -Continue coreg/imdur/hydralazine in lieu of ACEI at tis time given renal failure -Contnue lasix plust metolazne diuresis -replete K and mag as you are doing -consider abx's as necessary -keep arm raised to promote drainage Consultation Date/Type/Reason Admit Date/Time Sep 07, 2018 at 03:53 Initial Consult Date 09/07/18 Type of Consult Cardiology Reason for Consultation CHF Requesting Provider: OMAR ESPINOSA MD Date/Time of Note DATE: 09/08/18 TIME: 12:58 Exam/Review of Systems Vital Signs Vitals Vital Signs Date Temp Pulse Resp B/P (MAP) Pulse Ox O2 O2 Flow FiO2 Time Delivery Rate 09/08/18 97.7 73 18 97/64 (75) 100 11:34 09/08/18 Room Air 07:44 Intake and Output 09/07/18 09/07/18 09/08/18 1515:00 23:00 07:00 IntakeIntake Total 550 ml OutputOutput Total 350 ml 920 ml BalanceBalance -350 ml -370 ml Exam Exam Review of Systems: CONSTITUTIONAL: No fevers, chills. PULMONARY: No sob CARDIOVASCULAR: No chest pain/palpitations GASTROINTESTINAL: No nausea/vomiting. GENITOURINARY: No hematuria/dysuria. MUSCULOSKELETAL: mild pain in L arm PSYCHIATRIC: The patient denies depression. NEUROLOGIC: No weakness Constitutional: alert, oriented Psych: no complaints Head: normocephalic ENMT: mucosa pink and moist Neck: supple, jvd (9-10 cm water) Respiratory: diminished breath sounds (at bases\/B) Cardiovascular: regular rate and rhythm Gastrointestinal: soft, non-tender Musculoskeletal: muscle tone (normal) Extremities: pitting pedal edema (bilateral but L>>R) Neurological: other (no focal deficits) Labs Result Diagram: 09/08/18 0552 09/08/18 0552 Results 24hrs Laboratory Tests Test 09/07/18 17:07 09/07/18 18:06 09/07/18 21:10 09/08/18 05:52 Bedside Glucose 155 164 Creatine Kinase 32 Creatine Kinase Index 4.2 Creatinine Kinase MB 1.33 (Mass) Troponin I 0.017 White Blood Count 6.5 # Red Blood Count 5.15 Hemoglobin 13.6 L Hematocrit 42.7 Mean Corpuscular Volume 82.9 Mean Corpuscular 26.4 L Hemoglobin Mean Corpuscular 31.9 L Hemoglobin Concent Red Cell Distribution 16.3 H Width Platelet Count 281 Mean Platelet Volume 9.5 Immature Granulocytes % 0.500 H Neutrophils % 64.3 Lymphocytes % 18.7 Monocytes % 12.2 H Eosinophils % 3.2 Basophils % 1.1 Nucleated Red Blood 0.0 Cells % Immature Granulocytes # 0.030 Neutrophils # 4.2 Lymphocytes # 1.2 Monocytes # 0.8 Eosinophils # 0.2 Basophils # 0.1 Nucleated Red Blood 0.0 Cells # Sodium Level 131 L Potassium Level 2.7 *L Chloride Level 91 L Carbon Dioxide Level 32 H Anion Gap 8 Blood Urea Nitrogen 43 H Creatinine 1.30 H Est Glomerular Filtrat 58 L Rate mL/min Glucose Level 136 Calcium Level 8.4 Phosphorus Level 4.7 Magnesium Level 1.5 L Test 09/08/18 08:01 09/08/18 11:42 Bedside Glucose 121 145 Medications Medications Current Medications Apixaban (Eliquis) 5 mg BID PO Last administered on 09/08/18at 08:20; Admin Dose 5 MG; Start 09/07/18 at 09:00 Carvedilol (Coreg) 3.125 mg BID PO Last administered on 09/08/18at 08:19; Admin Dose 3.125 MG; Start 09/07/18 at 09:00 Clopidogrel Bisulfate (plaVIX) 75 mg DAILY PO Last administered on 09/08/18at 08:20; Admin Dose 75 MG; Start 09/07/18 at 09:00 Hydralazine HCl (Apresoline) 10 mg Q8 PO Last administered on 09/08/18at 05:32; Admin Dose 10 MG; Start 09/07/18 at 14:00 Pantoprazole (Protonix Tab) 40 mg DAILY PO Last administered on 09/08/18at 08:20; Admin Dose 40 MG; Start 09/07/18 at 09:00 Potassium Chloride (Klor-Con 20) 20 meq DAILY PO Last administered on 09/08/18at 08:20; Admin Dose 20 MEQ; Start 09/07/18 at 09:00 Ondansetron HCl (Zofran Inj) 4 mg Q4H PRN IV NAUSEA AND/OR VOMITING; Start 09/07/18 at 07:30 Acetaminophen/ Hydrocodone Bitart ([place] (5/325)) 1 tab Q4H PRN PO SEVERE PAIN LEVEL 7-10 Last administered on 09/08/18at 04:50; Admin Dose 1 TAB; Start 09/07/18 at 08:00 Diagnostic Test (Pha) (Accu-Chek) 1 ea 02 XX ; Start 09/08/18 at 02:00 Insulin Aspart (Novolog Insulin Pen) NOVOLOG *MILD* ALGORITHM WITH MEALS BEDTIME SC Last administered on 09/07/18at 17:09; Admin Dose 1 UNIT; Start 09/07/18 at 08:00 Metolazone (Zaroxolyn) 2.5 mg DAILY PO Last administered on 09/08/18at 08:19; Admin Dose 2.5 MG; Start 09/07/18 at 09:00 Miscellaneous Information 1 ea NOTE XX ; Start 09/07/18 at 08:00 Glucose (Glutose) 15 gm Q15M PRN PO DECREASED GLUCOSE; Start 09/07/18 at 08:00 Glucose (Glutose) 22.5 gm Q15M PRN PO DECREASED GLUCOSE; Start 09/07/18 at 08:00 Dextrose (D50w Syringe) 25 ml Q15M PRN IV DECREASED GLUCOSE; Start 09/07/18 at 08:00 Dextrose (D50w Syringe) 50 ml Q15M PRN IV DECREASED GLUCOSE; Start 09/07/18 at 08:00 Glucagon (Glucagen) 1 mg Q15M PRN IM DECREASED GLUCOSE; Start 09/07/18 at 08:00 Glucose (Glutose) 15 gm Q15M PRN BUCCAL DECREASED GLUCOSE; Start 09/07/18 at 08:00 Atorvastatin Calcium (Lipitor) 40 mg QHS PO Last administered on 09/07/18at 21:12; Admin Dose 40 MG; Start 09/07/18 at 21:00 Furosemide (Lasix) 40 mg BID DIURETICS IV Last administered on 09/08/18at 05:32; Admin Dose 40 MG; Start 09/07/18 at 18:00 Isosorbide Mononitrate (Imdur) 30 mg DAILY PO Last administered on 09/08/18at 08:19; Admin Dose 30 MG; Start 09/08/18 at 09:00 Magnesium Sulfate 3 gm/Dextrose 106 ml @ 35.333 mls/ hr ONCE ONCE IVPB ; Start 09/08/18 at 13:00; Stop 09/08/18 at 15:59 Allopurinol (Zyloprim) 100 mg DAILY PO Last administered on 09/08/18at 12:43; Admin Dose 100 MG; Start 09/08/18 at 12:00 KARSON HERNANDEZ Sep 08, 2018 13:02
--- NOTE | 2018-09-08 14:20 | RADRPT ---
Echocardiogram Report Patient Name: DAIJA MAYO MPatient ID: [id number] : 1965 (53y )Study Date: 09/07/2018 3:50:50 PM Gender: MAccession #: [id number] Tech: Jesus Suárez [facility] Location: [facility] Ref.Physician: OMAR ESPINOSA Height(Cm): BSA: Weight(Kg): Quality: AdequateOrder Physician: OMAR ESPINOSA Account #: Procedures: Echocardiographic Report: Transthoracic echocardiogram with complete 2D, M-Mode, and doppler examination. Indications: Blood Clot? Measurements: 2D/M Mode Doppler Measurement Value Normal Range Measurement Value Normal Range LVIDd 2D 6.7 [ 4.2 - 5.8 ] cm AV Peak Duong 1.1 [ 100.0 - 170.0 ] cm/sec LVIDs 2D 6.3 [ 2.5 - 4.0 ] cm AV Peak PG 5.0 [ 2.0 - 9.0 ] mmHg LVPWd 2D 0.7 [ 0.6 - 1.0 ] cm LVOT Peak Duong 0.5 [ 70.0 - 110.0 ] cm/sec IVSd 2D 0.7 [ 0.6 - 1.0 ] cm LVOT Peak PG 1.0 [ 2.0 - 6.0 ] mmHg AoR Diam 2D 2.5 [ 2.6 - 3.4 ] cm MV E Peak Duong 1.1 [ 60.0 - 130.0 ] cm/sec EDV 2D 230.0 [ 62.0 - 150.0 ] ml MV A Peak Duong 0.5 [ 100.0 - 120.0 ] cm/sec ESV 2D 200.0 [ 21.0 - 61.0 ] ml MV E/A 2.4 [ 0.8 - 1.5 ] ratio EF 2D 13.0 [ 52.0 - 72.0 ] percent MV Decel Time 116 [ 104 - 258 ] msec LA Dimen 2D 4.4 [ 3.0 - 4.0 ] cm Lat E` Duong 0.1 [ 10.0 - 15.0 ] cm/sec Lateral E/E` 14.1 [ 1.0 - 2.0 ] ratio MV E/A 2.4 [ 0.8 - 1.5 ] ratio TR Peak Duong 3.3 [ 100.0 - 280.0 ] cm/sec TR Peak PG 44.0 mmHg RVSP 59.0 [ 10.0 - 36.0 ] mmHg Findings: Left Ventricle: Normal left ventricular wall thickness. Moderate enlargement of left ventricle cavity. Severe global left ventricular systolic dysfunction. Ejection fraction is visually estimated at 15-20 %. No left ventricular thrombus visualized. Tissue Doppler/Mitral Doppler indices are consistent with restrictive physiology with markedly elevated left atrial pressure (Stage III-IV diastolic dysfunction). Right Ventricle: Moderate right ventricular systolic dysfunction. Moderate enlargement of right ventricle. Left Atrium: There is mild enlargement of left atrium. Right Atrium: There is mild enlargement of right atrium. Mitral Valve: Mild mitral leaflet calcification. Mild mitral annular calcification. Mild mitral valve regurgitation. Aortic Valve: No significant aortic stenosis or insufficiency. Aortic cusps appear mildly calcified. Trace aortic valve regurgitation. Tricuspid Valve: Normal appearance of the tricuspid valve. The estimated Peak RVSP is 59 mmHg. There is mild to moderate tricuspid regurgitation. Pericardium: Normal pericardium with no significant pericardial effusion. Aorta: Normal aortic root. IVC: Dilated IVC without respiratory collapse consistent with elevated right atrial pressure. Conclusions: Normal left ventricular wall thickness. Moderate enlargement of left ventricle cavity. Severe global left ventricular systolic dysfunction. Ejection fraction is visually estimated at 15-20 %. No left ventricular thrombus visualized. Tissue Doppler/Mitral Doppler indices are consistent with restrictive physiology with markedly elevated left atrial pressure (Stage III-IV diastolic dysfunction). Moderate right ventricular systolic dysfunction. Moderate enlargement of right ventricle. There is mild enlargement of left atrium. There is mild enlargement of right atrium. Mild mitral leaflet calcification. Mild mitral annular calcification. Mild mitral valve regurgitation. No significant aortic stenosis or insufficiency. Aortic cusps appear mildly calcified. Trace aortic valve regurgitation. Normal appearance of the tricuspid valve. The estimated Peak RVSP is 59 mmHg. There is mild to moderate tricuspid regurgitation. Electronically Signed By: Erick Nagy 2018-09-08 14:19:59 PDT
--- NOTE | 2018-09-08 14:22 | RADRPT ---
Vent Rate: 79 bpm RR Interval: 756 msec OR Interval: 194 msec QRS Duration: 141 msec QT Interval: 455 msec QTC Interval: 523 msec P-R-T [place]: 69 - -87 - 91 degrees Sinus rhythm...normal P axis, V-rate 50- 99 Probable left atrial enlargement...P >50mS, <-0.10mV V1 Nonspecific IVCD with LAD...QRSd >115mS & LAD Left ventricular hypertrophy...multiple LVH criteria Anterior infarct, old...Q >40mS, abnormal ST-T, V2-V5 Lateral wall also involved...lat Q or ST-T abnormalities Prolonged QT interval...QTc >500mS Electronically Signed By: Erick Nagy
--- NOTE | 2018-09-08 15:58 | PN ---
Date/Time of Note Date/Time of Note DATE: 09/08/18 TIME: 15:54 Assessment/Plan VTE Prophylaxis Risk score (from Ns)>0 risk: 6 SCD applied (from [facility] [place]): No SCD contraindicated: low risk/ambulating Pharmacological prophylaxis: NA/contraindicated Pharm contraindication: low risk/ambulating Lines/Catheters IV C[facility]from [facility] [place] Urinary Cath still in place: No Assessment/Plan Assessment/Plan [id number] male who presented with: 1. Bilateral lower extremity swelling; however, the left lower extremity swelling is more markedly than the right lower extremity. Surprisingly, the patient has a Doppler that was done on both the legs which is negative for DVT. 2. Left upper extremity hand swelling, unable to move his fingers. Likely secondary to gout, x-ray negative arterial duplex negative 3. Congestive heart failure, acute on chronic. 4. Severe cardiomyopathy with ejection fraction of 20%. 5. Acute on chronic renal failure, creatinine of 1.4 in the past. Improved 6. Diabetes. 7. Hypertension. 8. Hyperlipidemia. 9. History of ventricular tachycardia. 10. Hypokalemia. Significant 11. History of hypomagnesemia. plan -We will start allopurinol/colchicine for gout patient needs to be on a low purine diet -cw with the left arm sling appreciate Dr. Mathew's consult -Potassium repletion repleted 50 mEq we will check a potassium in the evening -Repeat magnesium -Ancef for underlying cellulitis -Continue with IV Lasix 40 twice daily and metolazone -Renally dose all meds - fu cards recs Result Diagram: 09/08/18 0552 09/08/18 0552 Results 24hrs Laboratory Tests Test 09/07/18 17:07 09/07/18 18:06 09/07/18 21:10 09/08/18 05:52 Bedside Glucose 155 164 Creatine Kinase 32 Creatine Kinase Index 4.2 Creatinine Kinase MB 1.33 (Mass) Troponin I 0.017 White Blood Count 6.5 # Red Blood Count 5.15 Hemoglobin 13.6 L Hematocrit 42.7 Mean Corpuscular Volume 82.9 Mean Corpuscular 26.4 L Hemoglobin Mean Corpuscular 31.9 L Hemoglobin Concent Red Cell Distribution 16.3 H Width Platelet Count 281 Mean Platelet Volume 9.5 Immature Granulocytes % 0.500 H Neutrophils % 64.3 Lymphocytes % 18.7 Monocytes % 12.2 H Eosinophils % 3.2 Basophils % 1.1 Nucleated Red Blood 0.0 Cells % Immature Granulocytes # 0.030 Neutrophils # 4.2 Lymphocytes # 1.2 Monocytes # 0.8 Eosinophils # 0.2 Basophils # 0.1 Nucleated Red Blood 0.0 Cells # Sodium Level 131 L Potassium Level 2.7 *L Chloride Level 91 L Carbon Dioxide Level 32 H Anion Gap 8 Blood Urea Nitrogen 43 H Creatinine 1.30 H Est Glomerular Filtrat 58 L Rate mL/min Glucose Level 136 Calcium Level 8.4 Phosphorus Level 4.7 Magnesium Level 1.5 L Test 09/08/18 08:01 09/08/18 11:42 Bedside Glucose 121 145 Subjective 24 Hr Interval Summary Free Text/Dictation Swelling in the left arm is very less patient is able to bend his fingers Able to flex and extend his fingers No chest pain/shortness of breath Uric acid elevated Exam/Review of Systems Exam Vitals Vital Signs Date Temp Pulse Resp B/P (MAP) Pulse Ox O2 O2 Flow FiO2 Time Delivery Rate 09/08/18 98.8 67 18 103/67 100 15:26 (79) 09/08/18 Room Air 07:44 Intake and Output 09/07/18 09/07/18 09/08/18 1515:00 23:00 07:00 IntakeIntake Total 550 ml OutputOutput Total 350 ml 920 ml BalanceBalance -350 ml -370 ml Exam GENERAL: The patient is awake, alert, oriented and appears to be in no distress. NECK: Supple, no JVD. HEART: Regular rate and rhythm. LUNGS: Decreased breath sounds bilaterally. ABDOMEN: Positive bowel sounds. EXTREMITIES: Left upper extremity: Hand in a swing the patient is able to flex and extend fingers the swelling is much improved Left leg edema is more than the right leg edema with some erythematous changes Results Results 24hrs Laboratory Tests Test 09/07/18 17:07 09/07/18 18:06 09/07/18 21:10 09/08/18 05:52 Bedside Glucose 155 164 Creatine Kinase 32 Creatine Kinase Index 4.2 Creatinine Kinase MB 1.33 (Mass) Troponin I 0.017 White Blood Count 6.5 # Red Blood Count 5.15 Hemoglobin 13.6 L Hematocrit 42.7 Mean Corpuscular Volume 82.9 Mean Corpuscular 26.4 L Hemoglobin Mean Corpuscular 31.9 L Hemoglobin Concent Red Cell Distribution 16.3 H Width Platelet Count 281 Mean Platelet Volume 9.5 Immature Granulocytes % 0.500 H Neutrophils % 64.3 Lymphocytes % 18.7 Monocytes % 12.2 H Eosinophils % 3.2 Basophils % 1.1 Nucleated Red Blood 0.0 Cells % Immature Granulocytes # 0.030 Neutrophils # 4.2 Lymphocytes # 1.2 Monocytes # 0.8 Eosinophils # 0.2 Basophils # 0.1 Nucleated Red Blood 0.0 Cells # Sodium Level 131 L Potassium Level 2.7 *L Chloride Level 91 L Carbon Dioxide Level 32 H Anion Gap 8 Blood Urea Nitrogen 43 H Creatinine 1.30 H Est Glomerular Filtrat 58 L Rate mL/min Glucose Level 136 Calcium Level 8.4 Phosphorus Level 4.7 Magnesium Level 1.5 L Test 09/08/18 08:01 09/08/18 11:42 Bedside Glucose 121 145 Medications Medication Current Medications Apixaban (Eliquis) 5 mg BID PO Last administered on 09/08/18 08:20; Admin Dose 5 MG; Start 09/07/18 at 09:00 Carvedilol (Coreg) 3.125 mg BID PO Last administered on 09/08/18 08:19; Admin Dose 3.125 MG; Start 09/07/18 at 09:00 Clopidogrel Bisulfate (plaVIX) 75 mg DAILY PO Last administered on 09/08/18 08:20; Admin Dose 75 MG; Start 09/07/18 at 09:00 Hydralazine HCl (Apresoline) 10 mg Q8 PO Last administered on 09/08/18 05:32; Admin Dose 10 MG; Start 09/07/18 at 14:00 Pantoprazole (Protonix Tab) 40 mg DAILY PO Last administered on 09/08/18 08:20; Admin Dose 40 MG; Start 09/07/18 at 09:00 Potassium Chloride (Klor-Con 20) 20 meq DAILY PO Last administered on 09/08/18 08:20; Admin Dose 20 MEQ; Start 09/07/18 at 09:00 Ondansetron HCl (Zofran Inj) 4 mg Q4H PRN IV NAUSEA AND/OR VOMITING; Start 09/07/18 at 07:30 Acetaminophen/ Hydrocodone Bitart ([place] (5/325)) 1 tab Q4H PRN PO SEVERE PAIN LEVEL 7-10 Last administered on 09/08/18at 04:50; Admin Dose 1 TAB; Start 09/07/18 at 08:00 Diagnostic Test (Pha) (Accu-Chek) 1 ea 02 XX ; Start 09/08/18 at 02:00 Insulin Aspart (Novolog Insulin Pen) NOVOLOG *MILD* ALGORITHM WITH MEALS BEDTIME SC Last administered on 09/07/18at 17:09; Admin Dose 1 UNIT; Start 09/07/18 at 08:00 Metolazone (Zaroxolyn) 2.5 mg DAILY PO Last administered on 09/08/18at 08:19; Admin Dose 2.5 MG; Start 09/07/18 at 09:00 Miscellaneous Information 1 ea NOTE XX ; Start 09/07/18 at 08:00 Glucose (Glutose) 15 gm Q15M PRN PO DECREASED GLUCOSE; Start 09/07/18 at 08:00 Glucose (Glutose) 22.5 gm Q15M PRN PO DECREASED GLUCOSE; Start 09/07/18 at 08:00 Dextrose (D50w Syringe) 25 ml Q15M PRN IV DECREASED GLUCOSE; Start 09/07/18 at 08:00 Dextrose (D50w Syringe) 50 ml Q15M PRN IV DECREASED GLUCOSE; Start 09/07/18 at 08:00 Glucagon (Glucagen) 1 mg Q15M PRN IM DECREASED GLUCOSE; Start 09/07/18 at 08:00 Glucose (Glutose) 15 gm Q15M PRN BUCCAL DECREASED GLUCOSE; Start 09/07/18 at 08:00 Atorvastatin Calcium (Lipitor) 40 mg QHS PO Last administered on 09/07/18at 21:12; Admin Dose 40 MG; Start 09/07/18 at 21:00 Furosemide (Lasix) 40 mg BID DIURETICS IV Last administered on 09/08/18at 05:32; Admin Dose 40 MG; Start 09/07/18 at 18:00 Isosorbide Mononitrate (Imdur) 30 mg DAILY PO Last administered on 09/08/18at 08:19; Admin Dose 30 MG; Start 09/08/18 at 09:00 Magnesium Sulfate 3 gm/Dextrose 106 ml @ 35.333 mls/ hr ONCE ONCE IVPB Last administered on 09/08/18at 13:55; Admin Dose 35.333 MLS/HR; Start 09/08/18 at 13:0 0; Stop 09/08/18 at 15:59 Allopurinol (Zyloprim) 100 mg DAILY PO Last administered on 09/08/18at 12:43; Admin Dose 100 MG; Start 09/08/18 at 12:00 Colchicine (Colchicine) 0.6 mg ONCE ONCE PO ; Start 09/08/18 at 16:00; Stop 09/08/18 at 16:01 Cefazolin Sodium (Ancef) 1 gm Q12 IV ; Start 09/08/18 at 16:00; Status UNOMAR BARCENAS MD Sep 08, 2018 15:58
[2018-09-08] MEDS ORDERED: COLCHICINE 0.6 MG TAB PO ONE (16:00)
--- NOTE | 2018-09-08 16:18 | CONS ---
DATE OF ADMISSION: 09/07/2018 DATE OF CONSULTATION: 09/07/2018 TYPE OF CONSULTATION: Orthopedic surgical. HISTORY OF PRESENT ILLNESS: The patient is a 53-year-old male who was admitted on 09/07/2018 because of the swelling involving both lower extremities more on the left side along with the left upper ext remity. He has multiple medical problems including acute on chronic congestive heart failure, with h istory of stent placement, cardiomyopathy, chronic kidney disease and peripheral arterial disease. According to the patient, he was developing swelling involving both lower extremities more severe on the left side along with left upper extremity. Along with the swelling, he was also complaining of p ain involving the candelaria of the left upper extremity. PHYSICAL EXAMINATION: My examination revealed a diffuse pitting edema in the lower extremities, more so on the left side along with the obvious swelling and pitting edema involving the left upper extre mity. There was some tenderness in the different area of the left elbow, left forearm, left hand and finger joints. He was having difficulty in moving his elbow, wrist and finger joints with pain. He was not able to make a fist. He was afebrile and there was no leukocytosis. Even though he has patricia n in some finger joints, wrist joint and part of the left forearm, there were no obvious signs of summer lulitis or joint infection. DIAGNOSTIC DATA: X-rays of the left hand and wrist did not show any signs of acute injury such as fr acture or dislocation. There was some diffuse soft tissue swelling. Doppler studies of the venous s ystem and arterial system did not show any signs of deep vein thrombosis or blood clots. DIAGNOSTIC IMPRESSION: Diffuse edema from systemic reason such as congestive heart failure, cardiomy opathy and renal system malfunction. It is not unusual to have more pain and signs of stenosing teno synovitis in the finger joints. RECOMMENDATIONS: For management of the left upper extremity: We can reduce the edema by elevation o f the left upper extremity and with the reduction of the edema, his pain will probably decrease and f unction will increase. We can also consult hand therapy and instruct the patient to carry out the ra nge of motion on his own. Dictated By: JOHNNIE MELTON/MAX Conf#: [id number] DID#: [id number] CC: OMAR ESPINOSA; KARSON HERNANDEZ MD;*[facility]*
[2018-09-08] MEDS ORDERED: CEFAZOLIN 1 GM INJ IV SCH (16:30)
[2018-09-08] MEDS: CEFAZOLIN 1 GM/50 ML (PMX) 50 ML IVPB SCH (16:53)
[2018-09-08] MEDS: ATORVASTATIN 40 MG TAB PO SCH (21:15)
[2018-09-09] VITALS (10 sets, daily range): BP systolic 98–123; BP diastolic 65–83; PULSE 76–88; RESP 18
[2018-09-09] MEDS: CEFAZOLIN 1 GM/50 ML (PMX) 50 ML IVPB SCH ×3 (00:21→21:39)
[2018-09-09] MEDS: ACCU-CHEK XX SCH (02:00)
[2018-09-09] MEDS: FUROSEMIDE 40 MG INJ IV SCH ×2 (05:53→18:34)
[2018-09-09] MEDS: HYDROCODONE/APAP (5/325) TAB PO PRN (06:42)
[2018-09-09] MEDS ORDERED: POTASSIUM CHLORIDE (SR) 20 MEQ TAB PO STA (07:47)
[2018-09-09] MEDS: INSULIN ASPART [NOVOLOG] 3 ML PEN SC SCH ×4 (08:12→22:03)
--- NOTE | 2018-09-09 10:11 | PN ---
Date/Time of Note Date/Time of Note DATE: 09/09/18 TIME: 10:09 Assessment/Plan VTE Prophylaxis Risk score (from Ns)>0 risk: 6 SCD applied (from Ns): No SCD contraindicated: bilateral LE trauma Pharmacological prophylaxis: apixaban Lines/Catheters IV [facility] Type [facility]from [facility] Saline Lock Urinary Cath still in place: No Assessment/Plan Hospital Course 1. Bilateral lower extremity swelling; however, the left lower extremity swelling is more markedly than the right lower extremity. Surprisingly, the patient has a Doppler that was done on both the legs which is negative for DVT. Gout, exacerbation. 2. Left upper extremity hand swelling, unable to move his fingers. Likely secondary to gout, x-ray negative arterial duplex negative, better 3. Congestive heart failure, acute on chronic. 4. Severe cardiomyopathy with ejection fraction of 20%. 5. Acute on chronic renal failure, creatinine of 1.4 in the past. Improved 6. Diabetes. 7. Hypertension. 8. Hyperlipidemia. 9. History of ventricular tachycardia. 10. Hypokalemia. Significant 11. History of hypomagnesemia. 12. electrolyte imbalance. 13. Overweight 14. Arterial insufficiency with monophasic wave form in the right dorsalis pedis artery consistent with a significant stenosis Assessment/Plan -c/w allopurinol/colchicine -start Trental. -Dr Sifuentes [facility] surgeon for right dorsalis pedis artery stenosis -cw with the left arm sling - appreciate Dr. Mathew's consult -Potassium repletion replete 50 mEq -Ancef for underlying cellulitis -Continue with IV Lasix 40 twice daily and metolazone -Renally dose all meds - fu cards recs -dietary consult for low purine diet -DVT proph. Eliquiz -GI priph. Protonix Result Diagram: 09/08/18 0552 09/09/18 0536 Results 24hrs Laboratory Tests Test 09/08/18 11:42 09/08/18 16:43 09/08/18 17:13 09/08/18 21:13 Bedside Glucose 145 180 156 Potassium Level 3.0 L Test 09/09/18 05:36 09/09/18 08:00 Sodium Level 133 L Potassium Level 2.6 *L Chloride Level 89 L Carbon Dioxide Level 32 H Anion Gap 12 Blood Urea Nitrogen 46 H Creatinine 1.39 H Est Glomerular Filtrat 53 L Rate mL/min Glucose Level 149 Calcium Level 8.6 Phosphorus Level 4.1 Magnesium Level 1.8 Bedside Glucose 154 Subjective 24 Hr Interval Summary Constitutional: improved Exam/Review of Systems Exam Vitals Vital Signs Date Temp Pulse Resp B/P (MAP) Pulse Ox O2 O2 Flow FiO2 Time Delivery Rate 09/09/18 97.8 84 123/83 97 Room Air 07:40 (96) 09/09/18 18 04:00 Intake and Output 09/08/18 09/08/18 09/09/18 1515:00 23:00 07:00 IntakeIntake Total 500 ml OutputOutput Total 600 ml 1175 ml BalanceBalance -600 ml -675 ml Constitutional: alert, oriented Neck: supple Respiratory: diminished breath sounds Cardiovascular: regular rate and rhythm Gastrointestinal: soft Extremities: edema, other (left V finger skin redness) Results Results 24hrs Laboratory Tests Test 09/08/18 11:42 09/08/18 16:43 09/08/18 17:13 09/08/18 21:13 Bedside Glucose 145 180 156 Potassium Level 3.0 L Test 09/09/18 05:36 09/09/18 08:00 Sodium Level 133 L Potassium Level 2.6 *L Chloride Level 89 L Carbon Dioxide Level 32 H Anion Gap 12 Blood Urea Nitrogen 46 H Creatinine 1.39 H Est Glomerular Filtrat 53 L Rate mL/min Glucose Level 149 Calcium Level 8.6 Phosphorus Level 4.1 Magnesium Level 1.8 Bedside Glucose 154 Medications Medication Current Medications Apixaban (Eliquis) 5 mg BID PO Last administered on 09/08/18 21:16; Admin Dose 5 MG; Start 09/07/18 at 09:00 Carvedilol (Coreg) 3.125 mg BID PO Last administered on 09/08/18 21:16; Admin Dose 3.125 MG; Start 09/07/18 at 09:00 Clopidogrel Bisulfate (plaVIX) 75 mg DAILY PO Last administered on 09/08/18 08:20; Admin Dose 75 MG; Start 09/07/18 at 09:00 Hydralazine HCl (Apresoline) 10 mg Q8 PO Last administered on 09/08/18 21:21; Admin Dose 10 MG; Start 09/07/18 at 14:00 Pantoprazole (Protonix Tab) 40 mg DAILY PO Last administered on 6/6/19at 08:20; Admin Dose 40 MG; Start 09/07/18 at 09:00 Ondansetron HCl (Zofran Inj) 4 mg Q4H PRN IV NAUSEA AND/OR VOMITING; Start 09/07/18 at 07:30 Acetaminophen/ Hydrocodone Bitart ([place] (5/325)) 1 tab Q4H PRN PO SEVERE PAIN LEVEL 7-10 Last administered on 09/09/18at 06:42; Admin Dose 1 TAB; Start 09/07/18 at 08:00 Diagnostic Test (Pha) (Accu-Chek) 1 ea 02 XX ; Start 09/08/18 at 02:00 Insulin Aspart (Novolog Insulin Pen) NOVOLOG *MILD* ALGORITHM WITH MEALS BEDTIME SC Last administered on 09/09/18at 08:12; Admin Dose 1 UNIT; Start 09/07/18 at 08:00 Metolazone (Zaroxolyn) 2.5 mg DAILY PO Last administered on 09/08/18at 08:19; Admin Dose 2.5 MG; Start 09/07/18 at 09:00 Miscellaneous Information 1 ea NOTE XX ; Start 09/07/18 at 08:00 Glucose (Glutose) 15 gm Q15M PRN PO DECREASED GLUCOSE; Start 09/07/18 at 08:00 Glucose (Glutose) 22.5 gm Q15M PRN PO DECREASED GLUCOSE; Start 09/07/18 at 08:00 Dextrose (D50w Syringe) 25 ml Q15M PRN IV DECREASED GLUCOSE; Start 09/07/18 at 08:00 Dextrose (D50w Syringe) 50 ml Q15M PRN IV DECREASED GLUCOSE; Start 09/07/18 at 08:00 Glucagon (Glucagen) 1 mg Q15M PRN IM DECREASED GLUCOSE; Start 09/07/18 at 08:00 Glucose (Glutose) 15 gm Q15M PRN BUCCAL DECREASED GLUCOSE; Start 09/07/18 at 08:00 Atorvastatin Calcium (Lipitor) 40 mg QHS PO Last administered on 09/08/18at 21:15; Admin Dose 40 MG; Start 09/07/18 at 21:00 Furosemide (Lasix) 40 mg BID DIURETICS IV Last administered on 09/09/18at 05:53; Admin Dose 40 MG; Start 09/07/18 at 18:00 Isosorbide Mononitrate (Imdur) 30 mg DAILY PO Last administered on 09/08/18at 08:19; Admin Dose 30 MG; Start 09/08/18 at 09:00 Allopurinol (Zyloprim) 100 mg DAILY PO Last administered on 09/08/18at 12:43; Admin Dose 100 MG; Start 09/08/18 at 12:00 Cefazolin Sodium 50 ml @ 100 mls/hr Q12 IVPB Last administered on 09/09/18at 00:21; Admin Dose 100 MLS/HR; Start 09/08/18 at 16:00 Potassium Chloride (Klor-Con 20) 40 meq BID PO ; Start 09/09/18 at 10:00 MEHREEN HILLMAN Sep 09, 2018 10:11
[2018-09-09] MEDS: METOLAZONE 2.5 MG TAB PO SCH (10:48)
[2018-09-09] MEDS: CLOPIDOGREL 75 MG TAB PO SCH (10:48)
[2018-09-09] MEDS: APIXABAN 5 MG TABLET PO SCH ×2 (10:48→21:41)
[2018-09-09] MEDS: PANTOPRAZOLE (EC) 40 MG TAB PO SCH (10:49)
[2018-09-09] MEDS: ISOSORBIDE MONONITRATE(SR)30 MG TAB PO SCH (10:49)
[2018-09-09] MEDS: ALLOPURINOL 100 MG TAB PO SCH (10:49)
[2018-09-09] MEDS: POTASSIUM CHLORIDE (SR) 20 MEQ TAB PO SCH ×2 (11:22→21:40)
[2018-09-09] MEDS: PENTOXIFYLLINE (SR) 400 MG TAB PO SCH ×2 (13:53→21:40)
--- NOTE | 2018-09-09 15:01 | CONS ---
Assessment/Plan Assessment/Plan Hospital Course (Demo Recall) IMPRESSION: 1. Congestive heart failure exacerbation, systolic, acute on chronic.-neg trop x 3 2. Cardiomyopathy with severe depressed left ventricular ejection fraction last approximately 20%. 3. Status post PTCA and stent placement to right coronary artery for subtotal occlusion in 05/2018. 4. Probable left lower extremity cellulitis. 5. Question of left upper extremity swelling, question etiology of cellulitis, arthritic changes. DVT not seen by ultrasound. 6. Chronic kidney disease. 7. History of deep venous thrombosis of the right lower extremity, on Eliquis. 8. Elevated BNP consistent with the patient's congestive heart failure. 9. Diabetes mellitus. Recc: -Tele -Continue lasix diuresis -Continue coreg/imdur/hydralazine in lieu of ACEI at tis time given renal failure -Contnue lasix plus metolazne diuresis -replete K aggresively and mag as you are doing -Contineu ancef and follow exam -keep arm raised to promote drainage Consultation Date/Type/Reason Admit Date/Time Sep 07, 2018 at 03:53 Initial Consult Date 09/07/18 Type of Consult Cardiology Reason for Consultation CHF Requesting Provider: OMAR ESPINOSA MD Date/Time of Note DATE: 09/09/18 TIME: 15:00 Exam/Review of Systems Vital Signs Vitals Vital Signs Date Temp Pulse Resp B/P (MAP) Pulse Ox O2 O2 Flow FiO2 Time Delivery Rate 09/09/18 97.3 77 18 111/74 97 Room Air 11:15 (86) Intake and Output 09/08/18 09/08/18 09/09/18 1515:00 23:00 07:00 IntakeIntake Total 500 ml OutputOutput Total 600 ml 1175 ml BalanceBalance -600 ml -675 ml Exam Exam Review of Systems: CONSTITUTIONAL: No fevers, chills. PULMONARY: No sob CARDIOVASCULAR: No chest pain/palpitations GASTROINTESTINAL: No nausea/vomiting. GENITOURINARY: No hematuria/dysuria. MUSCULOSKELETAL: improving hand pain PSYCHIATRIC: The patient denies depression. NEUROLOGIC: No weakness Constitutional: alert Psych: no complaints Head: normocephalic ENMT: mucosa pink and moist Neck: supple, jvd (9 cm water) Respiratory: diminished breath sounds (at bases/B) Cardiovascular: regular rate and rhythm Gastrointestinal: soft, non-tender Musculoskeletal: muscle weakness (generalized) Extremities: pitting pedal edema (BIlateral) Labs Result Diagram: 09/08/18 0552 09/09/18 0536 Results 24hrs Laboratory Tests Test 09/08/18 16:43 09/08/18 17:13 09/08/18 21:13 09/09/18 05:36 Potassium Level 3.0 L 2.6 *L Bedside Glucose 180 156 Sodium Level 133 L Chloride Level 89 L Carbon Dioxide Level 32 H Anion Gap 12 Blood Urea Nitrogen 46 H Creatinine 1.39 H Est Glomerular Filtrat 53 L Rate mL/min Glucose Level 149 Calcium Level 8.6 Phosphorus Level 4.1 Magnesium Level 1.8 Test 09/09/18 08:00 09/09/18 11:46 Bedside Glucose 154 170 Medications Medications Current Medications Apixaban (Eliquis) 5 mg BID PO Last administered on 09/09/18 10:48; Admin Dose 5 MG; Start 09/07/18 at 09:00 Carvedilol (Coreg) 3.125 mg BID PO Last administered on 09/09/18at 10:49; Admin Dose 3.125 MG; Start 09/07/18 at 09:00 Clopidogrel Bisulfate (plaVIX) 75 mg DAILY PO Last administered on 09/09/18 10:48; Admin Dose 75 MG; Start 09/07/18 at 09:00 Hydralazine HCl (Apresoline) 10 mg Q8 PO Last administered on 09/09/18at 13:56; Admin Dose 10 MG; Start 09/07/18 at 14:00 Pantoprazole (Protonix Tab) 40 mg DAILY PO Last administered on 09/09/18at 10:49; Admin Dose 40 MG; Start 09/07/18 at 09:00 Ondansetron HCl (Zofran Inj) 4 mg Q4H PRN IV NAUSEA AND/OR VOMITING; Start 09/07/18 at 07:30 Acetaminophen/ Hydrocodone Bitart ([place] (5/325)) 1 tab Q4H PRN PO SEVERE PAIN LEVEL 7-10 Last administered on 09/09/18at 06:42; Admin Dose 1 TAB; Start 09/07/18 at 08:00 Diagnostic Test (Pha) (Accu-Chek) 1 ea 02 XX ; Start 09/08/18 at 02:00 Insulin Aspart (Novolog Insulin Pen) NOVOLOG *MILD* ALGORITHM WITH MEALS BEDTIME SC Last administered on 09/09/18 11:57; Admin Dose 1 UNIT; Start 09/07/18 at 08:00 Metolazone (Zaroxolyn) 2.5 mg DAILY PO Last administered on 09/09/18 10:48; Admin Dose 2.5 MG; Start 09/07/18 at 09:00 Miscellaneous Information 1 ea NOTE XX ; Start 09/07/18 at 08:00 Glucose (Glutose) 15 gm Q15M PRN PO DECREASED GLUCOSE; Start 09/07/18 at 08:00 Glucose (Glutose) 22.5 gm Q15M PRN PO DECREASED GLUCOSE; Start 09/07/18 at 08:00 Dextrose (D50w Syringe) 25 ml Q15M PRN IV DECREASED GLUCOSE; Start 09/07/18 at 08:00 Dextrose (D50w Syringe) 50 ml Q15M PRN IV DECREASED GLUCOSE; Start 09/07/18 at 08:00 Glucagon (Glucagen) 1 mg Q15M PRN IM DECREASED GLUCOSE; Start 09/07/18 at 08:00 Glucose (Glutose) 15 gm Q15M PRN BUCCAL DECREASED GLUCOSE; Start 09/07/18 at 08:00 Atorvastatin Calcium (Lipitor) 40 mg QHS PO Last administered on 09/08/18at 21:15; Admin Dose 40 MG; Start 09/07/18 at 21:00 Furosemide (Lasix) 40 mg BID DIURETICS IV Last administered on 09/09/18 05:53; Admin Dose 40 MG; Start 09/07/18 at 18:00 Isosorbide Mononitrate (Imdur) 30 mg DAILY PO Last administered on 09/09/18 10:49; Admin Dose 30 MG; Start 09/08/18 at 09:00 Allopurinol (Zyloprim) 100 mg DAILY PO Last administered on 09/09/18 10:49; Admin Dose 100 MG; Start 09/08/18 at 12:00 Cefazolin Sodium 50 ml @ 100 mls/hr Q12 IVPB Last administered on 09/09/18 10:49; Admin Dose 100 MLS/HR; Start 09/08/18 at 16:00 Potassium Chloride (Klor-Con 20) 40 meq BID PO Last administered on 6/7/19at 11:22; Admin Dose 40 MEQ; Start 09/09/18 at 10:00 Pentoxifylline (Trental) 400 mg TID PO Last administered on 09/09/18at 13:53; Admin Dose 400 MG; Start 09/09/18 at 13:00 KARSON HERNANDEZ Sep 09, 2018 15:01
--- NOTE | 2018-09-09 18:03 | CONS ---
DATE OF ADMISSION: 09/07/2018 DATE OF CONSULTATION: 09/09/2018 REFERRING PHYSICIAN: Dr. Teresa Espinosa REASON FOR CONSULTATION: Bilateral lower extremity edema. HISTORY OF PRESENT ILLNESS: This is a 53-year-old diabetic hypertensive gentleman with long history of peripheral arterial and coronary artery disease. He has ischemic cardiomyopathy with an ejection fraction about 20%. He had an embolus to his right leg back like in December 2017 when my partners, Dr. Fairbanks had done a thrombectomy. He has been anticoagulated since then. He came in basically taimka use of bilateral lower extremity edema and mostly hand edema and pain. He has been seen by hand surg lulu, they are following it as it is not clear what the edema is from, but there is some improvement i n his function with elevation. His leg swelling has improved just with bed rest. He had arterial an d venous studies of bilateral lower and upper extremities which is pretty normal. The lower extremit y studies showed biphasic waveforms all the way down to the tibials bilaterally. A little bit better on the left than the right, but it is good perfusion. There is no DVT in either leg. The left arm arterial duplex is normal. His left arm venous duplex showed no DVT as well. He has no swelling in the right arm. PAST MEDICAL HISTORY: Significant for coronary artery disease status post PCI, ischemic cardiomyopat hy, congestive heart failure, coagulopathy, chronic kidney disease, diabetes, hypertension, has a his tory of V-tach. PAST SURGICAL HISTORY: Significant for right femoral thrombectomy and again PCI. MEDICATIONS: Consist of: 1. Eliquis. 2. Plavix. 3. Atorvastatin. 4. Coreg. 5. Hydralazine. 6. Imdur. 7. Lasix. 8. Metolazone. 9. Pantoprazole. ALLERGIES: HAS NO KNOWN DRUG ALLERGIES. SOCIAL HISTORY: He is a nonsmoker. Does not drink or use any illicit drugs. He lives at home with his daughter. FAMILY HISTORY: Noncontributory. REVIEW OF SYSTEMS: He says his leg swelling has improved. Left arm still very swollen and is bother ing him more than anything, but he has had some improved function in the hand. He was unable to move the fingers at all when he came in. 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 PHYSICAL EXAMINATION GENERAL: He is a middle-aged gentleman. He speaks Haitian fluently. VITAL SIGNS: He has been afebrile. Blood pressure is 111/74, heart rate 77, respiratory rate is 18, he is 97% sat on room air. EXTREMITIES: He has 2+ radial pulses bilaterally. His left arm is very edematous, hand is very mynor atous. He has got some erythema on the 5th finger, it is possibly from the infection there but it is not clear. No edema on the right. LUNGS: Clear. HEART: Regular rate and rhythm. ABDOMEN: Obese, soft, nontender, nondistended. He has got 2+ femoral pulses bilaterally, 2+ poplite al. I do not feel DP or PT pulses in either lower extremity, but they are warm and pink. There is n o ulceration. He has got some mild edema, nothing concerning. LABORATORY DATA: White count is normal. ____ abnormal labs is a low potassium of 2.6 and his creati nine is 1.4, slightly elevated. IMPRESSION: Bilateral lower extremity edema secondary to CHF, ischemic cardiomyopathy. He could mars efit from some compression therapy. Right now, it is not very swollen at all. If it gets swollen ag ain, we could place SHELDON host and have him use some compression stockings when he goes home. He needs to continue this Eliquis indefinitely given his history of embolus from the heart. Left arm, Dr. Jeremy bailey is seeing from hand surgery and I will leave that to him. I do not see any vascular issues as he h as got no arterial or venous abnormalities in the left arm by duplex or clinical exam. He should fol low up with Dr. Fairbanks once he is discharged for further vascular followup in the future. Dictated By: KARSON PASTOR/NTS Conf#: [id number] DID#: [id number] CC: TERESA ESPINOSA; JOSELIN VASQUEZ MD;*[facility]*
[2018-09-09] MEDS: ATORVASTATIN 40 MG TAB PO SCH (21:40)
[2018-09-10] VITALS: BP 109/78; PULSE 82; PULSE 88; RESP 18
[2018-09-10] MEDS: ACCU-CHEK XX SCH (02:20)
[2018-09-10 04:00] VITALS: BP 113/76; PULSE 80; PULSE 86; RESP 18
[2018-09-10] MEDS: FUROSEMIDE 40 MG INJ IV SCH (06:10)
[2018-09-10] MEDS: INSULIN ASPART [NOVOLOG] 3 ML PEN SC SCH ×2 (08:00→11:42)
[2018-09-10 08:02] VITALS: PULSE 85
[2018-09-10 08:49] VITALS: BP 114/76; PULSE 79; RESP 22
[2018-09-10] MEDS: METOLAZONE 2.5 MG TAB PO SCH (09:04)
[2018-09-10] MEDS: APIXABAN 5 MG TABLET PO SCH (09:05)
[2018-09-10] MEDS: ALLOPURINOL 100 MG TAB PO SCH (09:05)
[2018-09-10] MEDS: POTASSIUM CHLORIDE (SR) 20 MEQ TAB PO SCH (09:05)
[2018-09-10] MEDS: PENTOXIFYLLINE (SR) 400 MG TAB PO SCH ×2 (09:05→12:53)
[2018-09-10] MEDS: CLOPIDOGREL 75 MG TAB PO SCH (09:05)
[2018-09-10] MEDS: PANTOPRAZOLE (EC) 40 MG TAB PO SCH (09:06)
[2018-09-10] MEDS: ISOSORBIDE MONONITRATE(SR)30 MG TAB PO SCH (09:06)
[2018-09-10] MEDS: CEFAZOLIN 1 GM/50 ML (PMX) 50 ML IVPB SCH (09:13)
--- NOTE | 2018-09-10 11:57 | PDOCDIS ---
Discharge Instructions DIAGNOSIS Discharge Diagnosis gout exacerbation CONDITION [id number] Patient Condition: [id number] Stable HOME CARE INSTRUCTIONS: [id number] Special Diet: [id number] low purine cardiac diet ACTIVITY: [id number] Activity Restrictions: [id number] Slowly Increase Activity Rest between Activity Avoid heavy lifting Do not Drive FOLLOW UP/APPOINTMENTS Follow-up Plan Dr. Fairbanks once he is discharged for further vascular followup in the future. -PCP 2 weeks MEHREEN HILLMAN Sep 10, 2018 11:57
[2018-09-10] MEDS ORDERED: POTA20TA15 PO (11:59)
[2018-09-10] MEDS ORDERED: PENT400T9 PO (11:59)
[2018-09-10] MEDS ORDERED: ALLO100T PO (11:59)
[2018-09-10 12:00] VITALS: PULSE 74
[2018-09-10] MEDS ORDERED: POTASSIUM CHLORIDE 20 MEQ POWDER FOR ORAL SOLN PO ONE (12:00)
--- NOTE | 2018-09-10 12:00 | DS ---
Date/Time of Note Date/Time of Note DATE: 09/10/18 TIME: 12:00 Discharge Summary Admission/Discharge Info Admit Date/Time Sep 07, 2018 at 03:53 Discharge Date/Time Discharge Diagnosis gout exacerbation Patient Condition: Stable Consults dr Sifuentes, [facility]. surgeon, dr Nagy, cardiology, dr Mathew orthopedic surgeon Hospital Course This is a 53-year-old male well known to our service with a history of diabetes, hypertension, hyperlipidemia, congestive heart failure, EF of 25%, severe cardiomyopathy, right SFA, status post thrombectomy with her multiple admissions in the past, last one in 05/2018 secondary to nausea, vomiting, chest pain, shortness of breath and CHF exacerbation. According to the patient, since his last discharge, he had been doing fine. He was having just some nausea. He was seen by his PCP outside a few weeks ago and was advised to get an EGD as an outpatient. He was supposed to hold his Eliquis and was supposed to be scheduled for an EGD which he never really scheduled as of yet. However, according to the patient, last 5 days ago, he started noticing worsening swelling of the bilateral lower extremities and for the last 3 days, he started noticing worsening swelling in the left hand. He could not even move his left hand. He saw his PCP and he was told to come to the ER for further evaluation. According to the patient, he has been compliant with his Lasix 40 mg p.o. b.i.d. at home and has been watching his salt and water restriction. However, according to him, he had gained some weight. The patient has been taking his Eliquis also at home. On arrival to ED, his vital signs showed a temperature of 97.7, blood pressure 116/87, heart rate 94, respirations 20, saturating 98%. Labs show his potassium of 3.3, BUN of 39, creatinine 1.60, indirect bilirubin 1.3. BNP 8640, troponin 0.017. INR 1.33. The patient had a chest x-ray that showed moderate cardiomegaly with central pulmonary vascular congestion and the patient also had bilateral lower extremity ultrasound of the legs which were negative for DVT in bilateral lower extremities, and an upper extremity ultras ound which was negative for DVT. The patient was given IV morphine, Zofran and IV Lasix and was admitted for further management. PAST MEDICAL HISTORY: 1. History of non-STEMI, status post PTCA stenting. 2. Cardiomyopathy with a depressed ejection fraction of 20%. 3. Congestive heart failure. 4. Coagulopathy. 5. Chronic kidney disease stage III. 6. Diabetes. 7. Hypertension. 8. History of ventricular tachycardia. Impressions: 1. Bilateral lower extremity swelling; however, the left lower extremity swelling is more markedly than the right lower extremity. Surprisingly, the patient has a Doppler that was done on both the legs which is negative for DVT. Gout, exacerbation. 2. Left upper extremity hand swelling, unable to move his fingers. Likely secondary to gout, x-ray negative arterial duplex negative, better 3. Congestive heart failure, acute on chronic. 4. Severe cardiomyopathy with ejection fraction of 20%. 5. Acute on chronic renal failure, creatinine of 1.4 in the past. Improved 6. Diabetes. 7. Hypertension. 8. Hyperlipidemia. 9. History of ventricular tachycardia. 10. Hypokalemia. Significant 11. History of hypomagnesemia. 12. electrolyte imbalance. 13. Overweight 14. Arterial insufficiency with monophasic wave form in the right dorsalis pedis artery consistent with a significant stenosis During hospitalization there were numerous vascular studies performed. Arterial US was consistent with stenosis of right dorsalis pedis artery. Kash Sifuentes consulted pt on it and recommended to see pt outpatient, he was started on Trental 400 mg TID. For gout we started pt on allopurinol/colchicine, he was consulted on low purine diet. Dr Mathew consulted pt on redness right hand and he recommend left arm sling. We continued pt on lasix BID and gave repletion of potassium chloride. Pt was started on Ancef for underlying cellulitis. Dr Nagy repeat pt echocardiogram, it is consistent with 15-20% EF. We followed his recommendations and metalozone was discontinued. Eventually dr Nagy adjusted pt diuretics. Pt improved clinically, his edema decreased. pt was able to sit in chair and ambulated short distances. Home Meds Active Scripts Allopurinol* (Allopurinol*) 100 Mg Tablet, 100 MG PO DAILY for 30 Days, TAB Prov:MEHREEN HILLMAN 09/10/18 Potassium Chloride* (K-Dur*) 20 Meq Tab.prt.sr, 40 MEQ PO BID for 30 Days Prov:ZENJOSSELINEVMEHREEN Alexis 09/10/18 Pentoxifylline* (Pentoxifylline*) 400 Mg Tablet.sa, 400 MG PO TID for 90 Days Prov:MEHREEN HILLMAN 09/10/18 Reported Medications Pantoprazole* (Pantoprazole*) 40 Mg Tablet.dr, 40 MG PO DAILY for 30 Days, #30 09/07/18 Apixaban* (Eliquis*) 5 Mg Tablet, 5 MG PO BID, TAB 07/05/18 Atorvastatin* (Atorvastatin*) 80 Mg Tablet, 80 MG PO QHS, #30 TAB 07/05/18 Hydralazine Hcl* (Hydralazine Hcl*) 10 Mg Tablet, 10 MG PO Q8, #90 TAB HOLD IF SBP<100 07/05/18 Metolazone* (Metolazone*) 5 Mg Tablet, 2.5 MG PO DAILY, TAB 07/05/18 Furosemide* (Furosemide*) 40 Mg Tablet, 40 MG PO BID, TAB 07/05/18 Carvedilol* (Carvedilol*) 3.125 Mg Tablet, 3.125 MG PO BID, #60 TAB 07/05/18 Isosorbide Mononitrate* (Isosorbide Mononitrate*) 20 Mg Tablet, 20 MG PO DAILY, TAB 07/05/18 Clopidogrel Bisulfate* (Clopidogrel Bisulfate*) 75 Mg Tablet, 75 MG PO DAILY, #30 TAB 07/05/18 Discontinued Reported Medications Potassium Chloride* (Potassium Chloride*) 20 Meq Tablet.er, 20 MEQ PO DAILY, TAB.SA 07/05/18 Follow-up Plan Dr. Fairbanks once he is discharged for further vascular followup in the future. -PCP 2 weeks Primary Care Provider Zachary Caballero MD Time spent on discharge: < 30 minutes Pending Labs Laboratory Tests Test 09/09/18 17:29 09/09/18 19:59 09/09/18 21:38 09/10/18 02:11 Bedside 155 240 206 155 Glucose mg/dL (70-220) mg/dL (70-220) mg/dL (70-220) mg/dL (70-220) Test 09/10/18 05:53 09/10/18 08:07 09/10/18 11:36 White Blood 5.9 Count 10^3/ul (4.8-10 .8) Red Blood 5.35 Count 10^6/ul (4.70-6 .10) Hemoglobin 13.9 g/dl (14.0-18.0 ) Hematocrit 43.8 % (42.0-52.0) Mean 81.9 Corpuscular fl (82.0-101.0) Volume Mean 26.0 Corpuscular pg (29.0-33.0) Hemoglobin Mean 31.7 Corpuscular g/dl (32.0-37.0 Hemoglobin Conc ) ent Red Cell 15.9 Distribution % (11.5-14.5) Width Platelet Count 343 10^3/UL (140-41 5) Mean Platelet 9.9 Volume fl (7.4-10.4) Immature 0.200 Granulocytes % % (0.001-0.429) Neutrophils % 58.4 % (39.0-77.0) Lymphocytes % 24.6 % (15.0-51.0) Monocytes % 13.2 % (0.0-11.0) Eosinophils % 2.2 % (0.0-7.0) Basophils % 1.4 % (0.0-2.0) Nucleated Red 0.0 Blood Cells % /100WBC (0.0-0. 0) Immature 0.010 Granulocytes # 10^3/ul (0.0-0. 031) Neutrophils # 3.4 10^3/ul (1.6-7. 5) Lymphocytes # 1.4 10^3/ul (0.8-2. 9) Monocytes # 0.8 10^3/ul (0.3-0. 9) Eosinophils # 0.1 10^3/ul (0.0-0. 5) Basophils # 0.1 10^3/ul (0.0-0. 1) Nucleated Red 0.0 Blood Cells # 10^3/ul (0.0-0. 0) Sodium Level 135 mmol/L (135-144 ) Potassium 3.0 Level mmol/L (3.5-5.1 ) Chloride Level 92 mmol/L (97-110) Carbon Dioxide 33 Level mmol/L (21-31) Anion Gap 10 (5-13) Blood Urea 41 mg/dl (7-20) Nitrogen Creatinine 1.20 mg/dl (0.61-1.2 4) Est Glomerular > 60 Filtrat mL/min (>60) Rate mL/min Glucose Level 137 mg/dl (70-220) Calcium Level 8.9 mg/dl (8.4-10.2 ) Prealbumin 8.9 mg/dl (17.6-36. 0) Bedside 132 158 Glucose mg/dL (70-220) mg/dL (70-220) MEHREEN HILLMAN Sep 10, 2018 12:00
[2018-09-10 12:04] VITALS: BP 95/62; PULSE 61; RESP 22
--- NOTE | 2018-09-10 13:49 | CONS ---
Assessment/Plan Assessment/Plan Hospital Course (Demo Recall) IMPRESSION: 1. Congestive heart failure exacerbation, systolic, acute on chronic.-neg trop x 3 2. Cardiomyopathy with severe depressed left ventricular ejection fraction last approximately 20%. 3. Status post PTCA and stent placement to right coronary artery for subtotal occlusion in 05/2018. 4. Probable left lower extremity cellulitis. 5. Question of left upper extremity swelling, question etiology of cellulitis, arthritic changes. DVT not seen by ultrasound. 6. Chronic kidney disease-improcing. 7. History of deep venous thrombosis of the right lower extremity, on Eliquis. 8. Elevated BNP consistent with the patient's congestive heart failure. 9. Diabetes mellitus. Recc: -Tele -Continue lasix diuresis -Continue coreg/imdur/hydralazine in lieu of ACEI at this time given renal failure -Contnue lasix and will d/c metolazone and add aldactone at this time -replete K aggresively and mag as you are doing and will add aldactone -Contineu ancef and follow exam -keep arm raised to promote drainage Consultation Date/Type/Reason Admit Date/Time Sep 07, 2018 at 03:53 Initial Consult Date 09/07/18 Type of Consult Cardiology Reason for Consultation CHF/Cardiomyopathy Requesting Provider: OMAR ESPINOSA MD Date/Time of Note DATE: 09/10/18 TIME: 13:46 Exam/Review of Systems Vital Signs Vitals Vital Signs Date Temp Pulse Resp B/P (MAP) Pulse Ox O2 O2 Flow FiO2 Time Delivery Rate 09/10/18 97.6 61 22 95/62 (73) 96 Room Air 12:04 Intake and Output 09/09/18 09/09/18 09/10/18 1515:00 23:00 07:00 IntakeIntake Total 850 ml 350 ml OutputOutput Total 1600 ml 1300 ml BalanceBalance -750 ml -950 ml Exam Exam Review of Systems: CONSTITUTIONAL: No fevers, chills. PULMONARY: No sob CARDIOVASCULAR: No chest pain/palpitations GASTROINTESTINAL: No nausea/vomiting. GENITOURINARY: No hematuria/dysuria. MUSCULOSKELETAL: No myagias/arthalgias. PSYCHIATRIC: The patient denies depression. NEUROLOGIC: Mild generalized weakness Constitutional: other (sleeping, easily arouasble) Psych: no complaints Head: normocephalic ENMT: mucosa pink and moist Neck: supple, jvd Respiratory: diminished breath sounds Cardiovascular: regular rate and rhythm Gastrointestinal: soft, non-tender Musculoskeletal: muscle tone (normal) Extremities: edema (trace/B) Labs Result Diagram: 09/10/18 0553 09/10/18 0553 Results 24hrs Laboratory Tests Test 09/09/18 17:29 09/09/18 19:59 09/09/18 21:38 09/10/18 02:11 Bedside Glucose 155 240 H 206 155 Test 09/10/18 05:53 09/10/18 08:07 09/10/18 11:36 White Blood Count 5.9 Red Blood Count 5.35 Hemoglobin 13.9 L Hematocrit 43.8 Mean Corpuscular Volume 81.9 L Mean Corpuscular 26.0 L Hemoglobin Mean Corpuscular 31.7 L Hemoglobin Concent Red Cell Distribution 15.9 H Width Platelet Count 343 # Mean Platelet Volume 9.9 Immature Granulocytes % 0.200 Neutrophils % 58.4 Lymphocytes % 24.6 Monocytes % 13.2 H Eosinophils % 2.2 Basophils % 1.4 Nucleated Red Blood 0.0 Cells % Immature Granulocytes # 0.010 Neutrophils # 3.4 Lymphocytes # 1.4 Monocytes # 0.8 Eosinophils # 0.1 Basophils # 0.1 Nucleated Red Blood 0.0 Cells # Sodium Level 135 Potassium Level 3.0 L Chloride Level 92 L Carbon Dioxide Level 33 H Anion Gap 10 Blood Urea Nitrogen 41 H Creatinine 1.20 Est Glomerular Filtrat > 60 Rate mL/min Glucose Level 137 Calcium Level 8.9 Prealbumin 8.9 L Bedside Glucose 132 158 Medications Medications Current Medications Apixaban (Eliquis) 5 mg BID PO Last administered on 09/10/18at 09:05; Admin Dose 5 MG; Start 09/07/18 at 09:00 Carvedilol (Coreg) 3.125 mg BID PO Last administered on 09/10/18 09:06; Admin Dose 3.125 MG; Start 09/07/18 at 09:00 Clopidogrel Bisulfate (plaVIX) 75 mg DAILY PO Last administered on 09/10/18at 09:05; Admin Dose 75 MG; Start 09/07/18 at 09:00 Hydralazine HCl (Apresoline) 10 mg Q8 PO Last administered on 09/10/18at 06:10; Admin Dose 10 MG; Start 09/07/18 at 14:00 Pantoprazole (Protonix Tab) 40 mg DAILY PO Last administered on 09/10/18 09:06; Admin Dose 40 MG; Start 09/07/18 at 09:00 Ondansetron HCl (Zofran Inj) 4 mg Q4H PRN IV NAUSEA AND/OR VOMITING Last administered on 09/09/18 22:45; Admin Dose 4 MG; Start 09/07/18 at 07:30 Acetaminophen/ Hydrocodone Bitart ([place] (5/325)) 1 tab Q4H PRN PO SEVERE PAIN LEVEL 7-10 Last administered on 09/09/18 06:42; Admin Dose 1 TAB; Start 09/07/18 at 08:00 Diagnostic Test (Pha) (Accu-Chek) 1 ea 02 XX Last administered on 09/10/18 0 2:20; Admin Dose 1 EA; Start 09/08/18 at 02:00 Insulin Aspart (Novolog Insulin Pen) NOVOLOG *MILD* ALGORITHM WITH MEALS BEDTIME SC Last administered on 09/10/18 11:42; Admin Dose 1 UNIT; Start 9 at 08:00 Metolazone (Zaroxolyn) 2.5 mg DAILY PO Last administered on 09/10/18 09:04; Admin Dose 2.5 MG; Start 09/07/18 at 09:00 Miscellaneous Information 1 ea NOTE XX ; Start 09/07/18 at 08:00 Glucose (Glutose) 15 gm Q15M PRN PO DECREASED GLUCOSE; Start 09/07/18 at 08:00 Glucose (Glutose) 22.5 gm Q15M PRN PO DECREASED GLUCOSE; Start 09/07/18 at 08:00 Dextrose (D50w Syringe) 25 ml Q15M PRN IV DECREASED GLUCOSE; Start 09/07/18 at 08:00 Dextrose (D50w Syringe) 50 ml Q15M PRN IV DECREASED GLUCOSE; Start 09/07/18 at 08:00 Glucagon (Glucagen) 1 mg Q15M PRN IM DECREASED GLUCOSE; Start 09/07/18 at 08:00 Glucose (Glutose) 15 gm Q15M PRN BUCCAL DECREASED GLUCOSE; Start 09/07/18 at 08:00 Atorvastatin Calcium (Lipitor) 40 mg QHS PO Last administered on 09/09/18 21:40; Admin Dose 40 MG; Start 09/07/18 at 21:00 Furosemide (Lasix) 40 mg BID DIURETICS IV Last administered on 09/10/18 06:10; Admin Dose 40 MG; Start 09/07/18 at 18:00 Isosorbide Mononitrate (Imdur) 30 mg DAILY PO Last administered on 09/10/18 09:06; Admin Dose 30 MG; Start 09/08/18 at 09:00 Allopurinol (Zyloprim) 100 mg DAILY PO Last administered on 09/10/18 09:05; Admin Dose 100 MG; Start 09/08/18 at 12:00 Cefazolin Sodium 50 ml @ 100 mls/hr Q12 IVPB Last administered on 09/10/18 09:13; Admin Dose 100 MLS/HR; Start 09/08/18 at 16:00 Potassium Chloride (Klor-Con 20) 40 meq BID PO Last administered on 09/10/18 09:05; Admin Dose 40 MEQ; Start 09/09/18 at 10:00 Pentoxifylline (Trental) 400 mg TID PO Last administered on 09/10/18 12:53; Admin Dose 400 MG; Start 09/09/18 at 13:00 KARSON HERNANDEZ Sep 10, 2018 13:49
[2018-09-10] MEDS: HYDROCODONE/APAP (5/325) TAB PO PRN (14:08)
[2018-09-11] MEDS ORDERED: SPIRONOLACTONE 25 MG TAB PO SCH (09:00)
== END 2018-09-10 15:45 | disposition home or self-care (01) | DRG 291 ==
LOC: FTE 19:59 → 6WM 09-07 03:53
PROVIDERS: ADMIT Internal Medicine; ATTEND Internal Medicine
DX: I13.0 Hypertensive heart and chronic kidney disease with heart failure and stage 1 through stage 4 chronic kidney disease, or unspecified chronic kidney disease (principal); I50.23 Acute on chronic systolic (congestive) heart failure; L03.116 Cellulitis of left lower limb; N17.9 Acute kidney failure, unspecified; E11.22 Type 2 diabetes mellitus with diabetic chronic kidney disease; M10.9 Gout, unspecified; E87.6 Hypokalemia; I25.2 Old myocardial infarction; N18.3 Chronic kidney disease, stage 3 (moderate); E78.5 Hyperlipidemia, unspecified; E11.51 Type 2 diabetes mellitus with diabetic peripheral angiopathy without gangrene; I70.201 Unspecified atherosclerosis of native arteries of extremities, right leg; I25.5 Ischemic cardiomyopathy; E66.3 Overweight; Z86.718 Personal history of other venous thrombosis and embolism; Z95.5 Presence of coronary angioplasty implant and graft; Z79.01 Long term (current) use of anticoagulants
CPT/HCPCS: 36415; 71045; 73120; 80048; 80053; 82550; 82553; 82962; 83735; 83880; 84100; 84132; 84134; 84484; 84560; 85025; 85610; 85730; 93005; 93306; 93922; 93931; 93970; 93971; 96374; J0690; J1815; J1940; J2270; J2405; J3475

== ENCOUNTER 2018-09-14 17:37 | Inpatient (IN) | payer OTHER ==
[~2018-09-14] VITALS: Ht 165.1 cm; Wt 82.0 kg
[~2018-09-14 17:37] MED LIST changes: +ALLO100T PO; +PANT40TA4 PO; +PENT400T9 PO; +POTA20TA15 PO; -POTA20TA96 PO
--- NOTE | 2018-09-14 18:30 | ERD ---
ER Documentation Chief Complaint Chief Complaint cp HPI The patient is a 53-year-old male, presenting to the ER because of left-sided chest pain that began around 7 AM today, 01/12, non-provoked, had similar symptoms previously. He also complains of left wrist pain from gout, had similar symptoms previously from gout. He denies cest pain with exertion/vomiting/diaphoresis, dyspnea, abdominal pain, vomiting, dysuria, diarrhea. The chest pain did radiate to the left side of the neck and the left shoulder. He does not smoke nor drink Past medical history: Dyslipidemia, hypertension, CAD, history of CHF, ischemic cardiomyopathy with low EF of 20%, chronic kidney disease, diabetes mellitus, history of ventricular tachycardia, peripheral artery disease Past surgical history: Stent PCI x6 ROS All systems reviewed and are negative except as per history of present illness. Medications Home Meds Active Scripts Allopurinol* (Allopurinol*) 100 Mg Tablet, 100 MG PO DAILY for 30 Days, TAB Prov:MEHREEN HILLMAN 09/10/18 Potassium Chloride* (K-Dur*) 20 Meq Tab.prt.sr, 40 MEQ PO BID for 30 Days Prov:MEHREEN HILLMAN 09/10/18 Pentoxifylline* (Pentoxifylline*) 400 Mg Tablet.sa, 400 MG PO TID for 90 Days Prov:MEHREEN HILLMAN 09/10/18 Reported Medications Cholecalciferol (Vitamin D3) (Vitamin D3) 5,000 Unit Tab.rapdis, 5000 UNIT PO DAILY 09/14/18 Nateglinide* (Nateglinide*) 60 Mg Tablet, 60 MG PO AC MEALS, TAB 09/14/18 Nitroglycerin* (Nitrostat*) 0.4 Mg Tab.subl, 0.4 MG SL Q5MIN PRN for CHEST PAIN, BOTTLE 09/14/18 Pantoprazole* (Pantoprazole*) 40 Mg Tablet.dr, 40 MG PO DAILY for 30 Days, #30 09/07/18 Apixaban* (Eliquis*) 5 Mg Tablet, 5 MG PO BID, TAB 07/05/18 Atorvastatin* (Atorvastatin*) 80 Mg Tablet, 80 MG PO QHS, #30 TAB 07/05/18 Hydralazine Hcl* (Hydralazine Hcl*) 10 Mg Tablet, 10 MG PO Q8, #90 TAB HOLD IF SBP<100 07/05/18 Metolazone* (Metolazone*) 5 Mg Tablet, 2.5 MG PO DAILY, TAB 07/05/18 Furosemide* (Furosemide*) 40 Mg Tablet, 40 MG PO BID, TAB 07/05/18 Carvedilol* (Carvedilol*) 3.125 Mg Tablet, 3.125 MG PO BID, #60 TAB 07/05/18 Isosorbide Mononitrate* (Isosorbide Mononitrate*) 20 Mg Tablet, 20 MG PO DAILY, TAB 07/05/18 Clopidogrel Bisulfate* (Clopidogrel Bisulfate*) 75 Mg Tablet, 75 MG PO DAILY, #30 TAB 07/05/18 Discontinued Reported Medications Potassium Chloride* (Potassium Chloride*) 20 Meq Tablet.er, 20 MEQ PO DAILY, TAB.SA 07/05/18 Allergies Allergies: Coded Allergies: No Known Allergies (Unverified Allergy, Unknown, 09/14/18) PMhx/Soc History of Surgery: Yes (R.LEG BLOOD CLOT, CARDIAC STENTS) Anesthesia Reaction: No Hx Neurological Disorder: No Hx Respiratory Disorders: No Hx Cardiac Disorders: Yes (HTN, CARDIAC STENTS, CHF, HYPERLIPIDEMIA) Hx Psychiatric Problems: No Hx Miscellaneous Medical Probl: No Hx Alcohol Use: No Hx Substance Use: No Hx Tobacco Use: No Physical Exam Vitals Vital Signs Date Temp Pulse Resp B/P (MAP) Pulse Ox O2 O2 Flow FiO2 Time Delivery Rate 09/14/18 105 14 118/88 97 Room Air 20:00 (98) 09/14/18 102 12 116/84 97 Room Air 18:38 (95) 09/14/18 97.8 98 19 113/80 99 17:39 (91) Physical Exam Const: No acute distress. Head: Atraumatic. Eyes: Normal Conjunctiva. ENT: Normal External Ears, Nose and Mouth. Neck: Full range of motion. No meningismus. Resp: Clear to auscultation bilaterally. Cardio: Regular rate and rhythm. Abd: Soft, non distended, normal bowel sounds, non tender. Skin: No petechiae or rashes. Back: No midline or flank tenderness. Ext: Mild BLE edema, no calf tenderness. Left wrist is with mild tenderness, not warm to touch Neur: Awake and alert. No focal deficit Psych: Normal Mood and Affect. Result Diagram: 09/14/18 1845 09/14/18 1845 Results 24 hrs Laboratory Tests Test 09/14/18 18:45 White Blood Count 8.7 10^3/ul Red Blood Count 5.33 10^6/ul Hemoglobin 14.2 g/dl Hematocrit 44.2 % Mean Corpuscular Volume 82.9 fl Mean Corpuscular Hemoglobin 26.6 pg Mean Corpuscular Hemoglobin Concent 32.1 g/dl Red Cell Distribution Width 15.5 % Platelet Count 359 10^3/UL Mean Platelet Volume 8.9 fl Immature Granulocytes % 0.300 % Neutrophils % 74.6 % Lymphocytes % 11.5 % Monocytes % 10.6 % Eosinophils % 2.3 % Basophils % 0.7 % Nucleated Red Blood Cells % 0.0 /100WBC Immature Granulocytes # 0.030 10^3/ul Neutrophils # 6.5 10^3/ul Lymphocytes # 1.0 10^3/ul Monocytes # 0.9 10^3/ul Eosinophils # 0.2 10^3/ul Basophils # 0.1 10^3/ul Nucleated Red Blood Cells # 0.0 10^3/ul Sodium Level 136 mmol/L Potassium Level 3.0 mmol/L Chloride Level 95 mmol/L Carbon Dioxide Level 29 mmol/L Anion Gap 12 Blood Urea Nitrogen 32 mg/dl Creatinine 1.32 mg/dl Est Glomerular Filtrat Rate mL/min 57 mL/min Glucose Level 187 mg/dl Calcium Level 8.9 mg/dl Magnesium Level 1.6 mg/dl Troponin I 0.015 ng/ml B-Type Natriuretic Peptide 5620 PG/ML Current Medications Medications Dose Sig/Eva Start Time Status Last (Trade) Ordered Route PRN Stop Time Admin Dose Reason Admin Aspirin 162 mg ONCE ONCE 09/14/18 DC 09/14/18 (Aspirin) PO 19:30 19:13 09/14/18 19:31 0.5 inch ONCE ONCE 09/14/18 DC 09/14/18 Nitroglycerin TD 19:30 19:13 09/14/18 19:31 (Nitroglyceri n 2% Oint) 1 tab ONCE ONCE 09/14/18 DC 09/14/18 Acetaminophen PO 19:30 19:13 / 09/14/18 19:31 Hydrocodone Bitart ([place] ()) Potassium 20 meq ONCE STAT 09/14/18 DC 09/14/18 Chloride PO 20:49 20:56 (Klor-Con 20) 09/14/18 20:50 Procedures/MDM [place] [id number] Radiology Main Line: [phone] DIAGNOSTIC IMAGING REPORT Patient: DAIJA MAYO : 1965 Age: 53 Sex: M MR #: [id number] DOS: 09/14/18 1838 Ordering MD: YOLANDE FUENTES MD Location: E/R Room/Bed: PROCEDURE: One view chest radiograph. CLINICAL INDICATION: Chest pain. TECHNIQUE: An AP view of the chest was obtained. COMPARISON: 06/14/2017 FINDINGS: Mediastinum: Unremarkable. Heart size: Enlarged Pulmonary vasculature: No visible engorgement. Lungs: Clear. Costophrenic sulci: Clear. Bony structures: Grossly unremarkable for age. IMPRESSION: 1. Cardiomegaly without evidence of overt congestive failure or pneumonia. RPTAT:AAJJ Physician Sly Date Time Electronically viewed and signed by Physician Sly on 09/14/2018 19:28 GW/ CC: YOLANDE FUENTES MD [id number] EKG: At 1752 hrs. read by emergency physician Rate/Rhythm: Normal Sinus Rhythm 94 beats/min QRS, ST, T-waves: No ST elevation, no T inversion, nonspecific intraventricular block, inferior lateral Q waves Impression: Abnormal EKG EKG: At 1905 hrs. read by emergency physician Rate/Rhythm: Normal Sinus Rhythm 94 beats/min QRS, ST, T-waves: No ST elevation, no T inversion, nonspecific intraventricular block, inferior lateral Q waves Impression: Abnormal EKG MEDICAL MAKING DECISION: The patient is a 53-year-old male, with multiple cardiac risk factor, presenting with acute chest pain that is concerning for acute ACS. He was treated with aspirin 162 mg p.o., 0.5 inch of nitroglycerin paste to the chest wall for acute chest pain, [place] 10 mg p.o. for acute left wr ist gout attack, potassium chloride 20 mEq p.o. for acute hypokalemia The differential diagnoses considered include but are not limited to acute coronary syndrome, acute myocardial infarction, pericarditis, pulmonary embolism, aortic dissection, pneumonia, pleural effusion, pneumothorax, GERD, chest wall pain. Departure Diagnosis: Primary Impression: Chest pain Additional Impressions: Hypokalemia Gout attack Condition: Stable Comments I discussed the findings with the patient. I discussed the patient with Dr Hartman at 9:20 PM, who was made aware of the lab, the treatment, the patient condition. The patient is admitted to [facility] Disclaimer: Inadvertent spelling and grammatical errors are likely due to EHR/dictation software use and do not reflect on the overall quality of patient care. Also, please note that the electronic time recorded on this note does not necessarily reflect the actual time of the patient encounter. The YOLANDE FUENTES MD Sep 14, 2018 18:30
[2018-09-14] MEDS ORDERED: NITROGLYCERIN 2% 1 GM OINT PKT TD ONE (19:30)
[2018-09-14] MEDS ORDERED: ASPIRIN 81 MG TAB PO ONE (19:30)
[2018-09-14] MEDS ORDERED: HYDROCODONE/APAP (10/325) TAB PO ONE (19:30)
[2018-09-14] MEDS ORDERED: POTASSIUM CHLORIDE (SR) 20 MEQ TAB PO STA (20:49)
[2018-09-14] MEDS ORDERED: NITR0.4T39 SL (22:09)
[2018-09-14] MEDS ORDERED: CHOL500062 PO (22:09)
[2018-09-14] MEDS ORDERED: NATE60TA PO (22:09)
[2018-09-15] MEDS ORDERED: DOCUSATE SODIUM 100 MG CAP PO PRN (02:30)
[2018-09-15] MEDS ORDERED: NACL 0.9% 3 ML SYG IV SCH (02:30)
[2018-09-15] MEDS ORDERED: ACETAMINOPHEN 650 MG SUPP PR PRN (02:30)
[2018-09-15] MEDS ORDERED: MAGNESIUM HYDROXIDE 30ML CUP PO PRN (02:30)
[2018-09-15] MEDS ORDERED: BISACODYL (EC) 5 MG TAB PO PRN (02:30)
[2018-09-15] MEDS: FUROSEMIDE 40 MG TAB PO SCH ×2 (05:34→20:51)
[2018-09-15] MEDS: PANTOPRAZOLE (EC) 40 MG TAB PO SCH (05:34)
[2018-09-15] MEDS ORDERED: METOLAZONE 2.5 MG TAB PO SCH (06:00)
[2018-09-15] MEDS: NATEGLINIDE 60 MG TAB PO SCH ×3 (06:02→19:59)
[2018-09-15] MEDS ORDERED: ISOSORBIDE MONONITRATE 20 MG TAB PO SCH (09:00)
[2018-09-15] MEDS: ALLOPURINOL 100 MG TAB PO SCH (09:43)
[2018-09-15] MEDS: APIXABAN 5 MG TABLET PO SCH ×2 (09:43→20:51)
[2018-09-15] MEDS: POTASSIUM CHLORIDE (SR) 20 MEQ TAB PO SCH (09:43)
[2018-09-15] MEDS: CLOPIDOGREL 75 MG TAB PO SCH (09:43)
[2018-09-15] MEDS: PENTOXIFYLLINE (SR) 400 MG TAB PO SCH ×3 (09:49→20:49)
[2018-09-15] MEDS ORDERED: POTASSIUM CHLORIDE (SR) 20 MEQ TAB PO STA (16:31)
--- NOTE | 2018-09-15 16:31 | QN ---
Documentation Comment Pt seen and examined OMAR ESPINOSA MD Sep 15, 2018 16:31
--- NOTE | 2018-09-15 16:32 | QN ---
Documentation Comment seen and examined OMAR ESPINOSA MD Sep 15, 2018 16:32
[2018-09-15] MEDS ORDERED: MAGNESIUM SULFATE 2 GM/50 ML 50 ML IVPB ONE (17:00)
--- NOTE | 2018-09-15 17:20 | DS ---
DATE OF ADMISSION: 09/14/2018 DATE OF DISCHARGE: 09/15/2018 REASON FOR ADMISSION: Chest pain. HISTORY OF PRESENTING ILLNESS AND HOSPITAL COURSE: This is a 53-year-old male with a past medical hi story of systolic congestive heart failure, acute on chronic CHF, recent PTCA stent placement in [facility] coronary artery, 05/2018, CKD, peripheral vascular disease, who was recently admitted in [facility] from 09/07/2018 to 09/10/2018. At that time, the patient was found to have swelli ng of the left hand and also on the left lower extremity. The patient had pulmonary vascular congest ion and was treated with IV Lasix. The patient was also started on allopurinol and colchicine and wa s found to have uric acid of 13.6 and he was discharged as an outpatient. However, the patient over the next day when he went home his pain in the left hand was very severe. He could not take the pain . He felt that the pain started radiating from the left hand and going to the chest in the center. He called his PCP's office and was told to make an earlier appointment; however, he was not able to m ellie an appointment and was instead told to come to the emergency department. Also of note, the patie nt had been having some numbness in the right lower extremity. The patient was also started on Jam al for peripheral vascular disease. On arrival to ED, the patient's blood pressure initially was 123 /102, heart rate 86, afebrile, saturating 98%. Labs showed potassium of 3.0, BUN of 32, creatinine 1 .32, magnesium 1.6, BNP 5620. Initial troponin was 0.018. The patient also had a chest x-ray that s howed cardiomegaly without evidence of overt congestive heart failure or pneumonia. The patient was started on nitro patch and was admitted for further management. PAST MEDICAL HISTORY: 1. History of non-STEMI, status post PTCA and stenting on RCA in 05/2018. 2. Cardiomyopathy with depressed EF of 20%. 3. CHF. 4. Coagulopathy. 5. CKD stage III. 6. Diabetes. 7. Hypertension. 8. History of ventricular tachycardia. 9. History of gout. ALLERGIES: NONE. PAST SURGICAL HISTORY: PTCA and stenting of RCA in 06/01/2018. The patient has a right SFA poplitea l plasty recently. SOCIAL HISTORY: Denies any history of smoking, alcohol or any drug use. Lives at home with daughter . MEDICATIONS USING AT HOME: 1. Eliquis 5 mg p.o. b.i.d. 2. Plavix 75. 3. Pentoxifylline 400 t.i.d. 4. Atorvastatin 80. 5. Coreg 3.125 b.i.d. 6. Hydralazine. 7. Imdur. 8. Nitroglycerin. 9. Lasix 40 b.i.d. 10. Metolazone 2.5. 11. Pantoprazole. 12. chloride. 13. Cholecalciferol. 14. Allopurinol 100. REVIEW OF SYSTEMS: The patient complained of some left arm, hand pain radiating to the left chest, l asted the whole day yesterday. No shortness of breath. Edema had much improved. Also had 1 or 2 ep isodes of vomiting. The patient had some numbness and some pain in the right lower extremity. PHYSICAL EXAMINATION: VITAL SIGNS: Currently, blood pressure 104/79, heart rate 79, respirations 18, saturating 100% on ro om air. GENERAL: The patient is awake, alert, oriented, does not appear to in any acute distress. HEENT: Pupils are equal, round, reactive to light. NECK: Supple. No JVD. HEART: Regular rate and rhythm. LUNGS: Decreased breath sounds bilaterally. ABDOMEN: Soft, nontender, nondistended, positive normoactive bowel sounds. EXTREMITIES: The patient has right lower extremity colder than the left lower extremity. The patien t has 1+ dorsalis pedis. Left hand is somewhat more swollen especially the last finger. LABORATORY DATA: Potassium 3.0, BUN of 32, creatinine 1.32. Magnesium 1.6. Troponin 0.01. BNP 562 0. ASSESSMENT AND PLAN: This is a 53-year-old male who presented with: 1. Chest pain after radiation from the left arm, left hand. His troponins have been negative. EKG shows chronic changes. No ST and T-wave elevation. 2. Left hand pain with a history of gout with swelling and tenderness in the joint, likely secondary to gout. 3. Right lower extremity numbness likely secondary to peripheral vascular disease. 4. Hypertension. 5. Hyperlipidemia. 6. History of congestive heart failure. 7. Ischemic cardiomyopathy. 8. Diabetes. 9. Hyperlipidemia. PLAN: At this period of time, the patient is admitted to [facility]. We will get serial EKGs, troponin. Cardiology consultation has been requested. We will continue the patient on Coreg and Eliquis, Plavi x, Trental. We will also repeat the duplex on the right lower extremity. The patient will be on patricia n control for the gout. Rest of the treatment will depend on the patient's hospitalization course. Dictated By: OMAR FERRER/MAX Conf#: [id number] DID#: [id number] CC: KARSON HERNANDEZ MD; ERIC LUNA MD;*[facility]*
[2018-09-15 19:46] VITALS: Ht 165.1 cm; Wt 82.0 kg
[2018-09-15 20:00] VITALS: BP 106/77; PULSE 83; RESP 18
[2018-09-15] MEDS: ATORVASTATIN 80 MG TAB PO SCH (20:49)
[2018-09-16] VITALS (11 sets, daily range): BP systolic 102–109; BP diastolic 66–75; PULSE 76–89; RESP 18–22
--- NOTE | 2018-09-16 02:40 | CONS ---
DATE OF ADMISSION: 09/14/2018 DATE OF CONSULTATION: 09/15/2018 REASON FOR CONSULTATION: Chest pain, assess for acute coronary syndrome. REQUESTING PHYSICIAN: Teresa Espinosa M.D. HISTORY OF PRESENT ILLNESS: Mr. Robert is a 53-year-old male well known to myself from multiple pr ior the hospital admissions with a history of systolic congestive heart failure, last known EF approx imately 15% to 20% by echo in 09/2018. Recent [employer] and stent placement to right coronary artery in ; chronic kidney disease; peripheral arterial disease; recurrent bouts of systolic congestive he art failure, recently admitted for a bout of congestive heart failure with associated swelling of the hand possibly due to his gout who had been discharged to outpatient followup and then re-presented w [facility] complaints of hand pain and subsequent onset of chest pain at rest, described as a pressure-like sensation and increased swelling in his legs. Initially upon arrival, temperature 97.8, blood pressu re 135/80, pulse 98, respiratory rate 19, satting 99%. The patient's labs revealed a white count 8.7 , hemoglobin 14.2, platelet count 359, a sodium 136, gap 3.0, creatinine 1.32, BUN 32, glucose 137. Magnesium 1.6. Troponin negative. BNP of 5620. The patient underwent a chest x-ray revealing cardi omegaly without overt congestive heart failure or pneumonia. An extremity arterial study revealing l ow velocity waveforms posterior tibial and dorsalis pedis arteries, may represent significant infrapo pliteal stenosis. The patient's electrocardiogram revealed normal sinus rhythm rate 94 with right fr ee axis deviation and a borderline IVCD with lateral Q's, borderline inferior Q's, poor anterior R pr ogression, consistent with a multiple territory infarct. The patient was subsequently admitted to e floor and since admit to floor, has had improvement in overall chest pain, has had negative troponi ns x3, has been placed on baseline carvedilol, Imdur with Eliquis and Plavix, as well as ongoing Lasi x diuresis and a low-dose hydralazine afterload reduction in lieu of an URSULA inhibitor given the fluct uating creatinine. The patient has just been placed on allopurinol. PAST MEDICAL HISTORY: As above in HPI. MEDICATIONS: Currently in hospital: 1. Lipitor 80 mg at bedtime. 2. Allopurinol 100 mg daily. 3. Eliquis 5 mg daily. 4. Carvedilol 3.125 mg p.o. b.i.d. 5. Plavix 75 daily. 6. Imdur 20 mg daily. 7. Trental 40 mg p.o. t.i.d. 8. Potassium chloride 10 mEq daily. 9. Starlix. 10. Lasix 40 mg two p.o. b.i.d. 11. Hydralazine 10 mg p.o. q.8 hours. 12. Protonix 40 mg daily. 13. Tylenol p.r.n. 14. Zofran p.r.n. ALLERGIES: NO KNOWN DRUG ALLERGIES. SOCIAL HISTORY: No current tobacco, ETOH or illicit drug. FAMILY HISTORY: No sudden cardiac or early CAD. REVIEW OF SYSTEMS: As above in HPI. CONSTITUTIONAL: No fevers, chills. PULMONARY: No current shortness of breath. CARDIOVASCULAR: Congestive heart failure, chest pain. GASTROINTESTINAL: No vomiting. GENITOURINARY: No hematuria. MUSCULOSKELETAL: Degenerative joint disease. PSYCHIATRIC: No documented psych history. NEUROLOGIC: No documented history of CVA. ENDOCRINE: No documented history of diabetes mellitus. PHYSICAL EXAMINATION: VITAL SIGNS: Temperature of 98.4, blood pressure most recently 106/77, pulse rate 18, satting 97%. GENERAL: The patient is alert, awake, in no acute distress. NECK: JVP approximately 9 cm of water. CHEST: Fair movement throughout, mild decreased breath sounds at bases bilaterally. HEART: Regular rate and rhythm. Normal S1, S2, I/ systolic murmur, laterally displaced PMI. ABDOMEN: Positive bowel sounds, soft. EXTREMITIES: Trace edema, 1+ pulses bilateral posterior tibial flaps. LABORATORIES: Most recently from today, troponin negative x3. White blood cell count 8.7, hemoglobi n 14.2, platelet count 359. IMAGING STUDIES: As above in HPI. No further imaging studies for my review at this time. ECG: As above in HPI. No further electrocardiograms for my review at this time. IMPRESSION: 1. Chest pain, assess for acute coronary syndrome with negative troponins x3 and recent stenting 2018, known occlusions of the patient's distal LAD chronically. 2. Cardiomyopathy with severely depressed left ventricular ejection fraction. 3. Congestive heart failure, systolic, acute on chronic. 4. Hypertension with borderline hypotension. 5. Hand pain. 6. Dyslipidemia. 7. History of deep venous thrombosis lower extremities, on Eliquis. 8. Peripheral arterial disease. 9. Chronic kidney disease. RECOMMENDATIONS: 1. At this time, would maintain the patient on telemetry monitoring to follow rhythm and rate contro l closely. 2. Will continue the patient's current carvedilol, Hydralazine for treatment of cardiomyopathy. Con tinue the patient's Imdur, but change to 30 mg daily as it comes in 30 mg daily, it would be difficul t dose to 20 mg. 3. Continue Lasix p.o. diuresis at this time. 4. Continue the patient's high-dose statin. 5. Continue the patient's Eliquis for prevention of recurrent DVT and the patient's Plavix for stent patency. 6. We will consider discontinuing the patient's Trental to decrease bleeding risk as the patient is already on Plavix and Eliquis, necessary medications. 7. Follow the patient's blood sugars closely on oral hypoglycemics. 8. Continue the patient's allopurinol and follow the patient's hand swelling. 9. Pain control. Thank you for allowing me to take part in the care of this patient. I will continue to follow along very closely with you with further recommendations will be made as the patient progresses through his inpatient hospital clinical course. Dictated By: KARSON HENSLEY/MAX Conf#: [id number] DID#: [id number] CC: TERESA ESPINOSA; HAWA DRAKE MD;*End*
[2018-09-16] MEDS: FUROSEMIDE 40 MG TAB PO SCH ×2 (05:25→18:22)
[2018-09-16] MEDS: PANTOPRAZOLE (EC) 40 MG TAB PO SCH (05:26)
[2018-09-16] MEDS: RANOLAZINE (SR) 500 MG TAB PO SCH ×2 (08:14→21:29)
[2018-09-16] MEDS: CLOPIDOGREL 75 MG TAB PO SCH (08:14)
[2018-09-16] MEDS: PENTOXIFYLLINE (SR) 400 MG TAB PO SCH ×3 (08:15→21:29)
[2018-09-16] MEDS: APIXABAN 5 MG TABLET PO SCH ×2 (08:15→21:28)
[2018-09-16] MEDS: POTASSIUM CHLORIDE (SR) 20 MEQ TAB PO SCH ×2 (08:16→21:29)
[2018-09-16] MEDS: ALLOPURINOL 100 MG TAB PO SCH (08:16)
[2018-09-16] MEDS: ISOSORBIDE MONONITRATE(SR)30 MG TAB PO SCH (08:17)
[2018-09-16] MEDS: NATEGLINIDE 60 MG TAB PO SCH ×3 (10:15→18:21)
--- NOTE | 2018-09-16 10:32 | HP ---
DATE OF ADMISSION: 09/14/2018 REASON FOR ADMISSION: Chest pain. HISTORY OF PRESENTING ILLNESS AND HOSPITAL COURSE: This is a 53-year-old male with a past medical hi story of systolic congestive heart failure, acute on chronic CHF, recent PTCA stent placement in [facility] coronary artery, 05/2018, CKD, peripheral vascular disease, who was recently admitted in [facility] from 09/07/2018 to 09/10/2018. At that time, the patient was found to have swelli ng of the left hand and also on the left lower extremity. The patient had pulmonary vascular congest ion and was treated with IV Lasix. The patient was also started on allopurinol and colchicine and wa s found to have uric acid of 13.6 and he was discharged as an outpatient. However, the patient over the next day when he went home his pain in the left hand was very severe. He could not take the pain . He felt that the pain started radiating from the left hand and going to the chest in the center. He called his PCP's office and was told to make an earlier appointment; however, he was not able to m ellie an appointment and was instead told to come to the emergency department. Also of note, the patie nt had been having some numbness in the right lower extremity. The patient was also started on Jam al for peripheral vascular disease. On arrival to ED, the patient's blood pressure initially was 123 /102, heart rate 86, afebrile, saturating 98%. Labs showed potassium of 3.0, BUN of 32, creatinine 1 .32, magnesium 1.6, BNP 5620. Initial troponin was 0.018. The patient also had a chest x-ray that s howed cardiomegaly without evidence of overt congestive heart failure or pneumonia. The patient was started on nitro patch and was admitted for further management. PAST MEDICAL HISTORY: 1. History of non-STEMI, status post PTCA and stenting on RCA in 05/2018. 2. Cardiomyopathy with depressed EF of 20%. 3. CHF. 4. Coagulopathy. 5. CKD stage III. 6. Diabetes. 7. Hypertension. 8. History of ventricular tachycardia. 9. History of gout. ALLERGIES: NONE. PAST SURGICAL HISTORY: PTCA and stenting of RCA in 06/01/2018. The patient has a right SFA poplitea l plasty recently. SOCIAL HISTORY: Denies any history of smoking, alcohol or any drug use. Lives at home with daughter . MEDICATIONS USING AT HOME: 1. Eliquis 5 mg p.o. b.i.d. 2. Plavix 75. 3. Pentoxifylline 400 t.i.d. 4. Atorvastatin 80. 5. Coreg 3.125 b.i.d. 6. Hydralazine. 7. Imdur. 8. Nitroglycerin. 9. Lasix 40 b.i.d. 10. Metolazone 2.5. 11. Pantoprazole. 12. chloride. 13. Cholecalciferol. 14. Allopurinol 100. REVIEW OF SYSTEMS: The patient complained of some left arm, hand pain radiating to the left chest, l asted the whole day yesterday. No shortness of breath. Edema had much improved. Also had 1 or 2 ep isodes of vomiting. The patient had some numbness and some pain in the right lower extremity. PHYSICAL EXAMINATION: VITAL SIGNS: Currently, blood pressure 104/79, heart rate 79, respirations 18, saturating 100% on ro om air. GENERAL: The patient is awake, alert, oriented, does not appear to in any acute distress. HEENT: Pupils are equal, round, reactive to light. NECK: Supple. No JVD. HEART: Regular rate and rhythm. LUNGS: Decreased breath sounds bilaterally. ABDOMEN: Soft, nontender, nondistended, positive normoactive bowel sounds. EXTREMITIES: The patient has right lower extremity colder than the left lower extremity. The patien t has 1+ dorsalis pedis. Left hand is somewhat more swollen especially the last finger. LABORATORY DATA: Potassium 3.0, BUN of 32, creatinine 1.32. Magnesium 1.6. Troponin 0.01. BNP 562 0. ASSESSMENT AND PLAN: This is a 53-year-old male who presented with: 1. Chest pain after radiation from the left arm, left hand. His troponins have been negative. EKG shows chronic changes. No ST and T-wave elevation. 2. Left hand pain with a history of gout with swelling and tenderness in the joint, likely secondary to gout. 3. Right lower extremity numbness likely secondary to peripheral vascular disease. 4. Hypertension. 5. Hyperlipidemia. 6. History of congestive heart failure. 7. Ischemic cardiomyopathy. 8. Diabetes. 9. Hyperlipidemia. PLAN: At this period of time, the patient is admitted to [facility]. We will get serial EKGs, troponin. Cardiology consultation has been requested. We will continue the patient on Coreg and Eliquis, Plavi x, Trental. We will also repeat the duplex on the right lower extremity. The patient will be on patricia n control for the gout. Rest of the treatment will depend on the patient's hospitalization course. Dictated By: OMAR FERRER/MAX Conf#: [id number] DID#: [id number] CC: ERIC LUNA MD; KARSON HERNANDEZ MD;*End*
--- NOTE | 2018-09-16 11:37 | RADRPT ---
Vent Rate: 81 bpm RR Interval: 744 msec HI Interval: 174 msec QRS Duration: 142 msec QT Interval: 442 msec QTC Interval: 512 msec P-R-T [place]: 64 - 267 - 89 degrees Sinus rhythm...normal P axis, V-rate 50- 99 Probable left atrial enlargement...P >50mS, <-0.10mV V1 Nonspecific IVCD with LAD...QRSd >115mS & LAD Consider left ventricular hypertrophy...(R aVL+S V3) >2.80mV Inferior infarct, old...Q >35mS, II III aVF Anterior Q waves, possibly due to LVH...Q >30mS in V2-V5 & LVH Electronically Signed By: Musa Blackmon
--- NOTE | 2018-09-16 12:16 | PN ---
KADYMEHREEN 09/16/18 1216: Date/Time of Note Date/Time of Note DATE: 09/16/18 TIME: 12:11 Assessment/Plan VTE Prophylaxis Risk score (from Ns)>0 risk: 3 SCD applied (from Ns): Yes Pharmacological prophylaxis: apixaban Lines/Catheters IV Catheter Type (from Nrs): [place]ine Lock Urinary Cath still in place: No Assessment/Plan Hospital Course 1. Chest pain after radiation from the left arm, left hand. His troponins have been negative. EKG shows chronic changes. No ST and T-wave elevation. 2. Left hand pain with a history of gout with swelling and tenderness in the joint, likely secondary to gout. 3. Right lower extremity numbness likely secondary to peripheral vascular disease. 4. Hypertension. 5. Hyperlipidemia. 6. History of congestive heart failure. 7. Ischemic cardiomyopathy. 8. Diabetes mellitus type II, uncontrolled. 9. Hyperlipidemia. Assessment/Plan -admitted to tele. - serial EKGs, troponin. - Cardiology consultation Dr Nagy. -We will continue the patient on Coreg and Eliquis, Plavix, Trental. -duplex on the right lower extremity infrapopliteal stenosis, was seen by dr Nguyễn, vascular surgeon - The patient will be on pain control -low purine diet for gout. -GI prophylaxis -hypoglycemic control with mild insulin, c.w Starlix -DVT prophylaxis protonix Result Diagram: 09/16/18 0710 09/16/18 0710 Results 24hrs Laboratory Tests Test 09/15/18 12:23 09/16/18 07:10 09/16/18 08:02 Bedside Glucose 165 129 White Blood Count 6.4 # Red Blood Count 5.54 Hemoglobin 14.6 Hematocrit 45.3 Mean Corpuscular Volume 81.8 L Mean Corpuscular Hemoglobin 26.4 L Mean Corpuscular Hemoglobin Concent 32.2 Red Cell Distribution Width 15.7 H Platelet Count 399 Mean Platelet Volume 9.3 Immature Granulocytes % 0.300 Neutrophils % 63.0 Lymphocytes % 21.0 Monocytes % 11.3 H Eosinophils % 3.3 Basophils % 1.1 Nucleated Red Blood Cells % 0.0 Immature Granulocytes # 0.020 Neutrophils # 4.1 Lymphocytes # 1.4 Monocytes # 0.7 Eosinophils # 0.2 Basophils # 0.1 Nucleated Red Blood Cells # 0.0 Sodium Level 134 L Potassium Level 3.1 L Chloride Level 94 L Carbon Dioxide Level 29 Anion Gap 11 Blood Urea Nitrogen 27 H Creatinine 1.23 Est Glomerular Filtrat Rate mL/min > 60 Glucose Level 138 # Hemoglobin A1c 8.3 H Calcium Level 9.4 Total Bilirubin 1.1 Direct Bilirubin 0.00 Indirect Bilirubin 1.1 Aspartate Amino Transf (AST/SGOT) 22 Alanine Aminotransferase (ALT/SGPT) 15 Alkaline Phosphatase 127 H Total Protein 7.2 Albumin 3.7 Globulin 3.50 H Albumin/Globulin Ratio 1.05 Subjective 24 Hr Interval Summary Cardiovascular: chest pain (decreased today) Exam/Review of Systems Exam Vitals Vital Signs Date Temp Pulse Resp B/P (MAP) Pulse Ox O2 O2 Flow FiO2 Time Delivery Rate 09/16/18 82 12:06 09/16/18 98.0 22 106/68 96 Room Air 07:55 (81) Intake and Output 09/15/18 09/15/18 09/16/18 1515:00 23:00 07:00 IntakeIntake Total 300 ml OutputOutput Total 800 ml BalanceBalance -500 ml Constitutional: alert, oriented Head: normocephalic Eyes: nl conjunctiva Neck: supple Respiratory: clear to auscultation Cardiovascular: regular rate and rhythm Gastrointestinal: soft Musculoskeletal: muscle weakness, swelling (small joints on hands) Results Result Diagram: 09/16/18 0710 09/16/18 0710 Results 24hrs Laboratory Tests Test 09/15/18 12:23 09/16/18 07:10 09/16/18 08:02 Bedside Glucose 165 129 White Blood Count 6.4 # Red Blood Count 5.54 Hemoglobin 14.6 Hematocrit 45.3 Mean Corpuscular Volume 81.8 L Mean Corpuscular Hemoglobin 26.4 L Mean Corpuscular Hemoglobin Concent 32.2 Red Cell Distribution Width 15.7 H Platelet Count 399 Mean Platelet Volume 9.3 Immature Granulocytes % 0.300 Neutrophils % 63.0 Lymphocytes % 21.0 Monocytes % 11.3 H Eosinophils % 3.3 Basophils % 1.1 Nucleated Red Blood Cells % 0.0 Immature Granulocytes # 0.020 Neutrophils # 4.1 Lymphocytes # 1.4 Monocytes # 0.7 Eosinophils # 0.2 Basophils # 0.1 Nucleated Red Blood Cells # 0.0 Sodium Level 134 L Potassium Level 3.1 L Chloride Level 94 L Carbon Dioxide Level 29 Anion Gap 11 Blood Urea Nitrogen 27 H Creatinine 1.23 Est Glomerular Filtrat Rate mL/min > 60 Glucose Level 138 # Hemoglobin A1c 8.3 H Calcium Level 9.4 Total Bilirubin 1.1 Direct Bilirubin 0.00 Indirect Bilirubin 1.1 Aspartate Amino Transf (AST/SGOT) 22 Alanine Aminotransferase (ALT/SGPT) 15 Alkaline Phosphatase 127 H Total Protein 7.2 Albumin 3.7 Globulin 3.50 H Albumin/Globulin Ratio 1.05 Medications Medication Current Medications Allopurinol (Zyloprim) 100 mg DAILY PO Last administered on 09/16/18 08:16; Admin Dose 100 MG; Start 09/15/18 at 09:00 Apixaban (Eliquis) 5 mg BID PO Last administered on 09/16/18 08:15; Admin Dose 5 MG; Start 09/15/18 at 09:00 Atorvastatin Calcium (Lipitor) 80 mg QHS PO Last administered on 09/15/18 20:49; Admin Dose 80 MG; Start 09/15/18 at 21:00 Carvedilol (Coreg) 3.125 mg BID PO Last administered on 09/16/18 08:18; Admin Dose 3.125 MG; Start 09/15/18 at 09:00 Clopidogrel Bisulfate (plaVIX) 75 mg DAILY PO Last administered on 09/16/18 08:14; Admin Dose 75 MG; Start 09/15/18 at 09:00 Furosemide (Lasix) 40 mg BID DIURETICS PO Last administered on 09/16/18 05:25; Admin Dose 40 MG; Start 09/15/18 at 06:00 Hydralazine HCl (Apresoline) 10 mg Q8 PO Last administered on 09/16/18 05:26; Admin Dose 10 MG; Start 09/15/18 at 06:00 Nateglinide (Starlix) 60 mg AC MEALS PO Last administered on 09/16/18 10:15; Admin Dose 60 MG; Start 09/15/18 at 07:00 Pantoprazole (Protonix Tab) 40 mg DAILY@0600 PO Last administered on 09/16/18 05:26; Admin Dose 40 MG; Start 09/15/18 at 06:00 Pentoxifylline (Trental) 400 mg TID PO Last administered on 09/16/18 08:15; Admin Dose 400 MG; Start 09/15/18 at 09:00 IV Flush (NS 3 ml) 3 ml PER PROTOCOL IV ; Start 09/15/18 at 02:30 Ondansetron HCl (Zofran Inj) 4 mg Q6H PRN IV NAUSEA/VOMITING; Start 09/15/18 at 02:30 Acetaminophen (Tylenol Tab) 650 mg Q6H PRN PO .PAIN 1-3 OR TEMP; Start 09/15/18 at 02:30 Acetaminophen (Tylenol Supp) 650 mg Q6H PRN LA .PAIN 1-3 OR TEMP; Start 09/15/18 at 02:30 Docusate Sodium (Colace) 100 mg Q12H PRN PO .CONSTIPATION; Start 09/15/18 at 02:30 Magnesium Hydroxide (Milk Of Mag) 30 ml DAILY PRN PO .CONSTIPATION; Start 09/15/18 at 02:30 Bisacodyl (Dulcolax) 5 mg DAILY PRN PO .CONSTIPATION; Start 09/15/18 at 02:30 Potassium Chloride (Klor-Con 20) 20 meq DAILY PO Last administered on 09/16/18at 08:16; Admin Dose 20 MEQ; Start 09/15/18 at 09:00 Isosorbide Mononitrate (Imdur) 30 mg DAILY PO Last administered on 09/16/18at 08:17; Admin Dose 30 MG; Start 09/16/18 at 09:00 Ranolazine (Ranexa) 500 mg Q12 PO Last administered on 09/16/18at 08:14; Admin Dose 500 MG; Start 09/16/18 at 09:00 OMAR ESPINOSA MD 09/16/18 1629: Assessment/Plan Assessment/Plan Assessment/Plan spoke to dr galvan who saw pt today aicd likely next week Result Diagram: 09/16/18 0710 09/16/18 0710 MEHREEN HILLMAN Sep 16, 2018 12:16 OMAR ESPINOSA MD Sep 16, 2018 16:29
[2018-09-16] MEDS ORDERED: DEXTROSE 50% 50 ML SYRINGE IV PRN ×2 (12:30)
[2018-09-16] MEDS ORDERED: GLUCOSE GEL 15 GRAM TUBE PO PRN ×2 (12:30)
[2018-09-16] MEDS ORDERED: GLUCAGON 1 MG INJ IM PRN (12:30)
[2018-09-16] MEDS ORDERED: POTASSIUM CHLORIDE 20 MEQ POWDER FOR ORAL SOLN PO ONE (12:30)
[2018-09-16] MEDS ORDERED: GLUCOSE GEL 15 GRAM TUBE BUCCAL PRN (12:30)
[2018-09-16] MEDS: INSULIN ASPART [NOVOLOG] 3 ML PEN SC SCH ×3 (13:50→21:00)
--- NOTE | 2018-09-16 16:31 | QN ---
Documentation Comment R leg is cooler than left. No pain and normal motor and sensory function. Feet both have good color. Arterial duplex RLE shows biphasic flow all the way down, unchanged from previous study several weeks ago. No need for intervention. Continue Wily. KARSON BIRD MD Sep 16, 2018 16:31
--- NOTE | 2018-09-16 17:00 | CONS ---
Assessment/Plan Assessment/Plan Hospital Course (Demo Recall) IMPRESSION: 1. Chest pain, assess for acute coronary syndrome with negative troponins x3 and recent stenting 05/2018, known occlusions of the patient's distal LAD chronically.-neg trop x 3 with now improved chest pain on current regimen 2. Cardiomyopathy with severely depressed left ventricular ejection fraction. 3. Congestive heart failure, systolic, acute on chronic. 4. Hypertension with borderline hypotension. 5. Hand pain. 6. Dyslipidemia. 7. History of deep venous thrombosis lower extremities, on Eliquis. 8. Peripheral arterial disease. 9. Chronic kidney disease. Recc: -Tele -serial ecg's -Contineu ranexa/imdur -Contineu coreg/hydralazine -Continue elquis/plavix -Continue statin -follow hand swelling closely of allopurinol -Follow volume status clsoely on lasix diuresis -Consider D/C of trental to decrease bleeding risk -Possible placement of ICD during this index hospital admission Consultation Date/Type/Reason Admit Date/Time Sep 14, 2018 at 21:33 Initial Consult Date 09/16/18 Type of Consult Cardiology Reason for Consultation CHF/chest pain Requesting Provider: HAWA DRAKE MD Date/Time of Note DATE: 09/16/18 TIME: 16:50 Exam/Review of Systems Vital Signs Vitals Vital Signs Date Temp Pulse Resp B/P (MAP) Pulse Ox O2 O2 Flow FiO2 Time Delivery Rate 09/16/18 88 16:09 09/16/18 98.0 22 102/75 96 Room Air 15:13 (84) Intake and Output 09/15/18 09/15/18 09/16/18 1515:00 23:00 07:00 IntakeIntake Total 300 ml OutputOutput Total 800 ml BalanceBalance -500 ml Exam Exam Review of Systems: CONSTITUTIONAL: No fevers, chills. PULMONARY: No sob CARDIOVASCULAR: No chest pain/palpitations GASTROINTESTINAL: No nausea/vomiting. GENITOURINARY: No hematuria/dysuria. MUSCULOSKELETAL: No myagias/arthalgias. PSYCHIATRIC: The patient denies depression. NEUROLOGIC: No weakness Constitutional: alert Psych: no complaints Head: normocephalic ENMT: mucosa pink and moist Neck: supple, jvd (9 cm water) Respiratory: diminished breath sounds Cardiovascular: regular rate and rhythm Gastrointestinal: soft, non-tender Musculoskeletal: muscle tone (normal) Extremities: edema (none) Labs Result Diagram: 09/16/18 0710 09/16/18 0710 Results 24hrs Laboratory Tests Test 09/16/18 07:10 09/16/18 08:02 09/16/18 12:19 09/16/18 13:48 White Blood Count 6.4 # Red Blood Count 5.54 Hemoglobin 14.6 Hematocrit 45.3 Mean Corpuscular 81.8 L Volume Mean Corpuscular 26.4 L Hemoglobin Mean Corpuscular 32.2 Hemoglobin Concent Red Cell 15.7 H Distribution Width Platelet Count 399 Mean Platelet Volume 9.3 Immature 0.300 Granulocytes % Neutrophils % 63.0 Lymphocytes % 21.0 Monocytes % 11.3 H Eosinophils % 3.3 Basophils % 1.1 Nucleated Red Blood 0.0 Cells % Immature 0.020 Granulocytes # Neutrophils # 4.1 Lymphocytes # 1.4 Monocytes # 0.7 Eosinophils # 0.2 Basophils # 0.1 Nucleated Red Blood 0.0 Cells # Sodium Level 134 L Potassium Level 3.1 L Chloride Level 94 L Carbon Dioxide Level 29 Anion Gap 11 Blood Urea Nitrogen 27 H Creatinine 1.23 Est Glomerular > 60 Filtrat Rate mL/min Glucose Level 138 # Hemoglobin A1c 8.3 H Calcium Level 9.4 Total Bilirubin 1.1 Direct Bilirubin 0.00 Indirect Bilirubin 1.1 Aspartate Amino 22 Transf (AST/SGOT) Alanine 15 Aminotransferase (AL T/SGPT) Alkaline Phosphatase 127 H Total Protein 7.2 Albumin 3.7 Globulin 3.50 H Albumin/Globulin 1.05 Ratio Bedside Glucose 129 143 137 Medications Medications Current Medications Allopurinol (Zyloprim) 100 mg DAILY PO Last administered on 09/16/18at 08:16; Admin Dose 100 MG; Start 09/15/18 at 09:00 Apixaban (Eliquis) 5 mg BID PO Last administered on 09/16/18at 08:15; Admin Dose 5 MG; Start 09/15/18 at 09:00 Atorvastatin Calcium (Lipitor) 80 mg QHS PO Last administered on 09/15/18at 20:49; Admin Dose 80 MG; Start 09/15/18 at 21:00 Carvedilol (Coreg) 3.125 mg BID PO Last administered on 09/16/18at 08:18; Admin Dose 3.125 MG; Start 09/15/18 at 09:00 Clopidogrel Bisulfate (plaVIX) 75 mg DAILY PO Last administered on 09/16/18 08:14; Admin Dose 75 MG; Start 09/15/18 at 09:00 Furosemide (Lasix) 40 mg BID DIURETICS PO Last administered on 09/16/18 05:25; Admin Dose 40 MG; Start 09/15/18 at 06:00 Hydralazine HCl (Apresoline) 10 mg Q8 PO Last administered on 09/16/18 13:38; Admin Dose 10 MG; Start 09/15/18 at 06:00 Nateglinide (Starlix) 60 mg AC MEALS PO Last administered on 09/16/18 10:15; Admin Dose 60 MG; Start 09/15/18 at 07:00 Pantoprazole (Protonix Tab) 40 mg DAILY@0600 PO Last administered on 09/16/18 05:26; Admin Dose 40 MG; Start 09/15/18 at 06:00 Pentoxifylline (Trental) 400 mg TID PO Last administered on 09/16/18 13:37; Admin Dose 400 MG; Start 09/15/18 at 09:00 IV Flush (NS 3 ml) 3 ml PER PROTOCOL IV ; Start 09/15/18 at 02:30 Ondansetron HCl (Zofran Inj) 4 mg Q6H PRN IV NAUSEA/VOMITING; Start 09/15/18 at 02:30 Acetaminophen (Tylenol Tab) 650 mg Q6H PRN PO .PAIN 1-3 OR TEMP; Start 09/15/18 at 02:30 Acetaminophen (Tylenol Supp) 650 mg Q6H PRN [place] .PAIN 1-3 OR TEMP; Start 09/15/18 at 02:30 Docusate Sodium (Colace) 100 mg Q12H PRN PO .CONSTIPATION; Start 09/15/18 at 02:30 Magnesium Hydroxide (Milk Of Mag) 30 ml DAILY PRN PO .CONSTIPATION; Start 09/15/18 at 02:30 Bisacodyl (Dulcolax) 5 mg DAILY PRN PO .CONSTIPATION; Start 09/15/18 at 02:30 Isosorbide Mononitrate (Imdur) 30 mg DAILY PO Last administered on 09/16/18at 08:17; Admin Dose 30 MG; Start 09/16/18 at 09:00 Ranolazine (Ranexa) 500 mg Q12 PO Last administered on 09/16/18at 08:14; Admin Dose 500 MG; Start 09/16/18 at 09:00 Insulin Aspart (Novolog Insulin Pen) NOVOLOG *MILD* ALGORITHM WITH MEALS BEDTIME SC ; Start 09/16/18 at 12:30 Potassium Chloride (Klor-Con 20) 20 meq BID PO ; Start 09/16/18 at 21:00 Miscellaneous Information 1 ea NOTE XX ; Start 09/16/18 at 12:30 Glucose (Glutose) 15 gm Q15M PRN PO DECREASED GLUCOSE; Start 09/16/18 at 12:30 Glucose (Glutose) 22.5 gm Q15M PRN PO DECREASED GLUCOSE; Start 09/16/18 at 12:30 Dextrose (D50w Syringe) 25 ml Q15M PRN IV DECREASED GLUCOSE; Start 09/16/18 at 12:30 Dextrose (D50w Syringe) 50 ml Q15M PRN IV DECREASED GLUCOSE; Start 09/16/18 at 12:30 Glucagon (Glucagen) 1 mg Q15M PRN IM DECREASED GLUCOSE; Start 09/16/18 at 12:30 Glucose (Glutose) 15 gm Q15M PRN BUCCAL DECREASED GLUCOSE; Start 09/16/18 at 12:30 Diagnostic Test (Pha) (Accu-Chek) 1 ea 02 XX ; Start 09/17/18 at 02:00 KARSON HERNANDEZ Sep 16, 2018 16:59
--- NOTE | 2018-09-16 17:05 | QN ---
Documentation Comment As Physician Advisor I have reviewed the chart and have determined that as of today, this patient continues to receive medically necessary care required for the diagnosis and treatment of illness or injury. There has been no unreasonable delay in the rendering of medically necessary services, and this medically necessary care requires a length of stay expected to be greater than two midnights. Additional information gained during the stay now suggests this patient should have been classified as an inpatient at the time of admission, and I will change the status to inpatient to reflect that medical judgment. Besides the notes from the medical providers, the following information was used in this determination: Gout, Ischemic cardiomyopathy, DM II, CHF. Extremity changes concerning for ischemia. Please call me at [phone] with questions. MARY CARMEN GIMENEZ MD Sep 16, 2018 17:05
[2018-09-16] MEDS: ACETAMINOPHEN 325 MG TAB PO PRN (18:47)
[2018-09-16] MEDS: ATORVASTATIN 80 MG TAB PO SCH (21:29)
[2018-09-17] VITALS (11 sets, daily range): BP systolic 101–117; BP diastolic 69–77; PULSE 81–98; RESP 19–22
[2018-09-17] MEDS: ACCUCHECK AT 2AM (Patients on SS coverage) XX SCH (02:00)
[2018-09-17] MEDS: PANTOPRAZOLE (EC) 40 MG TAB PO SCH (06:00)
[2018-09-17] MEDS: FUROSEMIDE 40 MG TAB PO SCH ×2 (06:00→17:34)
[2018-09-17] MEDS: INSULIN ASPART [NOVOLOG] 3 ML PEN SC SCH ×4 (07:55→21:00)
[2018-09-17] MEDS: NATEGLINIDE 60 MG TAB PO SCH ×3 (07:59→17:16)
[2018-09-17] MEDS: PENTOXIFYLLINE (SR) 400 MG TAB PO SCH (08:30)
[2018-09-17] MEDS: CLOPIDOGREL 75 MG TAB PO SCH (08:30)
[2018-09-17] MEDS: POTASSIUM CHLORIDE (SR) 20 MEQ TAB PO SCH ×2 (08:30→20:26)
[2018-09-17] MEDS: RANOLAZINE (SR) 500 MG TAB PO SCH ×2 (08:30→20:25)
[2018-09-17] MEDS: APIXABAN 5 MG TABLET PO SCH ×2 (08:30→20:25)
[2018-09-17] MEDS: ISOSORBIDE MONONITRATE(SR)30 MG TAB PO SCH (08:30)
[2018-09-17] MEDS: ALLOPURINOL 100 MG TAB PO SCH (08:30)
--- NOTE | 2018-09-17 10:19 | PN ---
Date/Time of Note Date/Time of Note DATE: 09/17/18 TIME: 10:17 Assessment/Plan VTE Prophylaxis Risk score (from Ns)>0 risk: 2 SCD applied (from Ns): Yes Pharmacological prophylaxis: apixaban Lines/Catheters IV Catheter Type (from Nrsg): Saline Lock Assessment/Plan Hospital Course 1. Chest pain after radiation from the left arm, left hand. His troponins have been negative. EKG shows chronic changes. No ST and T-wave elevation. 2. Left hand pain with a history of gout with swelling and tenderness in the joint, likely secondary to gout. 3. Right lower extremity numbness likely secondary to peripheral vascular disease. 4. Hypertension. 5. Hyperlipidemia. 6. History of congestive heart failure. 7. Ischemic cardiomyopathy. 8. Diabetes mellitus type II, uncontrolled. 9. Hyperlipidemia. Assessment/Plan - tele. -potassium supplement - serial EKGs, troponin. - Cardiology consultation Dr Nagy. -We will continue the patient on Coreg and Eliquis, Plavix, -decrease Trental. - The patient will be on pain control -low purine diet for gout. -GI prophylaxis -hypoglycemic control with mild insulin, c.w Starlix -DVT prophylaxis protonix Result Diagram: 09/17/18 0620 09/17/18 0620 Results 24hrs Laboratory Tests Test 09/16/18 12:19 09/16/18 13:48 09/16/18 18:19 09/16/18 20:37 Bedside Glucose 143 137 185 137 Test 09/17/18 06:20 09/17/18 07:58 White Blood Count 5.0 # Red Blood Count 5.17 Hemoglobin 13.7 L Hematocrit 42.2 Mean Corpuscular 81.6 L Volume Mean Corpuscular 26.5 L Hemoglobin Mean Corpuscular 32.5 Hemoglobin Concent Red Cell 15.6 H Distribution Width Platelet Count 395 Mean Platelet Volume 9.4 Immature 0.400 Granulocytes % Neutrophils % 59.0 Lymphocytes % 23.0 Monocytes % 13.2 H Eosinophils % 3.0 Basophils % 1.4 Nucleated Red Blood 0.0 Cells % Immature 0.020 Granulocytes # Neutrophils # 2.9 Lymphocytes # 1.2 Monocytes # 0.7 Eosinophils # 0.2 Basophils # 0.1 Nucleated Red Blood 0.0 Cells # Sodium Level 135 Potassium Level 3.3 L Chloride Level 95 L Carbon Dioxide Level 29 Anion Gap 11 Blood Urea Nitrogen 31 H Creatinine 1.48 H Est Glomerular 50 L Filtrat Rate mL/min Glucose Level 127 Calcium Level 9.3 Bedside Glucose 122 Subjective 24 Hr Interval Summary Constitutional: improved ENT: no complaints Gastrointestinal: no complaints Musculoskeletal: bone/joint pain, swelling Exam/Review of Systems Exam Vitals Vital Signs Date Temp Pulse Resp B/P (MAP) Pulse Ox O2 O2 Flow FiO2 Time Delivery Rate 09/17/18 83 08:12 09/17/18 97.4 19 108/76 99 Room Air 07:12 (87) Intake and Output 09/16/18 09/16/18 09/17/18 1515:00 23:00 07:00 IntakeIntake Total 980 ml 550 ml OutputOutput Total 1200 ml 1450 ml BalanceBalance -220 ml -900 ml Constitutional: alert, oriented Psych: no complaints Neck: supple Respiratory: clear to auscultation Cardiovascular: regular rate and rhythm Gastrointestinal: soft Musculoskeletal: muscle weakness, swelling (upper extremities) Skin: nl turgor Results Results 24hrs Laboratory Tests Test 09/16/18 12:19 09/16/18 13:48 09/16/18 18:19 09/16/18 20:37 Bedside Glucose 143 137 185 137 Test 09/17/18 06:20 09/17/18 07:58 White Blood Count 5.0 # Red Blood Count 5.17 Hemoglobin 13.7 L Hematocrit 42.2 Mean Corpuscular 81.6 L Volume Mean Corpuscular 26.5 L Hemoglobin Mean Corpuscular 32.5 Hemoglobin Concent Red Cell 15.6 H Distribution Width Platelet Count 395 Mean Platelet Volume 9.4 Immature 0.400 Granulocytes % Neutrophils % 59.0 Lymphocytes % 23.0 Monocytes % 13.2 H Eosinophils % 3.0 Basophils % 1.4 Nucleated Red Blood 0.0 Cells % Immature 0.020 Granulocytes # Neutrophils # 2.9 Lymphocytes # 1.2 Monocytes # 0.7 Eosinophils # 0.2 Basophils # 0.1 Nucleated Red Blood 0.0 Cells # Sodium Level 135 Potassium Level 3.3 L Chloride Level 95 L Carbon Dioxide Level 29 Anion Gap 11 Blood Urea Nitrogen 31 H Creatinine 1.48 H Est Glomerular 50 L Filtrat Rate mL/min Glucose Level 127 Calcium Level 9.3 Bedside Glucose 122 Medications Medication Current Medications Allopurinol (Zyloprim) 100 mg DAILY PO Last administered on 09/17/18 08:30; Admin Dose 100 MG; Start 09/15/18 at 09:00 Apixaban (Eliquis) 5 mg BID PO Last administered on 09/17/18 08:30; Admin Dose 5 MG; Start 09/15/18 at 09:00 Atorvastatin Calcium (Lipitor) 80 mg QHS PO Last administered on 09/16/18 21:29; Admin Dose 80 MG; Start 09/15/18 at 21:00 Carvedilol (Coreg) 3.125 mg BID PO Last administered on 09/17/18 08:30; Admin Dose 3.125 MG; Start 09/15/18 at 09:00 Clopidogrel Bisulfate (plaVIX) 75 mg DAILY PO Last administered on 09/17/18 08:30; Admin Dose 75 MG; Start 09/15/18 at 09:00 Furosemide (Lasix) 40 mg BID DIURETICS PO Last administered on 09/16/18 18:22; Admin Dose 40 MG; Start 09/15/18 at 06:00 Hydralazine HCl (Apresoline) 10 mg Q8 PO Last administered on 09/16/18 13:38; Admin Dose 10 MG; Start 09/15/18 at 06:00 Nateglinide (Starlix) 60 mg AC MEALS PO Last administered on 09/17/18 07:59; Admin Dose 60 MG; Start 09/15/18 at 07:00 Pantoprazole (Protonix Tab) 40 mg DAILY@0600 PO Last administered on 09/16/18 05:26; Admin Dose 40 MG; Start 09/15/18 at 06:00 Pentoxifylline (Trental) 400 mg TID PO Last administered on 09/17/18 08:30; Admin Dose 400 MG; Start 09/15/18 at 09:00 IV Flush (NS 3 ml) 3 ml PER PROTOCOL IV ; Start 09/15/18 at 02:30 Ondansetron HCl (Zofran Inj) 4 mg Q6H PRN IV NAUSEA/VOMITING; Start 09/15/18 at 02:30 Acetaminophen (Tylenol Tab) 650 mg Q6H PRN PO .PAIN 1-3 OR TEMP Last administered on 09/16/18 18:47; Admin Dose 650 MG; Start 09/15/18 at 02:30 Acetaminophen (Tylenol Supp) 650 mg Q6H PRN [place] .PAIN 1-3 OR TEMP; Start 09/15/18 at 02:30 Docusate Sodium (Colace) 100 mg Q12H PRN PO .CONSTIPATION; Start 09/15/18 at 02:30 Magnesium Hydroxide (Milk Of Mag) 30 ml DAILY PRN PO .CONSTIPATION; Start 09/15/18 at 02:30 Bisacodyl (Dulcolax) 5 mg DAILY PRN PO .CONSTIPATION; Start 09/15/18 at 02:30 Isosorbide Mononitrate (Imdur) 30 mg DAILY PO Last administered on 09/17/18at 08:30; Admin Dose 30 MG; Start 09/16/18 at 09:00 Ranolazine (Ranexa) 500 mg Q12 PO Last administered on 09/17/18at 08:30; Admin Dose 500 MG; Start 09/16/18 at 09:00 Insulin Aspart (Novolog Insulin Pen) NOVOLOG *MILD* ALGORITHM WITH MEALS BE DTIME SC ; Start 09/16/18 at 12:30 Potassium Chloride (Klor-Con 20) 20 meq BID PO Last administered on 09/17/18at 08:30; Admin Dose 20 MEQ; Start 09/16/18 at 21:00 Miscellaneous Information 1 ea NOTE XX ; Start 09/16/18 at 12:30 Glucose (Glutose) 15 gm Q15M PRN PO DECREASED GLUCOSE; Start 09/16/18 at 12:30 Glucose (Glutose) 22.5 gm Q15M PRN PO DECREASED GLUCOSE; Start 09/16/18 at 12:30 Dextrose (D50w Syringe) 25 ml Q15M PRN IV DECREASED GLUCOSE; Start 09/16/18 at 12:30 Dextrose (D50w Syringe) 50 ml Q15M PRN IV DECREASED GLUCOSE; Start 09/16/18 at 12:30 Glucagon (Glucagen) 1 mg Q15M PRN IM DECREASED GLUCOSE; Start 09/16/18 at 12:30 Glucose (Glutose) 15 gm Q15M PRN BUCCAL DECREASED GLUCOSE; Start 09/16/18 at 12:30 Diagnostic Test (Pha) (Accu-Chek) 1 ea 02 XX ; Start 09/17/18 at 02:00 MEHREEN HILLMAN Sep 17, 2018 10:19
[2018-09-17] MEDS ORDERED: POTASSIUM CHLORIDE 20 MEQ POWDER FOR ORAL SOLN PO ONE (10:30)
[2018-09-17] MEDS: ONDANSETRON 4 MG INJ IV PRN (15:05)
--- NOTE | 2018-09-17 15:06 | CONS ---
Assessment/Plan Assessment/Plan Assessment/Plan (Daily) Atypical chest pain Abnormal electrocardiogram Severe Cardiomyopathy Acute on Chronic CHF Hypertension Dyslipidemia. Deep venous thrombosis lower extremities, on Eliquis. Peripheral arterial disease. CKD Continue Lasix Avoid Volume Overload Continue Ranexa Continue Imdur Continue Coreg Continue hydralazine Continue elquis Continue Trental Continue Plavix Continue Lipitor Avoid Volume Overload Recommend AICD Placement Consultation Date/Type/Reason Admit Date/Time Sep 14, 2018 at 21:33 Type of Consult Cardiology Date/Time of Note DATE: 09/17/18 TIME: 15:02 Past Medical History Home Meds Active Scripts Allopurinol* (Allopurinol*) 100 Mg Tablet, 100 MG PO DAILY for 30 Days, TAB Prov:MEHREEN HILLMAN 09/10/18 Potassium Chloride* (K-Dur*) 20 Meq Tab.prt.sr, 40 MEQ PO BID for 30 Days Prov:EMHREEN HILLMAN 09/10/18 Pentoxifylline* (Pentoxifylline*) 400 Mg Tablet.sa, 400 MG PO TID for 90 Days Prov:MEHREEN HILLMAN 09/10/18 Reported Medications Cholecalciferol (Vitamin D3) (Vitamin D3) 5,000 Unit Tab.rapdis, 5000 UNIT PO DAILY 09/14/18 Nateglinide* (Nateglinide*) 60 Mg Tablet, 60 MG PO AC MEALS, TAB 09/14/18 Nitroglycerin* (Nitrostat*) 0.4 Mg Tab.subl, 0.4 MG SL Q5MIN PRN for CHEST PAIN, BOTTLE 09/14/18 Pantoprazole* (Pantoprazole*) 40 Mg Tablet.dr, 40 MG PO DAILY for 30 Days, #30 09/07/18 Apixaban* (Eliquis*) 5 Mg Tablet, 5 MG PO BID, TAB 07/05/18 Atorvastatin* (Atorvastatin*) 80 Mg Tablet, 80 MG PO QHS, #30 TAB 07/05/18 Hydralazine Hcl* (Hydralazine Hcl*) 10 Mg Tablet, 10 MG PO Q8, #90 TAB HOLD IF SBP<100 07/05/18 Metolazone* (Metolazone*) 5 Mg Tablet, 2.5 MG PO DAILY, TAB 07/05/18 Furosemide* (Furosemide*) 40 Mg Tablet, 40 MG PO BID, TAB 07/05/18 Carvedilol* (Carvedilol*) 3.125 Mg Tablet, 3.125 MG PO BID, #60 TAB 07/05/18 Isosorbide Mononitrate* (Isosorbide Mononitrate*) 20 Mg Tablet, 20 MG PO DAILY, TAB 07/05/18 Clopidogrel Bisulfate* (Clopidogrel Bisulfate*) 75 Mg Tablet, 75 MG PO DAILY, #30 TAB 07/05/18 Discontinued Reported Medications Potassium Chloride* (Potassium Chloride*) 20 Meq Tablet.er, 20 MEQ PO DAILY, TAB.SA 07/05/18 Medications Current Medications Allopurinol (Zyloprim) 100 mg DAILY PO Last administered on 09/17/18 08:30; Admin Dose 100 MG; Start 09/15/18 at 09:00 Apixaban (Eliquis) 5 mg BID PO Last administered on 09/17/18 08:30; Admin Dose 5 MG; Start 09/15/18 at 09:00 Atorvastatin Calcium (Lipitor) 80 mg QHS PO Last administered on 09/16/18 21:29; Admin Dose 80 MG; Start 09/15/18 at 21:00 Carvedilol (Coreg) 3.125 mg BID PO Last administered on 09/17/18 08:30; Admin Dose 3.125 MG; Start 09/15/18 at 09:00 Clopidogrel Bisulfate (plaVIX) 75 mg DAILY PO Last administered on 09/17/18 08:30; Admin Dose 75 MG; Start 09/15/18 at 09:00 Furosemide (Lasix) 40 mg BID DIURETICS PO Last administered on 09/16/18 18:22; Admin Dose 40 MG; Start 09/15/18 at 06:00 Hydralazine HCl (Apresoline) 10 mg Q8 PO Last administered on 09/16/18 13:38; Admin Dose 10 MG; Start 09/15/18 at 06:00 Nateglinide (Starlix) 60 mg AC MEALS PO Last administered on 09/17/18 11:26; Admin Dose 60 MG; Start 09/15/18 at 07:00 Pantoprazole (Protonix Tab) 40 mg DAILY@0600 PO Last administered on 09/16/18 05:26; Admin Dose 40 MG; Start 09/15/18 at 06:00 IV Flush (NS 3 ml) 3 ml PER PROTOCOL IV ; Start 09/15/18 at 02:30 Ondansetron HCl (Zofran Inj) 4 mg Q6H PRN IV NAUSEA/VOMITING; Start 09/15/18 at 02:30 Acetaminophen (Tylenol Tab) 650 mg Q6H PRN PO .PAIN 1-3 OR TEMP Last administered on 09/16/18at 18:47; Admin Dose 650 MG; Start 09/15/18 at 02:30 Acetaminophen (Tylenol Supp) 650 mg Q6H PRN MI .PAIN 1-3 OR TEMP; Start 09/15/18 at 02:30 Docusate Sodium (Colace) 100 mg Q12H PRN PO .CONSTIPATION; Start 09/15/18 at 02:30 Magnesium Hydroxide (Milk Of Mag) 30 ml DAILY PRN PO .CONSTIPATION; Start 09/15/18 at 02:30 Bisacodyl (Dulcolax) 5 mg DAILY PRN PO .CONSTIPATION; Start 09/15/18 at 02:30 Isosorbide Mononitrate (Imdur) 30 mg DAILY PO Last administered on 09/17/18at 08:30; Admin Dose 30 MG; Start 09/16/18 at 09:00 Ranolazine (Ranexa) 500 mg Q12 PO Last administered on 09/17/18at 08:30; Admin Dose 500 MG; Start 09/16/18 at 09:00 Insulin Aspart (Novolog Insulin Pen) NOVOLOG *MILD* ALGORITHM WITH MEALS BEDTIME SC Last administered on 09/17/18at 12:41; Admin Dose 1 UNIT; Start 09/16/18 at 12:30 Potassium Chloride (Klor-Con 20) 20 meq BID PO Last administered on 09/17/18at 08:30; Admin Dose 20 MEQ; Start 09/16/18 at 21:00 Miscellaneous Information 1 ea NOTE XX ; Start 09/16/18 at 12:30 Glucose (Glutose) 15 gm Q15M PRN PO DECREASED GLUCOSE; Start 09/16/18 at 12:30 Glucose (Glutose) 22.5 gm Q15M PRN PO DECREASED GLUCOSE; Start 09/16/18 at 12:30 Dextrose (D50w Syringe) 25 ml Q15M PRN IV DECREASED GLUCOSE; Start 09/16/18 at 12:30 Dextrose (D50w Syringe) 50 ml Q15M PRN IV DECREASED GLUCOSE; Start 09/16/18 at 12:30 Glucagon (Glucagen) 1 mg Q15M PRN IM DECREASED GLUCOSE; Start 09/16/18 at 12:30 Glucose (Glutose) 15 gm Q15M PRN BUCCAL DECREASED GLUCOSE; Start 09/16/18 at 12 :30 Diagnostic Test (Pha) (Accu-Chek) 1 ea 02 XX ; Start 09/17/18 at 02:00 Pentoxifylline (Trental) 400 mg DAILY PO ; Start 09/18/18 at 09:00 Allergies: Coded Allergies: No Known Allergies (Unverified Allergy, Unknown, 09/14/18) Past Surgical History Past Surgical Hx: angioplasty Social History Smoking Status: Former smoker Exam/Review of Systems Vital Signs Vitals Vital Signs Date Temp Pulse Resp B/P (MAP) Pulse Ox O2 O2 Flow FiO2 Time Delivery Rate 09/17/18 84 12:09 09/17/18 97.3 19 101/69 97 Room Air 11:13 (80) Intake and Output 09/16/18 09/16/18 09/17/18 1515:00 23:00 07:00 IntakeIntake Total 980 ml 550 ml OutputOutput Total 1200 ml 1450 ml BalanceBalance -220 ml -900 ml Exam Constitutional: alert, oriented Neck: supple, non-tender Respiratory: clear to auscultation Cardiovascular: regular rate and rhythm (no m/r/g) Gastrointestinal: soft Extremities: normal pulses Labs Result Diagram: 09/17/18 0620 09/17/18 0620 Results 24hrs Laboratory Tests Test 09/16/18 18:19 09/16/18 20:37 09/17/18 06:20 09/17/18 07:58 Bedside Glucose 185 137 122 White Blood Count 5.0 # Red Blood Count 5.17 Hemoglobin 13.7 L Hematocrit 42.2 Mean Corpuscular 81.6 L Volume Mean Corpuscular 26.5 L Hemoglobin Mean Corpuscular 32.5 Hemoglobin Concent Red Cell 15.6 H Distribution Width Platelet Count 395 Mean Platelet Volume 9.4 Immature 0.400 Granulocytes % Neutrophils % 59.0 Lymphocytes % 23.0 Monocytes % 13.2 H Eosinophils % 3.0 Basophils % 1.4 Nucleated Red Blood 0.0 Cells % Immature 0.020 Granulocytes # Neutrophils # 2.9 Lymphocytes # 1.2 Monocytes # 0.7 Eosinophils # 0.2 Basophils # 0.1 Nucleated Red Blood 0.0 Cells # Sodium Level 135 Potassium Level 3.3 L Chloride Level 95 L Carbon Dioxide Level 29 Anion Gap 11 Blood Urea Nitrogen 31 H Creatinine 1.48 H Est Glomerular 50 L Filtrat Rate mL/min Glucose Level 127 Calcium Level 9.3 Test 09/17/18 11:43 Bedside Glucose 172 Medications Medications Current Medications Allopurinol (Zyloprim) 100 mg DAILY PO Last administered on 09/17/18 08:30; Admin Dose 100 MG; Start 09/15/18 at 09:00 Apixaban (Eliquis) 5 mg BID PO Last administered on 09/17/18 08:30; Admin Dose 5 MG; Start 09/15/18 at 09:00 Atorvastatin Calcium (Lipitor) 80 mg QHS PO Last administered on 09/16/18 21:29; Admin Dose 80 MG; Start 09/15/18 at 21:00 Carvedilol (Coreg) 3.125 mg BID PO Last administered on 09/17/18 08:30; Admin Dose 3.125 MG; Start 09/15/18 at 09:00 Clopidogrel Bisulfate (plaVIX) 75 mg DAILY PO Last administered on 09/17/18 0 8:30; Admin Dose 75 MG; Start 09/15/18 at 09:00 Furosemide (Lasix) 40 mg BID DIURETICS PO Last administered on 09/16/18 18:22; Admin Dose 40 MG; Start 09/15/18 at 06:00 Hydralazine HCl (Apresoline) 10 mg Q8 PO Last administered on 09/16/18 13:38; Admin Dose 10 MG; Start 09/15/18 at 06:00 Nateglinide (Starlix) 60 mg AC MEALS PO Last administered on 09/17/18 11:26; Admin Dose 60 MG; Start 09/15/18 at 07:00 Pantoprazole (Protonix Tab) 40 mg DAILY@0600 PO Last administered on 09/16/18 05:26; Admin Dose 40 MG; Start 09/15/18 at 06:00 IV Flush (NS 3 ml) 3 ml PER PROTOCOL IV ; Start 09/15/18 at 02:30 Ondansetron HCl (Zofran Inj) 4 mg Q6H PRN IV NAUSEA/VOMITING; Start 09/15/18 at 02:30 Acetaminophen (Tylenol Tab) 650 mg Q6H PRN PO .PAIN 1-3 OR TEMP Last administered on 09/16/18at 18:47; Admin Dose 650 MG; Start 09/15/18 at 02:30 Acetaminophen (Tylenol Supp) 650 mg Q6H PRN MI .PAIN 1-3 OR TEMP; Start 09/15/18 at 02:30 Docusate Sodium (Colace) 100 mg Q12H PRN PO .CONSTIPATION; Start 09/15/18 at 02:30 Magnesium Hydroxide (Milk Of Mag) 30 ml DAILY PRN PO .CONSTIPATION; Start 09/15/18 at 02:30 Bisacodyl (Dulcolax) 5 mg DAILY PRN PO .CONSTIPATION; Start 09/15/18 at 02:30 Isosorbide Mononitrate (Imdur) 30 mg DAILY PO Last administered on 09/17/18at 08:30; Admin Dose 30 MG; Start 09/16/18 at 09:00 Ranolazine (Ranexa) 500 mg Q12 PO Last administered on 09/17/18at 08:30; Admin Dose 500 MG; Start 09/16/18 at 09:00 Insulin Aspart (Novolog Insulin Pen) NOVOLOG *MILD* ALGORITHM WITH MEALS BEDTIME SC Last administered on 09/17/18at 12:41; Admin Dose 1 UNIT; Start 09/16/18 at 12:30 Potassium Chloride (Klor-Con 20) 20 meq BID PO Last administered on 09/17/18at 08:30; Admin Dose 20 MEQ; Start 09/16/18 at 21:00 Miscellaneous Information 1 ea NOTE XX ; Start 09/16/18 at 12:30 Glucose (Glutose) 15 gm Q15M PRN PO DECREASED GLUCOSE; Start 09/16/18 at 12:30 Glucose (Glutose) 22.5 gm Q15M PRN PO DECREASED GLUCOSE; Start 09/16/18 at 12:30 Dextrose (D50w Syringe) 25 ml Q15M PRN IV DECREASED GLUCOSE; Start 09/16/18 at 12:30 Dextrose (D50w Syringe) 50 ml Q15M PRN IV DECREASED GLUCOSE; Start 09/16/18 at 12:30 Glucagon (Glucagen) 1 mg Q15M PRN IM DECREASED GLUCOSE; Start 09/16/18 at 12:30 Glucose (Glutose) 15 gm Q15M PRN BUCCAL DECREASED GLUCOSE; Start 09/16/18 at 12:30 Diagnostic Test (Pha) (Accu-Chek) 1 ea 02 XX ; Start 09/17/18 at 02:00 Pentoxifylline (Trental) 400 mg DAILY PO ; Start 09/18/18 at 09:00 ANGIE BAILEY M.D. Sep 17, 2018 15:06
[2018-09-17] MEDS: ATORVASTATIN 80 MG TAB PO SCH (20:25)
[2018-09-18] VITALS (14 sets, daily range): BP systolic 95–115; BP diastolic 67–83; PULSE 77–88; RESP 18–20
[2018-09-18] MEDS: ACCUCHECK AT 2AM (Patients on SS coverage) XX SCH (02:00)
[2018-09-18] MEDS: FUROSEMIDE 40 MG TAB PO SCH ×2 (06:00→18:00)
[2018-09-18] MEDS: PANTOPRAZOLE (EC) 40 MG TAB PO SCH (06:16)
[2018-09-18] MEDS: INSULIN ASPART [NOVOLOG] 3 ML PEN SC SCH ×4 (07:55→20:02)
[2018-09-18] MEDS: RANOLAZINE (SR) 500 MG TAB PO SCH ×2 (08:45→20:05)
[2018-09-18] MEDS: PENTOXIFYLLINE (SR) 400 MG TAB PO SCH (08:45)
[2018-09-18] MEDS: POTASSIUM CHLORIDE (SR) 20 MEQ TAB PO SCH ×2 (08:45→20:12)
[2018-09-18] MEDS: NATEGLINIDE 60 MG TAB PO SCH ×4 (08:46→17:44)
[2018-09-18] MEDS: CLOPIDOGREL 75 MG TAB PO SCH (08:46)
[2018-09-18] MEDS: ALLOPURINOL 100 MG TAB PO SCH (08:46)
[2018-09-18] MEDS: APIXABAN 5 MG TABLET PO SCH ×2 (08:47→20:05)
[2018-09-18] MEDS: ISOSORBIDE MONONITRATE(SR)30 MG TAB PO SCH (08:47)
--- NOTE | 2018-09-18 12:06 | DS ---
Date/Time of Note Date/Time of Note DATE: 09/18/18 TIME: 12:06 Discharge Summary Admission/Discharge Info Admit Date/Time Sep 16, 2018 at 17:01 Discharge Date/Time Discharge Diagnosis gout exacerbation, CHF Patient Condition: Stable Consults DR Nagy, cardiology Hospital Course This is a 53-year-old male with a past medical history of systolic congestive heart failure, acute on chronic CHF, recent PTCA stent placement in right coronary artery, 05/2018, CKD, peripheral vascular disease, who was recently admitted in [facility] from 09/07/2018 to 09/10/2018. At that time, the patient was found to have swelling of the left hand and also on the left lower extremity. The patient had pulmonary vascular congestion and was treated with IV Lasix. The patient was also started on allopurinol and colchicine and was found to have uric acid of 13.6 and he was discharged as an outpatient. However, the patient over the next day when he went home his pain in the left hand was very severe. He could not take the pain. He felt that the pain started radiating from the left hand and going to the chest in the center. He called his PCP's office and was told to make an earlier appointment; however, he was not able to make an appointment and was instead told to come to the emergency department. Also of note, the patient had been having some numbness in the right lower extremity. The patient was also started on Trental for peripheral vascular disease. On arrival to ED, the patient's blood pressure initially was 123/102, heart rate 86, afebrile, saturating 98%. Labs showed pot assium of 3.0, BUN of 32, creatinine 1.32, magnesium 1.6, BNP 5620. Initial troponin was 0.018. The patient also had a chest x-ray that showed cardiomegaly without evidence of overt congestive heart failure or pneumonia. The patient was started on nitro patch and was admitted for further management. PAST MEDICAL HISTORY: 1. History of non-STEMI, status post PTCA and stenting on RCA in 05/2018. 2. Cardiomyopathy with depressed EF of 20%. 3. CHF. 4. Coagulopathy. 5. CKD stage III. 6. Diabetes. 7. Hypertension. 8. History of ventricular tachycardia. 9. History of gout. Impressions: 1 . Chest pain after radiation from the left arm, left hand. His troponins have been negative. EKG shows chronic changes. No ST and T-wave elevation. 2. Left hand pain with a history of gout with swelling and tenderness in the joint, likely secondary to gout. 3. Right lower extremity numbness likely secondary to peripheral vascular disease. 4. Hypertension. 5. Hyperlipidemia. 6. History of congestive heart failure. 7. Ischemic cardiomyopathy. 8. Diabetes mellitus type II, uncontrolled. 9. Hyperlipidemia. During hospitalization pt was on telemetry service, Dr Nagy, order serial ecg's. Pt was continued on ranexa/imdur, coreg/hydralazine for BP management and on Elquis/plavix for anticoagulation. Pt was continued on statin for dyslipidemia. We followed his left hand swelling closely, he was continued on allopurinol. Dr Nagy followed pt volume status closely, he was c/ed on on lasix 40 mg po BID for diuresis. We decreased trental to decrease bleeding risk. Dr Nagy considered possible placement of ICD during this index hosp ital admission. Pt was given dietary consult for low purine diet. Pt was given medication to control BS. Prior to discharge there were no acute events - pt stable, clinically improved - has reasonable indication for ICD. Unfortunately, process laboratory specialist got flooded and there is no availability not till the end of the week. Pt is hemodynamically stable and cardiology consult cleared him for the discharge. He might be benefited for outp. ICD. Home Meds Active Scripts Ondansetron Hcl* (Zofran*) 4 Mg Tab, 4 MG PO Q4H PRN for NAUSEA AND OR VOMITING for 10 Days, TAB Prov:OMAR ESPINOSA MD 09/20/18 Hydrocodone/Acetaminophen ([place] 5-325 Tablet) 1 Each Tablet, 1 EACH PO BID for 10 Days, TAB Prov:OMAR ESPINOSA MD 09/20/18 [Ranolazine (Sr)] 500 MG TABSR No Conflict Check, 500 MG PO Q12 for 30 Days Prov:MEHREEN HILLMAN 09/18/18 Pentoxifylline* (Pentoxifylline*) 400 Mg Tablet.sa, 400 MG PO DAILY for 30 Days Prov:EMHREEN HILLMAN 09/18/18 Allopurinol* (Allopurinol*) 100 Mg Tablet, 100 MG PO DAILY for 30 Days, TAB Prov:MEHREEN HILLMAN 09/10/18 Potassium Chloride* (K-Dur*) 20 Meq Tab.prt.sr, 40 MEQ PO BID for 30 Days Prov:MEHREEN HILLMAN 09/10/18 Reported Medications Cholecalciferol (Vitamin D3) (Vitamin D3) 5,000 Unit Tab.rapdis, 5000 UNIT PO DAILY 09/14/18 Nateglinide* (Nateglinide*) 60 Mg Tablet, 60 MG PO AC MEALS, TAB 09/14/18 Nitroglycerin* (Nitrostat*) 0.4 Mg Tab.subl, 0.4 MG SL Q5MIN PRN for CHEST PAIN, BOTTLE 09/14/18 Pantoprazole* (Pantoprazole*) 40 Mg Tablet.dr, 40 MG PO DAILY for 30 Days, #30 09/07/18 Apixaban* (Eliquis*) 5 Mg Tablet, 5 MG PO BID, TAB 07/05/18 Atorvastatin* (Atorvastatin*) 80 Mg Tablet, 80 MG PO QHS, #30 TAB 07/05/18 Hydralazine Hcl* (Hydralazine Hcl*) 10 Mg Tablet, 10 MG PO Q8, #90 TAB HOLD IF SBP<100 07/05/18 Furosemide* (Furosemide*) 40 Mg Tablet, 40 MG PO BID, TAB 07/05/18 Carvedilol* (Carvedilol*) 3.125 Mg Tablet, 3.125 MG PO BID, #60 TAB 07/05/18 Isosorbide Mononitrate* (Isosorbide Mononitrate*) 20 Mg Tablet, 20 MG PO DAILY, TAB 07/05/18 Clopidogrel Bisulfate* (Clopidogrel Bisulfate*) 75 Mg Tablet, 75 MG PO DAILY, #30 TAB 07/05/18 Discontinued Scripts Pentoxifylline* (Pentoxifylline*) 400 Mg Tablet.sa, 400 MG PO TID for 90 Days Prov:MEHREEN HILLMAN 09/10/18 Follow-up Plan dr Nagy 2 weeks Primary Care Provider Zachary Caballero MD Time spent on discharge: < 30 minutes Pending Labs Laboratory Tests Test 09/17/18 17:15 09/17/18 20:48 09/18/18 08:16 09/18/18 11:56 Bedside 152 137 114 107 Glucose mg/dL (70-220) mg/dL (70-220) mg/dL (70-220) mg/dL (70-220) MEHREEN HILLMAN Sep 18, 2018 12:06
--- NOTE | 2018-09-18 12:15 | PDOCDIS ---
Discharge Instructions CONDITION [id number] Patient Condition: [id number] Stable ACTIVITY: [id number] Activity Restrictions: [id number] Slowly Increase Activity Rest between Activity Avoid heavy lifting FOLLOW UP/APPOINTMENTS Follow-up Plan DR Nagy 2 weeks MEHREEN HILLMAN Sep 18, 2018 12:15
[2018-09-18] MEDS ORDERED: PENT400T9 PO (12:18)
[2018-09-18] MEDS ORDERED: Ranolazine (Sr) PO (12:18)
[2018-09-18] MEDS: ONDANSETRON 4 MG INJ IV PRN ×2 (12:40→20:05)
--- NOTE | 2018-09-18 14:40 | CONS ---
Assessment/Plan Assessment/Plan Assessment/Plan (Daily) Atypical chest pain Abnormal electrocardiogram Severe Cardiomyopathy Acute on Chronic CHF Hypertension Dyslipidemia. Deep venous thrombosis lower extremities, on Eliquis. Peripheral arterial disease. CKD Continue Lasix Avoid Volume Overload Continue Ranexa Continue Imdur Continue Coreg Continue hydralazine Continue eliquis Continue Trental Continue Plavix Continue Lipitor Avoid Volume Overload Recommend AICD Placement Consultation Date/Type/Reason Admit Date/Time Sep 16, 2018 at 17:01 Initial Consult Date Type of Consult Cardiology Requesting Provider: HAWA DRAKE MD Date/Time of Note DATE: 09/18/18 TIME: 14:39 Exam/Review of Systems Vital Signs Vitals Vital Signs Date Temp Pulse Resp B/P (MAP) Pulse Ox O2 O2 Flow FiO2 Time Delivery Rate 09/18/18 88 12:00 09/18/18 97.7 19 95/70 (78) 99 Room Air 11:20 Intake and Output 09/17/18 09/17/18 09/18/18 1515:00 23:00 07:00 IntakeIntake Total 350 ml 1000 ml 500 ml OutputOutput Total 800 ml 700 ml BalanceBalance 350 ml 200 ml -200 ml Exam Exam Constitutional: alert, oriented Neck: supple, non-tender Respiratory: clear to auscultation Cardiovascular: regular rate and rhythm (no m/r/g) Gastrointestinal: soft Extremities: normal pulses Labs Result Diagram: 09/17/18 0620 09/17/18 0620 Results 24hrs Laboratory Tests Test 09/17/18 17:15 09/17/18 20:48 09/18/18 08:16 09/18/18 11:56 Bedside Glucose 152 137 114 107 Medications Medications Current Medications Allopurinol (Zyloprim) 100 mg DAILY PO Last administered on 09/18/18at 08:46; Admin Dose 100 MG; Start 09/15/18 at 09:00 Apixaban (Eliquis) 5 mg BID PO Last administered on 09/18/18at 08:47; Admin Dose 5 MG; Start 09/15/18 at 09:00 Atorvastatin Calcium (Lipitor) 80 mg QHS PO Last administered on 09/17/18at 20:25; Admin Dose 80 MG; Start 09/15/18 at 21:00 Carvedilol (Coreg) 3.125 mg BID PO Last administered on 09/18/18at 08:47; Admin Dose 3.125 MG; Start 09/15/18 at 09:00 Clopidogrel Bisulfate (plaVIX) 75 mg DAILY PO Last administered on 09/18/18 08:46; Admin Dose 75 MG; Start 09/15/18 at 09:00 Furosemide (Lasix) 40 mg BID DIURETICS PO Last administered on 09/17/18 17:34; Admin Dose 40 MG; Start 09/15/18 at 06:00 Hydralazine HCl (Apresoline) 10 mg Q8 PO Last administered on 09/18/18 14:01; Admin Dose 10 MG; Start 09/15/18 at 06:00 Nateglinide (Starlix) 60 mg AC MEALS PO Last administered on 09/18/18 08:46; Admin Dose 60 MG; Start 09/15/18 at 07:00 Pantoprazole (Protonix Tab) 40 mg DAILY@0600 PO Last administered on 09/18/18 06:16; Admin Dose 40 MG; Start 09/15/18 at 06:00 IV Flush (NS 3 ml) 3 ml PER PROTOCOL IV ; Start 09/15/18 at 02:30 Ondansetron HCl (Zofran Inj) 4 mg Q6H PRN IV NAUSEA/VOMITING Last administered on 09/18/18 12:40; Admin Dose 4 MG; Start 09/15/18 at 02:30 Acetaminophen (Tylenol Tab) 650 mg Q6H PRN PO .PAIN 1-3 OR TEMP Last administe red on 09/16/18 18:47; Admin Dose 650 MG; Start 09/15/18 at 02:30 Acetaminophen (Tylenol Supp) 650 mg Q6H PRN MA .PAIN 1-3 OR TEMP; Start 09/15/18 at 02:30 Docusate Sodium (Colace) 100 mg Q12H PRN PO .CONSTIPATION; Start 09/15/18 at 02:30 Magnesium Hydroxide (Milk Of Mag) 30 ml DAILY PRN PO .CONSTIPATION; Start 09/15/18 at 02:30 Bisacodyl (Dulcolax) 5 mg DAILY PRN PO .CONSTIPATION; Start 09/15/18 at 02:30 Isosorbide Mononitrate (Imdur) 30 mg DAILY PO Last administered on 09/18/18 08:47; Admin Dose 30 MG; Start 09/16/18 at 09:00 Ranolazine (Ranexa) 500 mg Q12 PO Last administered on 09/18/18at 08:45; Admin Dose 500 MG; Start 09/16/18 at 09:00 Insulin Aspart (Novolog Insulin Pen) NOVOLOG *MILD* ALGORITHM WITH MEALS BEDTIME SC Last administered on 09/17/18at 17:18; Admin Dose 1 UNIT; Start 09/16/18 at 12:30 Potassium Chloride (Klor-Con 20) 20 meq BID PO Last administered on 09/18/18at 08:45; Admin Dose 20 MEQ; Start 09/16/18 at 21:00 Miscellaneous Information 1 ea NOTE XX ; Start 09/16/18 at 12:30 Glucose (Glutose) 15 gm Q15M PRN PO DECREASED GLUCOSE; Start 09/16/18 at 12:30 Glucose (Glutose) 22.5 gm Q15M PRN PO DECREASED GLUCOSE; Start 09/16/18 at 12:30 Dextrose (D50w Syringe) 25 ml Q15M PRN IV DECREASED GLUCOSE; Start 09/16/18 at 12:30 Dextrose (D50w Syringe) 50 ml Q15M PRN IV DECREASED GLUCOSE; Start 09/16/18 at 12:30 Glucagon (Glucagen) 1 mg Q15M PRN IM DECREASED GLUCOSE; Start 09/16/18 at 12:30 Glucose (Glutose) 15 gm Q15M PRN BUCCAL DECREASED GLUCOSE; Start 09/16/18 at 12:30 Diagnostic Test (Pha) (Accu-Chek) 1 ea 02 XX ; Start 09/17/18 at 02:00 Pentoxifylline (Trental) 400 mg DAILY PO Last administered on 09/18/18at 08:45; Admin Dose 400 MG; Start 09/18/18 at 09:00 ANGIE BAILEY M.D. Sep 18, 2018 14:40
[2018-09-18] MEDS: ATORVASTATIN 80 MG TAB PO SCH (20:05)
[2018-09-19] MEDS: ACCUCHECK AT 2AM (Patients on SS coverage) XX SCH (01:26)
[2018-09-19 02:00] VITALS: BP 112/79; PULSE 96; RESP 18
[2018-09-19] MEDS: PANTOPRAZOLE (EC) 40 MG TAB PO SCH (06:10)
[2018-09-19] MEDS: FUROSEMIDE 40 MG TAB PO SCH ×2 (06:11→17:38)
[2018-09-19 07:39] VITALS: BP 119/88; PULSE 85; RESP 18
[2018-09-19] MEDS: INSULIN ASPART [NOVOLOG] 3 ML PEN SC SCH ×4 (08:00→21:00)
[2018-09-19] MEDS: CLOPIDOGREL 75 MG TAB PO SCH (08:18)
[2018-09-19] MEDS: NATEGLINIDE 60 MG TAB PO SCH ×3 (08:18→17:37)
[2018-09-19] MEDS: APIXABAN 5 MG TABLET PO SCH ×2 (08:18→22:11)
[2018-09-19] MEDS: ALLOPURINOL 100 MG TAB PO SCH (08:18)
[2018-09-19] MEDS: RANOLAZINE (SR) 500 MG TAB PO SCH ×2 (08:18→22:07)
[2018-09-19] MEDS: POTASSIUM CHLORIDE (SR) 20 MEQ TAB PO SCH ×2 (08:18→22:06)
[2018-09-19] MEDS: PENTOXIFYLLINE (SR) 400 MG TAB PO SCH (08:18)
[2018-09-19] MEDS: ISOSORBIDE MONONITRATE(SR)30 MG TAB PO SCH (08:19)
--- NOTE | 2018-09-19 13:29 | PN ---
Date/Time of Note Date/Time of Note DATE: 09/19/18 TIME: 13:29 Assessment/Plan VTE Prophylaxis Risk score (from Nsg)>0 risk: 2 SCD applied (from Nsg): Yes Pharmacological prophylaxis: NA/contraindicated Pharm contraindication: low risk/ambulating Lines/Catheters IV Catheter Type (from Nrsg): Saline Lock Assessment/Plan Assessment/Plan Hospital Course 1. Chest pain after radiation from the left arm, left hand. His troponins have been negative. EKG shows chronic changes. . 2. Left hand pain with a history of gout with swelling and tenderness in the joint, likely secondary to gout. 3. Right lower extremity numbness likely secondary to peripheral vascular disease. 4. Hypertension. 5. Hyperlipidemia. 6. History of congestive heart failure. 7. Ischemic cardiomyopathy. 8. Diabetes mellitus type II, uncontrolled. 9. Hyperlipidemia. Assessment/Plan -Check CMP/lipase -cwwith PPI/zofran -We will continue the patient on Coreg and Eliquis, Plavix, -cw lasix 40 bid -cw with hydralazine/Imdur/Ranexa -low purine diet for gout. -GI prophylaxis -hypoglycemic control with mild insulin, c.w Starlix -DVT prophylaxis protonix ? aicd will check with cards Result Diagram: 09/17/18 0620 09/17/18 0620 Results 24hrs Laboratory Tests Test 09/18/18 17:40 09/18/18 20:02 09/19/18 08:17 09/19/18 12:26 Bedside Glucose 158 176 127 126 Subjective 24 Hr Interval Summary Free Text/Dictation An episode of vomiting this morning Exam/Review of Systems Exam Vitals Vital Signs Date Temp Pulse Resp B/P (MAP) Pulse Ox O2 O2 Flow FiO2 Time Delivery Rate 09/19/18 97.6 85 18 119/88 100 Room Air 07:39 (98) Intake and Output 09/18/18 09/18/18 09/19/18 1515:00 23:00 07:00 IntakeIntake Total 950 ml OutputOutput Total 850 ml BalanceBalance 100 ml Exam Constitutional: alert, oriented Psych: no complaints Neck: supple Respiratory: clear to auscultation Cardiovascular: regular rate and rhythm Gastrointestinal: soft Musculoskeletal: muscle weakness, swelling (upper extremities) Skin: nl turgor Results Results 24hrs Laboratory Tests Test 09/18/18 17:40 09/18/18 20:02 09/19/18 08:17 09/19/18 12:26 Bedside Glucose 158 176 127 126 Medications Medication Current Medications Allopurinol (Zyloprim) 100 mg DAILY PO Last administered on 09/19/18 08:18; Admin Dose 100 MG; Start 09/15/18 at 09:00 Apixaban (Eliquis) 5 mg BID PO Last administered on 09/19/18 08:18; Admin Dose 5 MG; Start 09/15/18 at 09:00 Atorvastatin Calcium (Lipitor) 80 mg QHS PO Last administered on 09/18/18 20:05; Admin Dose 80 MG; Start 09/15/18 at 21:00 Carvedilol (Coreg) 3.125 mg BID PO Last administered on 09/19/18 08:19; Admin Dose 3.125 MG; Start 09/15/18 at 09:00 Clopidogrel Bisulfate (plaVIX) 75 mg DAILY PO Last administered on 09/19/18 08:18; Admin Dose 75 MG; Start 09/15/18 at 09:00 Furosemide (Lasix) 40 mg BID DIURETICS PO Last administered on 09/19/18at 06:11; Admin Dose 40 MG; Start 09/15/18 at 06:00 Hydralazine HCl (Apresoline) 10 mg Q8 PO Last administered on 09/18/18at 14:01; Admin Dose 10 MG; Start 09/15/18 at 06:00 Nateglinide (Starlix) 60 mg AC MEALS PO Last administered on 09/19/18at 12:27; Admin Dose 60 MG; Start 09/15/18 at 07:00 Pantoprazole (Protonix Tab) 40 mg DAILY@0600 PO Last administered on 09/19/18at 06:10; Admin Dose 40 MG; Start 09/15/18 at 06:00 IV Flush (NS 3 ml) 3 ml PER PROTOCOL IV ; Start 09/15/18 at 02:30 Ondansetron HCl (Zofran Inj) 4 mg Q6H PRN IV NAUSEA/VOMITING Last administered on 09/18/18at 20:05; Admin Dose 4 MG; Start 09/15/18 at 02:30 Acetaminophen (Tylenol Tab) 650 mg Q6H PRN PO .PAIN 1-3 OR TEMP Last administered on 09/16/18at 18:47; Admin Dose 650 MG; Start 09/15/18 at 02:30 Acetaminophen (Tylenol Supp) 650 mg Q6H PRN [place] .PAIN 1-3 OR TEMP; Start 09/15/18 at 02:30 Docusate Sodium (Colace) 100 mg Q12H PRN PO .CONSTIPATION; Start 09/15/18 at 02:30 Magnesium Hydroxide (Milk Of Mag) 30 ml DAILY PRN PO .CONSTIPATION; Start 09/15/18 at 02:30 Bisacodyl (Dulcolax) 5 mg DAILY PRN PO .CONSTIPATION; Start 09/15/18 at 02:30 Isosorbide Mononitrate (Imdur) 30 mg DAILY PO Last administered on 09/19/18at 08:19; Admin Dose 30 MG; Start 09/16/18 at 09:00 Ranolazine (Ranexa) 500 mg Q12 PO Last administered on 09/19/18at 08:18; Admin Dose 500 MG; Start 09/16/18 at 09:00 Insulin Aspart (Novolog Insulin Pen) NOVOLOG *MILD* ALGORITHM WITH MEALS BEDTIME SC Last administered on 09/17/18at 17:18; Admin Dose 1 UNIT; Start 09/03 07/22 at 12:30 Potassium Chloride (Klor-Con 20) 20 meq BID PO Last administered on 09/19/18at 08:18; Admin Dose 20 MEQ; Start 09/16/18 at 21:00 Miscellaneous Information 1 ea NOTE XX ; Start 09/16/18 at 12:30 Glucose (Glutose) 15 gm Q15M PRN PO DECREASED GLUCOSE; Start 09/16/18 at 12:30 Glucose (Glutose) 22.5 gm Q15M PRN PO DECREASED GLUCOSE; Start 09/16/18 at 12:30 Dextrose (D50w Syringe) 25 ml Q15M PRN IV DECREASED GLUCOSE; Start 09/16/18 at 12:30 Dextrose (D50w Syringe) 50 ml Q15M PRN IV DECREASED GLUCOSE; Start 09/16/18 at 12:30 Glucagon (Glucagen) 1 mg Q15M PRN IM DECREASED GLUCOSE; Start 09/16/18 at 12:30 Glucose (Glutose) 15 gm Q15M PRN BUCCAL DECREASED GLUCOSE; Start 09/16/18 at 12:30 Diagnostic Test (Pha) (Accu-Chek) 1 ea 02 XX ; Start 09/17/18 at 02:00 Pentoxifylline (Trental) 400 mg DAILY PO Last administered on 09/19/18at 08:18; Admin Dose 400 MG; Start 09/18/18 at 09:00 OMAR ESPINOSA MD Sep 19, 2018 13:29
[2018-09-19 14:23] VITALS: BP 98/68; PULSE 80; RESP 18
[2018-09-19 17:40] VITALS: BP 115/77; PULSE 81
--- NOTE | 2018-09-19 19:57 | CONS ---
Assessment/Plan Assessment/Plan Hospital Course (Demo Recall) IMPRESSION: 1. Chest pain, assess for acute coronary syndrome with negative troponins x3 and recent stenting 05/2018, known occlusions of the patient's distal LAD chronically.-neg trop x 3 with now improved chest pain on current regimen 2. Cardiomyopathy with severely depressed left ventricular ejection fraction. 3. Congestive heart failure, systolic, acute on chronic.-significantly improved volume status 4. Hypertension with borderline hypotension. 5. Hand pain. 6. Dyslipidemia. 7. History of deep venous thrombosis lower extremities, on Eliquis. 8. Peripheral arterial disease. 9. Chronic kidney disease. Recc: -Tele -serial ecg's -Contineu ranexa/imdur -Contineu coreg/hydralazine as tolerated only -Continue elquis/plavix -Continue statin -follow hand swelling closely of allopurinol -Follow volume status clsoely on lasix diuresis -Consider D/C of trental to decrease bleeding risk -Possible placement of ICD during this index hospital admission Consultation Date/Type/Reason Admit Date/Time Sep 16, 2018 at 17:01 Initial Consult Date 09/16/18 Type of Consult Cardiology Reason for Consultation CHF/cardiomyopathy Requesting Provider: HAWA DRAKE MD Date/Time of Note DATE: 09/19/18 TIME: 19:55 Exam/Review of Systems Vital Signs Vitals Vital Signs Date Temp Pulse Resp B/P (MAP) Pulse Ox O2 O2 Flow FiO2 Time Delivery Rate 09/19/18 81 115/77 17:40 (90) 09/19/18 97.9 18 98 Room Air 14:23 Intake and Output 09/18/18 09/18/18 09/19/18 1515:00 23:00 07:00 IntakeIntake Total 950 ml OutputOutput Total 850 ml BalanceBalance 100 ml Exam Exam Review of Systems: CONSTITUTIONAL: No fevers, chills. PULMONARY: No sob CARDIOVASCULAR: No chest pain/palpitations GASTROINTESTINAL: No nausea/vomiting. GENITOURINARY: No hematuria/dysuria. MUSCULOSKELETAL: No myagias/arthalgias. PSYCHIATRIC: The patient denies depression. NEUROLOGIC: No weakness Constitutional: alert, oriented Psych: no complaints Head: normocephalic ENMT: mucosa pink and moist Neck: supple, jvd (9 cm water) Respiratory: diminished breath sounds Cardiovascular: regular rate and rhythm Gastrointestinal: soft, non-tender Musculoskeletal: muscle tone (normal) Extremities: edema (none) Neurological: other (No focal deficits) Labs Result Diagram: 09/17/18 0620 09/19/18 1414 Results 24hrs Laboratory Tests Test 09/18/18 20:02 09/19/18 08:17 09/19/18 12:26 09/19/18 14:14 Bedside Glucose 176 127 126 Sodium Level 132 L Potassium Level 3.7 Chloride Level 95 L Carbon Dioxide Level 24 Anion Gap 13 Blood Urea Nitrogen 34 H Creatinine 1.65 H Est Glomerular 44 L Filtrat Rate mL/min Glucose Level 175 Calcium Level 8.8 Total Bilirubin 0.8 Direct Bilirubin 0.00 Indirect Bilirubin 0.8 Aspartate Amino 18 Transf (AST/SGOT) Alanine 19 Aminotransferase (AL T/SGPT) Alkaline Phosphatase 117 Total Protein 6.9 Albumin 3.4 Globulin 3.50 H Albumin/Globulin 0.97 Ratio Lipase 72 Test 09/19/18 17:36 Bedside Glucose 148 Medications Medications Current Medications Allopurinol (Zyloprim) 100 mg DAILY PO Last administered on 09/19/18at 08:18; Admin Dose 100 MG; Start 09/15/18 at 09:00 Apixaban (Eliquis) 5 mg BID PO Last administered on 09/19/18at 08:18; Admin Dose 5 MG; Start 09/15/18 at 09:00 Atorvastatin Calcium (Lipitor) 80 mg QHS PO Last administered on 09/18/18at 20:05; Admin Dose 80 MG; Start 09/15/18 at 21:00 Carvedilol (Coreg) 3.125 mg BID PO Last administered on 09/19/18at 08:19; Admin Dose 3.125 MG; Start 09/15/18 at 09:00 Clopidogrel Bisulfate (plaVIX) 75 mg DAILY PO Last administered on 09/19/18at 08:18; Admin Dose 75 MG; Start 09/15/18 at 09:00 Furosemide (Lasix) 40 mg BID DIURETICS PO Last administered on 09/19/18at 17:38; Admin Dose 40 MG; Start 09/15/18 at 06:00 Hydralazine HCl (Apresoline) 10 mg Q8 PO Last administered on 09/18/18at 14:01; Admin Dose 10 MG; Start 09/15/18 at 06:00 Nateglinide (Starlix) 60 mg AC MEALS PO Last administered on 09/19/18at 17:37; Admin Dose 60 MG; Start 09/15/18 at 07:00 Pantoprazole (Protonix Tab) 40 mg DAILY@0600 PO Last administered on 09/19/18at 06:10; Admin Dose 40 MG; Start 09/15/18 at 06:00 IV Flush (NS 3 ml) 3 ml PER PROTOCOL IV ; Start 09/15/18 at 02:30 Ondansetron HCl (Zofran Inj) 4 mg Q6H PRN IV NAUSEA/VOMITING Last administered on 09/18/18at 20:05; Admin Dose 4 MG; Start 09/15/18 at 02:30 Acetaminophen (Tylenol Tab) 650 mg Q6H PRN PO .PAIN 1-3 OR TEMP Last administered on 09/16/18at 18:47; Admin Dose 650 MG; Start 09/15/18 at 02:30 Acetaminophen (Tylenol Supp) 650 mg Q6H PRN [place] .PAIN 1-3 OR TEMP; Start 09/15/18 at 02:30 Docusate Sodium (Colace) 100 mg Q12H PRN PO .CONSTIPATION; Start 09/15/18 at 02:30 Magnesium Hydroxide (Milk Of Mag) 30 ml DAILY PRN PO .CONSTIPATION; Start 09/15/18 at 02:30 Bisacodyl (Dulcolax) 5 mg DAILY PRN PO .CONSTIPATION; Start 09/15/18 at 02:30 Isosorbide Mononitrate (Imdur) 30 mg DAILY PO Last administered on 09/19/18at 08:19; Admin Dose 30 MG; Start 09/16/18 at 09:00 Ranolazine (Ranexa) 500 mg Q12 PO Last administered on 09/19/18at 08:18; Admin Dose 500 MG; Start 09/16/18 at 09:00 Insulin Aspart (Novolog Insulin Pen) NOVOLOG *MILD* ALGORITHM WITH MEALS BEDTIME SC Last administered on 09/19/18at 17:41; Admin Dose 1 UNIT; Start 09/16/18 at 12:30 Potassium Chloride (Klor-Con 20) 20 meq BID PO Last administered on 09/19/18at 08:18; Admin Dose 20 MEQ; Start 09/16/18 at 21:00 Miscellaneous Information 1 ea NOTE XX ; Start 09/16/18 at 12:30 Glucose (Glutose) 15 gm Q15M PRN PO DECREASED GLUCOSE; Start 09/16/18 at 12:30 Glucose (Glutose) 22.5 gm Q15M PRN PO DECREASED GLUCOSE; Start 09/16/18 at 12:30 Dextrose (D50w Syringe) 25 ml Q15M PRN IV DECREASED GLUCOSE; Start 09/16/18 at 12:30 Dextrose (D50w Syringe) 50 ml Q15M PRN IV DECREASED GLUCOSE; Start 09/16/18 at 12:30 Glucagon (Glucagen) 1 mg Q15M PRN IM DECREASED GLUCOSE; Start 09/16/18 at 12:30 Glucose (Glutose) 15 gm Q15M PRN BUCCAL DECREASED GLUCOSE; Start 09/16/18 at 12:30 Diagnostic Test (Pha) (Accu-Chek) 1 ea 02 XX ; Start 09/17/18 at 02:00 Pentoxifylline (Trental) 400 mg DAILY PO Last administered on 09/19/18at 08:18; Admin Dose 400 MG; Start 09/18/18 at 09:00 KARSON HERNANDEZ Sep 19, 2018 19:57
[2018-09-19 20:09] VITALS: BP 105/78; PULSE 88; RESP 18
[2018-09-19] MEDS: ONDANSETRON 4 MG INJ IV PRN (22:03)
[2018-09-19] MEDS: ATORVASTATIN 80 MG TAB PO SCH (22:11)
[2018-09-20] MEDS: ACCUCHECK AT 2AM (Patients on SS coverage) XX SCH (02:00)
[2018-09-20 02:22] VITALS: BP 111/76; PULSE 91; RESP 17
[2018-09-20] MEDS: PANTOPRAZOLE (EC) 40 MG TAB PO SCH (05:51)
[2018-09-20] MEDS: FUROSEMIDE 40 MG TAB PO SCH (05:51)
[2018-09-20 07:48] VITALS: BP 109/75; PULSE 86; RESP 18
[2018-09-20] MEDS: INSULIN ASPART [NOVOLOG] 3 ML PEN SC SCH ×2 (08:00→12:30)
[2018-09-20] MEDS: NATEGLINIDE 60 MG TAB PO SCH ×2 (08:33→13:56)
[2018-09-20] MEDS: APIXABAN 5 MG TABLET PO SCH (09:38)
[2018-09-20] MEDS: RANOLAZINE (SR) 500 MG TAB PO SCH (09:38)
[2018-09-20] MEDS: PENTOXIFYLLINE (SR) 400 MG TAB PO SCH (09:39)
[2018-09-20] MEDS: CLOPIDOGREL 75 MG TAB PO SCH (09:40)
[2018-09-20] MEDS: ALLOPURINOL 100 MG TAB PO SCH (09:40)
[2018-09-20] MEDS: POTASSIUM CHLORIDE (SR) 20 MEQ TAB PO SCH (09:41)
[2018-09-20] MEDS: ISOSORBIDE MONONITRATE(SR)30 MG TAB PO SCH (09:41)
--- NOTE | 2018-09-20 10:00 | CONS ---
Consult Date/Type/Reason Admit Date/Time Sep 16, 2018 at 17:01 Initial Consult Date Requesting Provider: HAWA DRAKE MD Date/Time of Note DATE: 09/20/18 TIME: 09:55 Subjective NO acute events - pt stable - has reasonable indication for ICD - unfortunately, molder labels got flooded today and there is no availability not till the end of the week - pt hemodynamically stabke and I think will be reasonable for outp ICD, unless till in the hospital by next week - will discuss with primary team and Dr. Nagy. ROS: No fever, no chills, no nausea, no vomiting, no diarrhea/constipation No recent weight changes No chest pain, no PND, no orthopnea - Class II CHF No thirst, no heat or cold intolerance Objective Vitals Vital Signs Date Temp Pulse Resp B/P (MAP) Pulse Ox O2 O2 Flow FiO2 Time Delivery Rate 09/20/18 97.6 86 18 109/75 97 07:48 (86) 09/19/18 Room Air 14:23 Intake and Output 09/19/18 09/19/18 09/20/18 1515:00 23:00 07:00 IntakeIntake Total 840 ml 700 ml 50 ml OutputOutput Total 1400 ml 450 ml BalanceBalance -560 ml 250 ml 50 ml Exam General: WN/WD/NAD, AOx 3 HEENT: Unicetric/atraumatic/EOMI ( follows commands) NECK: JVD elevated, no thyromegaly Lymph: no lymphadenopathy HEART: regular with no S3, II/ systolic murmur at apex, PMI L LUNGS: Coarse sounds ABD: soft, NT, ND, +BS : Intact Neuro: non focal SKIN: chronic changes EXT: trace edema Results/Medications Result Diagram: 09/17/18 0620 09/19/18 1414 Results 24 hrs Laboratory Tests Test 09/19/18 12:26 09/19/18 14:14 09/19/18 17:36 09/19/18 22:01 Bedside Glucose 126 148 118 Sodium Level 132 L Potassium Level 3.7 Chloride Level 95 L Carbon Dioxide Level 24 Anion Gap 13 Blood Urea Nitrogen 34 H Creatinine 1.65 H Est Glomerular 44 L Filtrat Rate mL/min Glucose Level 175 Calcium Level 8.8 Total Bilirubin 0.8 Direct Bilirubin 0.00 Indirect Bilirubin 0.8 Aspartate Amino 18 Transf (AST/SGOT) Alanine 19 Aminotransferase (AL T/SGPT) Alkaline Phosphatase 117 Total Protein 6.9 Albumin 3.4 Globulin 3.50 H Albumin/Globulin 0.97 Ratio Lipase 72 Test 09/20/18 08:25 Bedside Glucose 123 Home Meds Active Scripts [Ranolazine (Sr)] 500 MG TABSR No Conflict Check, 500 MG PO Q12 for 30 Days Prov:MEHREEN HILLMAN 09/18/18 Pentoxifylline* (Pentoxifylline*) 400 Mg Tablet.sa, 400 MG PO DAILY for 30 Days Prov:MEHRENE HILLMAN 09/18/18 Allopurinol* (Allopurinol*) 100 Mg Tablet, 100 MG PO DAILY for 30 Days, TAB Prov:MEHREEN HILLMAN 09/10/18 Potassium Chloride* (K-Dur*) 20 Meq Tab.prt.sr, 40 MEQ PO BID for 30 Days Prov:MEHREEN HILLMAN 09/10/18 Reported Medications Cholecalciferol (Vitamin D3) (Vitamin D3) 5,000 Unit Tab.rapdis, 5000 UNIT PO DAILY 09/14/18 Nateglinide* (Nateglinide*) 60 Mg Tablet, 60 MG PO AC MEALS, TAB 09/14/18 Nitroglycerin* (Nitrostat*) 0.4 Mg Tab.subl, 0.4 MG SL Q5MIN PRN for CHEST PAIN, BOTTLE 09/14/18 Pantoprazole* (Pantoprazole*) 40 Mg Tablet.dr, 40 MG PO DAILY for 30 Days, #30 09/07/18 Apixaban* (Eliquis*) 5 Mg Tablet, 5 MG PO BID, TAB 07/05/18 Atorvastatin* (Atorvastatin*) 80 Mg Tablet, 80 MG PO QHS, #30 TAB 07/05/18 Hydralazine Hcl* (Hydralazine Hcl*) 10 Mg Tablet, 10 MG PO Q8, #90 TAB HOLD IF SBP<100 07/05/18 Metolazone* (Metolazone*) 5 Mg Tablet, 2.5 MG PO DAILY, TAB 07/05/18 Furosemide* (Furosemide*) 40 Mg Tablet, 40 MG PO BID, TAB 07/05/18 Carvedilol* (Carvedilol*) 3.125 Mg Tablet, 3.125 MG PO BID, #60 TAB 07/05/18 Isosorbide Mononitrate* (Isosorbide Mononitrate*) 20 Mg Tablet, 20 MG PO DAILY, TAB 07/05/18 Clopidogrel Bisulfate* (Clopidogrel Bisulfate*) 75 Mg Tablet, 75 MG PO DAILY, #30 TAB 07/05/18 Discontinued Scripts Pentoxifylline* (Pentoxifylline*) 400 Mg Tablet.sa, 400 MG PO TID for 90 Days Prov:KARMEN HILLMANA 09/10/18 Medications Current Medications Allopurinol (Zyloprim) 100 mg DAILY PO Last administered on 09/20/18 09:40; Admin Dose 100 MG; Start 09/15/18 at 09:00 Apixaban (Eliquis) 5 mg BID PO Last administered on 09/20/18at 09:38; Admin Dose 5 MG; Start 09/15/18 at 09:00 Atorvastatin Calcium (Lipitor) 80 mg QHS PO Last administered on 09/19/18at 22:11; Admin Dose 80 MG; Start 09/15/18 at 21:00 Carvedilol (Coreg) 3.125 mg BID PO Last administered on 09/19/18at 22:12; Admin Dose 3.125 MG; Start 09/15/18 at 09:00 Clopidogrel Bisulfate (plaVIX) 75 mg DAILY PO Last administered on 09/20/18 09:40; Admin Dose 75 MG; Start 09/15/18 at 09:00 Furosemide (Lasix) 40 mg BID DIURETICS PO Last administered on 09/20/18 05:51; Admin Dose 40 MG; Start 09/15/18 at 06:00 Hydralazine HCl (Apresoline) 10 mg Q8 PO Last administered on 09/20/18 05:51; Admin Dose 10 MG; Start 09/15/18 at 06:00 Nateglinide (Starlix) 60 mg AC MEALS PO Last administered on 09/20/18 08:33; Admin Dose 60 MG; Start 09/15/18 at 07:00 Pantoprazole (Protonix Tab) 40 mg DAILY@0600 PO Last administered on 09/20/18 05:51; Admin Dose 40 MG; Start 09/15/18 at 06:00 IV Flush (NS 3 ml) 3 ml PER PROTOCOL IV ; Start 09/15/18 at 02:30 Ondansetron HCl (Zofran Inj) 4 mg Q6H PRN IV NAUSEA/VOMITING Last administered on 09/19/18at 22:03; Admin Dose 4 MG; Start 09/15/18 at 02:30 Acetaminophen (Tylenol Tab) 650 mg Q6H PRN PO .PAIN 1-3 OR TEMP Last administered on 09/16/18at 18:47; Admin Dose 650 MG; Start 09/15/18 at 02:30 Acetaminophen (Tylenol Supp) 650 mg Q6H PRN [place] .PAIN 1-3 OR TEMP; Start at 02:30 Docusate Sodium (Colace) 100 mg Q12H PRN PO .CONSTIPATION; Start 09/15/18 at 02:30 Magnesium Hydroxide (Milk Of Mag) 30 ml DAILY PRN PO .CONSTIPATION; Start 09/15/18 at 02:30 Bisacodyl (Dulcolax) 5 mg DAILY PRN PO .CONSTIPATION; Start 09/15/18 at 02:30 Isosorbide Mononitrate (Imdur) 30 mg DAILY PO Last administered on 09/20/18at 09:41; Admin Dose 30 MG; Start 09/16/18 at 09:00 Ranolazine (Ranexa) 500 mg Q12 PO Last administered on 09/20/18at 09:38; Admin Dose 500 MG; Start 09/16/18 at 09:00 Insulin Aspart (Novolog Insulin Pen) NOVOLOG *MILD* ALGORITHM WITH MEALS BEDTIME SC Last administered on 09/19/18at 17:41; Admin Dose 1 UNIT; Start 09/16/18 at 12:30 Potassium Chloride (Klor-Con 20) 20 meq BID PO Last administered on 09/20/18at 09:41; Admin Dose 20 MEQ; Start 09/16/18 at 21:00 Miscellaneous Information 1 ea NOTE XX ; Start 09/16/18 at 12:30 Glucose (Glutose) 15 gm Q15M PRN PO DECREASED GLUCOSE; Start 09/16/18 at 12:30 Glucose (Glutose) 22.5 gm Q15M PRN PO DECREASED GLUCOSE; Start 09/16/18 at 12:30 Dextrose (D50w Syringe) 25 ml Q15M PRN IV DECREASED GLUCOSE; Start 09/16/18 at 12:30 Dextrose (D50w Syringe) 50 ml Q15M PRN IV DECREASED GLUCOSE; Start 09/16/18 at 12:30 Glucagon (Glucagen) 1 mg Q15M PRN IM DECREASED GLUCOSE; Start 09/16/18 at 12:30 Glucose (Glutose) 15 gm Q15M PRN BUCCAL DECREASED GLUCOSE; Start 09/16/18 at 12:30 Diagnostic Test (Pha) (Accu-Chek) 1 ea 02 XX ; Start 09/17/18 at 02:00 Pentoxifylline (Trental) 400 mg DAILY PO Last administered on 09/20/18at 09:39; Admin Dose 400 MG; Start 09/18/18 at 09:00 Assessment/Plan Hospital Course (Demo Recall) 1. Cardiomyopathy - has reasonable indication for ICD - unfortunately, molder labels got flooded today and there is no availability not till the end of the week - pt hemodynamically stabke and I think will be reasonable for outp ICD, unless till in the hospital by next week - will discuss with primary team and Dr. Nagy. 1. Chest pain, assess for acute coronary syndrome with negative troponins x3 and recent stenting 05/2018, known occlusions of the patient's distal LAD chronically.-neg trop x 3 with now improved chest pain on current regimen - no further intervention planned 2. Cardiomyopathy with severely depressed left ventricular ejection fraction - ICD to follow. 3. Congestive heart failure, systolic, acute on chronic.-significantly improved volume status - better now. 4. Hypertension with borderline hypotension. 5. Hand pain. 6. Dyslipidemia. 7. History of deep venous thrombosis lower extremities, on Eliquis. 8. Peripheral arterial disease. 9. Chronic kidney disease. OSCAR NI MD Sep 20, 2018 10:00
[2018-09-20 13:43] VITALS: BP 96/85; PULSE 80; RESP 18
[2018-09-20] MEDS: ACETAMINOPHEN 325 MG TAB PO PRN (13:56)
--- NOTE | 2018-09-20 14:56 | QN ---
Documentation Comment Feels bettter nausea has resolved see dc summary OMAR ESPINOSA MD Sep 20, 2018 14:56
--- NOTE | 2018-09-20 14:57 | PDOCDIS ---
Discharge Instructions DIAGNOSIS Discharge Diagnosis CHF GOUT CONDITION [id number] Patient Condition: [id number] Fair ACTIVITY: [id number] Activity Restrictions: [id number] Slowly Increase Activity Rest between Activity Avoid heavy lifting FOLLOW UP/APPOINTMENTS Follow-up Plan fu Dr Dodson on this at 9 am OMAR Gonzalez MD Sep 20, 2018 14:57
[2018-09-20] MEDS ORDERED: HYDR-4011 PO (14:59)
[2018-09-20] MEDS ORDERED: ONDA4TAB13 PO (14:59)
--- NOTE | 2018-09-21 11:44 | DS ---
DATE OF ADMISSION: 09/16/2018 DATE OF DISCHARGE: 09/20/2018 REASON FOR HOSPITALIZATION: The discharge was being held, as the patient was having some nausea and vomiting. LFTs were checked that were normal. Lipase was checked, was normal. HOSPITAL COURSE: The patient was initially thought to have an AICD; however, the patient's condition got stabilized. There was flooding in the cardiac catheterization lab, and there was no availabilit y until the end of the week. The patient was asymptomatic. Nausea had improved and currently stable to be discharged home to follow up with Dr. Dodson on this Wednesday at 9:00 a.m. DISCHARGE MEDICATIONS: 1. [place] 1 tablet p.o. q.6 h. p.r.n. pain. 2. Zofran p.r.n. nausea and vomiting. Dictated By: OMAR FERRER/MAX Conf#: [id number] DID#: [id number] CC: HAWA DRAKE MD;*End*
== END 2018-09-20 16:48 | disposition home or self-care (01) | DRG 291 ==
LOC: E/R 17:37 → TEL 21:33 → OBSVTOIN 09-16 17:01 → 2NE 09-18 23:02
PROVIDERS: ADMIT Internal Medicine Nephrology; ATTEND Internal Medicine Nephrology
DX: I13.0 Hypertensive heart and chronic kidney disease with heart failure and stage 1 through stage 4 chronic kidney disease, or unspecified chronic kidney disease (principal); I50.23 Acute on chronic systolic (congestive) heart failure; E87.6 Hypokalemia; M10.9 Gout, unspecified; E78.5 Hyperlipidemia, unspecified; R11.2 Nausea with vomiting, unspecified; I25.10 Atherosclerotic heart disease of native coronary artery without angina pectoris; I25.5 Ischemic cardiomyopathy; E11.22 Type 2 diabetes mellitus with diabetic chronic kidney disease; E11.51 Type 2 diabetes mellitus with diabetic peripheral angiopathy without gangrene; I25.2 Old myocardial infarction; N18.3 Chronic kidney disease, stage 3 (moderate); Z79.02 Long term (current) use of antithrombotics/antiplatelets; Z86.718 Personal history of other venous thrombosis and embolism; Z95.5 Presence of coronary angioplasty implant and graft
CPT/HCPCS: 36415; 71045; 80048; 80053; 82550; 82553; 82962; 83036; 83690; 83735; 83880; 84484; 85025; 93005; 93926; G0378; J1815; J2405; J3475